=== PATIENT | female | born 1990 | race Caucasian/White ===

== ENCOUNTER 2023-03-15 10:56 | Outpatient (RCR) | payer OTHER, SELFPAY ==
[2023-03-15 11:37] LABS: HCG Quantitative 773 mIU/mL
[2023-03-17 13:32] LABS: HCG Quantitative 878 mIU/mL
== END 2023-03-19 17:34 | disposition home or self-care (01) ==
LOC: LAB 10:56
PROVIDERS: PCP Family Medicine; Visit Provider Obstetrics & Gynecology
DX: N91.2 Amenorrhea, unspecified (principal)
CPT/HCPCS: 36415; 84702

== ENCOUNTER 2023-03-19 13:56 | Day surgery (SDC) | payer OTHER, SELFPAY ==
[2023-03-19] VITALS (14 sets, daily range): BP systolic 114–138; BP diastolic 66–82; PULSE 64–96; RESP 13–26; TEMP 36.3–36.8; O2SAT 93–100; BMI 24.4
[2023-03-19 14:59] LABS: Basophils Percent Auto 0.6 % (0.2-2.0); Eosinophils Absolute Auto 0.1 10^3/uL (0.0-0.7); Eosinophils Percent Auto 1.7 % (0.9-7.0); Hematocrit 43.2 % (36.0-48.0); Immature Granulocytes Abs Auto 0.04 10^3/uL (0.00-0.03); Immature Granulocytes Pct Auto 0.6 % (0.0-0.5); Lymphocytes Absolute Auto 1.7 10^3/uL (1.2-3.8); Lymphocytes Percent Auto 24.6 % (20.5-60.0); Mean Corpuscular HGB Conc 34.7 g/dL (29.9-35.2); Mean Corpuscular Hemoglobin 33.6 pg (26.7-34.0); Mean Corpuscular Volume 96.9 fL (81.0-99.0); Mean Platelet Volume 9.1 fL (9.5-13.5); Monocytes Absolute Auto 0.6 10^3/uL (0.3-0.8); Monocytes Percent Auto 8.3 % (1.7-12.0); Neutrophils Absolute Auto 4.5 10^3/uL (1.4-6.5); Neutrophils Percent Auto 64.2 % (43.0-75.0); Platelet Count 318 10^3/uL (150-450); Red Blood Count 4.46 10^6/uL (4.20-5.40); Red Cell Distribution Width 12.8 % (11.0-15.0)
--- NOTE | 2023-03-19 15:00 | US_ITS ---
The [address] [address] Patient Name: JASMIN LUONG MRN: [id number] date: 1990 Sex: F Assigned Patient Location: ER Current Patient Location: ER Accession/Order Number: [id number] Exam Date: 03/19/2023 15:00 Report Date: 03/19/2023 15:50 At the request of: MATILDE DAVIS Procedure: US OB transvaginal EXAMINATION: US OB transvaginal HISTORY: Pelvic pain, 5 wks preg COMPARISON: No relevant comparison available. FINDINGS: GESTATIONAL SAC: Absent from endometrial cavity. YOLK SAC: Absent from endometrial cavity. POLE: Absent. CARDIAC: Absent. UTERUS: Homogeneous endometrium 7 mm in thickness. OVARIES: Right: Not seen. No suspicious adnexal findings. Left: Heterogeneous left adnexal mass 3.0 x 2.5 x 2.1 cm with questionable gestational sac and yolk sac. CUL-DE-SAC: No free fluid. OTHER: None. AGE BY LMP: 7 weeks 0 days MEGAN BY LMP: 11/05/2023 AGE BY US CRL: Not applicable MEGAN BY US CRL: US/US OB transvaginal IMPRESSION: 1. Heterogeneous left adnexal mass 3.0 cm in diameter which may contain an irregular gestational sac and small yolk sac. 2. Endometrium is not significantly thickened, only 7 mm, which weighs against . Correlate with patient's beta hCG. A left adnexal findings favor ectopic , ruptured hemorrhagic cyst could contribute to this appearance. Findings discussed with emergency department at time of dictation. Electronically authenticated by: CORI MENDIETA Date: 03/19/2023 15:50
[2023-03-19 15:32] LABS: HCG Quantitative 1345 mIU/mL
--- NOTE | 2023-03-19 15:55 | ED_ITS ---
Documented by User: LE Hunter 03/19/23 17:25 HPI - Abdominal Pain General Chief Complaint: Abdominal Pain Stated Complaint: ISSUES 5 TO 6 WKS Time Seen by Provider: 03/19/23 14:27 Source: friend Mode of arrival: walk-in Limitations: no limitations History of Present Illness HPI narrative: patient is a 32-year-old female A2 who presents to the emergency department with left-sided pelvic pain for the last three days. She has a history of right- sided ectopic . She states that it ruptured and she required surgery. She has not had any fevers or vomiting. No medications taken prior to arrival. she has not had any vaginal bleeding. Related Data Previous Rx's Medication Instructions Recorded hydrocodone 5 mg-acetaminophen 325 1 tab PO Q4H PRN pain 4 days #16 03/19/23 mg tablet tabs ibuprofen 800 mg tablet 800 mg PO Q8H PRN pain 14 days #40 03/19/23 tabs Allergies Allergy/AdvReac Type Severity Reaction Status Date / Time Latex, Natural Rubber Allergy Severe Verified 03/19/23 14:16 Review of Systems ROS Constitutional Denies: fever or chills Ears, nose, mouth, and throat Denies: throat pain Cardiovascular Denies: chest pain Respiratory Denies: shortness of breath or cough Gastrointestinal Reports: abdominal pain; Denies: nausea or vomiting Genitourinary Reports: pelvic pain; Denies: painful urination Musculoskeletal Denies: back pain Integumentary/Breast Denies: rash Neurological Denies: headache PFSH PFSH Social History Smoking status: Heavy tobacco smoker Exam Narrative Exam Narrative: Gen.: Awake, alert, in no distress Head: Normocephalic, atraumatic ENT: Moist mucous membranes Respiratory: No respiratory distress, lungs clear bilaterally Cardio: Regular rate and rhythm Gastrointestinal: Abdomen is soft, abdomen is nondistended. Tenderness in the left lower quadrant with no pain out of proportion on exam. No guarding or rebound. No flank tenderness Extremities: Moves extremities equally Psych: Normal mood and affect Neuro: No focal neuro deficit Skin: Warm, dry, intact Constitutional Vital Signs, click to edit/add: Last Vital Signs Temp 98 F 03/19/23 14:11 Pulse 86 03/19/23 14:11 Resp 20 03/19/23 14:11 BP 129/77 03/19/23 14:11 Pulse Ox 97 03/19/23 14:11 O2 Del Method Room Air 03/19/23 14:11 Course Vital Signs Vital signs: Vital Signs Temperature 98 F 03/19/23 14:11 Pulse Rate 86 03/19/23 14:11 Respiratory Rate 20 03/19/23 14:11 Blood Pressure 129/77 03/19/23 14:11 Pulse Oximetry 97 03/19/23 14:11 Oxygen Delivery Method Room Air 03/19/23 14:11 Temperature 98 F 03/19/23 14:11 Pulse Rate 86 03/19/23 14:11 Respiratory Rate 20 03/19/23 14:11 Blood Pressure 129/77 03/19/23 14:11 Pulse Oximetry 97 03/19/23 14:11 Oxygen Delivery Method Room Air 03/19/23 14:11 MDM - Abdominal Pain MDM Narrative Medical decision making narrative: patient's workup was initiated from the lobby. Lab studies show quantitative hCG level 1384 with a stable hemoglobin of 15.0. Patient was given IV fluids, morphine, Zofran for pain control. Her blood pressure is stable, she has no fevers or tachycardia. Abdomen is soft and benign in the Emergency Room, ultrasound was performed which was reviewed by the radiologist. I spoke with Dr. Rodriguez who believes the ultrasound findings are consistent with a left-sided ectopic . Patient sees Dr. García for [employer] care, he was contacted for discussion about the patient's case. He is in agreement that the patient should be admitted and will be taken to surgery. Type and screen, coagulation studies were ordered for the patient. She is stable at time of admission to surgery. Critical care time thirty-five minutes. Patient was evaluated by Dr. santo prior to admission. Medical Records Attestation: I reviewed the patient's medical records. Lab Data Attestation: I reviewed the patient's lab results. Labs: Lab Results 03/19/23 03/19/23 Range/Units 14:45 16:52 WBC 7.0 (4.0-11.0) 10^3/uL RBC 4.46 (4.20-5.40) 10^6/uL Hgb 15.0 (12.0-16.0) g/dL Hct 43.2 (36.0-48.0) % MCV 96.9 (81.0-99.0) fL MCH 33.6 (26.7-34.0) pg MCHC 34.7 (29.9-35.2) g/dL RDW 12.8 (11.0-15.0) % Plt Count 318 (150-450) 10^3/uL MPV 9.1 L (9.5-13.5) fL Neut % (Auto) 64.2 (43.0-75.0) % Lymph % (Auto) 24.6 (20.5-60.0) % Van Zandt % (Auto) 8.3 (1.7-12.0) % Eos % (Auto) 1.7 (0.9-7.0) % Baso % (Auto) 0.6 (0.2-2.0) % Neut # (Auto) 4.5 (1.4-6.5) 10^3/uL Lymph # (Auto) 1.7 (1.2-3.8) 10^3/uL [place] Zandt # (Auto) 0.6 (0.3-0.8) 10^3/uL Eos # (Auto) 0.1 (0.0-0.7) 10^3/uL Baso # (Auto) 0.0 (0.0-0.1) 10^3/uL Abs Immat Gran (auto) 0.04 H (0.00-0.03) 10^3/uL Imm/Tot Granulo (auto) 0.6 H (0.0-0.5) % PT 10.3 (9.0-11.6) sec INR 0.97 APTT 27.6 (22.3-36.2) sec HCG, Quant 1345 mIU/mL Blood Type B Positive Antibody Screen Negative Imaging Data US - abdomen: Attestation: I have reviewed the pertinent imaging results. Radiologist's impression: Procedure: US OB transvaginal EXAMINATION: US OB transvaginal HISTORY: Pelvic pain, 5 wks preg COMPARISON: No relevant comparison available. FINDINGS: GESTATIONAL SAC: Absent from endometrial cavity. YOLK SAC: Absent from endometrial cavity. POLE: Absent. CARDIAC: Absent. UTERUS: Homogeneous endometrium 7 mm in thickness. OVARIES: Right: Not seen. No suspicious adnexal findings. Left: Heterogeneous left adnexal mass 3.0 x 2.5 x 2.1 cm with questionable gestational sac and yolk sac. CUL-DE-SAC: No free fluid. OTHER: None. AGE BY LMP: 7 weeks 0 days MEGAN BY LMP: 11/05/2023 AGE BY US CRL: Not applicable MEGAN BY US CRL: IMPRESSION: 1. Heterogeneous left adnexal mass 3.0 cm in diameter which may contain an irregular gestational sac and small yolk sac. 2. Endometrium is not significantly thickened, only 7 mm, which weighs against . Correlate with patient's beta hCG. A left adnexal findings favor ectopic , ruptured hemorrhagic cyst could contribute to this appearance. Discharge Plan Discharge Chief Complaint: Abdominal Pain Clinical Impression: Ectopic , Pelvic pain Patient Disposition: Admitted As Inpatient Time of Disposition Decision: 17:25 Condition: Good Documented by User: Brock Santo MD 03/19/23 19:32 HPI - Abdominal Pain General Chief Complaint: Abdominal Pain Stated Complaint: ISSUES 5 TO 6 WKS Time Seen by Provider: 03/19/23 14:27 Related Data Previous Rx's Medication Instructions Recorded hydrocodone 5 mg-acetaminophen 325 1 tab PO Q4H PRN pain 4 days #16 03/19/23 mg tablet tabs ibuprofen 800 mg tablet 800 mg PO Q8H PRN pain 14 days #40 03/19/23 tabs Allergies Allergy/AdvReac Type Severity Reaction Status Date / Time Latex, Natural Rubber Allergy Severe Verified 03/19/23 14:16 PFSH PFSH Social History Smoking status: Heavy tobacco smoker Exam Constitutional Vital Signs, click to edit/add: Last Vital Signs Temp 98 F 03/19/23 14:11 Pulse 86 03/19/23 14:11 Resp 20 03/19/23 14:11 BP 129/77 03/19/23 14:11 Pulse Ox 97 03/19/23 14:11 O2 Del Method Room Air 03/19/23 14:11 Course Vital Signs Vital signs: Vital Signs Temperature 98 F 03/19/23 14:11 Pulse Rate 86 03/19/23 14:11 Respiratory Rate 20 03/19/23 14:11 Blood Pressure 129/77 03/19/23 14:11 Pulse Oximetry 97 03/19/23 14:11 Oxygen Delivery Method Room Air 03/19/23 14:11 Temperature 98 F 03/19/23 14:11 Pulse Rate 86 03/19/23 14:11 Respiratory Rate 20 03/19/23 14:11 Blood Pressure 129/77 03/19/23 14:11 Pulse Oximetry 97 03/19/23 14:11 Oxygen Delivery Method Room Air 03/19/23 14:11 MDM - Abdominal Pain MDM Narrative Medical decision making narrative: patient's workup was initiated from the lobby. Lab studies show quantitative hCG level 1384 with a stable hemoglobin of 15.0. Patient was given IV fluids, morphine, Zofran for pain control. Her blood pressure is stable, she has no fevers or tachycardia. Abdomen is soft and benign in the Emergency Room, ultrasound was performed which was reviewed by the radiologist. I spoke with Dr. Rodriguez who believes the ultrasound findings are consistent with a left-sided ectopic . Patient sees Dr. García for [employer] care, he was contacted for discussion about the patient's case. He is in agreement that the patient should be admitted and will be taken to surgery. Type and screen, coagulation studies were ordered for the patient. She is stable at time of admission to surgery. Critical care time thirty-five minutes. Critical care time 35 minutes exclusive from separate billable procedures that were performed. The following was considered in the determination of critical care but not limited to the level of medical decision making, intensive cardiac and/or respiratory monitoring, frequent vital sign monitoring, evaluation of laboratory studies, evaluation of radiographic studies, oxygen monitoring, and constant monitoring and speaking to family at bedside Patient was evaluated by Dr. Santo prior to admission. Multiple bedside visits were made by Dr. Santo and Kim. Lab Data Labs: Lab Results 03/19/23 03/19/23 Range/Units 14:45 16:52 WBC 7.0 (4.0-11.0) 10^3/uL RBC 4.46 (4.20-5.40) 10^6/uL Hgb 15.0 (12.0-16.0) g/dL Hct 43.2 (36.0-48.0) % MCV 96.9 (81.0-99.0) fL MCH 33.6 (26.7-34.0) pg MCHC 34.7 (29.9-35.2) g/dL RDW 12.8 (11.0-15.0) % Plt Count 318 (150-450) 10^3/uL MPV 9.1 L (9.5-13.5) fL Neut % (Auto) 64.2 (43.0-75.0) % Lymph % (Auto) 24.6 (20.5-60.0) % Van Zandt % (Auto) 8.3 (1.7-12.0) % Eos % (Auto) 1.7 (0.9-7.0) % Baso % (Auto) 0.6 (0.2-2.0) % Neut # (Auto) 4.5 (1.4-6.5) 10^3/uL Lymph # (Auto) 1.7 (1.2-3.8) 10^3/uL [place] Zandt # (Auto) 0.6 (0.3-0.8) 10^3/uL Eos # (Auto) 0.1 (0.0-0.7) 10^3/uL Baso # (Auto) 0.0 (0.0-0.1) 10^3/uL Abs Immat Gran (auto) 0.04 H (0.00-0.03) 10^3/uL Imm/Tot Granulo (auto) 0.6 H (0.0-0.5) % PT 10.3 (9.0-11.6) sec INR 0.97 APTT 27.6 (22.3-36.2) sec HCG, Quant 1345 mIU/mL Blood Type B Positive Antibody Screen Negative Discharge Plan Discharge Chief Complaint: Abdominal Pain Clinical Impression: Ectopic , Pelvic pain Patient Disposition: Admitted As Inpatient Time of Disposition Decision: 17:25 Condition: Good
[2023-03-19] MEDS: 0.9 % SODIUM CHLORIDE 1,000 ML 1000 ML IV (16:05)
[2023-03-19] MEDS: MORPHINE SULFATE 4 MG/ML VIAL IV (16:05)
[2023-03-19] MEDS: ONDANSETRON PF 4 MG/2 ML VIAL IV (16:05)
[2023-03-19 17:14] LABS: INR 0.97; Partial Thromboplastin Time 27.6 sec (22.3-36.2); Prothrombin Time 10.3 sec (9.0-11.6)
[2023-03-19] MEDS: LACTATED RINGER'S SOLUTION 1,000 ML 50 ML IV (18:18)
--- NOTE | 2023-03-19 18:55 | P.ON_ITS ---
Brief Operative Note Date of procedure: 03/19/23 Pre-op diagnosis: lt adenxal mass, suspected ectopic Post-op diagnosis: same Procedure: NAME OF PROCEDURE: [diagnostic laparoscopy with removal of ectopic ] PROCEDURE: The patient was taken back to the Operating Room where she was placed in dorsal lithotomy position after given general anesthesia. The patient was prepped and draped in normal sterile fashion. A sponge stick was placed into the patient's vagina. Attention was turned to the patient's abdomen, where a small umbilical incision was made. The fascia was tented using Sony clamps and the fascia was entered sharply. Confirmation of intraabdominal placement of the 10 mm port was confirmed under direct visualization using a laparoscope. The patient's abdomen was then insufflated using CO2 gas with approximately 4 liters. A second and third ports was placed right and left laterally, this was done under direct visualization with a 5 mm port. Survey of the patient's abdomen demonstrated normal liver and gallbladder. Survey of the patient's pelvic anatomy demonstrated normal appearing rt and lt ovary and normal appearing rt tube, lt tube was absent, ectopic seen coming and explused from lt cornu region of uterus, no rememant could be appreciated in that region of uterus. uterus was normal in appearance. No endometrial implants could be noted, no evidence of any pelvic disease was seen, normal appearing pelvic cavity. All instruments were removed from the patient's abdomen. products were removed using forceps and suction. The patient's abdomen was deinsufflated of CO2 gas. The patient tolerated the procedure well. Sponge stick was removed from the patient's vagina. The patient's infraumbilical fascia was closed using #0 Vicryl on a GI needle. The patient's skin was closed laterally and infraumbilically using 4-0 Vicryl. The patient tolerated the procedure well. Sponge, lap and needle counts were correct x 2. The patient was taken to Recovery Room in stable condition.Cli ps from prior surgery noted adhered to bladder, the clips were grasped and gently removed Anesthesia: SARAI Surgeon: Lester García Attraction Attendant: Gisella Serra Estimated blood loss (mL): 30 Pathology: other (poc) Condition: stable Disposition: PACU
[2023-03-19] MEDS: KETOROLAC TROMETHAMINE 30 MG/ML VIAL IVP (19:32)
[2023-03-19] MEDS: HYDROCODONE/ACETAMINOPHEN 5-325 MG TABLET 1 TAB PO (19:35)
== END 2023-03-19 17:19 ==
LOC: ER 17:25 → MS 17:37 → ER 23:03 → SURGOUT 23:06
PROVIDERS: Physician Assistant; Emergency Provider Emergency Medicine; PCP Family Medicine; Visit Provider Obstetrics & Gynecology
PROC: (CPT 59150; principal; 2023-03-19 17:30)
DX: O00.80 Other ectopic pregnancy without intrauterine pregnancy (principal); F17.210 Nicotine dependence, cigarettes, uncomplicated
CPT/HCPCS: 59150; 36415; 76817; 81003; 84702; 85025; 85610; 85730; 86850; 86900; 86901; 88305; 96374; 96375; 99285; J2704

== ENCOUNTER 2023-06-07 13:28 | Outpatient (OUT) | payer OTHER, SELFPAY ==
--- NOTE | 2023-06-07 13:31 | US_ITS ---
[address] [address] Patient Name: JASMIN LUONG MRN: [id number] date: 1990 Sex: F Assigned Patient Location: US Current Patient Location: US Accession/Order Number: [id number] Exam Date: 06/07/2023 13:32 Report Date: 06/07/2023 14:15 At the request of: EULALIA MAXWELL Procedure: US OB transvaginal EXAMINATION: US OB transvaginal HISTORY: MISSED MENSES COMPARISON: 03/19/2023 FINDINGS: Viera intrauterine gestation Gestational sac: 2.82 cm, 7 weeks 4 days CRL: 1.29 cm, 7 weeks 3 days Yolk sac: 4.4 mm Heart rate: 141 bpm Cervix: Closed, 4.5 cm The uterus is anteverted The right ovary is normal. The left ovary is not visualized Clinical age: 8 weeks 2 days Clinical MEGAN: 01/15/2024 Clinical age: 7 weeks 3 days Ultrasound MEGAN: 01/21/2024 US/US OB transvaginal IMPRESSION: Viable viera intrauterine gestation measuring 7 weeks 3 days Electronically authenticated by: CATRACHITA RENE Date: 06/07/2023 14:15
== END 2023-06-07 13:29 | disposition home or self-care (01) ==
LOC: US 13:29
PROVIDERS: PCP Family Medicine; Visit Provider Obstetrics & Gynecology
DX: Z34.91 Encounter for supervision of normal pregnancy, unspecified, first trimester (principal)
CPT/HCPCS: 76817

== ENCOUNTER 2023-06-16 07:35 | Outpatient (OUT) | payer OTHER, SELFPAY ==
[2023-06-16 08:18] LABS: Basophils Percent Auto 0.4 % (0.2-2.0); Eosinophils Absolute Auto 0.1 10^3/uL (0.0-0.7); Eosinophils Percent Auto 1.1 % (0.9-7.0); Hematocrit 39.6 % (36.0-48.0); Hemoglobin 13.8 g/dL (12.0-16.0); Immature Granulocytes Abs Auto 0.04 10^3/uL (0.00-0.03); Immature Granulocytes Pct Auto 0.4 % (0.0-0.5); Lymphocytes Absolute Auto 1.4 10^3/uL (1.2-3.8); Lymphocytes Percent Auto 14.8 % (20.5-60.0); Mean Corpuscular HGB Conc 34.8 g/dL (29.9-35.2); Mean Corpuscular Hemoglobin 34.2 pg (26.7-34.0); Mean Corpuscular Volume 98.3 fL (81.0-99.0); Mean Platelet Volume 10.6 fL (9.5-13.5); Monocytes Absolute Auto 0.5 10^3/uL (0.3-0.8); Monocytes Percent Auto 5.4 % (1.7-12.0); Neutrophils Absolute Auto 7.3 10^3/uL (1.4-6.5); Neutrophils Percent Auto 77.9 % (43.0-75.0); Platelet Count 226 10^3/uL (150-450); Red Blood Count 4.03 10^6/uL (4.20-5.40); Red Cell Distribution Width 11.8 % (11.0-15.0); White Blood Count 9.3 10^3/uL (4.0-11.0)
[2023-06-16 08:54] LABS: Estimated Average Glucose 85 mg/dL; Glycohemoglobin A1C 4.6 % (4.5-6.2)
[2023-06-16 08:56] LABS: Alanine Aminotransferase 20 U/L (14-59); Albumin Globulin Ratio 0.9; Albumin Level 3.5 g/dL (3.4-5.0); Alkaline Phosphatase 56 U/L (46-116); Anion Gap 14.8; Aspartate Amino Transferase 12 U/L (15-37); BUN Creatinine Ratio 15.8; Bilirubin Total 0.4 mg/dL (0.2-1.0); Calcium 8.5 mg/dL (8.5-10.1); Carbon Dioxide 23.9 mmol/L (21.0-32.0); Chloride 102 mmol/L (98-107); Chol HDL Ratio 2.3; Cholesterol 162 mg/dL (<=200); Estimated GFR (African America >60 (>=60); Estimated GFR (Non-African Ame >60 (>=60); Globulin 3.8 g/dL; Glucose 84 mg/dL (74-106); HDL Cholesterol 71 mg/dL (40-60); Potassium 3.7 mmol/L (3.5-5.1); Sodium 137 mmol/L (136-145); Total Protein 7.3 g/dL (6.4-8.2); Triglycerides 93 mg/dL (<=150); VLDL CHOLESTEROL 18.6 mg/dL
[2023-06-16 09:03] LABS: Thyroid Stimulating Hormone 0.632 uIU/mL (0.358-3.740)
[2023-06-17 07:07] LABS: Rubella Antibodies, IgG 1.45 index (Immune >0.99)
[2023-06-17 08:08] LABS: HBsAg Screen Negative (Negative); HCV Ab Non Reactive (Non Reactive); HIV Ab/p24 Ag Screen Non Reactive (Non Reactive)
[2023-06-17 09:07] LABS: Rapid Plasma Reagin, Quant Non Reactive titer (NonRea<1:1)
== END 2023-06-16 07:36 | disposition home or self-care (01) ==
PROVIDERS: PCP Family Medicine; Visit Provider Obstetrics & Gynecology
DX: Z00.00 Encounter for general adult medical examination without abnormal findings (principal); N91.2 Amenorrhea, unspecified
CPT/HCPCS: 36415; 80053; 80061; 83036; 84443; 85025; 86592; 86762; 86803; 86850; 86900; 86901; 87086; 87340; 87389

== ENCOUNTER 2023-08-29 16:48 | Outpatient (OUT) | payer OTHER, SELFPAY ==
--- NOTE | 2023-08-29 | US_ITS ---
[address] [address] Patient Name: JASMIN LUONG MRN: [id number] date: 1990 Sex: F Assigned Patient Location: US Current Patient Location: Accession/Order Number: [id number] Exam Date: 08/29/2023 16:52 Report Date: 08/29/2023 22:13 At the request of: EULALIA MAXWELL Procedure: US OB cervical length EXAMINATION: US OB anatomy, US OB cervical length HISTORY: ANATOMY SURVEY COMPARISON: No relevant comparison available. TECHNIQUE: Transabdominal sonographic examination was performed for obstetrical and evaluation. FINDINGS: Number: 1 Heart Rate: 168.8 bpm H.B. /min Amniotic Fluid Volume: Subjectively normal Placental Location: POSTERIOR with lower margin 0.8 cm from os. Cervix Length: 4.3 cm, closed. ANATOMY: Normal Structures -cerebellum, choroid plexus, cisterna magna, lateral cerebral ventricles, orbits, midline falx, hard palate, four-chamber heart, RVOT, LVOT, stomach, kidneys, bladder, umbilical cord insertion into abdomen, three-vessel cord, right upper extremity, left upper extremity, right lower extremity, left lower extremity. SUBOPTIMALLY SEEN: Spine - due to position ABNORMALITIES: None BIOMETRY: BPD: 4.1 cm 18 weeks 4 days ; 5% HC: 16.7 cm 19 weeks 3 days; 16% AC: 15.2 cm 20 weeks 3 days; 58% FL: 3.0 cm 19 weeks 1 days ; 14% EFW:308.2 grams; 29% FL/AC: 19.4 FL/BPD: 71.1 HC/AC: 1.1 GESTATIONAL AGE: Age by EDC: 20 weeks 0 days MEGAN by EDC: 01/16/2024 Age by current US: 19 weeks 3 days MEGAN by current US: 01/20/2024 US/US OB cervical length IMPRESSION: 1. Single live intrauterine with growth detailed above. 2. Suboptimal visualization of the spine due to position. 3. Low-lying posterior placenta. Electronically authenticated by: CORI MENDIETA Date: 08/29/2023 22:13
--- NOTE | 2023-08-29 | US_ITS ---
[address] [address] Patient Name: JASMIN LUONG MRN: [id number] date: 1990 Sex: F Assigned Patient Location: US Current Patient Location: Accession/Order Number: [id number] Exam Date: 08/29/2023 16:52 Report Date: 08/29/2023 22:13 At the request of: EULALIA MAXWELL Procedure: US OB anatomy EXAMINATION: US OB anatomy, US OB cervical length HISTORY: ANATOMY SURVEY COMPARISON: No relevant comparison available. TECHNIQUE: Transabdominal sonographic examination was performed for obstetrical and evaluation. FINDINGS: Number: 1 Heart Rate: 168.8 bpm H.B. /min Amniotic Fluid Volume: Subjectively normal Placental Location: POSTERIOR with lower margin 0.8 cm from os. Cervix Length: 4.3 cm, closed. ANATOMY: Normal Structures -cerebellum, choroid plexus, cisterna magna, lateral cerebral ventricles, orbits, midline falx, hard palate, four-chamber heart, RVOT, LVOT, stomach, kidneys, bladder, umbilical cord insertion into abdomen, three-vessel cord, right upper extremity, left upper extremity, right lower extremity, left lower extremity. SUBOPTIMALLY SEEN: Spine - due to position ABNORMALITIES: None BIOMETRY: BPD: 4.1 cm 18 weeks 4 days ; 5% HC: 16.7 cm 19 weeks 3 days; 16% AC: 15.2 cm 20 weeks 3 days; 58% FL: 3.0 cm 19 weeks 1 days ; 14% EFW:308.2 grams; 29% FL/AC: 19.4 FL/BPD: 71.1 HC/AC: 1.1 GESTATIONAL AGE: Age by EDC: 20 weeks 0 days MEGAN by EDC: 01/16/2024 Age by current US: 19 weeks 3 days MEGAN by current US: 01/20/2024 US/US OB anatomy IMPRESSION: 1. Single live intrauterine with growth detailed above. 2. Suboptimal visualization of the spine due to position. 3. Low-lying posterior placenta. Electronically authenticated by: CORI MENDIETA Date: 08/29/2023 22:13
--- OUTSIDE RECORDS SUMMARY | 2023-08-29 16:51 | XMS_ITS | CCD ---
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 Name Role Phone PATRICIA ., DR SUMMERS Admitting Unavailable HOY ., DR SUMMERS Attending Unavailable HOY ., DR SUMMERS Primary Care Unavailable HOY ., DR SUMMERS Consulting Unavailable HOY ., DR SUMMERS Admitting Unavailable HOY ., DR SUMMERS Attending Unavailable HOY ., DR SUMMERS Primary Care Unavailable HOY ., DR SUMMERS Consulting Unavailable ADDY ., HALI Admitting Unavailable ADDY ., HALI Attending Unavailable HOY ., DR SUMMERS Primary Care Unavailable ADDY ., HALI Consulting Unavailable ALISSA ., DR ESTEBAN Admitting Unavailable ALISSA ., DR ESTEBAN Attending Unavailable HOY ., DR SUMMERS Primary Care Unavailable REQUEST, DR FERNÁNDEZ LISTED Consulting Unavaila ble ALISSA ., DR ESTEBAN Admitting Unavailable ALISSA ., DR ESTEBAN Attending Unavailable HOY ., DR SUMMERS Primary Care Unavailable ALISSA ., DR ESTEBAN Consulting Unavailable ALISSA ., DR ESTEBAN Admitting Unavailable ALISSA ., DR ESTEBAN Attending Unavailable HOY ., DR SUMMERS Primary Care Unavailable ZIEBER, DR CORI Pearson Consulting Unavailable KEENAN II, BRET Consulting Unavailable ALISSA ., DR ESTEBAN Admitting Unavailable ALISSA ., DR ESTEBAN Attending Unavailable HOY ., DR SUMMERS Primary Care Unavailable ADDY ., HALI Admitting Unavailable ADDY ., HALI Attending Unavailable HOY ., DR SUMMERS Primary Care Unavailable ADDY ., HALI Consulting Unavailable ADDY ., HALI Admitting Unavailable ADDY ., HALI Attending Unavailable HOY ., DR SUMMERS Primary Care Unavailable ZIEBER, DR CORI Pearson Consulting Unavailable ADDY ., HALI Consulting Unavailable ADDY, HALI Attending Unavailable ALISSA, EULALIA Attending Unavailable Allergies Allergy Classification Reported Allergen(s) Allergy Type Date of Onset Reaction(s) Facility (3 sources) Latex Drug allergy (disorder) 01-23-2021 [facility] Repository Problems Active Problems Problem Classification Problem Date Documented Date Episodic/Chronic Asthma (1 source) Unspecified asthma, uncomplicated; Translations: [UNSPECIFIED ASTHMA UNCOMPLICATED] Onset: 10-15-2022 Chronic Immunizations and screening for infectious disease (1 source) Contact with and (suspected) exposure to infections with a predominantly sexual mode of transmission; Translations: [CONTCT W EXPOS INFECT SEXUAL TRNSMS] Onset: 10-18-2022 Episodic Menstrual disorders (4 sources) Excessive and frequent menstruation with regular cycle; Translations: [EXCESS FREQ MENSTRUATION W/REG CYCL] Onset: 11-20-2022 Chronic Other screening for suspected conditions (not mental disorders or infectious disease) (4 sources) Encounter for screening for malignant neoplasm of cervix; Translations: [ENC SCREENING MALIG NEOPLASM CERV] Onset: 10-16-2022 Episodic Unclassified (3 sources) CONTACT W/AND (SUSP) EXPOS COVID-19; Translations: [CONTACT W/AND (SUSP) EXPOS COVID-19] Onset: 10-15-2022 Past or Other Problems Problem Classification Problem Date Documented Da te Episodic/Chronic Unclassified (1 source) CONTACT W/AND (SUSP) EXPOS COVID-19; Translations: [CONTACT W/AND (SUSP) EXPOS COVID-19] Onset: 10-12-2022 Results Test Name Value Interpretation Reference Range Facility PREG QUANT HCGon 12-20-2022 HCG QUANT 21 mIU/mL Normal [facility] Comment on above: Performed By: #### P REGQNT #### [facility] [address] [place] [address] Dr. Meredith Piña HCG RANGE SEE BELOW Normal [facility] Comment on above: Result Comment: 5-50 0.2-1 WEEK 50-500 1-2 WEEKS 100-5,000 2-3 WEEKS 500-10,000 3-4 WEEKS 1,000-50,000 4-5 WEEKS 10,000-100,000 5-6 WEEKS 15,000-200,000 6-8 WEEKS 10,000-100,000 2-3 MONTHS Performed By: #### P REGQNT #### [facility] [address] [address] [address] Meredith Piña PREG QUANT HCGon 12-18-2022 HCG QUANT 35 mIU/mL Normal [facility] Comment on above: Performed By: #### P REGQNT, TSH #### [facility] [address] [address] [address] Meredith Piña HCG RANGE SEE BELOW Normal [facility] Comment on above: Result Comment: 5-50 0.2-1 WEEK 50-500 1-2 WEEKS 100-5,000 2-3 WEEKS 500-10,000 3-4 WEEKS 1,000-50,000 4-5 WEEKS 10,000-100,000 5-6 WEEKS 15,000-200,000 6-8 WEEKS 10,000-100,000 2-3 MONTHS Performed By: #### P REGQNT, TSH #### [facility] [address] [place] [address] Dr. Meredith Piña US PELVIS AND TRANSVAGon US PELVIS AND TRANSVAG EXAMINATION: US PELVIS AND TRANSVAG HISTORY: Excessive and frequent menstruation ; chronic right pelvic pain COMPARISON: No relevant comparison available. TECHNIQUE: Transabdominal and transvaginal sonographic examination. FINDINGS: UTERUS: Normal size and appearance. Uterus size: 7.9 x 3.8 x 4.9 cm ENDOMETRIUM: Trace amount of fluid within endometrial cavity, likely blood products. Normal homogeneous, thin appearance of endometrium. A few small calcifications along margin of endometrium, likely chronic dystrophic calcifications. Endometrial thickness: 5 mm RIGHT OVARY: Contains a 1.0 cm slightly irregular collapsing follicle versus cyst. Duplex Doppler demonstrates normal waveform and flow; resistive index 0.7. Ovary size: 1.3 x 2.4 x 1.5 cm. LEFT OVARY: Normal size and appearance. Duplex Doppler demonstrates normal waveform and flow; resistive index 0.4. Ovary size: 1.3 x 2.5 x 1.4 cm CUL-DE-SAC: Unremarkable. No significant free fluid. BLADDER: Unremarkable. OTHER: Slightly prominent vessels within left adnexa; nonspecific. IMPRESSION: 1. No specific or suspicious findings to account for patient's symptoms. Electronically authenticated by: CORI MENDIETA Date: 2022-11-20 17:13 Normal [facility] CBC AUTO DIFFon 11-14-2022 BASO # 0.0 103/ul Normal 0.0-0.1 [facility] Comment on above: Performed By: #### C BC #### [facility] [address] [place] [address] Dr. Meredith Piña Basophils/100 WBC (Bld) 0.6 % Normal 0.2-2.0 [facility] Comment on above: Performed By: #### C BC #### [facility] [address] [place] [address] Dr. Meredith Piña EO # 0.1 103/ul Normal 0.0-0.7 [facility] Comment on above: Performed By: #### C BC #### [facility] [address] [place] [address] Dr. Meredith Piña Eosinophils/100 WBC (Bld) 2.0 % Normal 0.9-7.0 [facility] Comment on above: Performed By: #### C BC #### [facility] [address] [place] [address] Dr. Meredith Piña Erythrocyte distribution width (RBC) [Ratio] 13.3 % Normal 11.0-15.0 [facility] Comment on above: Performed By: #### C BC #### [facility] [address] [place] [address] Dr. Meredith Piña Hematocrit (Bld) [Volume fraction] 40.3 % Normal 36.0-48.0 [facility] Comment on above: Performed By: #### C BC #### [facility] [address] [place] [address] Dr. Meredith Piña Hemoglobin (Bld) [Mass/Vol] 14.1 g/dL Normal 12.0-16.0 [facility] Comment on above: Performed By: #### C BC #### [facility] [address] [place] [address] Dr. Meredith Piña IG # 0.03 10e3/ul Normal 0.00-0.03 [facility] Comment on above: Performed By: #### C BC #### [facility] [address] [place] [address] Dr. Meredith Piña IG % 0.4 % Normal 0.0-0.5 [facility] Comment on above: Performed By: #### C BC #### [facility] [address] [place] [address] Dr. Meredith Piña LYMPH # 2.1 103/ul Normal 1.2-3.8 [facility] Comment on above: Performed By: #### C BC #### [facility] [address] [place] [address] Dr. Meredith Piña Lymphocytes/100 WBC (Bld) 29.9 % Normal 20.5-60.0 [facility] Comment on above: Performed By: #### C BC #### [facility] [address] [place] [address] Dr. Meredith Piña MANUAL DIFF REQ NO Normal [facility] Comment on above: Performed By: #### C BC #### [facility] [address] [place] [address] Dr. Meredith Piña MCH (RBC) [Entitic mass] 32.7 pg Normal 26.7-34.0 [facility] Comment on above: Performed By: #### C BC #### [facility] [address] [place] [address] Dr. Meredith Piña MCHC (RBC) [Mass/Vol] 35.0 g/dL Normal 29.9-35.2 [facility] Comment on above: Performed By: #### C BC #### [facility] [address] [place] [address] Dr. Meredith Piña MCV (RBC) [Entitic vol] 93.5 fL Normal 81.0-99.0 [facility] Comment on above: Performed By: #### C BC #### [facility] [address] [place] [address] Dr. Meredith Piña MONO # 0.6 103/ul Normal 0.3-0.8 [facility] Comment on above: Performed By: #### C BC #### [facility] [address] [place] [address] Dr. Meredith Piña Monocytes/100 WBC (Bld) 8.2 % Normal 1.7-12.0 [facility] Comment on above: Performed By: #### C BC #### [facility] [address] [place] [address] Dr. Meredith Piña NEUT # 4.2 103/ul Normal 1.4-6.5 [facility] Comment on above: Performed By: #### C BC #### [facility] [address] [place] [address] Dr. Meredith Piña Neutrophils/100 WBC (Bld) 58.9 % Normal 43.0-75.0 [facility] Comment on above: Performed By: #### C BC #### [facility] [address] [place] [address] Dr. Meredith Piña Platelet mean volume (Bld) [Entitic vol] 10.0 fL Normal 9.5-13.5 [facility] Comment on above: Performed By: #### C BC #### [facility] [address] [place] [address] Dr. Meredith Piña PLT 312 103/ul Normal 150-450 [facility] Comment on above: Performed By: #### C BC #### [facility] [address] [place] [address] Dr. Meredith Piña RBC 4.31 106/ul Normal 4.20-5.40 [facility] Comment on above: Performed By: #### C BC #### [facility] [address] [place] [address] Dr. Meredith Piña WBC 7.1 103/ul Normal 4.0-11.0 [facility] Comment on above: Performed By: #### C BC #### [facility] [address] [place] [address] Dr. Meredith Piña FREE T4on 11-14-2022 Free T4 [Mass/Vol] 0.85 ng/dL Normal 0.76-1.46 [facility] Comment on above: Performed By: #### P REGQNT, TSH #### [facility] [address] [place] [address] Dr. Meredith Piña GLYCOHEMOGLOBIN A1Con 03-28- 2023 ADA RECOMMENDATION SEE BELOW Normal [facility] Comment on above: Result Comment: ADA RECOMMENDED LIMIT 4.0 - 6.0 ADA THERAPEUTIC TARGET < 7.0 ACTION SUGGESTED > 7.0 Performed By: #### A 1C #### [facility] [address] [place] [address] Dr. Meredith Piña Glucose [Mass/Vol] 103 mg/dL Normal [facility] Comment on above: Performed By: #### A 1C #### [facility] [address] [place] [address] Dr. Meredith Piña HbA1c (Bld) [Mass fraction] 5.2 % Normal 4.5-6.2 [facility] Comment on above: Performed By: #### A 1C #### [facility] [address] [place] [address] Dr. Meredith Piña PREG QUANT HCGon 11-14-2022 HCG QUANT <1 Normal [facility] Comment on above: Performed By: #### P REGQNT, TSH #### [facility] [address] [place] [address] Dr. Meredith Piña HCG RANGE SEE BELOW Normal [facility] Comment on above: Result Comment: 5-50 0.2-1 WEEK 50-500 1-2 WEEKS 100-5,000 2-3 WEEKS 500-10,000 3-4 WEEKS 1,000-50,000 4-5 WEEKS 10,000-100,000 5-6 WEEKS 15,000-200,000 6-8 WEEKS 10,000-100,000 2-3 MONTHS Performed By: #### P REGQNT, TSH #### [facility] [address] [place] [address] Dr. Meredith Piña PROTIMEon 11-14-2022 INR Coag (PPP) [Relative time] {INR} Normal [facility] Comment on above: Performed By: #### P REGQNT, TSH #### [facility] [address] [place] [address] Dr. Meredith Piña INR GUIDELINES SEE BELOW Normal [facility] Comment on above: Result Comment: ASHU RED INR: 2.0 - 3.0 CONDITIONS NOT LISTED BELOW 2.5 - 3.5 FOR PROSTHETIC HEART VALVE REPLACEMENT 2.5 - 3.5 RECURRENT THROMBOSIS Performed By: #### P REGQNT, TSH #### [facility] [address] [address] [address] Meredith Piña PT Coag (PPP) [Time] 9.8 s Normal 9.0-11.6 [facility] Comment on above: Performed By: #### P REGQNT, TSH #### [facility] [address] [address] [address] Meredith Piña PTTon 11-14-2022 aPTT Coag (Bld) [Time] 25.0 s Normal 22.3-36.2 [facility] Comment on above: Performed By: #### P REGQNT, TSH #### [facility] [address] [place] [address] Dr. Meredith Piña TSHon 11-14-2022 TSH 0.749 uIU/mL Normal 0.358-3.740 [facility] Comment on above: Performed By: #### P REGQNT, TSH #### [facility] [address] [place] [address] Dr. Meredith Piña PAP ACOG PANEL 2: 30 to 65on 10-25-2022 . . Normal [facility] Comment on above: Result Comment: Perf ormed at: WB Performed By: #### P REGQNT, TSH #### [facility] [address] [place] [address] Dr. Meredith Piña Age Gdln ACOG Testing 30-65 Normal [facility] Comment on above: Performed By: #### P REGQNT, TSH #### [facility] [address] [place] [address] Dr. Meredith Piña DIAGNOSIS: Comment Normal [facility] Comment on above: Result Comment: NEGA TIVE FOR INTRAEPITHELIAL LESION OR MALIGNANCY. Performed at: WB Performed By: #### P REGQNT, TSH #### [facility] [address] [place] [address] Dr. Meredith Piña HPV Aptima Positive Abnormal Negative [facility] Comment on above: Result Comment: This nucleic acid amplification test detects fourteen high-risk HPV types (16,18,31,33,35,39,45,51,52,56,58,59,66,68) without differentiation. Performed at: =G Performed By: #### P REGQNT, TSH #### [facility] [address] [address] [address] Meredith Piña HPV Genotype 16 Negative Normal Negative [facility] Comment on above: Performed By: #### P REGQNT, TSH #### [facility] [address] [address] [address] Meredith Piña HPV Genotype 18,45 Negative Normal Negative [facility] Comment on above: Performed By: #### P REGQNT, TSH #### [facility] [address] [address] [address] Meredith Piña HPV Genotype Reflex Comment Normal [facility] Comment on above: Result Comment: Miquel arauz, see HPV Genotype results. Performed at: WB Performed By: #### P REGQNT, TSH #### [facility] [address] [address] [address] Meredith Piña Methodology: Comment Normal [facility] Comment on above: Result Comment: This liquid based ThinPrep(R) pap test was screened with the use of an image guided system. Performed at: WB Performed By: #### P REGQNT, TSH #### [facility] [address] [place] [address] Dr. Meredith Piña Note: Comment Normal [facility] Comment on above: Result Comment: The Pap smear is a screening test designed to aid in the detection of premalignant and malignant conditions of the uterine cervix. It is not a diagnostic procedure and should not be used as the sole means of detecting cervical cancer. Both false-positive and false-negative reports do occur. . Performed at: WB Performed By: #### P REGQNT, TSH #### [facility] [address] [address] [address] Meredith Piña Performed by: Comment Normal [facility] Comment on above: Result Comment: Odilon Villanueva, Drug Safety Associate (ASCP) Performed at: WB Performed By: #### P REGQNT, TSH #### [facility] [address] [place] [address] Dr. Meredith Piña Specimen adequacy: Comment Normal [facility] Comment on above: Result Comment: Sati sfactory for evaluation. Endocervical and/or squamous metaplastic cells (endocervical component) are present. Performed at: WB Performed By: #### P REGQNT, TSH #### [facility] [address] [place] [address] Dr. Meredith Piña CHLAMYDIA/GONOCOCCUS DMITRI (SW AB/URINE/PAPon 10-19-2022 Chlamydia trachomatis, DMITRI Negative Normal Negative [facility] Comment on above: Performed By: #### P REGQNT, TSH #### [facility] [address] [place] [address] Dr. Meredith Piña Neisseria gonorrhoeae, DMITRI Negative Normal Negative [facility] Comment on above: Performed By: #### P REGQNT, TSH #### [facility] [address] [place] [address] Dr. Meredith Piña VAGINITIS/VAGINOSIS DNA PROB Tayo 10-18-2022 Amira species Negative Normal Negative [facility] Comment on above: Performed By: #### V AGINT #### [facility] [address] [place] [address] Dr. Meredith Piña Gardnerella vaginalis Positive Abnormal Negative [facility] Comment on above: Performed By: #### V AGINT #### [facility] [address] [place] [address] Dr. Meredith Piña Trichomonas vaginalis Negative Normal Negative [facility] Comment on above: Performed By: #### V AGINT #### [facility] [address] [place] [address] Dr. Merdeith Piña Covid-19 PCR ([facility])on 09-21 SARS-CoV-2 (COVID-19) RNA DMITRI+probe Ql (Unsp spec) Not detected Normal NOT DETECTED [facility] Comment on above: Result Comment: When diagnostic testing is negative, the possibility of a false negative should be considered in the context of a patient's recent exposures and the presence of clinical signs and symptoms consistent with SARS-CoV-2. This test is not yet approved or cleared by the [place] FDA. When there are no FDA-approved or cleared tests available, and other criteria are met, FDA can make tests available under an emergency access mechanism called an Emergency Use Authorization (EUA). The EUA for this test is supported by the [place] of Health and Human Service's declaration that circumstances exist to justify the emergency use of in vitro diagnostics for the detection and/or diagnosis of the virus that causes COVID-19. This EUA will remain in effect for the duration of the COVID-19 declaration justifying emergency of IVDs, unless it is terminated or revoked by the FDA (after which the test may no longer be used). Performed By: #### P REGQNT, TSH #### [facility] [address] [place] [address] Dr. Meredith Piña INSULINon 06-16-2022 Insulin 15.5 uIU/mL Normal 2.6-24.9 [facility] Comment on above: Performed By: #### P REGQNT, TSH #### [facility] [address] [place] [address] Dr. Meredith Piña CBC AUTO DIFFon 06-15-2022 BASO # 0.0 103/ul Normal 0.0-0.1 [facility] Comment on above: Performed By: #### P REGQNT, TSH #### [facility] [address] [place] [address] Dr. Meredith Piña Basophils/100 WBC (Bld) 0.3 % Normal 0.2-2.0 [facility] Comment on above: Performed By: #### P REGQNT, TSH #### [facility] [address] [place] [address] Dr. Meredith Piña EO # 0.2 103/ul Normal 0.0-0.7 [facility] Comment on above: Performed By: #### P REGQNT, TSH #### [facility] [address] [place] [address] Dr. Meredith Piña Eosinophils/100 WBC (Bld) 2.0 % Normal 0.9-7.0 [facility] Comment on above: Performed By: #### P REGQNT, TSH #### [facility] [address] [place] [address] Dr. Meredith Piña Erythrocyte distribution width (RBC) [Ratio] 12.4 % Normal 11.0-15.0 [facility] Comment on above: Performed By: #### P REGQNT, TSH #### [facility] [address] [place] [address] Dr. Meredith Piña Hematocrit (Bld) [Volume fraction] 41.1 % Normal 36.0-48.0 [facility] Comment on above: Performed By: #### P REGQNT, TSH #### [facility] [address] [place] [address] Dr. Meredith Piña Hemoglobin (Bld) [Mass/Vol] 14.0 g/dL Normal 12.0-16.0 [facility] Comment on above: Performed By: #### P REGQNT, TSH #### [facility] [address] [place] [address] Dr. Meredith Piña IG # 0.04 10e3/ul Critically high 0.00-0.03 [facility] Comment on above: Performed By: #### P REGQNT, TSH #### [facility] [address] [place] [address] Dr. Meredith Piña IG % 0.4 % Normal 0.0-0.5 [facility] Comment on above: Performed By: #### P REGQNT, TSH #### [facility] [address] [place] [address] Dr. Meredith Piña LYMPH # 1.8 103/ul Normal 1.2-3.8 [facility] Comment on above: Performed By: #### P REGQNT, TSH #### [facility] [address] [place] [address] Dr. Meredith Piña Lymphocytes/100 WBC (Bld) 19.3 % Critically low 20.5-60.0 [facility] Comment on above: Performed By: #### P REGQNT, TSH #### [facility] [address] [place] [address] Dr. Meredith Piña MANUAL DIFF REQ NO Normal [facility] Comment on above: Performed By: #### P REGQNT, TSH #### [facility] [address] [place] [address] Dr. Meredith Piña MCH (RBC) [Entitic mass] 30.8 pg Normal 26.7-34.0 [facility] Comment on above: Performed By: #### P REGQNT, TSH #### [facility] [address] [place] [address] Dr. Meredith Piña MCHC (RBC) [Mass/Vol] 34.1 g/dL Normal 29.9-35.2 [facility] Comment on above: Performed By: #### P REGQNT, TSH #### [facility] [address] [place] [address] Dr. Meredith Piña MCV (RBC) [Entitic vol] 90.3 fL Normal 81.0-99.0 [facility] Comment on above: Performed By: #### P REGQNT, TSH #### [facility] [address] [place] [address] Dr. Meredith Piña MONO # 0.5 103/ul Normal 0.3-0.8 [facility] Comment on above: Performed By: #### P REGQNT, TSH #### [facility] [address] [place] [address] Dr. Meredith Piña Monocytes/100 WBC (Bld) 5.2 % Normal 1.7-12.0 [facility] Comment on above: Performed By: #### P REGQNT, TSH #### [facility] Laboratory [address] [place] [address] Dr. Meredith Piña NEUT # 6.8 103/ul Critically high 1.4-6.5 [facility] Comment on above: Performed By: #### P REGQNT, TSH #### [facility] [address] [place] [address] Dr. Meredith Piña Neutrophils/100 WBC (Bld) 72.8 % Normal 43.0-75.0 [facility] Comment on above: Performed By: #### P REGQNT, TSH #### [facility] [address] [address] [address] Meredith Piña Platelet mean volume (Bld) [Entitic vol] 9.3 fL Critically low 9.5-13.5 [facility] Comment on above: Performed By: #### P REGQNT, TSH #### [facility] [address] [address] [address] Meredith Piña PLT 354 103/ul Normal 150-450 [facility] Comment on above: Performed By: #### P REGQNT, TSH #### [facility] [address] [address] [address] Meredith Piña RBC 4.55 106/ul Normal 4.20-5.40 [facility] Comment on above: Performed By: #### P REGQNT, TSH #### [facility] [address] [place] [address] Dr. Meredith Piña WBC 9.4 103/ul Normal 4.0-11.0 [facility] Comment on above: Performed By: #### P REGQNT, TSH #### [facility] [address] [address] [address] Meredith Piña FREE THYROXINE INDEX T7on FTI 2.66 Normal 1.30-4.50 [facility] Comment on above: Performed By: #### L IPID, T7, TSH, CMP #### [facility] [address] [address] [address] Meredith Piña T3U 32.0 % Normal 30.0-39.0 [facility] Comment on above: Performed By: #### L IPID, T7, TSH, CMP #### [facility] [address] [address] [address] Meredith Piña T4 [Mass/Vol] 8.30 ug/dL Normal 4.80-13.90 [facility] Comment on above: Performed By: #### L IPID, T7, TSH, CMP #### [facility] [address] [address] [address] Meredith Piña GLYCOHEMOGLOBIN A1Con 2021 ADA RECOMMENDATION SEE BELOW Normal [facility] Comment on above: Result Comment: ADA RECOMMENDED LIMIT 4.0 - 6.0 ADA THERAPEUTIC TARGET < 7.0 ACTION SUGGESTED > 7.0 Performed By: #### P REGQNT, TSH #### [facility] [address] [address] [address] Meredith Piña Glucose [Mass/Vol] 103 mg/dL Normal [facility] Comment on above: Performed By: #### P REGQNT, TSH #### [facility] [address] [address] [address] Meredith Piña HbA1c (Bld) [Mass fraction] 5.2 % Normal 4.5-6.2 [facility] Comment on above: Performed By: #### P REGQNT, TSH #### [facility] [address] [address] [address] Meredith Piña IRONon 06-15-2022 Iron [Mass/Vol] 55.0 ug/dL Normal 50.0-170.0 [facility] Comment on above: Performed By: #### P REGQNT, TSH #### [facility] [address] [address] [address] Meredith Piña LIPID PROFILEon 06-15-2022 CHOL-HDL RATIO NORM SEE BELOW Normal [facility] Comment on above: Result Comment: 3.3 - 4.4 LOW RISK 4.4 - 7.1 AVERAGE RISK 7.1 - 11.0 MODERATE RISK >11.0 HIGH RISK Performed By: #### L IPID, T7, TSH, CMP #### [facility] [address] [address] [address] Meredith Piña Cholesterol [Mass/Vol] 178 mg/dL Normal <=200 [facility] Comment on above: Performed By: #### L IPID, T7, TSH, CMP #### [facility] [address] [address] [address] Meredith Piña Cholesterol in HDL [Mass/Vol] 50 mg/dL Normal 40-60 [facility] Comment on above: Performed By: #### L IPID, T7, TSH, CMP #### [facility] [address] [address] [address] Meredith Piña Cholesterol in LDL [Mass/Vol] 109.2 mg/dL Normal [facility] Comment on above: Performed By: #### L IPID, T7, TSH, CMP #### [facility] [address] [address] [address] Meredith Piña Cholesterol.total/Cho lesterol in HDL [Mass ratio] 3.6 {ratio} Normal [facility] Comment on above: Performed By: #### L IPID, T7, TSH, CMP #### [facility] [address] [address] [address] Meredith Piña HDL NORMAL > or = 60 mg/dl - LO W CARDIOVASCULAR RISK <40 mg/dl - HIGH CARDIOVASCULAR RISK Normal [facility] Comment on above: Performed By: #### L IPID, T7, TSH, CMP #### [facility] [address] [address] [address] Meredith Piña LDL CALC NORMAL SEE BELOW Normal [facility] Comment on above: Result Comment: <100 mg/dl OPTIMAL 100 - 129 mg/dl NEAR OR ABOVE OPTIMAL 130 - 159 mg/dl BORDERLINE HIGH 160 - 189 mg/dl HIGH >190 mg/dl VERY HIGH Performed By: #### L IPID, T7, TSH, CMP #### [facility] [address] [address] [address] Meredith Piña Triglyceride [Mass/Vol] 94 mg/dL Normal <=150 [facility] Comment on above: Performed By: #### L IPID, T7, TSH, CMP #### [facility] [address] [address] [address] Meredith Piña VLDL CALC 18.8 mg/dL Normal [facility] Comment on above: Performed By: #### L IPID, T7, TSH, CMP #### [facility] [address] [address] [address] Meredith Piña PROF 14(COMP METB)on 022 Albumin [Mass/Vol] 3.8 g/dL Normal 3.4-5.0 [facility] Comment on above: Performed By: #### L IPID, T7, TSH, CMP #### [facility] [address] [place] [address] Dr. Meredith Piña Albumin/Globulin [Mass ratio] 0.9 {ratio} Normal [facility] Comment on above: Performed By: #### L IPID, T7, TSH, CMP #### [facility] [address] [place] [address] Dr. Meredith Piña ALP [Catalytic activity/Vol] 79 U/L Normal 46-116 [facility] Comment on above: Performed By: #### L IPID, T7, TSH, CMP #### [facility] [address] [place] [address] Dr. Meredith Piña ALT [Catalytic activity/Vol] 34 U/L Normal 14-59 [facility] Comment on above: Performed By: #### L IPID, T7, TSH, CMP #### [facility] [address] [place] [address] Dr. Meredith Piña Anion gap [Moles/Vol] 11.5 mmol/L Normal [facility] Comment on above: Performed By: #### L IPID, T7, TSH, CMP #### [facility] [address] [place] [address] Dr. Meredith Piña AST [Catalytic activity/Vol] 18 U/L Normal 15-37 [facility] Comment on above: Performed By: #### L IPID, T7, TSH, CMP #### [facility] [address] [place] [address] Dr. Meredith Piña Bilirubin [Mass/Vol] 0.2 mg/dL Normal 0.2-1.0 [facility] Comment on above: Performed By: #### L IPID, T7, TSH, CMP #### [facility] [address] [place] [address] Dr. Meredith Piña Calcium [Mass/Vol] 9.1 mg/dL Normal 8.5-10.1 [facility] Comment on above: Performed By: #### L IPID, T7, TSH, CMP #### [facility] [address] [place] [address] Dr. Meredith Piña Chloride [Moles/Vol] 105 mmol/L Normal 98-107 [facility] Comment on above: Performed By: #### L IPID, T7, TSH, CMP #### [facility] [address] [address] [address] Meredith Piña CO2 [Moles/Vol] 29.3 mmol/L Normal 21.0-32.0 [facility] Comment on above: Performed By: #### L IPID, T7, TSH, CMP #### [facility] [address] [address] [address] Meredith Piña Creatinine [Mass/Vol] 0.72 mg/dL Normal 0.55-1.02 [facility] Comment on above: Performed By: #### L IPID, T7, TSH, CMP #### [facility] [address] [place] [address] Dr. Meredith Piña EGFR-AF GUAMANIAN >60 Normal >=60 [facility] Comment on above: Performed By: #### L IPID, T7, TSH, CMP #### [facility] [address] [place] [address] Dr. Meredith Piña EGFR-NON AF GUAMANIAN >60 Normal >=60 [facility] Comment on above: Performed By: #### L IPID, T7, TSH, CMP #### [facility] [address] [place] [address] Dr. Meredith Piña Globulin (S) [Mass/Vol] 4.2 g/dL Normal [facility] Comment on above: Performed By: #### L IPID, T7, TSH, CMP #### [facility] [address] [place] [address] Dr. Meredith Piña Glucose [Mass/Vol] 89 mg/dL Normal 74-106 [facility] Comment on above: Performed By: #### L IPID, T7, TSH, CMP #### [facility] [address] [place] [address] Dr. Meredith Piña Potassium [Moles/Vol] 3.8 mmol/L Normal 3.5-5.1 [facility] Comment on above: Performed By: #### L IPID, T7, TSH, CMP #### [facility] [address] [address] [address] Meredith Piña Protein [Mass/Vol] 8.0 g/dL Normal 6.4-8.2 [facility] Comment on above: Performed By: #### L IPID, T7, TSH, CMP #### [facility] [address] [address] [address] Meredith Piña Sodium [Moles/Vol] 142 mmol/L Normal 136-145 [facility] Comment on above: Performed By: #### L IPID, T7, TSH, CMP #### [facility] [address] [address] [address] Meredith Piña Urea nitrogen [Mass/Vol] 9.0 mg/dL Normal 7.0-18.0 [facility] Comment on above: Performed By: #### L IPID, T7, TSH, CMP #### [facility] [address] [place] [address] Dr. Meredith Piña Urea nitrogen/Creatinine [Mass ratio] 12.5 mg/mg Normal [facility] Comment on above: Performed By: #### L IPID, T7, TSH, CMP #### [facility] [address] [address] [address] Meredith Piña TSHon 06-15-2022 TSH 1.075 uIU/mL Normal 0.358-3.740 [facility] Comment on above: Performed By: #### L IPID, T7, TSH, CMP #### [facility] [address] [place] [address] Dr. Meredith Piña Encounters Encounter Date Encounter Type Care Provider Facility Start: 08-15-2023 End: 08-15-2023 ambulatory HALI DALY Not Available Start: 07-18-2023 End: 07-18-2023 ambulatory EULALIA MAXWELL Not Available Start: 01-12-[address] EULALIA MAXWELL . Facili ty:[facility] Start: 12-29-2022 End: 12-30-[address] EULALIA MAXWELL . Facility:[facility] Start: 12-19-[address] EULALIA MAXWELL . Facili ty:[facility] Start: 12-18-2022 End: 12-19-[address] EULALIA MAXWELL . Facility:[facility] Start: 11-20-2022 End: 11-21-2022 ambulatory HALI ADDY . Facility:[facility] Start: 11-14-2022 End: 11-15-2022 ambulatory HALI DALY . Facility:[facility] Start: 10-16-2022 End: 10-16-2022 ambulatory HALI DALY . Facility:[facility] Start: 10-12-2022 End: 10-12-[address] KRISTOPHER GOMEZ . Facility:[facility] Start: 06-18-2022 Encounter for genera l adult medical examination without abnormal findings DR KRISTOPHER GOMEZ . [facility] Start: 06-15-2022 End: 06-16-[address] KRISTOPHER GOMEZ . Facility:[facility] Start: 06-15-2022 End: 06-16-2022 Encounter for general adult medical examination without abnormal findings DR KRISTOPHER GOMEZ . Facility:[facility] Payers Date Payer Category Payer Unknown [id number] 2.16.84 [id number] 1989 Unknown [id number] 2.16.84 [id number] 1989 Unknown [id number] 2.16.84 [id number] 1989 Unknown [id number] 2.16.84 [id number] 1989 Unknown [id number] 2.16.84 [id number] 1989 Unknown [id number] 2.16.84 [id number] 1989 Unknown [id number] 2.16.84 [id number] 1989 Unknown [id number] 2.16.84 [id number] 1989 Unknown [id number] 2.16.84 [id number] 1989 Unknown [id number] 2.16.840 .[id number] 1989 Unknown [id number] 2.16.840 .[id number] 1959 Unknown [id number] 1959 Unknown [id number] Clinical Note 12-29-2022 Note Date & Type Note Facility 12-29-2022 Note EXAMINATION: XR CHES T 2 V HISTORY: Pre-surgery evaluation COMPARISON: No relevant comparison available. FINDINGS: LUNGS: No significant pulmonary parenchymal abnormalities. VASCULATURE: No increased pulmonary vasculature. PLEURA: No pneumothorax, effusion, or pleural thickening. CARDIAC: No cardiomegaly or cardiac silhouette abnormality. MEDIASTINUM: No visible mass or adenopathy. BONES: No fracture or visible bone lesion. OTHER: Negative. IMPRESSION: 1. Normal chest. Electronically authenticated by: CORI MENDIETA Date: 2022-12-29 15:15 [facility] Summary Purpose Family History No Family History Records FoundNo Family History Records Found Advance Directives No Advanced Directives Records FoundNo Advanced Directives Records Found Additional Source Comments INFORMATION SOURCE (unrecogn ized section and content) DATE CREATED AUTHOR 12/30/2022 The [facility] DATE CREATED AUTHOR AUTHOR'S ORGANIZ ATION 08/17/2023 [facility] FOR RECORDS PERTAINING TO PATIENTS WHO ARE OR HAVE BEEN ENROLLED IN A CHEMICAL DEPENDENCY/SUBSTANCEABUSE PROGRAM, SOME INFORMATION MAY BE OMITTED. This clinical summary was aggregated from multiple sources. Caution should be exercised in using it in the provision of clinical care. This summary normalizes information from multiple sources, and as a consequence, information in this document may materially change the coding, format and clinical context of patient data. In addition, data may be omitted in some cases. CLINICAL DECISIONS SHOULD BE BASED ON THE PRIMARY CLINICAL RECORDS. [employer] provides no warranty or guarantee of the accuracy or completeness of information in this document.
== END 2023-08-29 16:49 | disposition home or self-care (01) ==
PROVIDERS: PCP Family Medicine; Visit Provider Obstetrics & Gynecology
DX: Z36.89 Encounter for other specified antenatal screening (principal); Z3A.20 20 weeks gestation of pregnancy; O44.42 Low lying placenta NOS or without hemorrhage, second trimester
CPT/HCPCS: 76805; 76817

== ENCOUNTER 2023-10-13 14:25 | Outpatient (OUT) | payer OTHER, SELFPAY ==
--- NOTE | 2023-10-13 14:25 | US_ITS ---
[address] [address] Patient Name: JASMIN LUONG MRN: [id number] date: 1990 Sex: F Assigned Patient Location: US Current Patient Location: Accession/Order Number: [id number] Exam Date: 10/13/2023 14:35 Report Date: 10/15/2023 07:06 At the request of: EULALIA MAXWELL Procedure: US OB incomplete anatomy EXAM: US OB incomplete anatomy HISTORY: SCREENING, , FOR ANATOMIC SURVEY Z36.89 COMPARISON: None. TECHNIQUE: Transabdominal FINDINGS: position: Breech presentation, longitudinal lie Heart rate: 150 bpm Spine: Normal Gestational age: 26 6 weeks 4 days MEGAN: 01/15/2024 US/US OB incomplete anatomy IMPRESSION: Normal appearance of the spine Electronically authenticated by: CATRACHITA RENE Date: 10/15/2023 07:06
--- OUTSIDE RECORDS SUMMARY | 2023-10-13 14:27 | XMS_ITS | CCD ---
Author Name Unknown Address [address] [place] [address] Organization [facility] Team Providers Care Litigation Paralegal Name Role Phone PATRICIA ., DR SUMMERS [...] HALI Attending Unavailable ALISSA, EULALIA Attending Unavailable ALISSA, EULALIA Attending Unavailable Allergies Allergy Classification Reported Allergen(s) Allergy Type Date of Onset Reaction(s) Facility (3 sources) Latex Drug allergy (disorder) 01-23-2021 [facility] Repository Problems Active Problems Problem Classification Problem [...] 12-20-2022 HCG QUANT 21 mIU/mL Normal [facility] Comment on above: Performed By: #### P REGQNT #### [facility] [address] [place] [address] Dr. Meredith Piña HCG RANGE SEE BELOW Normal [facility] Comment on above: Result Comment: 5-50 0.2-1 WEEK 50-500 1-2 WEEKS 100-5,000 2-3 WEEKS 500-10,000 3-4 WEEKS 1,000-50,000 4-5 WEEKS 10,000-100,000 5-6 WEEKS 15,000-200,000 6-8 WEEKS 10,000-100,000 2-3 MONTHS Performed By: #### P REGQNT #### [facility] [address] [address] [address] Meredith Piña PREG QUANT HCGon 12-18-2022 HCG QUANT 35 mIU/mL Normal [facility] Comment on above: Performed By: #### P REGQNT, TSH #### [facility] [address] [address] [address] Meredith Piña HCG RANGE SEE BELOW Normal [facility] Comment on above: Result Comment: 5-50 0.2-1 WEEK 50-500 1-2 WEEKS 100-5,000 2-3 WEEKS 500-10,000 3-4 WEEKS 1,000-50,000 4-5 WEEKS 10,000-100,000 5-6 WEEKS 15,000-200,000 6-8 WEEKS 10,000-100,000 2-3 MONTHS Performed By: #### P REGQNT, TSH #### [facility] [address] [address] [address] Meredith Piña US PELVIS AND TRANSVAGon [...] CORI MENDIETA Date: 2022-11-20 17:13 Normal [facility] CBC AUTO DIFFon 11-14-2022 BASO # 0.0 103/ul Normal 0.0-0.1 [facility] Comment on above: Performed By: #### C BC #### [facility] [address] [place] [address] Dr. Meredith Piña Basophils/100 WBC (Bld) 0.6 % Normal 0.2-2.0 [facility] Comment on above: Performed By: #### C BC #### [facility] [address] [place] [address] Dr. Meredith Piña EO # 0.1 103/ul Normal 0.0-0.7 [facility] Comment on above: Performed By: #### C BC #### [facility] [address] [place] [address] Dr. Meredith Piña Eosinophils/100 WBC (Bld) 2.0 % Normal 0.9-7.0 [facility] Comment on above: Performed By: #### C BC #### [facility] [address] [place] [address] Dr. Meredith Piña Erythrocyte distribution width (RBC) [Ratio] 13.3 % Normal 11.0-15.0 [facility] Comment on above: Performed By: #### C BC #### [facility] [address] [place] [address] Dr. Meredith Piña Hematocrit (Bld) [Volume fraction] 40.3 % Normal 36.0-48.0 [facility] Comment on above: Performed By: #### C BC #### [facility] [address] [place] [address] Dr. Meredith Pñia Hemoglobin (Bld) [Mass/Vol] 14.1 g/dL Normal 12.0-16.0 [facility] Comment on above: Performed By: #### C BC #### [facility] [address] [place] [address] Dr. Meredith Piña IG # 0.03 10e3/ul Normal 0.00-0.03 [facility] Comment on above: Performed By: #### C BC #### [facility] [address] [place] [address] Dr. Meredith Piña IG % 0.4 % Normal 0.0-0.5 [facility] Comment on above: Performed By: #### C BC #### [facility] [address] [place] [address] Dr. Meredith Piña LYMPH # 2.1 103/ul Normal 1.2-3.8 [facility] Comment on above: Performed By: #### C BC #### [facility] [address] [place] [address] Dr. Meredith Piña Lymphocytes/100 WBC (Bld) 29.9 % Normal 20.5-60.0 [facility] Comment on above: Performed By: #### C BC #### [facility] [address] [place] [address] Dr. Meredith Piña MANUAL DIFF REQ NO Normal [facility] Comment on above: Performed By: #### C BC #### [facility] [address] [place] [address] Dr. Meredith Piña MCH (RBC) [Entitic mass] 32.7 pg Normal 26.7-34.0 [facility] Comment on above: Performed By: #### C BC #### [facility] [address] [place] [address] Dr. Meredith Piña MCHC (RBC) [Mass/Vol] 35.0 g/dL Normal 29.9-35.2 [facility] Comment on above: Performed By: #### C BC #### [facility] [address] [place] [address] Dr. Meredith Piña MCV (RBC) [Entitic vol] 93.5 fL Normal 81.0-99.0 [facility] Comment on above: Performed By: #### C BC #### [facility] [address] [place] [address] Dr. Meredith Piña MONO # 0.6 103/ul Normal 0.3-0.8 [facility] Comment on above: Performed By: #### C BC #### [facility] [address] [place] [address] Dr. Meredith Piña Monocytes/100 WBC (Bld) 8.2 % Normal 1.7-12.0 [facility] Comment on above: Performed By: #### C BC #### [facility] [address] [place] [address] Dr. Meredith Piña NEUT # 4.2 103/ul Normal 1.4-6.5 [facility] Comment on above: Performed By: #### C BC #### [facility] [address] [place] [address] Dr. Meredith Piña Neutrophils/100 WBC (Bld) 58.9 % Normal 43.0-75.0 [facility] Comment on above: Performed By: #### C BC #### [facility] [address] [place] [address] Dr. Meredith Piña Platelet mean volume (Bld) [Entitic vol] 10.0 fL Normal 9.5-13.5 [facility] Comment on above: Performed By: #### C BC #### [facility] [address] [place] [address] Dr. Meredith Piña PLT 312 103/ul Normal 150-450 [facility] Comment on above: Performed By: #### C BC #### [facility] [address] [place] [address] Dr. Meredith Piña RBC 4.31 106/ul Normal 4.20-5.40 [facility] Comment on above: Performed By: #### C BC #### [facility] [address] [place] [address] Dr. Meredith Piña WBC 7.1 103/ul Normal 4.0-11.0 [facility] Comment on above: Performed By: #### C BC #### [facility] [address] [place] [address] Dr. Meredith Piña FREE T4on 11-14-2022 Free T4 [Mass/Vol] 0.85 ng/dL Normal 0.76-1.46 [facility] Comment on above: Performed By: #### P REGQNT, TSH #### [facility] [address] [place] [address] Dr. Meredith Piña GLYCOHEMOGLOBIN A1Con 2022 ADA RECOMMENDATION SEE BELOW Normal [facility] Comment on above: Result Comment: ADA RECOMMENDED LIMIT 4.0 - 6.0 ADA THERAPEUTIC TARGET < 7.0 ACTION SUGGESTED > 7.0 Performed By: #### A 1C #### [facility] [address] [place] [address] Dr. Meredith Piña Glucose [Mass/Vol] 103 mg/dL Normal [facility] Comment on above: Performed By: #### A 1C #### [facility] [address] [address] [address] Meredith Piña HbA1c (Bld) [Mass fraction] 5.2 % Normal 4.5-6.2 [facility] Comment on above: Performed By: #### A 1C #### [facility] [address] [place] [address] Dr. Meredith Piña PREG QUANT HCGon 11-14-2022 HCG QUANT <1 Normal [facility] Comment on above: Performed By: #### P REGQNT, TSH #### [facility] [address] [address] [address] Meredith Piña HCG RANGE SEE BELOW Normal [facility] Comment on above: Result Comment: 5-50 0.2-1 WEEK 50-500 1-2 WEEKS 100-5,000 2-3 WEEKS 500-10,000 3-4 WEEKS 1,000-50,000 4-5 WEEKS 10,000-100,000 5-6 WEEKS 15,000-200,000 6-8 WEEKS 10,000-100,000 2-3 MONTHS Performed By: #### P REGQNT, TSH #### [facility] [address] [place] [address] Dr. Meredith Piña PROTIMEon 11-14-2022 INR Coag (PPP) [Relative time] {INR} Normal [facility] Comment on above: Performed By: #### P REGQNT, TSH #### [facility] [address] [place] [address] Dr. Meredith Piña INR GUIDELINES SEE BELOW Normal [facility] Comment on above: Result Comment: ASHU RED INR: 2.0 - 3.0 CONDITIONS NOT LISTED BELOW 2.5 - 3.5 FOR PROSTHETIC HEART VALVE REPLACEMENT 2.5 - 3.5 RECURRENT THROMBOSIS Performed By: #### P REGQNT, TSH #### [facility] [address] [place] [address] Dr. Meredith Piña PT Coag (PPP) [Time] 9.8 s Normal 9.0-11.6 [facility] Comment on above: Performed By: #### P REGQNT, TSH #### [facility] [address] [place] [address] Dr. Meredith Piña PTTon 11-14-2022 aPTT Coag (Bld) [Time] 25.0 s Normal 22.3-36.2 [facility] Comment on above: Performed By: #### P REGQNT, TSH #### [facility] [address] [place] [address] Dr. Meredith Piña TSHon 11-14-2022 TSH 0.749 uIU/mL Normal 0.358-3.740 [facility] Comment on above: Performed By: #### P REGQNT, TSH #### [facility] [address] [place] [address] Dr. Meredith Piña PAP ACOG PANEL 2: 30 to 65on 10-25-2022 . . Normal [facility] Comment on above: Result Comment: Perf ormed at: WB Performed By: #### P REGQNT, TSH #### [facility] [address] [place] [address] Dr. Meredith Piña Age Gdln ACOG Testing 30-65 Normal [facility] Comment on above: Performed By: #### P REGQNT, TSH #### [facility] [address] [place] [address] Dr. Meredith Piña DIAGNOSIS: Comment Normal [facility] Comment on above: Result Comment: NEGA TIVE FOR INTRAEPITHELIAL LESION OR MALIGNANCY. Performed at: WB Performed By: #### P REGQNT, TSH #### [facility] [address] [place] [address] Dr. Meredith Piña HPV Aptima Positive Abnormal Negative [facility] Comment on above: Result Comment: This nucleic acid amplification test detects fourteen high-risk HPV types (16,18,31,33,35,39,45,51,52,56,58,59,66,68) without differentiation. Performed at: =G Performed By: #### P REGQNT, TSH #### [facility] [address] [address] [address] Meredith Piña HPV Genotype 16 Negative Normal Negative [facility] Comment on above: Performed By: #### P REGQNT, TSH #### [facility] [address] [address] [address] Meredith Piña HPV Genotype 18,45 Negative Normal Negative [facility] Comment on above: Performed By: #### P REGQNT, TSH #### [facility] [address] [address] [address] Meredith Piña HPV Genotype Reflex Comment Normal [facility] Comment on above: Result Comment: Miquel arauz, see HPV Genotype results. Performed at: WB Performed By: #### P REGQNT, TSH #### [facility] [address] [address] [address] Meredith Piña Methodology: Comment Normal [facility] Comment on above: Result Comment: This liquid based ThinPrep(R) pap test was screened with the use of an image guided system. Performed at: WB Performed By: #### P REGQNT, TSH #### [facility] [address] [address] [address] Meredith Piña Note: Comment Normal [facility] Comment on above: Result Comment: The [...] Performed By: #### P REGQNT, TSH #### [facility] [address] [address] [address] Meredith Piña Performed by: Comment Normal [facility] Comment on above: Result Comment: Odilon Villanueva, Geography Teacher (ASCP) Performed at: WB Performed By: #### P REGQNT, TSH #### [facility] [address] [place] [address] Dr. Meredith Piña Specimen adequacy: Comment Normal [facility] Comment on above: Result Comment: Sati sfactory for evaluation. Endocervical and/or squamous metaplastic cells (endocervical component) are present. Performed at: WB Performed By: #### P REGQNT, TSH #### [facility] [address] [place] [address] Dr. Meredith Piña CHLAMYDIA/GONOCOCCUS DMITRI ( AB/URINE/PAPon 10-19-2022 Chlamydia trachomatis, DMITRI Negative Normal Negative [facility] Comment on above: Performed By: #### P REGQNT, TSH #### [facility] [address] [place] [address] Dr. Meredith Piña Neisseria gonorrhoeae, DMITRI Negative Normal Negative [facility] Comment on above: Performed By: #### P REGQNT, TSH #### [facility] [address] [place] [address] Dr. Meredith Piña VAGINITIS/VAGINOSIS DNA PROB Tayo 10-18-2022 Amira species Negative Normal Negative [facility] Comment on above: Performed By: #### V AGINT #### [facility] [address] [place] [address] Dr. Meredith Piña Gardnerella vaginalis Positive Abnormal Negative [facility] Comment on above: Performed By: #### V AGINT #### [facility] [address] [place] [address] Dr. Meredith Piña Trichomonas vaginalis Negative Normal Negative [facility] Comment on above: Performed By: #### V AGINT #### [facility] [address] [place] [address] Dr. Meredith Piña Covid-19 PCR ([facility])on 09-21 SARS-CoV-2 (COVID-19) RNA DMITRI+probe Ql (Unsp spec) Not detected Normal NOT DETECTED [facility] Comment on above: Result Comment: When diagnostic [...] for this test is supported by the Health Advocate of Health and Human Service's declaration that [...] Performed By: #### P REGQNT, TSH #### [facility] [address] [place] [address] Dr. Meredith Piña INSULINon 06-16-2022 Insulin 15.5 uIU/mL Normal 2.6-24.9 [facility] Comment on above: Performed By: #### P REGQNT, TSH #### [facility] [address] [place] [address] Dr. Meredith Piña CBC AUTO DIFFon 06-15-2022 BASO # 0.0 103/ul Normal 0.0-0.1 [facility] Comment on above: Performed By: #### P REGQNT, TSH #### [facility] [address] [place] [address] Dr. Meredith Piña Basophils/100 WBC (Bld) 0.3 % Normal 0.2-2.0 [facility] Comment on above: Performed By: #### P REGQNT, TSH #### [facility] [address] [place] [address] Dr. Meredith Piña EO # 0.2 103/ul Normal 0.0-0.7 [facility] Comment on above: Performed By: #### P REGQNT, TSH #### [facility] [address] [place] [address] Dr. Meredith Piña Eosinophils/100 WBC (Bld) 2.0 % Normal 0.9-7.0 [facility] Comment on above: Performed By: #### P REGQNT, TSH #### [facility] [address] [place] [address] Dr. Meredith Piña Erythrocyte distribution width (RBC) [Ratio] 12.4 % Normal 11.0-15.0 [facility] Comment on above: Performed By: #### P REGQNT, TSH #### [facility] [address] [place] [address] Dr. Meredith Piña Hematocrit (Bld) [Volume fraction] 41.1 % Normal 36.0-48.0 [facility] Comment on above: Performed By: #### P REGQNT, TSH #### [facility] [address] [place] [address] Dr. Meredith Piña Hemoglobin (Bld) [Mass/Vol] 14.0 g/dL Normal 12.0-16.0 [facility] Comment on above: Performed By: #### P REGQNT, TSH #### [facility] [address] [place] [address] Dr. Meredith Piña IG # 0.04 10e3/ul Critically high 0.00-0.03 [facility] Comment on above: Performed By: #### P REGQNT, TSH #### [facility] [address] [place] [address] Dr. Meredith Piña IG % 0.4 % Normal 0.0-0.5 [facility] Comment on above: Performed By: #### P REGQNT, TSH #### [facility] [address] [place] [address] Dr. Meredith Piña LYMPH # 1.8 103/ul Normal 1.2-3.8 [facility] Comment on above: Performed By: #### P REGQNT, TSH #### [facility] [address] [place] [address] Dr. Meredith Piña Lymphocytes/100 WBC (Bld) 19.3 % Critically low 20.5-60.0 [facility] Comment on above: Performed By: #### P REGQNT, TSH #### [facility] [address] [place] [address] Dr. Meredith Piña MANUAL DIFF REQ NO Normal [facility] Comment on above: Performed By: #### P REGQNT, TSH #### [facility] [address] [place] [address] Dr. Meredith Piña MCH (RBC) [Entitic mass] 30.8 pg Normal 26.7-34.0 [facility] Comment on above: Performed By: #### P REGQNT, TSH #### [facility] [address] [place] [address] Dr. Meredith Piña MCHC (RBC) [Mass/Vol] 34.1 g/dL Normal 29.9-35.2 [facility] Comment on above: Performed By: #### P REGQNT, TSH #### [facility] [address] [place] [address] Dr. Meredith Piña MCV (RBC) [Entitic vol] 90.3 fL Normal 81.0-99.0 [facility] Comment on above: Performed By: #### P REGQNT, TSH #### [facility] [address] [place] [address] Dr. Meredith Piña MONO # 0.5 103/ul Normal 0.3-0.8 [facility] Comment on above: Performed By: #### P REGQNT, TSH #### [facility] [address] [place] [address] Dr. Meredith Piña Monocytes/100 WBC (Bld) 5.2 % Normal 1.7-12.0 [facility] Comment on above: Performed By: #### P REGQNT, TSH #### [facility] [address] [place] [address] Dr. Meredith Piña NEUT # 6.8 103/ul Critically high 1.4-6.[address] [facility] Comment on above: Performed By: #### P REGQNT, TSH #### [facility] [address] [place] [address] Dr. Meredith Piña Neutrophils/100 WBC (Bld) 72.8 % Normal 43.0-75.0 [facility] Comment on above: Performed By: #### P REGQNT, TSH #### [facility] [address] [address] [address] Meredith Piña Platelet mean volume (Bld) [Entitic vol] 9.3 fL Critically low 9.5-13.5 [facility] Comment on above: Performed By: #### P REGQNT, TSH #### [facility] [address] [address] [address] Meredith Piña PLT 354 103/ul Normal 150-450 [facility] Comment on above: Performed By: #### P REGQNT, TSH #### [facility] [address] [address] [address] Meredith Piña RBC 4.55 106/ul Normal 4.20-5.40 [facility] Comment on above: Performed By: #### P REGQNT, TSH #### [facility] [address] [place] [address] Dr. Meredith Piña WBC 9.4 103/ul Normal 4.0-11.0 [facility] Comment on above: Performed By: #### P REGQNT, TSH #### [facility] [address] [address] [address] Meredith Piña FREE THYROXINE INDEX T7on FTI 2.66 Normal 1.30-4.50 [facility] Comment on above: Performed By: #### L IPID, T7, TSH, CMP #### [facility] [address] [address] [address] Meredith Piña T3U 32.0 % Normal 30.0-39.0 [facility] Comment on above: Performed By: #### L IPID, T7, TSH, CMP #### [facility] [address] [address] [address] Meredith Piña T4 [Mass/Vol] 8.30 ug/dL Normal 4.80-13.90 [facility] Comment on above: Performed By: #### L IPID, T7, TSH, CMP #### [facility] [address] [address] [address] Meredith Piña GLYCOHEMOGLOBIN A1Con 2021 ADA RECOMMENDATION SEE BELOW Normal [facility] Comment on above: Result Comment: ADA RECOMMENDED LIMIT 4.0 - 6.0 ADA THERAPEUTIC TARGET < 7.0 ACTION SUGGESTED > 7.0 Performed By: #### P REGQNT, TSH #### [facility] [address] [address] [address] Meredith Piña Glucose [Mass/Vol] 103 mg/dL Normal [facility] Comment on above: Performed By: #### P REGQNT, TSH #### [facility] [address] [address] [address] Meredith Piña HbA1c (Bld) [Mass fraction] 5.2 % Normal 4.5-6.2 [facility] Comment on above: Performed By: #### P REGQNT, TSH #### [facility] [address] [address] [address] Meredith Piña IRONon 06-15-2022 Iron [Mass/Vol] 55.0 ug/dL Normal 50.0-170.0 [facility] Comment on above: Performed By: #### P REGQNT, TSH #### [facility] [address] [address] [address] Meredith Piña LIPID PROFILEon 06-15-2022 CHOL-HDL RATIO NORM SEE BELOW Normal [facility] Comment on above: Result Comment: 3.3 - 4.4 LOW RISK 4.4 - 7.1 AVERAGE RISK 7.1 - 11.0 MODERATE RISK >11.0 HIGH RISK Performed By: #### L IPID, T7, TSH, CMP #### [facility] [address] [address] [address] Meredith Piña Cholesterol [Mass/Vol] 178 mg/dL Normal <=200 [facility] Comment on above: Performed By: #### L IPID, T7, TSH, CMP #### [facility] [address] [address] [address] Meredith Piña Cholesterol in HDL [Mass/Vol] 50 mg/dL Normal 40-60 [facility] Comment on above: Performed By: #### L IPID, T7, TSH, CMP #### [facility] [address] [address] [address] Meredith Piña Cholesterol in LDL [Mass/Vol] 109.2 mg/dL Normal [facility] Comment on above: Performed By: #### L IPID, T7, TSH, CMP #### [facility] [address] [address] [address] Meredith Piña Cholesterol.total/Cho lesterol in HDL [Mass ratio] 3.6 {ratio} Normal [facility] Comment on above: Performed By: #### L IPID, T7, TSH, CMP #### [facility] [address] [address] [address] Meredith Piña HDL NORMAL > or = 60 mg/dl - LO W CARDIOVASCULAR RISK <40 mg/dl - HIGH CARDIOVASCULAR RISK Normal [facility] Comment on above: Performed By: #### L IPID, T7, TSH, CMP #### [facility] [address] [address] [address] Meredith Piña LDL CALC NORMAL SEE BELOW Normal [facility] Comment on above: Result Comment: <100 mg/dl OPTIMAL 100 - 129 mg/dl NEAR OR ABOVE OPTIMAL 130 - 159 mg/dl BORDERLINE HIGH 160 - 189 mg/dl HIGH >190 mg/dl VERY HIGH Performed By: #### L IPID, T7, TSH, CMP #### [facility] [address] [address] [address] Meredith Piña Triglyceride [Mass/Vol] 94 mg/dL Normal <=150 [facility] Comment on above: Performed By: #### L IPID, T7, TSH, CMP #### [facility] [address] [address] [address] Meredith Piña VLDL CALC 18.8 mg/dL Normal [facility] Comment on above: Performed By: #### L IPID, T7, TSH, CMP #### [facility] [address] [address] [address] Meredith Piña PROF 14(COMP METB)on 022 Albumin [Mass/Vol] 3.8 g/dL Normal 3.4-5.0 [facility] Comment on above: Performed By: #### L IPID, T7, TSH, CMP #### [facility] [facility] [address] [place] [address] Dr. Meredith Piña Albumin/Globulin [Mass ratio] 0.9 {ratio} Normal [facility] Comment on above: Performed By: #### L IPID, T7, TSH, CMP #### [facility] [address] [place] [address] Dr. Meredith Piña ALP [Catalytic activity/Vol] 79 U/L Normal 46-116 [facility] Comment on above: Performed By: #### L IPID, T7, TSH, CMP #### [facility] [address] [place] [address] Dr. Meredith Piña ALT [Catalytic activity/Vol] 34 U/L Normal 14-59 [facility] Comment on above: Performed By: #### L IPID, T7, TSH, CMP #### [facility] [address] [place] [address] Dr. Meredith Piña Anion gap [Moles/Vol] 11.5 mmol/L Normal [facility] Comment on above: Performed By: #### L IPID, T7, TSH, CMP #### [facility] [address] [place] [address] Dr. Meredith Piña AST [Catalytic activity/Vol] 18 U/L Normal 15-37 [facility] Comment on above: Performed By: #### L IPID, T7, TSH, CMP #### [facility] [address] [place] [address] Dr. Meredith Piña Bilirubin [Mass/Vol] 0.2 mg/dL Normal 0.2-1.0 [facility] Comment on above: Performed By: #### L IPID, T7, TSH, CMP #### [facility] [address] [place] [address] Dr. Meredith Piña Calcium [Mass/Vol] 9.1 mg/dL Normal 8.5-10.1 [facility] Comment on above: Performed By: #### L IPID, T7, TSH, CMP #### [facility] [address] [place] [address] Dr. Meredith Piña Chloride [Moles/Vol] 105 mmol/L Normal 98-107 [facility] Comment on above: Performed By: #### L IPID, T7, TSH, CMP #### [facility] [address] [address] [address] Meredith Piña CO2 [Moles/Vol] 29.3 mmol/L Normal 21.0-32.0 [facility] Comment on above: Performed By: #### L IPID, T7, TSH, CMP #### [facility] [address] [address] [address] Meredith Piña Creatinine [Mass/Vol] 0.72 mg/dL Normal 0.55-1.02 [facility] Comment on above: Performed By: #### L IPID, T7, TSH, CMP #### [facility] [address] [address] [address] Meredith Piña EGFR-AF BAHRAINI >60 Normal >=[address] [facility] Comment on above: Performed By: #### L IPID, T7, TSH, CMP #### [facility] [address] [address] [address] Meredith Piña EGFR-NON AF BAHRAINI >60 Normal >=60 [facility] Comment on above: Performed By: #### L IPID, T7, TSH, CMP #### [facility] [address] [address] [address] Meredith Piña Globulin (S) [Mass/Vol] 4.2 g/dL Normal [facility] Comment on above: Performed By: #### L IPID, T7, TSH, CMP #### [facility] [address] [address] [address] Meredith Piña Glucose [Mass/Vol] 89 mg/dL Normal 74-106 [facility] Comment on above: Performed By: #### L IPID, T7, TSH, CMP #### [facility] [address] [address] [address] Meredith Piña Potassium [Moles/Vol] 3.8 mmol/L Normal 3.5-5.1 [facility] Comment on above: Performed By: #### L IPID, T7, TSH, CMP #### [facility] [address] [address] [address] Meredith Piña Protein [Mass/Vol] 8.0 g/dL Normal 6.4-8.2 [facility] Comment on above: Performed By: #### L IPID, T7, TSH, CMP #### [facility] [address] [place] [address] Dr. Meredith Piña Sodium [Moles/Vol] 142 mmol/L Normal 136-145 [facility] Comment on above: Performed By: #### L IPID, T7, TSH, CMP #### [facility] [address] [address] [address] Meredith Piña Urea nitrogen [Mass/Vol] 9.0 mg/dL Normal 7.0-18.0 [facility] Comment on above: Performed By: #### L IPID, T7, TSH, CMP #### [facility] [address] [place] [address] Dr. Meredith Piña Urea nitrogen/Creatinine [Mass ratio] 12.5 mg/mg Normal [facility] Comment on above: Performed By: #### L IPID, T7, TSH, CMP #### [facility] [address] [place] [address] Dr. Meredith Piña TSHon 06-15-2022 TSH 1.075 uIU/mL Normal 0.358-3.740 [facility] Comment on above: Performed By: #### L IPID, T7, TSH, CMP #### [facility] [address] [place] [address] Dr. Meredith Piña Encounters Encounter Date Encounter Type Care Provider Facility Start: 10-01-2023 End: 10-01-2023 ambulatory EULALIA MAXWELL Not Available Start: 08-15-2023 End: 08-15-2023 ambulatory HALI DALY Not Available Start: 07-18-2023 End: 07-18-2023 ambulatory EULALIA MAXWELL Not Available Start: 01-12-[address] EULALIA MAXWELL . Facili ty:[facility] Start: 12-29-2022 End: 12-30-[address] EULALIA MAXWELL . Facility:[facility] Start: 12-19-[address] EULALIA MAXWELL . Facili ty:[facility] Start: 12-18-2022 End: 12-19-[address] EULALIA MAXWELL . Facility:[facility] Start: 11-20-2022 End: 11-21-2022 ambulatory HALI DALY . Facility:[facility] Start: 11-14-2022 End: 11-15-2022 ambulatory HALI PIMENTELEY . Facility:[facility] Start: 10-16-2022 End: 10-16-2022 ambulatory HALI DALY . Facility:[facility] Start: 10-12-2022 End: 10-12-[address] KRISTOPHER GOMEZ . Facility:[facility] Start: 06-18-2022 Encounter for genera l adult medical examination without abnormal findings DR KRISTOPHER GOMEZ . [facility] Start: 06-15-2022 End: 06-16-[address] KRISTOPHER GOMEZ . Facility:[facility] Start: 06-15-2022 End: 06-16-2022 Encounter for general adult medical examination without abnormal findings DR KRISTOPHER GOMEZ . Facility:[facility] Payers Date Payer Category Payer Unknown [id number] 2.16.84 [id number] 1989 Unknown [id number] 2.16.84 [id number] 1989 Unknown [id number] 2.16.84 [id number] 1989 Unknown [id number] 2.16.84 [id number] 1989 Unknown [id number] 2.16.84 [id number] 1989 Unknown [id number] 2.16.84 0.1.932732.3.579.2.593 1989 Unknown [id number] 2.16.84 [id number] 1989 Unknown [id number] 2.16.84 0.1.157693.3.579.2.593 1989 Unknown [id number] 2.16.84 [id number] 1989 Unknown [id number] 2.16.84 0.1.883238.3.579.2.1259 1989 Unknown [id number] 2.16.840 .1.381647.3.579.2.1259 1989 Unknown [id number] 2.16.840 .[id number] 1959 Unknown [id number] 1959 Unknown [id number] Clinical Note 12-29-2022 Note Date & Type [...] by: CORI MENDIETA Date: 2022-12-29 15:15 [facility] Summary Purpose Family History No Family History Records FoundNo Family History Records Found Advance Directives No Advanced Directives Records FoundNo Advanced Directives Records Found Additional Source Comments INFORMATION SOURCE (unrecogn ized section and content) DATE CREATED AUTHOR 12/30/2022 [facility] DATE CREATED AUTHOR AUTHOR'S ORGANIZ ATION 10/02/[address] [facility] FOR RECORDS PERTAINING TO PATIENTS WHO ARE [...] BE BASED ON THE PRIMARY CLINICAL RECORDS. [facility] provides no warranty or guarantee of the accuracy or completeness of information in this document.
== END 2023-10-13 14:26 | disposition home or self-care (01) ==
LOC: US 14:25
PROVIDERS: PCP Family Medicine; Visit Provider Obstetrics & Gynecology
DX: Z36.89 Encounter for other specified antenatal screening (principal); Z3A.26 26 weeks gestation of pregnancy
CPT/HCPCS: 76815

== ENCOUNTER 2023-10-17 10:42 | Outpatient (REF) | payer OTHER, MEDICAID, SELFPAY ==
[2023-10-17 13:42] LABS: Influenza Virus A Antigen Negative; Influenza Virus B Antigen Negative; Internal Control Within Normal Limits; Respiratory Syncytial Virus Not Detected (NOT DETECTE)
== END 2023-10-17 10:43 | disposition home or self-care (01) ==
LOC: LAB 10:42
PROVIDERS: PCP Family Medicine; Visit Provider Family Medicine
DX: J21.9 Acute bronchiolitis, unspecified (principal)
CPT/HCPCS: 87420; 87804

== ENCOUNTER 2023-11-26 09:48 | Outpatient (OUT) | payer OTHER, MEDICAID, SELFPAY ==
--- OUTSIDE RECORDS SUMMARY | 2023-11-26 10:02 | XMS_ITS | CCD ---
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 Repository Problems Active Problems Problem Classification [...] 12-20-2022 HCG QUANT 21 mIU/mL Normal [facility] Comment on above: Performed By: #### P REGQNT #### [facility] [address] [place] [address] Dr. Meredith Piña HCG RANGE SEE BELOW Normal [facility] Comment on above: Result Comment: 5-50 0.2-1 WEEK 50-500 1-2 WEEKS 100-5,000 2-3 WEEKS 500-10,000 3-4 WEEKS 1,000-50,000 4-5 WEEKS 10,000-100,000 5-6 WEEKS 15,000-200,000 6-8 WEEKS 10,000-100,000 2-3 MONTHS Performed By: #### P REGQNT #### [facility] [address] [place] [address] Dr. Meredith iPña PREG QUANT HCGon 12-18-2022 HCG QUANT 35 mIU/mL Normal [facility] Comment on above: Performed By: #### P REGQNT, TSH #### [facility] [address] [place], [place] [address] Dr. Meredith Piña HCG RANGE SEE BELOW Normal [facility] Comment on above: Result Comment: 5-50 0.2-1 WEEK 50-500 1-2 WEEKS 100-5,000 2-3 WEEKS 500-10,000 3-4 WEEKS 1,000-50,000 4-5 WEEKS 10,000-100,000 5-6 WEEKS 15,000-200,000 6-8 WEEKS 10,000-100,000 2-3 MONTHS Performed By: #### P REGQNT, TSH #### [facility] [id number] Meredith Piña US PELVIS AND TRANSVAGon [...] by: CORI MENDIETA Date: 2022-11-20 17:13 Normal [facility] CBC AUTO DIFFon 11-14-2022 BASO # 0.0 103/ul Normal 0.0-0.1 [facility] Comment on above: Performed By: #### C BC #### [facility] [address] [place] [address] Dr. Meredith Piña Basophils/100 WBC (Bld) 0.6 % Normal 0.2-2.0 [facility] Comment on above: Performed By: #### C BC #### [facility] [address] [place] [address] Dr. Meredith Piña EO # 0.1 103/ul Normal 0.0-0.7 [facility] Comment on above: Performed By: #### C BC #### [facility] [address] [place] [address] Dr. Meredith Piña Eosinophils/100 WBC (Bld) 2.0 % Normal 0.9-7.0 [facility] Comment on above: Performed By: #### C BC #### [facility] [address] [place] [address] Dr. Meredith Piña Erythrocyte distribution width (RBC) [Ratio] 13.3 % Normal 11.0-15.0 [facility] Comment on above: Performed By: #### C BC #### [facility] [address] [place] [address] Dr. Meredith Piña Hematocrit (Bld) [Volume fraction] 40.3 % Normal 36.0-48.0 [facility] Comment on above: Performed By: #### C BC #### [facility] [address] [place] [address] Dr. Meredith Piña Hemoglobin (Bld) [Mass/Vol] 14.1 g/dL Normal 12.0-16.0 [facility] Comment on above: Performed By: #### C BC #### [facility] [address] [place] [address] Dr. Meredith Piña IG # 0.03 10e3/ul Normal 0.00-0.03 [facility] Comment on above: Performed By: #### C BC #### [facility] [address] [place] [address] Dr. Meredith Piña IG % 0.4 % Normal 0.0-0.5 [facility] Comment on above: Performed By: #### C BC #### [facility] [address] [place] [address] Dr. Meredith Piña LYMPH # 2.1 103/ul Normal 1.2-3.8 [facility] Comment on above: Performed By: #### C BC #### [facility] [address] [place] [address] Dr. Meredith Piña Lymphocytes/100 WBC (Bld) 29.9 % Normal 20.5-60.0 [facility] Comment on above: Performed By: #### C BC #### [facility] [address] [place] [address] Dr. Meredith Piña MANUAL DIFF REQ NO Normal [facility] Comment on above: Performed By: #### C BC #### [facility] [address] [place] [address] Dr. Meredith Piña MCH (RBC) [Entitic mass] 32.7 pg Normal 26.7-34.0 [facility] Comment on above: Performed By: #### C BC #### [facility] [address] [place] [address] Dr. Meredith Piña MCHC (RBC) [Mass/Vol] 35.0 g/dL Normal 29.9-35.2 [facility] Comment on above: Performed By: #### C BC #### [facility] [address] [place] [address] Dr. Meredith Piña MCV (RBC) [Entitic vol] 93.5 fL Normal 81.0-99.0 [facility] Comment on above: Performed By: #### C BC #### [facility] [address] [place] [address] Dr. Meredith Piña MONO # 0.6 103/ul Normal 0.3-0.8 [facility] Comment on above: Performed By: #### C BC #### [facility] [address] [place] [address] Dr. Meredith Piña Monocytes/100 WBC (Bld) 8.2 % Normal 1.7-12.0 [facility] Comment on above: Performed By: #### C BC #### [facility] [address] [place] [address] Dr. Meredith Piña NEUT # 4.2 103/ul Normal 1.4-6.5 [facility] Comment on above: Performed By: #### C BC #### [facility] [address] [place] [address] Dr. Meredith Piña Neutrophils/100 WBC (Bld) 58.9 % Normal 43.0-75.0 [facility] Comment on above: Performed By: #### C BC #### [facility] [address] [place] [address] Dr. Meredith Piña Platelet mean volume (Bld) [Entitic vol] 10.0 fL Normal 9.5-13.5 [facility] Comment on above: Performed By: #### C BC #### [facility] [address] [place] [address] Dr. Meredith Piña PLT 312 103/ul Normal 150-450 [facility] Comment on above: Performed By: #### C BC #### [facility] [address] [place] [address] Dr. Meredith Piña RBC 4.31 106/ul Normal 4.20-5.40 [facility] Comment on above: Performed By: #### C BC #### [facility] [address] [place] [address] Dr. Meredith Piña WBC 7.1 103/ul Normal 4.0-11.0 [facility] Comment on above: Performed By: #### C BC #### [facility] [address] [place] [address] Dr. Meredith Piña FREE T4on 11-14-2022 Free T4 [Mass/Vol] 0.85 ng/dL Normal 0.76-1.46 [facility] Comment on above: Performed By: #### P REGQNT, TSH #### [facility] [address] [place] [address] Dr. Meredith Piña GLYCOHEMOGLOBIN A1Con 2022 ADA RECOMMENDATION SEE BELOW Normal [facility] Comment on above: Result Comment: ADA RECOMMENDED LIMIT 4.0 - 6.0 ADA THERAPEUTIC TARGET < 7.0 ACTION SUGGESTED > 7.0 Performed By: #### A 1C #### [facility] [address] [place] [address] Dr. Meredith Piña Glucose [Mass/Vol] 103 mg/dL Normal [facility] Comment on above: Performed By: #### A 1C #### [facility] [address] [place] [address] Dr. Meredith Piña HbA1c (Bld) [Mass fraction] 5.2 % Normal 4.5-6.2 [facility] Comment on above: Performed By: #### A 1C #### [facility] [address] [place] [address] Dr. Meredith Piña PREG QUANT HCGon 11-14-2022 HCG QUANT <1 Normal [facility] Comment on above: Performed By: #### P REGQNT, TSH #### [facility] [address] [place] [address] Dr. Meredith Piña HCG RANGE SEE BELOW Normal [facility] Comment on above: Result Comment: 5-50 0.2-1 WEEK 50-500 1-2 WEEKS 100-5,000 2-3 WEEKS 500-10,000 3-4 WEEKS 1,000-50,000 4-5 WEEKS 10,000-100,000 5-6 WEEKS 15,000-200,000 6-8 WEEKS 10,000-100,000 2-3 MONTHS Performed By: #### P REGQNT, TSH #### [facility] [address] [place] [address] Dr. Meredith Piña PROTIMEon 11-14-2022 INR Coag (PPP) [Relative time] {INR} Normal [facility] Comment on above: Performed By: #### P REGQNT, TSH #### [facility] [address] [place] [address] Dr. Meredith Piña INR GUIDELINES SEE BELOW Normal [facility] Comment on above: Result Comment: ASHU RED INR: 2.0 - 3.0 CONDITIONS NOT LISTED BELOW 2.5 - 3.5 FOR PROSTHETIC HEART VALVE REPLACEMENT 2.5 - 3.5 RECURRENT THROMBOSIS Performed By: #### P REGQNT, TSH #### [facility] [address] [place] [address] [address] Meredith Piña PT Coag (PPP) [Time] 9.8 s Normal 9.0-11.6 [facility] Comment on above: Performed By: #### P REGQNT, TSH #### [facility] [address] [place] [address] [address] Meredith Piña PTTon 11-14-2022 aPTT Coag (Bld) [Time] 25.0 s Normal 22.3-36.2 [facility] Comment on above: Performed By: #### P REGQNT, TSH #### [facility] [address] [place] [address] Dr. Meredith Piña TSHon 11-14-2022 TSH 0.749 uIU/mL Normal 0.358-3.740 [facility] Comment on above: Performed By: #### P REGQNT, TSH #### [facility] [address] [place] [address] Dr. Meredith Piña PAP ACOG PANEL 2: 30 to 65on 10-25-2022 . . Normal [facility] Comment on above: Result Comment: Perf ormed at: WB Performed By: #### P REGQNT, TSH #### [facility] [address] [place] [address] Dr. Meredith Piña Age Gdln ACOG Testing 30-65 Normal [facility] Comment on above: Performed By: #### P REGQNT, TSH #### [facility] [address] [place] [address] Dr. Meredith Piña DIAGNOSIS: Comment Normal [facility] Comment on above: Result Comment: NEGA TIVE FOR INTRAEPITHELIAL LESION OR MALIGNANCY. Performed at: WB Performed By: #### P REGQNT, TSH #### [facility] [address] [place] [address] Dr. Meredith Piña HPV Aptima Positive Abnormal Negative [facility] Comment on above: Result Comment: This nucleic acid amplification test detects fourteen high-risk HPV types (16,18,31,33,35,39,45,51,52,56,58,59,66,68) without differentiation. Performed at: =G Performed By: #### P REGQNT, TSH #### [facility] [address] [place] [address] [address] Meredith Piña HPV Genotype 16 Negative Normal Negative [facility] Comment on above: Performed By: #### P REGQNT, TSH #### [facility] [address] [place] [address] [address] Meredith Piña HPV Genotype 18,45 Negative Normal Negative [facility] Comment on above: Performed By: #### P REGQNT, TSH #### [facility] [address] [place] [address] [address] Meredith Piña HPV Genotype Reflex Comment Normal [facility] Comment on above: Result Comment: Miquel arauz, see HPV Genotype results. Performed at: WB Performed By: #### P REGQNT, TSH #### [facility] [address] [address] [address] Meredith Piña Methodology: Comment Normal [facility] Comment on above: Result Comment: This liquid based ThinPrep(R) pap test was screened with the use of an image guided system. Performed at: WB Performed By: #### P REGQNT, TSH #### [facility] [address] [place] [address] [address] Meredith Piña Note: Comment Normal [facility] Comment on above: Result Comment: The [...] Performed By: #### P REGQNT, TSH #### [facility] [address] [place] [address] [address] Meredith Piña Performed by: Comment Normal [facility] Comment on above: Result Comment: Odilon Villanueva, Supervisor Assembling (ASCP) Performed at: WB Performed By: #### P REGQNT, TSH #### [facility] [address] [place] [address] Dr. Meredith Piña Specimen adequacy: Comment Normal [facility] Comment on above: Result Comment: Sati sfactory for evaluation. Endocervical and/or squamous metaplastic cells (endocervical component) are present. Performed at: WB Performed By: #### P REGQNT, TSH #### [facility] [address] [place] [address] Dr. Meredith Piña CHLAMYDIA/GONOCOCCUS DMITRI (SW AB/URINE/PAPon 10-19-2022 Chlamydia trachomatis, DMITRI Negative Normal Negative [facility] Comment on above: Performed By: #### P REGQNT, TSH #### [facility] [address] [place] [address] Dr. Meredith Piña Neisseria gonorrhoeae, DMITRI Negative Normal Negative [facility] Comment on above: Performed By: #### P REGQNT, TSH #### [facility] [address] [place] [address] Dr. Meredith Piña VAGINITIS/VAGINOSIS DNA PROB Tayo 10-18-2022 Amira species Negative Normal Negative [facility] Comment on above: Performed By: #### V AGINT #### [facility] [address] [place] [address] Dr. Meredith Piña Gardnerella vaginalis Positive Abnormal Negative [facility] Comment on above: Performed By: #### V AGINT #### [facility] [address] [place] [address] Dr. Meredith Piña Trichomonas vaginalis Negative Normal Negative [facility] Comment on above: Performed By: #### V AGINT #### [facility] [address] [place] [address] Dr. Meredith Piña [facility] SARS-CoV-2 (COVID-19) RNA DMITRI+probe Ql (Unsp spec) Not detected Normal NOT DETECTED [facility] Comment on above: Result Comment: When [...] for this test is supported by the Hand Packager of Health and Human Service's declaration that [...] Performed By: #### P REGQNT, TSH #### [facility] [address] [place] [address] Dr. Meredith Piña INSULINon 06-16-2022 Insulin 15.5 uIU/mL Normal 2.6-24.[address] [facility] Comment on above: Performed By: #### P REGQNT, TSH #### [facility] [address] [place] [address] Dr. Meredith Piña CBC AUTO DIFFon 06-15-2022 BASO # 0.0 103/ul Normal 0.0-0.[address] [facility] Comment on above: Performed By: #### P REGQNT, TSH #### [facility] [address] [place] [address] Dr. Meredith Piña Basophils/100 WBC (Bld) 0.3 % Normal 0.2-2.[address] [facility] Comment on above: Performed By: #### P REGQNT, TSH #### [facility] [address] [place] [address] Dr. Meredith Piña EO # 0.2 103/ul Normal 0.0-0.[address] [facility] Comment on above: Performed By: #### P REGQNT, TSH #### [facility] [address] [place] [address] Dr. Meredith Piña Eosinophils/100 WBC (Bld) 2.0 % Normal 0.9-7.[address] [facility] Comment on above: Performed By: #### P REGQNT, TSH #### [facility] [address] [place] [address] Dr. Meredith Piña Erythrocyte distribution width (RBC) [Ratio] 12.4 % Normal 11.0-15.0 [facility] Comment on above: Performed By: #### P REGQNT, TSH #### [facility] [address] [place] [address] Dr. Meredith Piña Hematocrit (Bld) [Volume fraction] 41.1 % Normal 36.0-48.0 [facility] Comment on above: Performed By: #### P REGQNT, TSH #### [facility] [address] [place] [address] Dr. Meredith Piña Hemoglobin (Bld) [Mass/Vol] 14.0 g/dL Normal 12.0-16.0 [facility] Comment on above: Performed By: #### P REGQNT, TSH #### [facility] [address] [place] [address] Dr. Meredith Piña IG # 0.04 10e3/ul Critically high 0.00-0.03 [facility] Comment on above: Performed By: #### P REGQNT, TSH #### [facility] [address] [place] [address] Dr. Meredith Piña IG % 0.4 % Normal 0.0-0.5 [facility] Comment on above: Performed By: #### P REGQNT, TSH #### [facility] [address] [place] [address] Dr. Meredith Piña LYMPH # 1.8 103/ul Normal 1.2-3.8 [facility] Comment on above: Performed By: #### P REGQNT, TSH #### [facility] [address] [place] [address] Dr. Meredith Piña Lymphocytes/100 WBC (Bld) 19.3 % Critically low 20.5-60.0 [facility] Comment on above: Performed By: #### P REGQNT, TSH #### [facility] [address] [place] [address] Dr. Meredith Piña MANUAL DIFF REQ NO Normal [facility] Comment on above: Performed By: #### P REGQNT, TSH #### [facility] [address] [place] [address] Dr. Meredith Piña MCH (RBC) [Entitic mass] 30.8 pg Normal 26.7-34.0 [facility] Comment on above: Performed By: #### P REGQNT, TSH #### [facility] [address] [place] [address] Dr. Meredith Piña MCHC (RBC) [Mass/Vol] 34.1 g/dL Normal 29.9-35.[address] [facility] Comment on above: Performed By: #### P REGQNT, TSH #### [facility] [address] [place] [address] Dr. Meredith Piña MCV (RBC) [Entitic vol] 90.3 fL Normal 81.0-99.0 [facility] Comment on above: Performed By: #### P REGQNT, TSH #### [facility] [address] [place] [address] Dr. Meredith Piña MONO # 0.5 103/ul Normal 0.3-0.[address] [facility] Comment on above: Performed By: #### P REGQNT, TSH #### [facility] [address] [place] [address] Dr. Meredith Piña Monocytes/100 WBC (Bld) 5.2 % Normal 1.7-12.[address] [facility] Comment on above: Performed By: #### P REGQNT, TSH #### [facility] [address] [place] [address] Dr. Meredith Piña NEUT # 6.8 103/ul Critically high 1.4-6.5 [facility] Comment on above: Performed By: #### P REGQNT, TSH #### [facility] [address] [place] [address] Dr. Meredith Piña Neutrophils/100 WBC (Bld) 72.8 % Normal 43.0-75.[address] [facility] Comment on above: Performed By: #### P REGQNT, TSH #### [facility] [address] [place] [address] [address] Meredith Piña Platelet mean volume (Bld) [Entitic vol] 9.3 fL Critically low 9.5-13.5 [facility] Comment on above: Performed By: #### P REGQNT, TSH #### [facility] [address] [place] [address] [address] Meredith Piña PLT 354 103/ul Normal 150-[address] [facility] Comment on above: Performed By: #### P REGQNT, TSH #### [facility] [address] [place] [address] [address] Meredith Piña RBC 4.55 106/ul Normal 4.20-5.40 [facility] Comment on above: Performed By: #### P REGQNT, TSH #### [facility] [address] [place] [address] Dr. Meredith Piña WBC 9.4 103/ul Normal 4.0-11.0 [facility] Comment on above: Performed By: #### P REGQNT, TSH #### [facility] [address] [place] [address] Dr. Meredith Piña FREE THYROXINE INDEX T7on FTI 2.66 Normal 1.30-4.50 [facility] Comment on above: Performed By: #### L IPID, T7, TSH, CMP #### [facility] [address] [place] [address] Dr. Meredith Piña T3U 32.0 % Normal 30.0-39.0 [facility] Comment on above: Performed By: #### L IPID, T7, TSH, CMP #### [facility] [address] [place] [address] Dr. Meredith Piña T4 [Mass/Vol] 8.30 ug/dL Normal 4.80-13.90 [facility] Comment on above: Performed By: #### L IPID, T7, TSH, CMP #### [facility] [address] [place] [address] Dr. Meredith Piña GLYCOHEMOGLOBIN A1Con 2021 ADA RECOMMENDATION SEE BELOW Normal [facility] Comment on above: Result Comment: ADA RECOMMENDED LIMIT 4.0 - 6.0 ADA THERAPEUTIC TARGET < 7.0 ACTION SUGGESTED > 7.0 Performed By: #### P REGQNT, TSH #### [facility] [address] [place] [address] [address] Meredith Piña Glucose [Mass/Vol] 103 mg/dL Normal [facility] Comment on above: Performed By: #### P REGQNT, TSH #### [facility] [address] [address] [address] Meredith Piña HbA1c (Bld) [Mass fraction] 5.2 % Normal 4.5-6.2 [facility] Comment on above: Performed By: #### P REGQNT, TSH #### [facility] [address] [place] [address] Dr. Meredith Piña IRONon 06-15-2022 Iron [Mass/Vol] 55.0 ug/dL Normal 50.0-170.[address] [facility] Comment on above: Performed By: #### P REGQNT, TSH #### [facility] [address] [place] [address] Dr. Meredith Piña LIPID PROFILEon 06-15-2022 CHOL-HDL RATIO NORM SEE BELOW Normal [facility] Comment on above: Result Comment: 3.3 - 4.4 LOW RISK 4.4 - 7.1 AVERAGE RISK 7.1 - 11.0 MODERATE RISK >11.0 HIGH RISK Performed By: #### L IPID, T7, TSH, CMP #### [facility] [address] [place] [address] [address] Meredith Piña Cholesterol [Mass/Vol] 178 mg/dL Normal <=200 [facility] Comment on above: Performed By: #### L IPID, T7, TSH, CMP #### [facility] [address] [address] [address] Meredith Piña Cholesterol in HDL [Mass/Vol] 50 mg/dL Normal 40-60 [facility] Comment on above: Performed By: #### L IPID, T7, TSH, CMP #### [facility] [address] [address] [address] Meredith Piña Cholesterol in LDL [Mass/Vol] 109.2 mg/dL Normal [facility] Comment on above: Performed By: #### L IPID, T7, TSH, CMP #### [facility] [address] [address] [address] Meredith Piña Cholesterol.total/Cho lesterol in HDL [Mass ratio] 3.6 {ratio} Normal [facility] Comment on above: Performed By: #### L IPID, T7, TSH, CMP #### [facility] [address] [address] [address] Meredith Piña HDL NORMAL > or = 60 mg/dl - LO W CARDIOVASCULAR RISK <40 mg/dl - HIGH CARDIOVASCULAR RISK Normal [facility] Comment on above: Performed By: #### L IPID, T7, TSH, CMP #### [facility] [address] [place] [address] Dr. Meredith Piña LDL CALC NORMAL SEE BELOW Normal [facility] Comment on above: Result Comment: <100 mg/dl OPTIMAL 100 - 129 mg/dl NEAR OR ABOVE OPTIMAL 130 - 159 mg/dl BORDERLINE HIGH 160 - 189 mg/dl HIGH >190 mg/dl VERY HIGH Performed By: #### L IPID, T7, TSH, CMP #### [facility] [address] [address] [address] Meredith Piña Triglyceride [Mass/Vol] 94 mg/dL Normal <=150 [facility] Comment on above: Performed By: #### L IPID, T7, TSH, CMP #### [facility] [address] [address] [address] Meredith Piña VLDL CALC 18.8 mg/dL Normal [facility] Comment on above: Performed By: #### L IPID, T7, TSH, CMP #### [facility] [address] [place] [address] Dr. Meredith Piña PROF 14(COMP METB)on 022 Albumin [Mass/Vol] 3.8 g/dL Normal 3.4-5.0 [facility] Comment on above: Performed By: #### L IPID, T7, TSH, CMP #### [facility] [address] [address] [address] Meredith Piña Albumin/Globulin [Mass ratio] 0.9 {ratio} Normal [facility] Comment on above: Performed By: #### L IPID, T7, TSH, CMP #### [facility] [address] [address] [address] Meredith Piña ALP [Catalytic activity/Vol] 79 U/L Normal 46-116 [facility] [facility] Comment on above: Performed By: #### L IPID, T7, TSH, CMP #### [facility] [address] [address] [address] Meredith Piña ALT [Catalytic activity/Vol] 34 U/L Normal 14-59 [facility] Comment on above: Performed By: #### L IPID, T7, TSH, CMP #### [facility] [address] [place] [address] Dr. Meredith Piña Anion gap [Moles/Vol] 11.5 mmol/L Normal [facility] Comment on above: Performed By: #### L IPID, T7, TSH, CMP #### [facility] [address] [address] [address] Meredith Piña AST [Catalytic activity/Vol] 18 U/L Normal 15-37 [facility] Comment on above: Performed By: #### L IPID, T7, TSH, CMP #### [facility] [address] [address] [address] Meredith Piña Bilirubin [Mass/Vol] 0.2 mg/dL Normal 0.2-1.0 [facility] Comment on above: Performed By: #### L IPID, T7, TSH, CMP #### [facility] [address] [address] [address] Meredith Piña Calcium [Mass/Vol] 9.1 mg/dL Normal 8.5-10.1 [facility] Comment on above: Performed By: #### L IPID, T7, TSH, CMP #### [facility] [address] [address] [address] Meredith Piña Chloride [Moles/Vol] 105 mmol/L Normal 98-107 [facility] Comment on above: Performed By: #### L IPID, T7, TSH, CMP #### [facility] [address] [place] [address] Dr. Meredith Piña CO2 [Moles/Vol] 29.3 mmol/L Normal 21.0-32.0 [facility] Comment on above: Performed By: #### L IPID, T7, TSH, CMP #### [facility] [address] [place] [address] Dr. Meredith Piña Creatinine [Mass/Vol] 0.72 mg/dL Normal 0.55-1.02 [facility] Comment on above: Performed By: #### L IPID, T7, TSH, CMP #### [facility] [address] [place] [address] Dr. Meredith Piña EGFR-AF GERMAN >60 Normal >=60 [facility] Comment on above: Performed By: #### L IPID, T7, TSH, CMP #### [facility] [address] [place] [address] Dr. Meredith Piña EGFR-NON AF GERMAN >60 Normal >=60 [facility] Comment on above: Performed By: #### L IPID, T7, TSH, CMP #### [facility] [address] [place] [address] Dr. Meredith Piña Globulin (S) [Mass/Vol] 4.2 g/dL Normal [facility] Comment on above: Performed By: #### L IPID, T7, TSH, CMP #### [facility] [address] [place] [address] Dr. Meredith Piña Glucose [Mass/Vol] 89 mg/dL Normal 74-106 [facility] Comment on above: Performed By: #### L IPID, T7, TSH, CMP #### [facility] [address] [place] [address] Dr. Meredith Piña Potassium [Moles/Vol] 3.8 mmol/L Normal 3.5-5.1 [facility] Comment on above: Performed By: #### L IPID, T7, TSH, CMP #### [facility] [address] [address] [address] Meredith Piña Protein [Mass/Vol] 8.0 g/dL Normal 6.4-8.2 [facility] Comment on above: Performed By: #### L IPID, T7, TSH, CMP #### [facility] [address] [address] [address] Meredith Piña Sodium [Moles/Vol] 142 mmol/L Normal 136-145 [facility] Comment on above: Performed By: #### L IPID, T7, TSH, CMP #### [facility] [address] [address] [address] Meredith Piña Urea nitrogen [Mass/Vol] 9.0 mg/dL Normal 7.0-18.0 [facility] Comment on above: Performed By: #### L IPID, T7, TSH, CMP #### [facility] [address] [place] [address] Dr. Meredith Piña Urea nitrogen/Creatinine [Mass ratio] 12.5 mg/mg Normal [facility] Comment on above: Performed By: #### L IPID, T7, TSH, CMP #### [facility] [address] [address] [address] Meredith Piña TSHon 06-15-2022 TSH 1.075 uIU/mL Normal 0.358-3.740 [facility] Comment on above: Performed By: #### L IPID, T7, TSH, CMP #### [facility] [address] [place] [address] Dr. Meredith Piña Encounters Encounter Date Encounter Type Care Provider Facility Start: 11-01-2023 End: 11-01-2023 ambulatory EULALIA MAXWELL Not Available Start: 10-01-2023 End: 10-01-2023 ambulatory EULALIA MAXWELL [...] Facility:[facility] Start: 11-20-2022 End: 11-21-2022 ambulatory HALI PIMENTELEY . Facility:[facility] Start: 11-14-2022 End: 11-15-2022 ambulatory HALI ADDY . Facility:[facility] Start: 10-16-2022 End: 10-16-2022 ambulatory HALI DALY . Facility:[facility] Start: 10-12-2022 End: 10-12-[address] KRISTOPHER GOMEZ . Facility:[facility] Start: 06-18-2022 Encounter for genera l adult medical examination without abnormal findings DR KRISTOPHER GOMEZ . [facility] Start: 06-15-2022 End: 06-16-[address] KRISTOPHER GOMEZ . Facility:[facility] Start: 06-15-2022 End: 06-16-2022 Encounter for general adult medical examination without abnormal findings DR KRISTOPHER GOMEZ . Facility:[facility] Payers Date Payer Category Payer Unknown [id number] 2.16.84 [id number] 1989 Unknown [id number] 2.16.84 [id number] 1989 Unknown [id number] 2.16.84 [id number] 1989 Unknown [id number] 2.16.84 [id number] 1989 Unknown [id number] 2.16.84 0.1.301069.3.579.2.593 1989 Unknown [id number] 2.16.84 0.1.379439.3.579.2.593 1989 Unknown [id number] 2.16.84 0.1.577104.3.579.2.593 1989 Unknown [id number] 2.16.84 0.1.960219.3.579.2.593 1989 Unknown [id number] 2.16.84 0.1.621917.3.579.2.593 1989 Unknown [id number] 2.16.84 0.1.711825.3.579.2.1259 1989 Unknown [id number] 2.16.84 0.1.588147.3.579.2.1259 1989 Unknown [id number] 2.16.840 .1.854806.3.579.2.1259 1989 Unknown [id number] 2.16.840 .[id number] 1959 Unknown [id number] 1959 Unknown [id number] Clinical Note 12-29-2022 Note Date & Type [...] by: CORI MENDIETA Date: 2022-12-29 15:[address] [facility] Summary Purpose Family History No Family History Records FoundNo Family History Records Found Advance Directives No Advanced Directives Records FoundNo Advanced Directives Records Found Additional Source Comments INFORMATION SOURCE (unrecogn ized section and content) DATE CREATED AUTHOR 12/30/2022 [facility] DATE CREATED AUTHOR AUTHOR'S ORGANIZ ATION 11/02/2023 [facility] EPIC FOR RECORDS PERTAINING TO PATIENTS WHO ARE [...] BE BASED ON THE PRIMARY CLINICAL RECORDS. [facility] [employer] [facility] provides no warranty or guarantee of the accuracy or completeness of information in this document.
[2023-11-26 11:42] LABS: Basophils Percent Auto 0.4 % (0.2-2.0); Eosinophils Absolute Auto 0.1 10^3/uL (0.0-0.7); Eosinophils Percent Auto 0.7 % (0.9-7.0); Hematocrit 34.4 % (36.0-48.0); Hemoglobin 11.6 g/dL (12.0-16.0); Immature Granulocytes Abs Auto 0.21 10^3/uL (0.00-0.03); Lymphocytes Absolute Auto 1.5 10^3/uL (1.2-3.8); Lymphocytes Percent Auto 14.4 % (20.5-60.0); Mean Corpuscular HGB Conc 33.7 g/dL (29.9-35.2); Mean Corpuscular Hemoglobin 32.4 pg (26.7-34.0); Mean Corpuscular Volume 96.1 fL (81.0-99.0); Mean Platelet Volume 9.8 fL (9.5-13.5); Monocytes Absolute Auto 0.6 10^3/uL (0.3-0.8); Neutrophils Absolute Auto 8.1 10^3/uL (1.4-6.5); Neutrophils Percent Auto 76.5 % (43.0-75.0); Platelet Count 270 10^3/uL (150-450); Red Blood Count 3.58 10^6/uL (4.20-5.40); Red Cell Distribution Width 13.1 % (11.0-15.0); White Blood Count 10.6 10^3/uL (4.0-11.0)
[2023-11-26 11:43] LABS: Glucose 1 Hour 143 mg/dL (<130)
== END 2023-11-26 09:49 | disposition home or self-care (01) ==
LOC: LAB 09:49
PROVIDERS: PCP Family Medicine; Visit Provider Obstetrics & Gynecology
DX: Z13.1 Encounter for screening for diabetes mellitus (principal)
CPT/HCPCS: 36415; 82950; 85025

== ENCOUNTER 2023-12-11 15:07 | Outpatient (OUT) | payer OTHER, MEDICAID, SELFPAY ==
--- NOTE | 2023-12-11 15:11 | US_ITS ---
[address] [address] Patient Name: JASMIN LUONG MRN: [id number] date: 1990 Sex: F Assigned Patient Location: [facility] Current Patient Location: [facility] Accession/Order Number: [id number] Exam Date: 12/11/2023 15:11 Report Date: 12/11/2023 16:00 At the request of: EULALIA MAXWELL Procedure: US OB growth EXAMINATION: US OB growth HISTORY: LGA COMPARISON: 08/29/2023 FINDINGS: Heart Rate: 160 Amniotic Fluid Volume: 12.5 cm Number: Single Position: Cephalic presentation, longitudinal lie Maximum Vertical Pocket: 3.6 cm BIOMETRY: BPD: 8.5 cm ; 34 weeks 3 days, 34%; HC: 32.1 cm; 36 weeks 1 day, 44% AC: 31.5 cm; 35 weeks 3 days, 70% FL: 6.1 cm; 31 weeks 6 days; less than 3 % EFW: 2438 g, 5 lbs. 6 oz., 32% FL/AC: Low at 19.47 FL/BPD: 71.98 HC/AC: 1.02 GESTATIONAL AGE: Age by EDC: 35 weeks 0 days MEGAN by EDC: 01/15/2024 Age by US: 33 weeks 5 days MEGAN by US: 01/24/2024 US/US OB growth IMPRESSION: Femur length less than the 3rd percentile Otherwise normal interval growth Electronically authenticated by: CATRACHITA RNEE Date: 12/11/2023 16:00
--- OUTSIDE RECORDS SUMMARY | 2023-12-11 15:31 | XMS_ITS | CCD ---
[facility] Team Providers Care Quality Control Coordinator Name Role Phone PATRICIA ., DR SUMMERS [...] EULALIA Attending Unavailable ALISSA, EULALIA Attending Unavailable ALISSA, EULALIA Attending Unavailable ADDY, HALI Attending Unavailable ALISSA, EULALIA Attending Unavailable Allergies Allergy Classification Reported Allergen(s) Allergy Type Date of Onset Reaction(s) Facility (3 sources) Latex Drug allergy (disorder) 01-23-2021 [facility] Repository Problems Active Problems Problem Classification [...] 12-20-2022 HCG QUANT 21 mIU/mL Normal [facility] Comment on above: Performed By: #### P REGQNT #### [facility] [address] [place] [address] Dr. Meredith Piña HCG RANGE SEE BELOW Normal [facility] Comment on above: Result Comment: 5-50 0.2-1 WEEK 50-500 1-2 WEEKS 100-5,000 2-3 WEEKS 500-10,000 3-4 WEEKS 1,000-50,000 4-5 WEEKS 10,000-100,000 5-6 WEEKS 15,000-200,000 6-8 WEEKS 10,000-100,000 2-3 MONTHS Performed By: #### P REGQNT #### [facility] [address] [address] [address] Meredith Piña PREG QUANT HCGon 12-18-2022 HCG QUANT 35 mIU/mL Normal [facility] Comment on above: Performed By: #### P REGQNT, TSH #### [facility] [address] [address] [address] Meredith Piña HCG RANGE SEE BELOW Normal [facility] Comment on above: Result Comment: 5-50 0.2-1 WEEK 50-500 1-2 WEEKS 100-5,000 2-3 WEEKS 500-10,000 3-4 WEEKS 1,000-50,000 4-5 WEEKS 10,000-100,000 5-6 WEEKS 15,000-200,000 6-8 WEEKS 10,000-100,000 2-3 MONTHS Performed By: #### P REGQNT, TSH #### [facility] [address] [address] [address] Meredith Piña US PELVIS AND TRANSVAGon [...] CORI MENDIETA Date: 2022-11-20 17:13 Normal [facility] CBC AUTO DIFFon 11-14-2022 BASO # 0.0 103/ul Normal 0.0-0.1 [facility] Comment on above: Performed By: #### C BC #### [facility] [address] [place] [address] Dr. Meredith Piña Basophils/100 WBC (Bld) 0.6 % Normal 0.2-2.0 [facility] Comment on above: Performed By: #### C BC #### [facility] [address] [place] [address] Dr. Meredith Piña EO # 0.1 103/ul Normal 0.0-0.7 [facility] Comment on above: Performed By: #### C BC #### [facility] [address] [place] [address] Dr. Meredith Pñia Eosinophils/100 WBC (Bld) 2.0 % Normal 0.9-7.0 [facility] Comment on above: Performed By: #### C BC #### [facility] [address] [place] [address] Dr. Meredith Piña Erythrocyte distribution width (RBC) [Ratio] 13.3 % Normal 11.0-15.0 [facility] Comment on above: Performed By: #### C BC #### [facility] [address] [place] [address] Dr. Meredith Piña Hematocrit (Bld) [Volume fraction] 40.3 % Normal 36.0-48.0 [facility] Comment on above: Performed By: #### C BC #### [facility] [address] [place] [address] Dr. Meredith Piña Hemoglobin (Bld) [Mass/Vol] 14.1 g/dL Normal 12.0-16.0 [facility] Comment on above: Performed By: #### C BC #### [facility] [address] [place] [address] Dr. Meredith Piña IG # 0.03 10e3/ul Normal 0.00-0.03 [facility] Comment on above: Performed By: #### C BC #### [facility] [address] [place] [address] Dr. Meredith Piña IG % 0.4 % Normal 0.0-0.5 [facility] Comment on above: Performed By: #### C BC #### [facility] [address] [place] [address] Dr. Meredith Piña LYMPH # 2.1 103/ul Normal 1.2-3.8 [facility] Comment on above: Performed By: #### C BC #### [facility] [address] [place] [address] Dr. Meredith Piña Lymphocytes/100 WBC (Bld) 29.9 % Normal 20.5-60.0 [facility] Comment on above: Performed By: #### C BC #### [facility] [address] [place] [address] Dr. Meredith Piña MANUAL DIFF REQ NO Normal [facility] Comment on above: Performed By: #### C BC #### [facility] [address] [place] [address] Dr. Meredith Piña MCH (RBC) [Entitic mass] 32.7 pg Normal 26.7-34.0 [facility] Comment on above: Performed By: #### C BC #### [facility] [address] [place] [address] Dr. Meredith Piña MCHC (RBC) [Mass/Vol] 35.0 g/dL Normal 29.9-35.2 [facility] Comment on above: Performed By: #### C BC #### [facility] [address] [place] [address] Dr. Meredith Piña MCV (RBC) [Entitic vol] 93.5 fL Normal 81.0-99.0 [facility] Comment on above: Performed By: #### C BC #### [facility] [address] [place] [address] Dr. Meredith Piña MONO # 0.6 103/ul Normal 0.3-0.8 [facility] Comment on above: Performed By: #### C BC #### [facility] [address] [place] [address] Dr. Meredith Piña Monocytes/100 WBC (Bld) 8.2 % Normal 1.7-12.0 [facility] Comment on above: Performed By: #### C BC #### [facility] [address] [place] [address] Dr. Meredith Piña NEUT # 4.2 103/ul Normal 1.4-6.5 [facility] Comment on above: Performed By: #### C BC #### [facility] [address] [place] [address] Dr. Meredith Piña Neutrophils/100 WBC (Bld) 58.9 % Normal 43.0-75.0 [facility] Comment on above: Performed By: #### C BC #### [facility] [address] [place] [address] Dr. Meredith Piña Platelet mean volume (Bld) [Entitic vol] 10.0 fL Normal 9.5-13.5 [facility] Comment on above: Performed By: #### C BC #### [facility] [address] [place] [address] Dr. Meredith Piña PLT 312 103/ul Normal 150-450 [facility] Comment on above: Performed By: #### C BC #### [facility] [address] [place] [address] Dr. Meredith Piña RBC 4.31 106/ul Normal 4.20-5.40 [facility] Comment on above: Performed By: #### C BC #### [facility] [address] [place] [address] Dr. Meredith Piña WBC 7.1 103/ul Normal 4.0-11.0 [facility] Comment on above: Performed By: #### C BC #### [facility] [address] [place] [address] Dr. Meredith Piña FREE T4on 11-14-2022 Free T4 [Mass/Vol] 0.85 ng/dL Normal 0.76-1.46 [facility] Comment on above: Performed By: #### P REGQNT, TSH #### [facility] [address] [place] [address] Dr. Meredith Piña GLYCOHEMOGLOBIN A1Con 2022 ADA RECOMMENDATION SEE BELOW Normal [facility] Comment on above: Result Comment: ADA RECOMMENDED LIMIT 4.0 - 6.0 ADA THERAPEUTIC TARGET < 7.0 ACTION SUGGESTED > 7.0 Performed By: #### A 1C #### [facility] [address] [place] [address] Dr. Meredith Piña Glucose [Mass/Vol] 103 mg/dL Normal [facility] Comment on above: Performed By: #### A 1C #### [facility] [address] [address] [address] Meredith Piña HbA1c (Bld) [Mass fraction] 5.2 % Normal 4.5-6.2 [facility] Comment on above: Performed By: #### A 1C #### [facility] [address] [place] [address] Dr. Meredith Piña PREG QUANT HCGon 11-14-2022 HCG QUANT <1 Normal [facility] Comment on above: Performed By: #### P REGQNT, TSH #### [facility] [address] [place] [address] Dr. Meredith Piña HCG RANGE SEE BELOW Normal [facility] Comment on above: Result Comment: 5-50 0.2-1 WEEK 50-500 1-2 WEEKS 100-5,000 2-3 WEEKS 500-10,000 3-4 WEEKS 1,000-50,000 4-5 WEEKS 10,000-100,000 5-6 WEEKS 15,000-200,000 6-8 WEEKS 10,000-100,000 2-3 MONTHS Performed By: #### P REGQNT, TSH #### [facility] [address] [place] [address] Dr. Meredith Piña PROTIMEon 11-14-2022 INR Coag (PPP) [Relative time] {INR} Normal [facility] Comment on above: Performed By: #### P REGQNT, TSH #### [facility] [address] [place] [address] Dr. Meredith Piña INR GUIDELINES SEE BELOW Normal [facility] Comment on above: Result Comment: ASHU RED INR: 2.0 - 3.0 CONDITIONS NOT LISTED BELOW 2.5 - 3.5 FOR PROSTHETIC HEART VALVE REPLACEMENT 2.5 - 3.5 RECURRENT THROMBOSIS Performed By: #### P REGQNT, TSH #### [facility] [address] [place] [address] Dr. Meredith Piña PT Coag (PPP) [Time] 9.8 s Normal 9.0-11.6 [facility] Comment on above: Performed By: #### P REGQNT, TSH #### [facility] [address] [place] [address] Dr. Meredith Piña PTTon 11-14-2022 aPTT Coag (Bld) [Time] 25.0 s Normal 22.3-36.2 [facility] Comment on above: Performed By: #### P REGQNT, TSH #### [facility] [address] [place] [address] Dr. Meredith Piña TSHon 11-14-2022 TSH 0.749 uIU/mL Normal 0.358-3.740 [facility] Comment on above: Performed By: #### P REGQNT, TSH #### [facility] [address] [place] [address] Dr. Meredith Piña PAP ACOG PANEL 2: 30 to 65on 10-25-2022 . . Normal [facility] Comment on above: Result Comment: Perf ormed at: WB Performed By: #### P REGQNT, TSH #### [facility] [address] [place] [address] Dr. Meredith Piña Age Gdln ACOG Testing 30-65 Normal [facility] Comment on above: Performed By: #### P REGQNT, TSH #### [facility] [address] [place] [address] Dr. Meredith Piña DIAGNOSIS: Comment Normal [facility] Comment on above: Result Comment: NEGA TIVE FOR INTRAEPITHELIAL LESION OR MALIGNANCY. Performed at: WB Performed By: #### P REGQNT, TSH #### [facility] [address] [place] [address] Dr. Meredith Piña HPV Aptima Positive Abnormal Negative [facility] Comment on above: Result Comment: This nucleic acid amplification test detects fourteen high-risk HPV types (16,18,31,33,35,39,45,51,52,56,58,59,66,68) without differentiation. Performed at: =G Performed By: #### P REGQNT, TSH #### [facility] [address] [address] [address] Meredith Piña HPV Genotype 16 Negative Normal Negative [facility] Comment on above: Performed By: #### P REGQNT, TSH #### [facility] [address] [address] [address] Meredith Piña HPV Genotype 18,45 Negative Normal Negative [facility] Comment on above: Performed By: #### P REGQNT, TSH #### [facility] [address] [address] [address] Meredith Piña HPV Genotype Reflex Comment Normal [facility] Comment on above: Result Comment: Miquel arauz, see HPV Genotype results. Performed at: WB Performed By: #### P REGQNT, TSH #### [facility] [address] [address] [address] Meredith Piña Methodology: Comment Normal [facility] Comment on above: Result Comment: This liquid based ThinPrep(R) pap test was screened with the use of an image guided system. Performed at: WB Performed By: #### P REGQNT, TSH #### [facility] [address] [address] [address] Meredith Piña Note: Comment Normal [facility] Comment on above: Result Comment: The Pap [...] Performed By: #### P REGQNT, TSH #### [facility] [address] [address] [address] Meredith Piña Performed by: Comment Normal [facility] Comment on above: Result Comment: Odilon Villanueva Military Administrative Technician (ASCP) Performed at: WB Performed By: #### P REGQNT, TSH #### [facility] [address] [place] [address] Dr. Meredith Piña Specimen adequacy: Comment Normal [facility] Comment on above: Result Comment: Sati sfactory for evaluation. Endocervical and/or squamous metaplastic cells (endocervical component) are present. Performed at: WB Performed By: #### P REGQNT, TSH #### [facility] [address] [place] [address] Dr. Meredith Piña CHLAMYDIA/GONOCOCCUS DMITRI ( AB/URINE/PAPon 10-19-2022 Chlamydia trachomatis, DMITRI Negative Normal Negative [facility] Comment on above: Performed By: #### P REGQNT, TSH #### [facility] [address] [place] [address] Dr. Meredith Piña Neisseria gonorrhoeae, DMITRI Negative Normal Negative [facility] Comment on above: Performed By: #### P REGQNT, TSH #### [facility] [address] [place] [address] Dr. Meredith Piña VAGINITIS/VAGINOSIS DNA PROB Tayo 10-18-2022 Amira species Negative Normal Negative [facility] Comment on above: Performed By: #### V AGINT #### [facility] [address] [place] [address] Dr. Meredith Piña Gardnerella vaginalis Positive Abnormal Negative [facility] Comment on above: Performed By: #### V AGINT #### [facility] [address] [place] [address] Dr. Meredith Piña Trichomonas vaginalis Negative Normal Negative [facility] Comment on above: Performed By: #### V AGINT #### [facility] [address] [place] [address] Dr. Meredith Piña Covid-19 PCR ([facility])on 09-21 SARS-CoV-2 (COVID-19) RNA DMITRI+probe Ql (Unsp spec) Not detected Normal NOT DETECTED [facility] Comment on above: Result Comment: When [...] for this test is supported by the [place] of Health and Human Service's declaration that [...] Performed By: #### P REGQNT, TSH #### [facility] [address] [place] [address] Dr. Meredith Piña INSULINon 06-16-2022 Insulin 15.5 uIU/mL Normal 2.6-24.9 [facility] Comment on above: Performed By: #### P REGQNT, TSH #### [facility] [address] [place] [address] Dr. Meredith Piña CBC AUTO DIFFon 06-15-2022 BASO # 0.0 103/ul Normal 0.0-0.1 [facility] Comment on above: Performed By: #### P REGQNT, TSH #### [facility] [address] [place] [address] Dr. Meredith Piña Basophils/100 WBC (Bld) 0.3 % Normal 0.2-2.0 [facility] Comment on above: Performed By: #### P REGQNT, TSH #### [facility] [address] [place] [address] Dr. Meredith Piña EO # 0.2 103/ul Normal 0.0-0.7 [facility] Comment on above: Performed By: #### P REGQNT, TSH #### [facility] [address] [place] [address] Dr. Meredith Piña Eosinophils/100 WBC (Bld) 2.0 % Normal 0.9-7.0 [facility] Comment on above: Performed By: #### P REGQNT, TSH #### [facility] [address] [place] [address] Dr. Meredith Piña Erythrocyte distribution width (RBC) [Ratio] 12.4 % Normal 11.0-15.0 [facility] Comment on above: Performed By: #### P REGQNT, TSH #### [facility] [address] [place] [address] Dr. Meredith Piña Hematocrit (Bld) [Volume fraction] 41.1 % Normal 36.0-48.0 [facility] Comment on above: Performed By: #### P REGQNT, TSH #### [facility] [address] [place] [address] Dr. Meredith Piña Hemoglobin (Bld) [Mass/Vol] 14.0 g/dL Normal 12.0-16.0 [facility] Comment on above: Performed By: #### P REGQNT, TSH #### [facility] [address] [place] [address] Dr. Meredith Piña IG # 0.04 10e3/ul Critically high 0.00-0.03 [facility] Comment on above: Performed By: #### P REGQNT, TSH #### [facility] [address] [place] [address] Dr. Meredith Piña IG % 0.4 % Normal 0.0-0.5 [facility] Comment on above: Performed By: #### P REGQNT, TSH #### [facility] [address] [place] [address] Dr. Meredith Piña LYMPH # 1.8 103/ul Normal 1.2-3.8 [facility] Comment on above: Performed By: #### P REGQNT, TSH #### [facility] [address] [place] [address] Dr. Meredith Piña Lymphocytes/100 WBC (Bld) 19.3 % Critically low 20.5-60.0 [facility] Comment on above: Performed By: #### P REGQNT, TSH #### [facility] [address] [place], [place] [address] Dr. Meredith Piña MANUAL DIFF REQ NO Normal [facility] Comment on above: Performed By: #### P REGQNT, TSH #### [facility] [address] [place] [address] Dr. Meredith Piña MCH (RBC) [Entitic mass] 30.8 pg Normal 26.7-34.0 [facility] Comment on above: Performed By: #### P REGQNT, TSH #### [facility] [address] [place] [address] Dr. Meredith Piña MCHC (RBC) [Mass/Vol] 34.1 g/dL Normal 29.9-35.2 [facility] Comment on above: Performed By: #### P REGQNT, TSH #### [facility] [address] [place] [address] Dr. Meredith Piña MCV (RBC) [Entitic vol] 90.3 fL Normal 81.0-99.0 [facility] Comment on above: Performed By: #### P REGQNT, TSH #### [facility] [address] [place] [address] Dr. Meredith Piña MONO # 0.5 103/ul Normal 0.3-0.8 [facility] Comment on above: Performed By: #### P REGQNT, TSH #### [facility] [address] [place] [address] Dr. Meredith Piña Monocytes/100 WBC (Bld) 5.2 % Normal 1.7-12.0 [facility] Comment on above: Performed By: #### P REGQNT, TSH #### [facility] [address] [place] [address] Dr. Meredith Piña NEUT # 6.8 103/ul Critically high 1.4-6.5 [facility] Comment on above: Performed By: #### P REGQNT, TSH #### [facility] [address] [place] [address] Dr. Meredith Piña Neutrophils/100 WBC (Bld) 72.8 % Normal 43.0-75.0 [facility] Comment on above: Performed By: #### P REGQNT, TSH #### [facility] [address] [address] [address] Meredith Piña Platelet mean volume (Bld) [Entitic vol] 9.3 fL Critically low 9.5-13.5 [facility] Comment on above: Performed By: #### P REGQNT, TSH #### [facility] [address] [address] [address] Meredith Piña PLT 354 103/ul Normal 150-450 [facility] Comment on above: Performed By: #### P REGQNT, TSH #### [facility] [address] [address] [address] Meredith Piña RBC 4.55 106/ul Normal 4.20-5.40 [facility] Comment on above: Performed By: #### P REGQNT, TSH #### [facility] [address] [place] [address] Dr. Meredith Piña WBC 9.4 103/ul Normal 4.0-11.0 [facility] Comment on above: Performed By: #### P REGQNT, TSH #### [facility] [address] [address] [address] Meredith Piña FREE THYROXINE INDEX T7on FTI 2.66 Normal 1.30-4.50 [facility] Comment on above: Performed By: #### L IPID, T7, TSH, CMP #### [facility] [address] [address] [address] Meredith Piña T3U 32.0 % Normal 30.0-39.0 [facility] Comment on above: Performed By: #### L IPID, T7, TSH, CMP #### [facility] [address] [address] [address] Meredith Piña T4 [Mass/Vol] 8.30 ug/dL Normal 4.80-13.90 [facility] Comment on above: Performed By: #### L IPID, T7, TSH, CMP #### [facility] [address] [address] [address] Meredith Piña GLYCOHEMOGLOBIN A1Con 2021 ADA RECOMMENDATION SEE BELOW Normal [facility] Comment on above: Result Comment: ADA RECOMMENDED LIMIT 4.0 - 6.0 ADA THERAPEUTIC TARGET < 7.0 ACTION SUGGESTED > 7.0 Performed By: #### P REGQNT, TSH #### [facility] [address] [address] [address] Meredith Piña Glucose [Mass/Vol] 103 mg/dL Normal [facility] Comment on above: Performed By: #### P REGQNT, TSH #### [facility] [address] [address] [address] Meredith Piña HbA1c (Bld) [Mass fraction] 5.2 % Normal 4.5-6.2 [facility] Comment on above: Performed By: #### P REGQNT, TSH #### [facility] [address] [address] [address] Meredith Piña IRONon 06-15-2022 Iron [Mass/Vol] 55.0 ug/dL Normal 50.0-170.0 [facility] Comment on above: Performed By: #### P REGQNT, TSH #### [facility] [address] [address] [address] Meredith Piña LIPID PROFILEon 06-15-2022 CHOL-HDL RATIO NORM SEE BELOW Normal [facility] Comment on above: Result Comment: 3.3 - 4.4 LOW RISK 4.4 - 7.1 AVERAGE RISK 7.1 - 11.0 MODERATE RISK >11.0 HIGH RISK Performed By: #### L IPID, T7, TSH, CMP #### [facility] [address] [address] [address] Meredith Piña Cholesterol [Mass/Vol] 178 mg/dL Normal <=200 [facility] Comment on above: Performed By: #### L IPID, T7, TSH, CMP #### [facility] [address] [address] [address] Meredith Piña Cholesterol in HDL [Mass/Vol] 50 mg/dL Normal 40-60 [facility] Comment on above: Performed By: #### L IPID, T7, TSH, CMP #### [facility] [address] [address] [address] Meredith Piña Cholesterol in LDL [Mass/Vol] 109.2 mg/dL Normal [facility] Comment on above: Performed By: #### L IPID, T7, TSH, CMP #### [facility] [address] [address] [address] Meredith Piña Cholesterol.total/Cho lesterol in HDL [Mass ratio] 3.6 {ratio} Normal [facility] Comment on above: Performed By: #### L IPID, T7, TSH, CMP #### [facility] [address] [address] [address] Meredith Piña HDL NORMAL > or = 60 mg/dl - LO W CARDIOVASCULAR RISK <40 mg/dl - HIGH CARDIOVASCULAR RISK Normal [facility] Comment on above: Performed By: #### L IPID, T7, TSH, CMP #### [facility] [address] [address] [address] Meredith Piña LDL CALC NORMAL SEE BELOW Normal [facility] Comment on above: Result Comment: <100 mg/dl OPTIMAL 100 - 129 mg/dl NEAR OR ABOVE OPTIMAL 130 - 159 mg/dl BORDERLINE HIGH 160 - 189 mg/dl HIGH >190 mg/dl VERY HIGH Performed By: #### L IPID, T7, TSH, CMP #### [facility] [address] [address] [address] Meredith Piña Triglyceride [Mass/Vol] 94 mg/dL Normal <=150 [facility] Comment on above: Performed By: #### L IPID, T7, TSH, CMP #### [facility] [address] [address] [address] Meredith Piña VLDL CALC 18.8 mg/dL Normal [facility] Comment on above: Performed By: #### L IPID, T7, TSH, CMP #### [facility] [address] [address] [address] Meredith Piña PROF 14(COMP METB)on 022 Albumin [Mass/Vol] 3.8 g/dL Normal 3.4-5.0 [facility] Comment on above: Performed By: #### L IPID, T7, TSH, CMP #### [facility] [address] [place] [address] Dr. Meredith Piña Albumin/Globulin [Mass ratio] 0.9 {ratio} Normal [facility] Comment on above: Performed By: #### L IPID, T7, TSH, CMP #### [facility] [address] [place] [address] Dr. Meredith Piña ALP [Catalytic activity/Vol] 79 U/L Normal 46-116 [facility] Comment on above: Performed By: #### L IPID, T7, TSH, CMP #### [facility] [address] [place] [address] Dr. Meredith Piña ALT [Catalytic activity/Vol] 34 U/L Normal 14-59 [facility] Comment on above: Performed By: #### L IPID, T7, TSH, CMP #### [facility] [address] [place] [address] Dr. Meredith Piña Anion gap [Moles/Vol] 11.5 mmol/L Normal [facility] Comment on above: Performed By: #### L IPID, T7, TSH, CMP #### [facility] [address] [place] [address] Dr. Meredith Piña AST [Catalytic activity/Vol] 18 U/L Normal 15-37 [facility] Comment on above: Performed By: #### L IPID, T7, TSH, CMP #### [facility] [address] [place] [address] Dr. Meredith Piña Bilirubin [Mass/Vol] 0.2 mg/dL Normal 0.2-1.0 [facility] Comment on above: Performed By: #### L IPID, T7, TSH, CMP #### [facility] [address] [place] [address] Dr. Meredith Piña Calcium [Mass/Vol] 9.1 mg/dL Normal 8.5-10.1 [facility] Comment on above: Performed By: #### L IPID, T7, TSH, CMP #### [facility] [address] [place] [address] Dr. Meredith Piña Chloride [Moles/Vol] 105 mmol/L Normal 98-107 [facility] Comment on above: Performed By: #### L IPID, T7, TSH, CMP #### [facility] [address] [address] [address] Meredith Piña CO2 [Moles/Vol] 29.3 mmol/L Normal 21.0-32.0 [facility] Comment on above: Performed By: #### L IPID, T7, TSH, CMP #### [facility] [address] [place] [address] Dr. Meredith Piña Creatinine [Mass/Vol] 0.72 mg/dL Normal 0.55-1.02 [facility] Comment on above: Performed By: #### L IPID, T7, TSH, CMP #### [facility] [address] [place] [address] Dr. Meredith Piña EGFR-AF ARMENIAN >60 Normal >=60 [facility] Comment on above: Performed By: #### L IPID, T7, TSH, CMP #### [facility] [address] [address] [address] Meredith Piañ EGFR-NON AF ARMENIAN >60 Normal >=60 [facility] Comment on above: Performed By: #### L IPID, T7, TSH, CMP #### [facility] [address] [place] [address] Dr. Meredith Piña Globulin (S) [Mass/Vol] 4.2 g/dL Normal [facility] Comment on above: Performed By: #### L IPID, T7, TSH, CMP #### [facility] [address] [address] [address] Meredith Piña Glucose [Mass/Vol] 89 mg/dL Normal 74-106 [facility] Comment on above: Performed By: #### L IPID, T7, TSH, CMP #### [facility] [address] [place] [address] Dr. Meredith Piña Potassium [Moles/Vol] 3.8 mmol/L Normal 3.5-5.1 [facility] Comment on above: Performed By: #### L IPID, T7, TSH, CMP #### [facility] [address] [place] [address] Dr. Meredith Piña Protein [Mass/Vol] 8.0 g/dL Normal 6.4-8.2 [facility] Comment on above: Performed By: #### L IPID, T7, TSH, CMP #### [facility] [address] [place] [address] Dr. Meredith Piña Sodium [Moles/Vol] 142 mmol/L Normal 136-145 [facility] Comment on above: Performed By: #### L IPID, T7, TSH, CMP #### [facility] [address] [place] [address] Dr. Meredith Piña Urea nitrogen [Mass/Vol] 9.0 mg/dL Normal 7.0-18.0 [facility] Comment on above: Performed By: #### L IPID, T7, TSH, CMP #### [facility] [address] [place] [address] Dr. Meredith Piña Urea nitrogen/Creatinine [Mass ratio] 12.5 mg/mg Normal [facility] Comment on above: Performed By: #### L IPID, T7, TSH, CMP #### [facility] [address] [place] [address] Dr. Meredith Piña TSHon 06-15-2022 TSH 1.075 uIU/mL Normal 0.358-3.740 [facility] Comment on above: Performed By: #### L IPID, T7, TSH, CMP #### [facility] [address] [place] [address] Dr. Meredith Piña Encounters Encounter Date Encounter Type Care Provider Facility Start: 12-06-2023 End: 12-06-2023 ambulatory HALI DALY Not Available Start: 11-22-2023 End: 11-22-2023 ambulatory EULALIA ALISSA Not Available Start: 11-01-2023 End: 11-01-2023 ambulatory EULALIA ALISSA Not Available Start: 10-01-2023 End: 10-01-2023 ambulatory EULALIA ALISSA Not Available Start: 08-15-2023 End: 08-15-2023 ambulatory [...] Facility:[facility] Start: 10-16-2022 End: 10-16-2022 ambulatory HALI ADDY . Facility:[facility] Start: 10-12-2022 End: 10-12-[address] KRISTOPHER GOMEZ . Facility:[facility] Start: 06-18-2022 Encounter for genera l adult medical examination without abnormal findings DR KRISTOPHER GOMEZ . [facility] Start: 06-15-2022 End: 06-16-[address] KRISTOPHER GOMEZ . Facility:[facility] Start: 06-15-2022 End: 06-16-2022 Encounter for general adult medical examination without abnormal findings DR KRISTOPHER GOMEZ . Facility:[facility] Payers Date Payer Category Payer Unknown [id number] 2.16.84 [id number] 1989 Unknown [id number] 2.16.84 [id number] 1989 Unknown [id number] 2.16.84 0.1.308178.3.579.2.593 1989 Unknown [id number] 2.16.84 0.1.645412.3.579.2.593 1989 Unknown [id number] 2.16.84 0.1.993359.3.579.2.593 1989 Unknown [id number] 2.16.84 0.1.119057.3.579.2.593 1989 Unknown [id number] 2.16.84 0.1.750855.3.579.2.593 1989 Unknown [id number] 2.16.84 0.1.361121.3.579.2.593 1989 Unknown [id number] 2.16.84 0.1.403599.3.579.2.593 1989 Unknown [id number] 2.16.84 0.1.575158.3.579.2.1259 1989 Unknown [id number] 2.16.84 0.1.953916.3.579.2.1259 1989 Unknown [id number] 2.16.84 0.1.326362.3.579.2.1259 1989 Unknown [id number] 2.16.84 0.1.333481.3.579.2.1259 1989 Unknown [id number] 2.16.840 .1.475733.3.579.2.1259 1989 Unknown [id number] 2.16.840 .1.307108.3.579.2.1259 1959 Unknown [id number] 1959 Unknown [id number] Clinical Note 12-29-2022 Note Date & Type [...] by: CORI MENDIETA Date: 2022-12-29 15:15 [facility] Summary Purpose Family History No Family History Records FoundNo Family History Records Found Advance Directives No Advanced Directives Records FoundNo Advanced Directives Records Found Additional Source Comments INFORMATION SOURCE (unrecogn ized section and content) DATE CREATED AUTHOR 12/30/2022 [facility] DATE CREATED AUTHOR AUTHOR'S JESSICA ESCUDEROGAURAV 12/08/2023 [facility] FOR RECORDS PERTAINING TO PATIENTS WHO [...] BE BASED ON THE PRIMARY CLINICAL RECORDS. [facility]. provides no warranty or guarantee of the accuracy or completeness of information in this document.
== END 2023-12-11 15:08 | disposition home or self-care (01) ==
LOC: NOMS 15:08
PROVIDERS: PCP Family Medicine; Visit Provider Obstetrics & Gynecology
DX: O26.843 Uterine size-date discrepancy, third trimester (principal); Z3A.33 33 weeks gestation of pregnancy
CPT/HCPCS: 76816

== ENCOUNTER 2023-12-19 21:44 | Outpatient (REF) | payer OTHER, MEDICAID, SELFPAY ==
--- OUTSIDE RECORDS SUMMARY | 2023-12-19 21:50 | XMS_ITS | CCD ---
Author Organization [facility] Care Team Providers Care Md Physician Dermatologist Name Role Phone PATRICIA ., DR SUMMERS [...] sources) Latex Drug allergy (disorder) 01-23-[address] [facility] Repository Problems Active Problems Problem Classification [...] 12-20-2022 HCG QUANT 21 mIU/mL Normal [facility] Comment on above: Performed By: #### P REGQNT #### [facility] [address] [place] [address] Dr. Meredith Piña HCG RANGE SEE BELOW Normal [facility] Comment on above: Result Comment: 5-50 0.2-1 WEEK 50-500 1-2 WEEKS 100-5,000 2-3 WEEKS 500-10,000 3-4 WEEKS 1,000-50,000 4-5 WEEKS 10,000-100,000 5-6 WEEKS 15,000-200,000 6-8 WEEKS 10,000-100,000 2-3 MONTHS Performed By: #### P REGQNT #### [facility] [address] [address] [address] Meredith Piña PREG QUANT HCGon 12-18-2022 HCG QUANT 35 mIU/mL Normal [facility] Comment on above: Performed By: #### P REGQNT, TSH #### [facility] [address] [address] [address] Meredith Piña HCG RANGE SEE BELOW Normal [facility] Comment on above: Result Comment: 5-50 0.2-1 WEEK 50-500 1-2 WEEKS 100-5,000 2-3 WEEKS 500-10,000 3-4 WEEKS 1,000-50,000 4-5 WEEKS 10,000-100,000 5-6 WEEKS 15,000-200,000 6-8 WEEKS 10,000-100,000 2-3 MONTHS Performed By: #### P REGQNT, TSH #### [facility] [address] [address] [address] Meredith Piña US PELVIS AND TRANSVAGon [...] CORI MENDIETA Date: 2022-11-20 17:13 Normal [facility] CBC AUTO DIFFon 11-14-2022 BASO # 0.0 103/ul Normal 0.0-0.1 [facility] Comment on above: Performed By: #### C BC #### [facility] [address] [place] [address] Dr. Meredith Piña Basophils/100 WBC (Bld) 0.6 % Normal 0.2-2.0 [facility] Comment on above: Performed By: #### C BC #### [facility] [address] [place] [address] Dr. Meredith Piña EO # 0.1 103/ul Normal 0.0-0.7 [facility] Comment on above: Performed By: #### C BC #### [facility] [address] [place] [address] Dr. Meredith Piña Eosinophils/100 WBC (Bld) 2.0 % Normal 0.9-7.0 [facility] Comment on above: Performed By: #### C BC #### [facility] [address] [place] [address] Dr. Meredith Piña Erythrocyte distribution width (RBC) [Ratio] 13.3 % Normal 11.0-15.0 [facility] Comment on above: Performed By: #### C BC #### [facility] [address] [place] [address] Dr. Meredith Piña Hematocrit (Bld) [Volume fraction] 40.3 % Normal 36.0-48.0 [facility] Comment on above: Performed By: #### C BC #### [facility] [address] [place] [address] Dr. Meredith Piña Hemoglobin (Bld) [Mass/Vol] 14.1 g/dL Normal 12.0-16.[address] [facility] Comment on above: Performed By: #### C BC #### [facility] [address] [place] [address] Dr. Meredith Piña IG # 0.03 10e3/ul Normal 0.00-0.03 [facility] Comment on above: Performed By: #### C BC #### [facility] [address] [place] [address] Dr. Meredith Piña IG % 0.4 % Normal 0.0-0.5 [facility] Comment on above: Performed By: #### C BC #### [facility] [address] [place] [address] Dr. Meredith Piña LYMPH # 2.1 103/ul Normal 1.2-3.8 [facility] Comment on above: Performed By: #### C BC #### [facility] [address] [place] [address] Dr. Meredith Piña Lymphocytes/100 WBC (Bld) 29.9 % Normal 20.5-60.0 [facility] Comment on above: Performed By: #### C BC #### [facility] [address] [place] [address] Dr. Meredith Piña MANUAL DIFF REQ NO Normal [facility] Comment on above: Performed By: #### C BC #### [facility] [address] [place] [address] Dr. Meredith Piña MCH (RBC) [Entitic mass] 32.7 pg Normal 26.7-34.0 [facility] Comment on above: Performed By: #### C BC #### [facility] [address] [place] [address] Dr. Meredith Piña MCHC (RBC) [Mass/Vol] 35.0 g/dL Normal 29.9-35.2 [facility] Comment on above: Performed By: #### C BC #### [facility] [address] [place] [address] Dr. Meredith Piña MCV (RBC) [Entitic vol] 93.5 fL Normal 81.0-99.0 [facility] Comment on above: Performed By: #### C BC #### [facility] [address] [place] [address] Dr. Meredith Piña MONO # 0.6 103/ul Normal 0.3-0.8 [facility] Comment on above: Performed By: #### C BC #### [facility] [address] [place] [address] Dr. Meredith Piña Monocytes/100 WBC (Bld) 8.2 % Normal 1.7-12.0 [facility] Comment on above: Performed By: #### C BC #### [facility] [address] [place] [address] Dr. Meredith Piña NEUT # 4.2 103/ul Normal 1.4-6.5 [facility] Comment on above: Performed By: #### C BC #### [facility] [address] [place] [address] Dr. Meredith Piña Neutrophils/100 WBC (Bld) 58.9 % Normal 43.0-75.0 [facility] Comment on above: Performed By: #### C BC #### [facility] [address] [place] [address] Dr. Meredith Piña Platelet mean volume (Bld) [Entitic vol] 10.0 fL Normal 9.5-13.5 [facility] Comment on above: Performed By: #### C BC #### [facility] [address] [place] [address] Dr. Meredith Piña PLT 312 103/ul Normal 150-450 [facility] Comment on above: Performed By: #### C BC #### [facility] [address] [place] [address] Dr. Meredith Piña RBC 4.31 106/ul Normal 4.20-5.40 [facility] Comment on above: Performed By: #### C BC #### [facility] [address] [place] [address] Dr. Meredith Piña WBC 7.1 103/ul Normal 4.0-11.0 [facility] Comment on above: Performed By: #### C BC #### [facility] [address] [place] [address] Dr. Meredith Piña FREE T4on 11-14-2022 Free T4 [Mass/Vol] 0.85 ng/dL Normal 0.76-1.46 [facility] Comment on above: Performed By: #### P REGQNT, TSH #### [facility] [address] [place] [address] Dr. Meredith Piña GLYCOHEMOGLOBIN A1Con 2022 ADA RECOMMENDATION SEE BELOW Normal [facility] Comment on above: Result Comment: ADA RECOMMENDED LIMIT 4.0 - 6.0 ADA THERAPEUTIC TARGET < 7.0 ACTION SUGGESTED > 7.0 Performed By: #### A 1C #### [facility] [address] [place] [address] Dr. Meredith Piña Glucose [Mass/Vol] 103 mg/dL Normal [facility] Comment on above: Performed By: #### A 1C #### [facility] [address] [address] [address] Meredith Piña HbA1c (Bld) [Mass fraction] 5.2 % Normal 4.5-6.2 [facility] Comment on above: Performed By: #### A 1C #### [facility] [address] [place] [address] Dr. Meredith Piña PREG QUANT HCGon 11-14-2022 HCG QUANT <1 Normal [facility] Comment on above: Performed By: #### P REGQNT, TSH #### [facility] [address] [place] [address] Dr. Meredith Piña HCG RANGE SEE BELOW Normal [facility] Comment on above: Result Comment: 5-50 0.2-1 WEEK 50-500 1-2 WEEKS 100-5,000 2-3 WEEKS 500-10,000 3-4 WEEKS 1,000-50,000 4-5 WEEKS 10,000-100,000 5-6 WEEKS 15,000-200,000 6-8 WEEKS 10,000-100,000 2-3 MONTHS Performed By: #### P REGQNT, TSH #### [facility] [address] [place] [address] Dr. Meredith Piña PROTIMEon 11-14-2022 INR Coag (PPP) [Relative time] {INR} Normal [facility] Comment on above: Performed By: #### P REGQNT, TSH #### [facility] [address] [place] [address] Dr. Meredith Piña INR GUIDELINES SEE BELOW Normal [facility] Comment on above: Result Comment: ASHU RED INR: 2.0 - 3.0 CONDITIONS NOT LISTED BELOW 2.5 - 3.5 FOR PROSTHETIC HEART VALVE REPLACEMENT 2.5 - 3.5 RECURRENT THROMBOSIS Performed By: #### P REGQNT, TSH #### [facility] [address] [place] [address] Dr. Meredith Piña PT Coag (PPP) [Time] 9.8 s Normal 9.0-11.6 [facility] Comment on above: Performed By: #### P REGQNT, TSH #### [facility] [address] [place] [address] Dr. Meredith Piña PTTon 11-14-2022 aPTT Coag (Bld) [Time] 25.0 s Normal 22.3-36.2 [facility] Comment on above: Performed By: #### P REGQNT, TSH #### [facility] [address] [place] [address] Dr. Meredith Piña TSHon 11-14-2022 TSH 0.749 uIU/mL Normal 0.358-3.740 [facility] Comment on above: Performed By: #### P REGQNT, TSH #### [facility] [address] [place] [address] Dr. Meredith Piña PAP ACOG PANEL 2: 30 to 65on 10-25-2022 . . Normal [facility] Comment on above: Result Comment: Perf ormed at: WB Performed By: #### P REGQNT, TSH #### [facility] [address] [place] [address] Dr. Meredith Piña Age Gdln ACOG Testing 30-65 Normal [facility] Comment on above: Performed By: #### P REGQNT, TSH #### [facility] [address] [place] [address] Dr. Meredith Piña DIAGNOSIS: Comment Normal [facility] Comment on above: Result Comment: NEGA TIVE FOR INTRAEPITHELIAL LESION OR MALIGNANCY. Performed at: WB Performed By: #### P REGQNT, TSH #### [facility] [address] [place] [address] Dr. Meredith Piña HPV Aptima Positive Abnormal Negative [facility] Comment on above: Result Comment: This nucleic acid amplification test detects fourteen high-risk HPV types (16,18,31,33,35,39,45,51,52,56,58,59,66,68) without differentiation. Performed at: =G Performed By: #### P REGQNT, TSH #### [facility] [address] [address] [address] Meredith Piña HPV Genotype 16 Negative Normal Negative [facility] Comment on above: Performed By: #### P REGQNT, TSH #### [facility] [address] [address] [address] Meredith Piña HPV Genotype 18,45 Negative Normal Negative [facility] Comment on above: Performed By: #### P REGQNT, TSH #### [facility] [address] [address] [address] Meredith Piña HPV Genotype Reflex Comment Normal [facility] Comment on above: Result Comment: Miquel arauz, see HPV Genotype results. Performed at: WB Performed By: #### P REGQNT, TSH #### [facility] [address] [address] [address] Meredith Piña Methodology: Comment Normal [facility] Comment on above: Result Comment: This liquid based ThinPrep(R) pap test was screened with the use of an image guided system. Performed at: WB Performed By: #### P REGQNT, TSH #### [facility] [address] [address] [address] Meredith Piña Note: Comment Normal [facility] Comment on above: Result Comment: The Pap [...] Performed By: #### P REGQNT, TSH #### [facility] [address] [address] [address] Meredith Piña Performed by: Comment Normal [facility] Comment on above: Result Comment: Odilon Villanueva [employer] [place] (ASCP) Performed at: WB Performed By: #### P REGQNT, TSH #### [facility] [address] [place] [address] Dr. Meredith Piña Specimen adequacy: Comment Normal [facility] Comment on above: Result Comment: Sati sfactory for evaluation. Endocervical and/or squamous metaplastic cells (endocervical component) are present. Performed at: WB Performed By: #### P REGQNT, TSH #### [facility] [address] [place] [address] Dr. Meredith Piña CHLAMYDIA/GONOCOCCUS DMITRI ( AB/URINE/PAPon 10-19-2022 Chlamydia trachomatis, DMITRI Negative Normal Negative [facility] Comment on above: Performed By: #### P REGQNT, TSH #### [facility] [address] [place] [address] Dr. Meredith Piña Neisseria gonorrhoeae, DMITRI Negative Normal Negative [facility] Comment on above: Performed By: #### P REGQNT, TSH #### [facility] [address] [place] [address] Dr. Meredith Piña VAGINITIS/VAGINOSIS DNA PROB Tayo 10-18-2022 Amira species Negative Normal Negative [facility] Comment on above: Performed By: #### V AGINT #### [facility] [address] [place] [address] Dr. Meredith Piña Gardnerella vaginalis Positive Abnormal Negative [facility] Comment on above: Performed By: #### V AGINT #### [facility] [address] [place] [address] Dr. Meredith Piña Trichomonas vaginalis Negative Normal Negative [facility] Comment on above: Performed By: #### V AGINT #### [facility] [address] [place] [address] Dr. Meredith Piña Covid-19 PCR ([facility])on 09-21 SARS-CoV-2 (COVID-19) RNA DMITRI+probe Ql (Unsp spec) Not detected Normal NOT DETECTED [facility] Comment on above: Result Comment: When [...] for this test is supported by the [place] of Health and Human Service's declaration that [...] Performed By: #### P REGQNT, TSH #### [facility] [address] [place] [address] Dr. Meredith Piña INSULINon 06-16-2022 Insulin 15.5 uIU/mL Normal 2.6-24.[address] [facility] Comment on above: Performed By: #### P REGQNT, TSH #### [facility] [address] [place] [address] Dr. Meredith Piña CBC AUTO DIFFon 06-15-2022 BASO # 0.0 103/ul Normal 0.0-0.1 [facility] Comment on above: Performed By: #### P REGQNT, TSH #### [facility] [address] [place] [address] Dr. Meredith Piña Basophils/100 WBC (Bld) 0.3 % Normal 0.2-2.[address] [facility] Comment on above: Performed By: #### P REGQNT, TSH #### [facility] [address] [place] [address] Dr. Meredith Piña EO # 0.2 103/ul Normal 0.0-0.[address] [facility] Comment on above: Performed By: #### P REGQNT, TSH #### [facility] [address] [place] [address] Dr. Meredith Piña Eosinophils/100 WBC (Bld) 2.0 % Normal 0.9-7.[address] [facility] Comment on above: Performed By: #### P REGQNT, TSH #### [facility] [address] [place] [address] Dr. Meredith Piña Erythrocyte distribution width (RBC) [Ratio] 12.4 % Normal 11.0-15.0 [facility] Comment on above: Performed By: #### P REGQNT, TSH #### [facility] [address] [place] [address] Dr. Meredith Piña Hematocrit (Bld) [Volume fraction] 41.1 % Normal 36.0-48.0 [facility] Comment on above: Performed By: #### P REGQNT, TSH #### [facility] [address] [place] [address] Dr. Meredith Piña Hemoglobin (Bld) [Mass/Vol] 14.0 g/dL Normal 12.0-16.0 [facility] Comment on above: Performed By: #### P REGQNT, TSH #### [facility] [address] [place] [address] Dr. Meredith Piña IG # 0.04 10e3/ul Critically high 0.00-0.03 [facility] Comment on above: Performed By: #### P REGQNT, TSH #### [facility] [address] [place] [address] Dr. Meredith Piña IG % 0.4 % Normal 0.0-0.5 [facility] Comment on above: Performed By: #### P REGQNT, TSH #### [facility] [address] [place] [address] Dr. Meredith Piña LYMPH # 1.8 103/ul Normal 1.2-3.[address] [facility] Comment on above: Performed By: #### P REGQNT, TSH #### [facility] [address] [place] [address] Dr. Meredith Piña Lymphocytes/100 WBC (Bld) 19.3 % Critically low 20.5-60.0 [facility] Comment on above: Performed By: #### P REGQNT, TSH #### [facility] [address] [place], [place] [id number] Dr. Meredith Piña MANUAL DIFF REQ NO Normal [facility] Comment on above: Performed By: #### P REGQNT, TSH #### [facility] [address] [place] [address] Dr. Meredith Piña MCH (RBC) [Entitic mass] 30.8 pg Normal 26.7-34.0 [facility] Comment on above: Performed By: #### P REGQNT, TSH #### [facility] [address] [place] [address] Dr. Meredith Piña MCHC (RBC) [Mass/Vol] 34.1 g/dL Normal 29.9-35.[address] [facility] Comment on above: Performed By: #### P REGQNT, TSH #### [facility] [address] [place] [address] Dr. Meredith Piña MCV (RBC) [Entitic vol] 90.3 fL Normal 81.0-99.[address] [facility] Comment on above: Performed By: #### P REGQNT, TSH #### [facility] [address] [place] [address] Dr. Meredith Piña MONO # 0.5 103/ul Normal 0.3-0.[address] [facility] Comment on above: Performed By: #### P REGQNT, TSH #### [facility] [address] [place] [address] Dr. Meredith Piña Monocytes/100 WBC (Bld) 5.2 % Normal 1.7-12.[address] [facility] Comment on above: Performed By: #### P REGQNT, TSH #### [facility] [address] [place] [address] Dr. Meredith Piña NEUT # 6.8 103/ul Critically high 1.4-6.5 [facility] Comment on above: Performed By: #### P REGQNT, TSH #### [facility] [address] [place] [address] Dr. Meredith Piña Neutrophils/100 WBC (Bld) 72.8 % Normal 43.0-75.[address] [facility] Comment on above: Performed By: #### P REGQNT, TSH #### [facility] [address] [address] [address] Meredith Piña Platelet mean volume (Bld) [Entitic vol] 9.3 fL Critically low 9.5-13.5 [facility] Comment on above: Performed By: #### P REGQNT, TSH #### [facility] [address] [address] [address] Meredith Piña PLT 354 103/ul Normal 150-450 [facility] Comment on above: Performed By: #### P REGQNT, TSH #### [facility] [address] [address] [address] Meredith Piña RBC 4.55 106/ul Normal 4.20-5.40 [facility] Comment on above: Performed By: #### P REGQNT, TSH #### [facility] [address] [place] [address] Dr. Meredith Piña WBC 9.4 103/ul Normal 4.0-11.0 [facility] Comment on above: Performed By: #### P REGQNT, TSH #### [facility] [address] [address] [address] Meredith Piña FREE THYROXINE INDEX T7on FTI 2.66 Normal 1.30-4.50 [facility] Comment on above: Performed By: #### L IPID, T7, TSH, CMP #### [facility] [address] [address] [address] Meredith Piña T3U 32.0 % Normal 30.0-39.0 [facility] Comment on above: Performed By: #### L IPID, T7, TSH, CMP #### [facility] [address] [address] [address] Meredith Piña T4 [Mass/Vol] 8.30 ug/dL Normal 4.80-13.90 [facility] Comment on above: Performed By: #### L IPID, T7, TSH, CMP #### [facility] [address] [address] [address] Meredith Piña GLYCOHEMOGLOBIN A1Con 2021 ADA RECOMMENDATION SEE BELOW Normal [facility] Comment on above: Result Comment: ADA RECOMMENDED LIMIT 4.0 - 6.0 ADA THERAPEUTIC TARGET < 7.0 ACTION SUGGESTED > 7.0 Performed By: #### P REGQNT, TSH #### [facility] [address] [address] [address] Meredith Piña Glucose [Mass/Vol] 103 mg/dL Normal [facility] Comment on above: Performed By: #### P REGQNT, TSH #### [facility] [address] [address] [address] Meredith Piña HbA1c (Bld) [Mass fraction] 5.2 % Normal 4.5-6.2 [facility] Comment on above: Performed By: #### P REGQNT, TSH #### [facility] [address] [address] [address] Meredith Piña IRONon 06-15-2022 Iron [Mass/Vol] 55.0 ug/dL Normal 50.0-170.0 [facility] Comment on above: Performed By: #### P REGQNT, TSH #### [facility] [address] [address] [address] Meredith Piña LIPID PROFILEon 06-15-2022 CHOL-HDL RATIO NORM SEE BELOW Normal [facility] Comment on above: Result Comment: 3.3 - 4.4 LOW RISK 4.4 - 7.1 AVERAGE RISK 7.1 - 11.0 MODERATE RISK >11.0 HIGH RISK Performed By: #### L IPID, T7, TSH, CMP #### [facility] [address] [address] [address] Meredith Piña Cholesterol [Mass/Vol] 178 mg/dL Normal <=200 [facility] Comment on above: Performed By: #### L IPID, T7, TSH, CMP #### [facility] [address] [address] [address] Meredith Piña Cholesterol in HDL [Mass/Vol] 50 mg/dL Normal 40-60 [facility] Comment on above: Performed By: #### L IPID, T7, TSH, CMP #### [facility] [address] [address] [address] Meredith Piña Cholesterol in LDL [Mass/Vol] 109.2 mg/dL Normal [facility] Comment on above: Performed By: #### L IPID, T7, TSH, CMP #### [facility] [address] [address] [address] Meredith Piña Cholesterol.total/Cho lesterol in HDL [Mass ratio] 3.6 {ratio} Normal [facility] Comment on above: Performed By: #### L IPID, T7, TSH, CMP #### [facility] [address] [address] [address] Meredith Piña HDL NORMAL > or = 60 mg/dl - LO W CARDIOVASCULAR RISK <40 mg/dl - HIGH CARDIOVASCULAR RISK Normal [facility] Comment on above: Performed By: #### L IPID, T7, TSH, CMP #### [facility] [address] [address] [address] Meredith Piña LDL CALC NORMAL SEE BELOW Normal [facility] Comment on above: Result Comment: <100 mg/dl OPTIMAL 100 - 129 mg/dl NEAR OR ABOVE OPTIMAL 130 - 159 mg/dl BORDERLINE HIGH 160 - 189 mg/dl HIGH >190 mg/dl VERY HIGH Performed By: #### L IPID, T7, TSH, CMP #### [facility] [address] [address] [address] Meredith Piña Triglyceride [Mass/Vol] 94 mg/dL Normal <=150 [facility] Comment on above: Performed By: #### L IPID, T7, TSH, CMP #### [facility] [address] [address] [address] Meredith Piña VLDL CALC 18.8 mg/dL Normal [facility] Comment on above: Performed By: #### L IPID, T7, TSH, CMP #### [facility] [address] [address] [address] Meredith Piña PROF 14(COMP METB)on 022 Albumin [Mass/Vol] 3.8 g/dL Normal 3.4-5.0 [facility] Comment on above: Performed By: #### L IPID, T7, TSH, CMP #### [facility] [address] [place] [address] Dr. Meredith Piña Albumin/Globulin [Mass ratio] 0.9 {ratio} Normal [facility] Comment on above: Performed By: #### L IPID, T7, TSH, CMP #### [facility] [address] [place] [address] Dr. Meredith Piña ALP [Catalytic activity/Vol] 79 U/L Normal 46-116 [facility] Comment on above: Performed By: #### L IPID, T7, TSH, CMP #### [facility] [address] [place] [address] Dr. Meredith Piña ALT [Catalytic activity/Vol] 34 U/L Normal 14-59 [facility] Comment on above: Performed By: #### L IPID, T7, TSH, CMP #### [facility] [address] [place] [address] Dr. Meredith Piña Anion gap [Moles/Vol] 11.5 mmol/L Normal [facility] Comment on above: Performed By: #### L IPID, T7, TSH, CMP #### [facility] [address] [place] [address] Dr. Meredith Piña AST [Catalytic activity/Vol] 18 U/L Normal 15-37 [facility] Comment on above: Performed By: #### L IPID, T7, TSH, CMP #### [facility] [address] [place] [address] Dr. Meredith Piña Bilirubin [Mass/Vol] 0.2 mg/dL Normal 0.2-1.0 [facility] Comment on above: Performed By: #### L IPID, T7, TSH, CMP #### [facility] [address] [place] [address] Dr. Meredith Piña Calcium [Mass/Vol] 9.1 mg/dL Normal 8.5-10.1 [facility] Comment on above: Performed By: #### L IPID, T7, TSH, CMP #### [facility] [address] [place] [address] Dr. Meredith Piña Chloride [Moles/Vol] 105 mmol/L Normal 98-[address] [facility] Comment on above: Performed By: #### L IPID, T7, TSH, CMP #### [facility] [address] [address] [address] Meredith Piña CO2 [Moles/Vol] 29.3 mmol/L Normal 21.0-32.0 [facility] Comment on above: Performed By: #### L IPID, T7, TSH, CMP #### [facility] [address] [place] [address] Dr. Meredith Piña Creatinine [Mass/Vol] 0.72 mg/dL Normal 0.55-1.02 [facility] Comment on above: Performed By: #### L IPID, T7, TSH, CMP #### [facility] [address] [place] [address] Dr. Meredith Piña EGFR-AF SERBIAN >60 Normal >=60 [facility] Comment on above: Performed By: #### L IPID, T7, TSH, CMP #### [facility] [address] [address] [address] Meredith Piña EGFR-NON AF SERBIAN >60 Normal >=60 [facility] Comment on above: Performed By: #### L IPID, T7, TSH, CMP #### [facility] [address] [place] [address] Dr. Meredith Piña Globulin (S) [Mass/Vol] 4.2 g/dL Normal [facility] Comment on above: Performed By: #### L IPID, T7, TSH, CMP #### [facility] [address] [address] [address] Meredith Piña Glucose [Mass/Vol] 89 mg/dL Normal 74-106 [facility] Comment on above: Performed By: #### L IPID, T7, TSH, CMP #### [facility] [address] [place] [address] Dr. Meredith Piña Potassium [Moles/Vol] 3.8 mmol/L Normal 3.5-5.1 [facility] Comment on above: Performed By: #### L IPID, T7, TSH, CMP #### [facility] [address] [place] [address] Dr. Meredith Piña Protein [Mass/Vol] 8.0 g/dL Normal 6.4-8.2 [facility] Comment on above: Performed By: #### L IPID, T7, TSH, CMP #### [facility] [address] [place] [address] Dr. Meredith iPña Sodium [Moles/Vol] 142 mmol/L Normal 136-145 [facility] Comment on above: Performed By: #### L IPID, T7, TSH, CMP #### [facility] [address] [place] [address] Dr. Meredith Piña Urea nitrogen [Mass/Vol] 9.0 mg/dL Normal 7.0-18.0 [facility] Comment on above: Performed By: #### L IPID, T7, TSH, CMP #### [facility] [address] [place] [address] Dr. Meredith Piña Urea nitrogen/Creatinine [Mass ratio] 12.5 mg/mg Normal [facility] Comment on above: Performed By: #### L IPID, T7, TSH, CMP #### [facility] [address] [place] [address] Dr. Meredith Piña TSHon 06-15-2022 TSH 1.075 uIU/mL Normal 0.358-3.740 [facility] Comment on above: Performed By: #### L IPID, T7, TSH, CMP #### [facility] [address] [place] [address] Dr. Meredith Piña Encounters Encounter Date Encounter [...] abnormal findings DR KRISTOPHER GOMEZ . [facility] Start: 06-15-2022 End: 06-16-[address] KRISTOPHER GOMEZ . Facility:[facility] Start: 06-15-2022 End: 06-16-2022 Encounter for general adult medical examination without abnormal findings DR KRISTOPHER GOMEZ . Facility:[facility] Payers Date Payer Category Payer Unknown [id number] 2.16.84 [id number] 1989 Unknown [id number] 2.16.84 [id number] 1989 Unknown [id number] 2.16.84 0.1.950631.3.579.2.593 1989 Unknown [id number] 2.16.84 0.1.735248.3.579.2.593 1989 Unknown [id number] 2.16.84 0.1.566497.3.579.2.593 1989 Unknown [id number] 2.16.84 0.1.087007.3.579.2.593 1989 Unknown [id number] 2.16.84 0.1.570168.3.579.2.593 1989 Unknown [id number] 2.16.84 0.1.816876.3.579.2.593 1989 Unknown [id number] 2.16.84 0.1.407338.3.579.2.593 1989 Unknown [id number] 2.16.84 0.1.741210.3.579.2.1259 1989 Unknown [id number] 2.16.84 0.1.335510.3.579.2.1259 1989 Unknown [id number] 2.16.84 0.1.889690.3.579.2.1259 1989 Unknown [id number] 2.16.84 0.1.002036.3.579.2.1259 1989 Unknown [id number] 2.16.840 .1.328984.3.579.2.1259 1989 Unknown [id number] 2.16.840 .1.061463.3.579.2.1259 1959 Unknown [id number] 1959 Unknown [id number] Clinical Note 12-29-2022 Note Date & Type [...] by: CORI MENDIETA Date: 2022-12-29 15:[address] [facility] Summary Purpose Family History No Family History Records FoundNo Family History Records Found Advance Directives No Advanced Directives Records FoundNo Advanced Directives Records Found Additional Source Comments INFORMATION SOURCE (unrecogn ized section and content) DATE CREATED AUTHOR 12/30/2022 [facility] DATE CREATED AUTHOR AUTHOR'S JESSICA ESCUDEROGAURAV 12/08/2023 [facility] FOR RECORDS PERTAINING TO PATIENTS WHO [...] BE BASED ON THE PRIMARY CLINICAL RECORDS. [employer] [facility]. provides no warranty or guarantee of the accuracy or completeness of information in this document.
== END 2023-12-19 21:45 | disposition home or self-care (01) ==
LOC: LAB 21:44
PROVIDERS: PCP Family Medicine; Visit Provider Obstetrics & Gynecology
DX: Z34.93 Encounter for supervision of normal pregnancy, unspecified, third trimester (principal)
CPT/HCPCS: 87081

== ENCOUNTER 2024-01-17 04:59 | Inpatient (IN) | payer OTHER, MEDICAID, SELFPAY ==
[2024-01-17] VITALS (25 sets, daily range): BP systolic 101–155; BP diastolic 60–92; PULSE 65–166; TEMP 35.4–36.9
--- OUTSIDE RECORDS SUMMARY | 2024-01-17 05:04 | XMS_ITS | CCD ---
Author Organization [facility] Care Team Providers Care Electronic Repair Troubleshooter Name Role Phone PATRICIA ., DR SUMMERS [...] EULALIA Attending Unavailable ALISSA, EULALIA Attending Unavailable EULALIA MAXWELL Attending Unavailable EULALIA MAXWELL Attending Unavailable HALI DALY Attending Unavailable EULALIA MAXWELL Attending Unavailable Allergies Allergy Classification Reported Allergen(s) Allergy Type Date of Onset Reaction(s) Facility (3 sources) Latex Drug allergy (disorder) 01-23-[address] [facility] Repository Problems Active Problems Problem Classification [...] 21 mIU/mL Normal [facility] Comment on above: Performed By: #### P REGQNT #### [facility] [address] [place] [address] Dr. Meredith Piña HCG RANGE SEE BELOW Normal [facility] Comment on above: Result Comment: 5-50 0.2-1 WEEK 50-500 1-2 WEEKS 100-5,000 2-3 WEEKS 500-10,000 3-4 WEEKS 1,000-50,000 4-5 WEEKS 10,000-100,000 5-6 WEEKS 15,000-200,000 6-8 WEEKS 10,000-100,000 2-3 MONTHS Performed By: #### P REGQNT #### [facility] [address] [place] [address] Dr. Meredith Piña PREG QUANT HCGon 12-18-2022 HCG QUANT 35 mIU/mL Normal [facility] Comment on above: Performed By: #### P REGQNT, TSH #### [facility] [address] [place] [address] Dr. Meredith Piña HCG RANGE SEE BELOW Normal [facility] Comment on above: Result Comment: 5-50 0.2-1 WEEK 50-500 1-2 WEEKS 100-5,000 2-3 WEEKS 500-10,000 3-4 WEEKS 1,000-50,000 4-5 WEEKS 10,000-100,000 5-6 WEEKS 15,000-200,000 6-8 WEEKS 10,000-100,000 2-3 MONTHS Performed By: #### P REGQNT, TSH #### [facility] [address] [place] [address] Dr. Meredith Piña US PELVIS AND TRANSVAGon [...] 2022-11-20 17:13 Normal [facility] CBC AUTO DIFFon 11-14-2022 BASO # 0.0 103/ul Normal 0.0-0.1 [facility] Comment on above: Performed By: #### C BC #### [facility] [address] [place] [address] Dr. Meredith Piña Basophils/100 WBC (Bld) 0.6 % Normal 0.2-2.0 [facility] Comment on above: Performed By: #### C BC #### [facility] [address] [place] [address] Dr. Meredith Piña EO # 0.1 103/ul Normal 0.0-0.7 [facility] Comment on above: Performed By: #### C BC #### [facility] [address] [place] [address] Dr. Meredith Piña Eosinophils/100 WBC (Bld) 2.0 % Normal 0.9-7.0 [facility] Comment on above: Performed By: #### C BC #### [facility] [address] [place] [address] Dr. Meredith Piña Erythrocyte distribution width (RBC) [Ratio] 13.3 % Normal 11.0-15.0 [facility] Comment on above: Performed By: #### C BC #### [facility] [address] [place] [address] Dr. Meredith Piña Hematocrit (Bld) [Volume fraction] 40.3 % Normal 36.0-48.0 [facility] Comment on above: Performed By: #### C BC #### [facility] [address] [place] [address] Dr. Meredith Piña Hemoglobin (Bld) [Mass/Vol] 14.1 g/dL Normal 12.0-16.0 [facility] Comment on above: Performed By: #### C BC #### [facility] [address] [place] [address] Dr. Meredith Piña IG # 0.03 10e3/ul Normal 0.00-0.03 [facility] Comment on above: Performed By: #### C BC #### [facility] [address] [place] [address] Dr. Meredith Piña IG % 0.4 % Normal 0.0-0.5 [facility] Comment on above: Performed By: #### C BC #### [facility] [address] [place] [address] Dr. Meredith Piña LYMPH # 2.1 103/ul Normal 1.2-3.8 [facility] Comment on above: Performed By: #### C BC #### [facility] [address] [place] [address] Dr. Meredith Piña Lymphocytes/100 WBC (Bld) 29.9 % Normal 20.5-60.0 [facility] Comment on above: Performed By: #### C BC #### [facility] [address] [place] [address] Dr. Meredith Piña MANUAL DIFF REQ NO Normal [facility] Comment on above: Performed By: #### C BC #### [facility] [address] [place] [address] Dr. Meredith Piña MCH (RBC) [Entitic mass] 32.7 pg Normal 26.7-34.0 [facility] Comment on above: Performed By: #### C BC #### [facility] [address] [place] [address] Dr. Meredith Piña MCHC (RBC) [Mass/Vol] 35.0 g/dL Normal 29.9-35.2 [facility] Comment on above: Performed By: #### C BC #### [facility] [address] [place] [address] Dr. Meredith Piña MCV (RBC) [Entitic vol] 93.5 fL Normal 81.0-99.0 [facility] Comment on above: Performed By: #### C BC #### [facility] [address] [place] [address] Dr. Meredith Piña MONO # 0.6 103/ul Normal 0.3-0.8 [facility] Comment on above: Performed By: #### C BC #### [facility] [address] [place] [address] Dr. Meredith Piña Monocytes/100 WBC (Bld) 8.2 % Normal 1.7-12.0 [facility] Comment on above: Performed By: #### C BC #### [facility] [address] [place] [address] Dr. Meredith Piña NEUT # 4.2 103/ul Normal 1.4-6.5 [facility] Comment on above: Performed By: #### C BC #### [facility] [address] [place] [address] Dr. Meredith Piña Neutrophils/100 WBC (Bld) 58.9 % Normal 43.0-75.0 [facility] Comment on above: Performed By: #### C BC #### [facility] [address] [place] [address] Dr. Meredith Piña Platelet mean volume (Bld) [Entitic vol] 10.0 fL Normal 9.5-13.5 [facility] Comment on above: Performed By: #### C BC #### [facility] [address] [place] [address] Dr. Meredith Piña PLT 312 103/ul Normal 150-450 [facility] Comment on above: Performed By: #### C BC #### [facility] [address] [place] [address] Dr. Meredith Piña RBC 4.31 106/ul Normal 4.20-5.40 [facility] Comment on above: Performed By: #### C BC #### [facility] [address] [place] [address] Dr. Meredith Piña WBC 7.1 103/ul Normal 4.0-11.0 [facility] Comment on above: Performed By: #### C BC #### [facility] [address] [place] [address] Dr. Meredith Piña FREE T4on 11-14-2022 Free T4 [Mass/Vol] 0.85 ng/dL Normal 0.76-1.46 [facility] Comment on above: Performed By: #### P REGQNT, TSH #### [facility] [address] [place] [address] Dr. Meredith Piña GLYCOHEMOGLOBIN A1Con 2022 ADA RECOMMENDATION SEE BELOW Normal [facility] Comment on above: Result Comment: ADA RECOMMENDED LIMIT 4.0 - 6.0 ADA THERAPEUTIC TARGET < 7.0 ACTION SUGGESTED > 7.0 Performed By: #### A 1C #### [facility] [address] [place] [address] Dr. Meredith Piña Glucose [Mass/Vol] 103 mg/dL Normal [facility] Comment on above: Performed By: #### A 1C #### [facility] [address] [place] [address] Dr. Meredith Piña HbA1c (Bld) [Mass fraction] 5.2 % Normal 4.5-6.2 [facility] Comment on above: Performed By: #### A 1C #### [facility] [address] [place] [address] Dr. Meredith Piña PREG QUANT HCGon 11-14-2022 HCG QUANT <1 Normal [facility] Comment on above: Performed By: #### P REGQNT, TSH #### [facility] [address] [place] [address] Dr. Meredith Piña HCG RANGE SEE BELOW Normal [facility] Comment on above: Result Comment: 5-50 0.2-1 WEEK 50-500 1-2 WEEKS 100-5,000 2-3 WEEKS 500-10,000 3-4 WEEKS 1,000-50,000 4-5 WEEKS 10,000-100,000 5-6 WEEKS 15,000-200,000 6-8 WEEKS 10,000-100,000 2-3 MONTHS Performed By: #### P REGQNT, TSH #### [facility] [address] [place] [address] Dr. Meredith Piña PROTIMEon 11-14-2022 INR Coag (PPP) [Relative time] {INR} Normal [facility] Comment on above: Performed By: #### P REGQNT, TSH #### [facility] [address] [place] [address] Dr. Meredith Piña INR GUIDELINES SEE BELOW Normal [facility] Comment on above: Result Comment: ASHU RED INR: 2.0 - 3.0 CONDITIONS NOT LISTED BELOW 2.5 - 3.5 FOR PROSTHETIC HEART VALVE REPLACEMENT 2.5 - 3.5 RECURRENT THROMBOSIS Performed By: #### P REGQNT, TSH #### [facility] [address] [place] [address] Dr. Meredith Piña PT Coag (PPP) [Time] 9.8 s Normal 9.0-11.[address] [facility] Comment on above: Performed By: #### P REGQNT, TSH #### [facility] [address] [place] [address] Dr. Meredith Piña PTTon 11-14-2022 aPTT Coag (Bld) [Time] 25.0 s Normal 22.3-36.2 [facility] Comment on above: Performed By: #### P REGQNT, TSH #### [facility] [address] [place] [address] Dr. Meredith Piña TSHon 11-14-2022 TSH 0.749 uIU/mL Normal 0.358-3.740 [facility] Comment on above: Performed By: #### P REGQNT, TSH #### [facility] [address] [place] [address] Dr. Meredith Piña PAP ACOG PANEL 2: 30 to 65on 10-25-2022 . . Normal [facility] Comment on above: Result Comment: Perf ormed at: WB Performed By: #### P REGQNT, TSH #### [facility] [address] [place] [address] Dr. Meredith Piña Age Gdln ACOG Testing 30-64 [facility] Comment on above: Performed By: #### P REGQNT, TSH #### [facility] [address] [place] [address] Dr. Meredith Piña DIAGNOSIS: Comment Normal [facility] Comment on above: Result Comment: NEGA TIVE FOR INTRAEPITHELIAL LESION OR MALIGNANCY. Performed at: WB Performed By: #### P REGQNT, TSH #### [facility] [address] [address] [address] Meredith Piña HPV Aptima Positive Abnormal Negative [facility] Comment on above: Result Comment: This nucleic acid amplification test detects fourteen high-risk HPV types (16,18,31,33,35,39,45,51,52,56,58,59,66,68) without differentiation. Performed at: =G Performed By: #### P REGQNT, TSH #### [facility] [address] [address] [address] Meredith Piña HPV Genotype 16 Negative Normal Negative [facility] Comment on above: Performed By: #### P REGQNT, TSH #### [facility] [address] [address] [address] Meredtih Piña HPV Genotype 18,45 Negative Normal Negative [facility] Comment on above: Performed By: #### P REGQNT, TSH #### [facility] [address] [address] [address] Meredith Piña HPV Genotype Reflex Comment Normal [facility] Comment on above: Result Comment: Miquel arauz, see HPV Genotype results. Performed at: WB Performed By: #### P REGQNT, TSH #### [facility] [address] [place] [address] Dr. Meredith Piña Methodology: Comment Normal [facility] Comment on above: Result Comment: This liquid based ThinPrep(R) pap test was screened with the use of an image guided system. Performed at: WB Performed By: #### P REGQNT, TSH #### [facility] [address] [place] [address] Dr. Meredith Piña Note: Comment Normal [facility] Comment on above: Result Comment: The [...] P REGQNT, TSH #### [facility] [address] [address] [address] Meredith Piña Performed by: Comment Normal [facility] Comment on above: Result Comment: Odilon Villanueva, Account Underwriter (ASCP) Performed at: WB Performed By: #### P REGQNT, TSH #### [facility] [address] [place] [address] Dr. Meredith Piña Specimen adequacy: Comment Normal [facility] Comment on above: Result Comment: Sati sfactory for evaluation. Endocervical and/or squamous metaplastic cells (endocervical component) are present. Performed at: WB Performed By: #### P REGQNT, TSH #### [facility] [address] [address] [address] Meredith Piña CHLAMYDIA/GONOCOCCUS DMITRI ( AB/URINE/PAPon 10-19-2022 Chlamydia trachomatis, DMITRI Negative Normal Negative [facility] Comment on above: Performed By: #### P REGQNT, TSH #### [facility] [address] [place] [address] Dr. Meredith Piña Neisseria gonorrhoeae, DMITRI Negative Normal Negative [facility] Comment on above: Performed By: #### P REGQNT, TSH #### [facility] [address] [place] [address] Dr. Meredith Pñia VAGINITIS/VAGINOSIS DNA PROB Tayo 10-18-2022 Amira species Negative Normal Negative [facility] Comment on above: Performed By: #### V AGINT #### [facility] [address] [place] [address] Dr. Meredith Piña Gardnerella vaginalis Positive Abnormal Negative [facility] Comment on above: Performed By: #### V AGINT #### [facility] [address] [place] [address] Dr. Meredith Piña Trichomonas vaginalis Negative Normal Negative [facility] Comment on above: Performed By: #### V AGINT #### [facility] [address] [place] [address] Dr. Meredith Piña [facility] SARS-CoV-2 (COVID-19) RNA DMITRI+probe Ql (Unsp spec) Not detected Normal NOT DETECTED [facility] Comment on above: Result Comment: When [...] for this test is supported by the [place] of Health and Human Service's declaration that [...] P REGQNT, TSH #### [facility] [address] [place] [address] Dr. Meredith Piña INSULINon 06-16-2022 Insulin 15.5 uIU/mL Normal 2.6-24.[address] [facility] Comment on above: Performed By: #### P REGQNT, TSH #### [facility] [address] [place] [address] Dr. Meredith Piña CBC AUTO DIFFon 06-15-2022 BASO # 0.0 103/ul Normal 0.0-0.[address] [facility] Comment on above: Performed By: #### P REGQNT, TSH #### [facility] [address] [place] [address] Dr. Meredith Piña Basophils/100 WBC (Bld) 0.3 % Normal 0.2-2.[address] [facility] Comment on above: Performed By: #### P REGQNT, TSH #### [facility] [address] [place] [address] Dr. Meredith Piña EO # 0.2 103/ul Normal 0.0-0.[address] [facility] Comment on above: Performed By: #### P REGQNT, TSH #### [facility] [address] [place] [address] Dr. Meredith Piña Eosinophils/100 WBC (Bld) 2.0 % Normal 0.9-7.0 [facility] Comment on above: Performed By: #### P REGQNT, TSH #### [facility] [address] [place] [address] Dr. Meredith Piña Erythrocyte distribution width (RBC) [Ratio] 12.4 % Normal 11.0-15.0 [facility] Comment on above: Performed By: #### P REGQNT, TSH #### [facility] [address] [place] [address] Dr. Meredith Piña Hematocrit (Bld) [Volume fraction] 41.1 % Normal 36.0-48.0 [facility] Comment on above: Performed By: #### P REGQNT, TSH #### [facility] [address] [place] [address] Dr. Meredith Piña Hemoglobin (Bld) [Mass/Vol] 14.0 g/dL Normal 12.0-16.0 [facility] Comment on above: Performed By: #### P REGQNT, TSH #### [facility] [address] [place] [address] Dr. Meredith Piña IG # 0.04 10e3/ul Critically high 0.00-0.[address] [facility] Comment on above: Performed By: #### P REGQNT, TSH #### [facility] [address] [place] [address] Dr. Meredith Piña IG % 0.4 % Normal 0.0-0.5 [facility] Comment on above: Performed By: #### P REGQNT, TSH #### [facility] [address] [place] [address] Dr. Meredith Piña LYMPH # 1.8 103/ul Normal 1.2-3.8 [facility] Comment on above: Performed By: #### P REGQNT, TSH #### [facility] [address] [place] [address] Dr. Meredith Piña Lymphocytes/100 WBC (Bld) 19.3 % Critically low 20.5-60.0 [facility] Comment on above: Performed By: #### P REGQNT, TSH #### [facility] [address] [place] [address] Dr. Meredith Piña MANUAL DIFF REQ NO Normal [facility] Comment on above: Performed By: #### P REGQNT, TSH #### [facility] [address] [place] [address] Dr. Meredith Piña MCH (RBC) [Entitic mass] 30.8 pg Normal 26.7-34.0 [facility] Comment on above: Performed By: #### P REGQNT, TSH #### [facility] [address] [place] [address] Dr. Meredith Piña MCHC (RBC) [Mass/Vol] 34.1 g/dL Normal 29.9-35.2 [facility] Comment on above: Performed By: #### P REGQNT, TSH #### [facility] [address] [place] [address] Dr. Meredith Piña MCV (RBC) [Entitic vol] 90.3 fL Normal 81.0-99.0 [facility] Comment on above: Performed By: #### P REGQNT, TSH #### [facility] [address] [place] [address] Dr. Meredith Piña MONO # 0.5 103/ul Normal 0.3-0.8 [facility] Comment on above: Performed By: #### P REGQNT, TSH #### [facility] [address] [place] [address] Dr. Meredith Piña Monocytes/100 WBC (Bld) 5.2 % Normal 1.7-12.[address] [facility] Comment on above: Performed By: #### P REGQNT, TSH #### [facility] [address] [place] [address] Dr. Meredith Piña NEUT # 6.8 103/ul Critically high 1.4-6.5 [facility] Comment on above: Performed By: #### P REGQNT, TSH #### [facility] [address] [address] [address] Meredith Piña Neutrophils/100 WBC (Bld) 72.8 % Normal 43.0-75.0 [facility] Comment on above: Performed By: #### P REGQNT, TSH #### [facility] [address] [place] [address] Dr. Meredith Piña Platelet mean volume (Bld) [Entitic vol] 9.3 fL Critically low 9.5-13.[address] [facility] Comment on above: Performed By: #### P REGQNT, TSH #### [facility] [address] [address] [address] Meredith Piña PLT 354 103/ul Normal 150-[address] [facility] Comment on above: Performed By: #### P REGQNT, TSH #### [facility] [address] [place] [address] Dr. Meredith Piña RBC 4.55 106/ul Normal 4.20-5.[address] [facility] Comment on above: Performed By: #### P REGQNT, TSH #### [facility] [address] [place] [address] Dr. Meredith Piña WBC 9.4 103/ul Normal 4.0-11.0 [facility] Comment on above: Performed By: #### P REGQNT, TSH #### [facility] [address] [place] [address] Dr. Meredith Piña FREE THYROXINE INDEX T7on FTI 2.66 Normal 1.30-4.[address] [facility] Comment on above: Performed By: #### L IPID, T7, TSH, CMP #### [facility] [address] [place] [address] Dr. Meredith Piañ T3U 32.0 % Normal 30.0-39.[address] [facility] Comment on above: Performed By: #### L IPID, T7, TSH, CMP #### [facility] [address] [place] [address] Dr. Meredith Piña T4 [Mass/Vol] 8.30 ug/dL Normal 4.80-13.90 [facility] Comment on above: Performed By: #### L IPID, T7, TSH, CMP #### [facility] [address] [address] [address] Meredith Piña GLYCOHEMOGLOBIN A1Con 2021 ADA RECOMMENDATION SEE BELOW Normal [facility] Comment on above: Result Comment: ADA RECOMMENDED LIMIT 4.0 - 6.0 ADA THERAPEUTIC TARGET < 7.0 ACTION SUGGESTED > 7.0 Performed By: #### P REGQNT, TSH #### [facility] [address] [address] [address] Meredith Piña Glucose [Mass/Vol] 103 mg/dL Normal [facility] Comment on above: Performed By: #### P REGQNT, TSH #### [facility] [address] [address] [address] Meredith Piña HbA1c (Bld) [Mass fraction] 5.2 % Normal 4.5-6.2 [facility] Comment on above: Performed By: #### P REGQNT, TSH #### [facility] [address] [place] [address] Dr. Meredith Piña IRONon 06-15-2022 Iron [Mass/Vol] 55.0 ug/dL Normal 50.0-170.0 [facility] Comment on above: Performed By: #### P REGQNT, TSH #### [facility] [address] [place] [address] Dr. Meredith Piña LIPID PROFILEon 06-15-2022 CHOL-HDL RATIO NORM SEE BELOW Normal [facility] Comment on above: Result Comment: 3.3 - 4.4 LOW RISK 4.4 - 7.1 AVERAGE RISK 7.1 - 11.0 MODERATE RISK >11.0 HIGH RISK Performed By: #### L IPID, T7, TSH, CMP #### [facility] [address] [place] [address] Dr. Meredith Piña Cholesterol [Mass/Vol] 178 mg/dL Normal <=200 [facility] Comment on above: Performed By: #### L IPID, T7, TSH, CMP #### [facility] [address] [place] [address] Dr. Meredith Piña Cholesterol in HDL [Mass/Vol] 50 mg/dL Normal 40-60 [facility] Comment on above: Performed By: #### L IPID, T7, TSH, CMP #### [facility] [address] [address] [address] Meredith Piña Cholesterol in LDL [Mass/Vol] 109.2 mg/dL Normal [facility] Comment on above: Performed By: #### L IPID, T7, TSH, CMP #### [facility] [address] [address] [address] Meredith Piña Cholesterol.total/Cho lesterol in HDL [Mass ratio] 3.6 {ratio} Normal [facility] Comment on above: Performed By: #### L IPID, T7, TSH, CMP #### [facility] [address] [place] [address] Dr. Mereidth Piña HDL NORMAL > or = 60 mg/dl - LO W CARDIOVASCULAR RISK <40 mg/dl - HIGH CARDIOVASCULAR RISK Normal [facility] Comment on above: Performed By: #### L IPID, T7, TSH, CMP #### [facility] [address] [place] [address] Dr. Meredith Piña LDL CALC NORMAL SEE BELOW Normal [facility] Comment on above: Result Comment: <100 mg/dl OPTIMAL 100 - 129 mg/dl NEAR OR ABOVE OPTIMAL 130 - 159 mg/dl BORDERLINE HIGH 160 - 189 mg/dl HIGH >190 mg/dl VERY HIGH Performed By: #### L IPID, T7, TSH, CMP #### [facility] [address] [address] [address] Meredith Piña Triglyceride [Mass/Vol] 94 mg/dL Normal <=[address] [facility] Comment on above: Performed By: #### L IPID, T7, TSH, CMP #### [facility] [address] [place] [address] Dr. Meredith Piña VLDL CALC 18.8 mg/dL Normal [facility] Comment on above: Performed By: #### L IPID, T7, TSH, CMP #### [facility] [address] [place] [address] Dr. Meredith Piña PROF 14(COMP METB)on 022 Albumin [Mass/Vol] 3.8 g/dL Normal 3.4-5.0 [facility] Comment on above: Performed By: #### L IPID, T7, TSH, CMP #### [facility] [address] [place] [address] Dr. Meredith Piña Albumin/Globulin [Mass ratio] 0.9 {ratio} Normal [facility] Comment on above: Performed By: #### L IPID, T7, TSH, CMP #### [facility] [address] [place] [address] Dr. Meredith Piña ALP [Catalytic activity/Vol] 79 U/L Normal 46-116 [facility] Comment on above: Performed By: #### L IPID, T7, TSH, CMP #### [facility] [address] [place] [address] Dr. Meredith Piña ALT [Catalytic activity/Vol] 34 U/L Normal 14-59 [facility] Comment on above: Performed By: #### L IPID, T7, TSH, CMP #### [facility] [address] [address] [address] Meredith Piña Anion gap [Moles/Vol] 11.5 mmol/L Normal [facility] Comment on above: Performed By: #### L IPID, T7, TSH, CMP #### [facility] [address] [place] [address] Dr. Meredith Piña AST [Catalytic activity/Vol] 18 U/L Normal 15-37 [facility] Comment on above: Performed By: #### L IPID, T7, TSH, CMP #### [facility] [address] [place] [address] Dr. Meredith Piña Bilirubin [Mass/Vol] 0.2 mg/dL Normal 0.2-1.0 [facility] Comment on above: Performed By: #### L IPID, T7, TSH, CMP #### [facility] [address] [place] [address] Dr. Meredith Piña Calcium [Mass/Vol] 9.1 mg/dL Normal 8.5-10.1 [facility] Comment on above: Performed By: #### L IPID, T7, TSH, CMP #### [facility] [address] [address] [address] Meredith Piña Chloride [Moles/Vol] 105 mmol/L Normal 98-[address] [facility] Comment on above: Performed By: #### L IPID, T7, TSH, CMP #### [facility] [address] [address] [address] Meredith Piña CO2 [Moles/Vol] 29.3 mmol/L Normal 21.0-32.0 [facility] Comment on above: Performed By: #### L IPID, T7, TSH, CMP #### [facility] [address] [place] [address] Dr. Meredith Piña Creatinine [Mass/Vol] 0.72 mg/dL Normal 0.55-1.[address] [facility] Comment on above: Performed By: #### L IPID, T7, TSH, CMP #### [facility] [address] [place] [address] Dr. Meredith Piña EGFR-AF [place] >60 Normal >=60 [facility] Comment on above: Performed By: #### L IPID, T7, TSH, CMP #### [facility] [address] [place] [address] Dr. Meredith Piña EGFR-NON AF [place] >60 Normal >=[address] [facility] Comment on above: Performed By: #### L IPID, T7, TSH, CMP #### [facility] [address] [place] [address] Dr. Meredith Piña Globulin (S) [Mass/Vol] 4.2 g/dL Normal [facility] Comment on above: Performed By: #### L IPID, T7, TSH, CMP #### [facility] [address] [place] [address] Dr. Meredith Piña Glucose [Mass/Vol] 89 mg/dL Normal 74-106 [facility] Comment on above: Performed By: #### L IPID, T7, TSH, CMP #### [facility] [address] [place] [address] Dr. Meredith Piña Potassium [Moles/Vol] 3.8 mmol/L Normal 3.5-5.[address] [facility] Comment on above: Performed By: #### L IPID, T7, TSH, CMP #### [facility] [address] [place] [address] Dr. Meredith Piña Protein [Mass/Vol] 8.0 g/dL Normal 6.4-8.2 [facility] Comment on above: Performed By: #### L IPID, T7, TSH, CMP #### [facility] [address] [place] [address] Dr. Meredith Piña Sodium [Moles/Vol] 142 mmol/L Normal 136-145 [facility] Comment on above: Performed By: #### L IPID, T7, TSH, CMP #### [facility] [address] [place] [address] Dr. Meredith Piña Urea nitrogen [Mass/Vol] 9.0 mg/dL Normal 7.0-18.0 [facility] Comment on above: Performed By: #### L IPID, T7, TSH, CMP #### [facility] [address] [place] [address] Dr. Meredith Piña Urea nitrogen/Creatinine [Mass ratio] 12.5 mg/mg Normal [facility] Comment on above: Performed By: #### L IPID, T7, TSH, CMP #### [facility] [address] [place] [address] Dr. Meredith Piña TSH 06-15-2022 TSH 1.075 uIU/mL Normal 0.358-3.740 [facility] Comment on above: Performed By: #### L IPID, T7, TSH, CMP #### [facility] [address] [place] [address] Dr. Meredith Piña Encounters Encounter Date Encounter Type Care Provider Facility Start: 01-15-2024 End: 01-15-2024 ambulatory EULALIA MAXWELL Not Available Start: 01-08-2024 End: 01-08-2024 ambulatory HALI DALY Not Available Start: 01-02-2024 End: 01-02-2024 ambulatory EULALIA ALISSA Not Available Start: 12-26-2023 End: 12-26-2023 ambulatory EULALIA ALISSA Not Available Start: 12-19-2023 End: 12-19-2023 ambulatory EULALIA ALISSA Not Available Start: 12-06-2023 End: 12-06-2023 ambulatory HALI ADDY Not Available Start: 11-22-2023 End: 11-22-2023 ambulatory EULALIA ALISSA Not Available Start: 11-01-2023 End: 11-01-2023 ambulatory EULALIA ALISSA Not Available Start: 10-01-2023 End: 10-01-2023 ambulatory EULALIA ALISSA Not Available Start: 08-15-2023 End: 08-15-2023 ambulatory HALI ADDY Not Available Start: 07-18-2023 End: 07-18-2023 ambulatory EULALIA ALISSA Not Available Start: 01-12-[address] EULALIA [...] KRISTOPHER GOMEZ . [facility] Start: 06-15-2022 End: 06-16-[address] KRISTOPHER GOMEZ . Facility:[facility] Start: 06-15-2022 End: 06-16-2022 Encounter for general adult medical examination without abnormal findings DR KRISTOPHER GOMEZ . Facility:[facility] Payers Date Payer Category Payer Medicaid [id number] 1990 Unknown [id number] 2.16.84 [id number] 1990 Unknown [id number] 2.16.84 0.1.954242.3.579.2.593 1989 Unknown [id number] 2.16.84 0.1.650846.3.579.2.593 1989 Unknown [id number] 2.16.84 0.1.518274.3.579.2.593 1989 Unknown [id number] 2.16.84 0.1.664944.3.579.2.593 1989 Unknown [id number] 2.16.84 0.1.054329.3.579.2.593 1989 Unknown [id number] 2.16.84 0.1.908218.3.579.2.593 1989 Unknown [id number] 2.16.84 0.1.775336.3.579.2.593 1989 Unknown [id number] 2.16.84 0.1.678680.3.579.2.593 1989 Unknown [id number] 2.16.84 0.1.039134.3.579.2.1259 1989 Unknown [id number] 2.16.84 0.1.390742.3.579.2.1259 1989 Unknown [id number] 2.16.84 0.1.991140.3.579.2.1259 1989 Unknown [id number] 2.16.84 0.1.858137.3.579.2.1259 1989 Unknown [id number] 2.16.84 0.1.868603.3.579.2.1259 1989 Unknown [id number] 2.16.84 0.1.463452.3.579.2.1259 1989 Unknown [id number] 2.16.84 0.1.805632.3.579.2.1259 1989 Unknown [id number] 2.16.84 0.1.463015.3.579.2.1259 1989 Unknown [id number] 2.16.84 0.1.403694.3.579.2.1259 1989 Unknown [id number] 2.16.840 .1.180170.3.579.2.1259 1989 Unknown [id number] 2.16.840 .1.997642.3.579.2.1259 1959 Unknown [id number] 1959 Unknown [id number] Clinical Note 12-29-2022 Note Date & Type [...] Date: 2022-12-29 15:[address] [facility] Summary Purpose Family History No Family History Records FoundNo Family History Records Found Advance Directives No Advanced Directives Records FoundNo Advanced Directives Records Found Additional Source Comments INFORMATION SOURCE (unrecogn ized section and content) DATE CREATED AUTHOR 12/30/2022 [facility] DATE CREATED AUTHOR AUTHOR'S ORGANIZ ATION 01/15/2024 [facility] FOR RECORDS PERTAINING TO PATIENTS WHO ARE [...] BE BASED ON THE PRIMARY CLINICAL RECORDS. [facility] [employer] [facility]. provides no warranty or guarantee of the accuracy or completeness of information in this document.
[2024-01-17] MEDS: 0.9 % SODIUM CHLORIDE 1,000 ML 125 ML IV (05:45)
[2024-01-17 05:46] LABS: Hematocrit 36.3 % (36.0-48.0); Hemoglobin 12.6 g/dL (12.0-16.0); Mean Corpuscular HGB Conc 34.7 g/dL (29.9-35.2); Mean Corpuscular Hemoglobin 33.1 pg (26.7-34.0); Mean Corpuscular Volume 95.3 fL (81.0-99.0); Mean Platelet Volume 9.9 fL (9.5-13.5); Platelet Count 251 10^3/uL (150-450); Red Blood Count 3.81 10^6/uL (4.20-5.40); White Blood Count 11.5 10^3/uL (4.0-11.0)
[2024-01-17 05:59] LABS: Amphetamine Screen Urine NEGATIVE (NEGATIVE); Barbiturates Screen Urine NEGATIVE (NEGATIVE); Benzodiazepines Screen Urine NEGATIVE (NEGATIVE); Buprenorphine Screen Urine NEGATIVE (NEGATIVE); Cannabinoid Screen Urine NEGATIVE (NEGATIVE); Cocaine Screen Urine NEGATIVE (NEGATIVE); Methadone Screen Urine NEGATIVE (NEGATIVE); Methamphetamines Screen Urine NEGATIVE (NEGATIVE); Opiate Screen Urine NEGATIVE (NEGATIVE); Oxycodone Screen Urine NEGATIVE (NEGATIVE); Phencyclidine Screen Urine NEGATIVE (NEGATIVE); Tricyclic Antidepressant Urine NEGATIVE (NEGATIVE)
[2024-01-17] MEDS: OXYTOCIN/0.9 % SODIUM CHLORIDE 10 UNITS/500 ML PLAST..BAG 6 UNIT IV (06:17)
[2024-01-17] MEDS: LIDOCAINE HCL 1% 200 MG/20 ML MDV INJ (12:08)
--- NOTE | 2024-01-17 12:24 | PM.OBPRCVD ---
Procedure Intrapartal events: None Induction method: per pitocin protocol Delivery augmentation: rupture of membranes and pitocin Delivery monitor: external FHT and external uterine Route of delivery: Episiotomy Description: midline L&D Laceration Description: periurethral - 2nd degree Delivery repair: Vicryl Estimated blood loss (mL): 250 Anesthesia type: None Disposition: floor Infant Delivery date: 01/17/24 Gender: female presentation: vertex Placental delivery description: Spontaneous cord description: 3 Vessels
[2024-01-17] MEDS: OXYTOCIN/0.9 % SODIUM CHLORIDE 20 UNITS/1,000 ML PLAST..BAG 125 UNIT IV (12:45)
[2024-01-17] MEDS: BENZOCAINE/MENTHOL 85 GRAM SPRAY BOTTLE 1 APPLIC TOPICAL (12:46)
[2024-01-17] MEDS: GLYCERIN/WITCH HAZEL PADS 1 PAD TOPICAL (12:46)
[2024-01-17] MEDS: ACETAMINOPHEN 325 MG TABLET 650 MG PO ×2 (12:46→23:04)
[2024-01-17] MEDS: IBUPROFEN 600 MG TABLET PO ×2 (12:47→18:51)
[2024-01-18 01:05] VITALS: BP 123/79; PULSE 71; TEMP 36.9
[2024-01-18] MEDS: IBUPROFEN 600 MG TABLET PO ×2 (01:09→08:14)
[2024-01-18] MEDS: ACETAMINOPHEN 325 MG TABLET 650 MG PO (05:09)
[2024-01-18 06:04] LABS: Basophils Absolute Auto 0.1 10^3/uL (0.0-0.1); Basophils Percent Auto 0.4 % (0.2-2.0); Eosinophils Absolute Auto 0.1 10^3/uL (0.0-0.7); Eosinophils Percent Auto 0.8 % (0.9-7.0); Hematocrit 32.7 % (36.0-48.0); Hemoglobin 11.1 g/dL (12.0-16.0); Immature Granulocytes Abs Auto 0.17 10^3/uL (0.00-0.03); Immature Granulocytes Pct Auto 1.3 % (0.0-0.5); Lymphocytes Absolute Auto 2.6 10^3/uL (1.2-3.8); Lymphocytes Percent Auto 19.7 % (20.5-60.0); Mean Corpuscular HGB Conc 33.9 g/dL (29.9-35.2); Mean Corpuscular Hemoglobin 32.6 pg (26.7-34.0); Mean Corpuscular Volume 95.9 fL (81.0-99.0); Mean Platelet Volume 9.7 fL (9.5-13.5); Monocytes Percent Auto 7.8 % (1.7-12.0); Neutrophils Absolute Auto 9.1 10^3/uL (1.4-6.5); Platelet Count 258 10^3/uL (150-450); Red Blood Count 3.41 10^6/uL (4.20-5.40); Red Cell Distribution Width 12.9 % (11.0-15.0)
[2024-01-18 08:10] VITALS: BP 105/65; PULSE 74; TEMP 36.9
[2024-01-18] MEDS: DOCUSATE SODIUM 100 MG CAPSULE PO (08:14)
--- NOTE | 2024-01-18 11:40 | PM.OBPN ---
OB - PN: Subj Subjective Patient comments: no complaints and pain well controlled status: doing well Exam Constitutional Vital Signs, click to edit/add: Last Vital Signs Temp 98.4 F 01/18/24 08:10 Pulse 74 01/18/24 08:10 Resp 16 01/18/24 08:10 BP 105/65 01/18/24 08:10 O2 Del Method Room Air 01/18/24 08:10 Documenting provider has reviewed patient's vital signs: yes Common normals: no apparent distress Respiratory Common normals: normal respiratory effort and clear to auscultation bilaterally Cardio Common normals: regular rate and regular rhythm GI Common normals: Normal to inspection, nondistended, normoactive bowel sounds present Extremity Common normals: no clubbing, cyanosis or edema and no calf tenderness Results Labs Labs: Short CBC 01/18/24 Range/Units 05:57 WBC 13.0 H (4.0-11.0) 10^3/uL Hgb 11.1 L (12.0-16.0) g/dL Hct 32.7 L (36.0-48.0) % Plt Count 258 (150-450) 10^3/uL OB - PN: A/P Plan - Vaginal Delivery day: 1 Plan: routine care, discharge home and follow up 6 weeks Time Spent with Patient Time: Total time spent is greater than 50% in coordination of care (as documented) at patient's floor/unit and/or counseling patient: Total time spent with greater than 50% in coordination of care (as documented) at patient's floor/unit and/or counseling patient: less than 15 minutes
== END 2024-01-18 15:05 | disposition home or self-care (01) | DRG 807 ==
PROVIDERS: Admitting Provider Obstetrics & Gynecology; PCP Family Medicine; Visit Provider Obstetrics & Gynecology
DX: O98.52 Other viral diseases complicating childbirth (principal); Z37.0 Single live birth; O48.0 Post-term pregnancy; Z3A.40 40 weeks gestation of pregnancy; O70.1 Second degree perineal laceration during delivery; B00.9 Herpesviral infection, unspecified
CPT/HCPCS: 36415; 59050; 59410; 80307; 85025; 85027; 86850; 86900; 86901; 96374; 96376

== ENCOUNTER 2024-01-21 08:30 | Outpatient (OUT) | payer OTHER, MEDICAID, SELFPAY ==
--- NOTE | 2024-01-21 14:36 | PC.NURSE ---
Rosa Maria and 4 day old Abdiel with 2 older children arrive for follow up. Mom states going pretty good but I am just an anxious wreck Voices concerns over NB phase, breast feeding breasts in general and making milk. Had poor experience with insufficient supply and tongue tie with 1st baby and quit by few weeks. Second baby struggled for 6 weeks, developed mastitis and supply dried up. Pt and NB were discharged at 24 hours per mom request. Rosa Maria's VSS and assessment WNL. Breasts noted to be type 2/3 in development. Long tubular with larger puffy areolas. Nipples are everted, intact. Baby latches fair to well. Mom states her tongue pushes against my nipple if I don't get her deep enough. Baby active nursing 6-7 minutes then needs stimulation to keep nursing. Does swallow frequently during first 6-7 minutes. Switched to second breast and repeats nursing pattern. Discussed switch nursing and allow to nurse both breasts twice, switching when infant needs more stimulation to keep sucking. Discussed impact of tongue tie and lip tie to nursing and referral for evaluation by pediatric dentist. Discussed history of and breast type with implications for supply. Pt aware that day 4 is early to determine adequate supply or not. Baby with VSS and assessment WNL. Mom reports 4 wets yesterday and 4 so far today. $ stools yesterday and 2 yellow brown stools for today.. Baby to see Dr Galan 01/24/2024 and EPIFANIO 01/25/2024.
[2024-01-21 14:37] VITALS: BP 130/86; PULSE 98; TEMP 36.8; O2SAT 97
== END 2024-01-21 14:42 | disposition home or self-care (01) ==
LOC: FBCO 08:32
PROVIDERS: PCP Family Medicine; Visit Provider Obstetrics & Gynecology
DX: Z39.2 Encounter for routine postpartum follow-up (principal)

== ENCOUNTER 2024-01-28 08:25 | Outpatient (OUT) | payer OTHER, MEDICAID, SELFPAY ==
--- NOTE | 2024-01-28 12:12 | PC.NURSE ---
Rosa Maria and Abdiel arrive for weight check. States the switch nursing is keeping baby sucking for longer and more swallows noted. Baby nurses both breasts for 5-7 minutes most feeds. mom pumps 3X daily and is able to collect 1 oz by end of day which see feeds baby with bottle. States i have mourned the fact of not having enough supply with this baby and will need to eventually give formula.Allowed to share feeling and frustrations with this idea of insufficient glandular supply. Support offered. Will wait until baby is on insurance plan before having mouth evaluated. Will attend [facility]OM[facility] group for support and weight check 02/05/2024. Leaves ambulatory.
== END 2024-01-28 12:19 | disposition home or self-care (01) ==
LOC: FBCO 08:28
PROVIDERS: PCP Family Medicine; Visit Provider Obstetrics & Gynecology
DX: Z39.1 Encounter for care and examination of lactating mother (principal)
CPT/HCPCS: G0463

== ENCOUNTER 2024-06-06 08:44 | Outpatient (OUT) | payer OTHER, MEDICAID, SELFPAY ==
--- NOTE | 2024-06-06 08:46 | US_ITS ---
[address] [address] Patient Name: JASMIN LUONG MRN: [id number] date: 1990 Sex: F Assigned Patient Location: [facility] Current Patient Location: [facility] Accession/Order Number: [id number] Exam Date: 06/06/2024 08:46 Report Date: 06/06/2024 12:15 At the request of: EULALIA MAXWELL Procedure: US OB transvaginal EXAMINATION: US OB transvaginal HISTORY: MISSED MENSES COMPARISON: No relevant comparison available. FINDINGS: Area of anechoic echogenicity identified within the central cavity with a mean sac diameter 1.7 cm, 6 weeks 0 days. Slightly irregular contour with some low-level echoes. Yolk sac: Not visualized pole: Not visualized The uterus is normal, anteverted, anteflexed The ovaries are normal Cervix: Closed, 3.5 cm Clinical age: 8 weeks 4 days Clinical MEGAN: 01/12/2025 Ultrasound age: 6 weeks 0 days Ultrasound MEGAN: 01/30/2025 US/US OB transvaginal IMPRESSION: Slightly atypical irregular appearing gestational sac with no pole. Continued surveillance recommended Electronically authenticated by: CATRACHITA RENE Date: 06/06/2024 12:15
--- OUTSIDE RECORDS SUMMARY | 2024-06-06 08:52 | XMS_ITS | CCD ---
Author Organization [facility] Care Team Providers Care Business Development Officer Name Role Phone PATRICIA ., DR SUMMERS [...] sources) Latex Drug allergy (disorder) 01-23-2021 [facility] Repository Problems Active Problems Problem Classification [...] 12-20-2022 HCG QUANT 21 mIU/mL Normal [facility] Comment on above: Performed By: #### P REGQNT #### [facility] [address] [place] [address] Dr. Meredith Piña HCG RANGE SEE BELOW Normal [facility] Comment on above: Result Comment: 5-50 0.2-1 WEEK 50-500 1-2 WEEKS 100-5,000 2-3 WEEKS 500-10,000 3-4 WEEKS 1,000-50,000 4-5 WEEKS 10,000-100,000 5-6 WEEKS 15,000-200,000 6-8 WEEKS 10,000-100,000 2-3 MONTHS Performed By: #### P REGQNT #### [facility] [address] [place] [address] Dr. Meredith Piña PREG QUANT HCGon 12-18-2022 HCG QUANT 35 mIU/mL Normal [facility] Comment on above: Performed By: #### P REGQNT, TSH #### [facility] [address] [place] [address] Dr. Meredith Piña HCG RANGE SEE BELOW Normal [facility] Comment on above: Result Comment: 5-50 0.2-1 WEEK 50-500 1-2 WEEKS 100-5,000 2-3 WEEKS 500-10,000 3-4 WEEKS 1,000-50,000 4-5 WEEKS 10,000-100,000 5-6 WEEKS 15,000-200,000 6-8 WEEKS 10,000-100,000 2-3 MONTHS Performed By: #### P REGQNT, TSH #### [facility] [address] [place] [address] Dr. Meredith Piña US PELVIS AND TRANSVAGon [...] CORI MENDIETA Date: 2022-11-20 17:13 Normal [facility] CBC AUTO DIFFon 11-14-2022 BASO # 0.0 103/ul Normal 0.0-0.1 [facility] Comment on above: Performed By: #### C BC #### [facility] [address] [place] [address] Dr. Meredith Piña Basophils/100 WBC (Bld) 0.6 % Normal 0.2-2.0 [facility] Comment on above: Performed By: #### C BC #### [facility] [address] [place] [address] Dr. Meredith Piña EO # 0.1 103/ul Normal 0.0-0.7 [facility] Comment on above: Performed By: #### C BC #### [facility] [address] [place] [address] Dr. Meredith Piña Eosinophils/100 WBC (Bld) 2.0 % Normal 0.9-7.0 [facility] Comment on above: Performed By: #### C BC #### [facility] [address] [place] [address] Dr. Meredith Piña Erythrocyte distribution width (RBC) [Ratio] 13.3 % Normal 11.0-15.0 [facility] Comment on above: Performed By: #### C BC #### [facility] [address] [place] [address] Dr. Meredith Piña Hematocrit (Bld) [Volume fraction] 40.3 % Normal 36.0-48.0 [facility] Comment on above: Performed By: #### C BC #### [facility] [address] [place] [address] Dr. Meredith Piña Hemoglobin (Bld) [Mass/Vol] 14.1 g/dL Normal 12.0-16.0 [facility] Comment on above: Performed By: #### C BC #### [facility] [address] [place] [address] Dr. Meredith Piña IG # 0.03 10e3/ul Normal 0.00-0.03 [facility] Comment on above: Performed By: #### C BC #### [facility] [address] [place] [address] Dr. Meredith Piña IG % 0.4 % Normal 0.0-0.5 [facility] Comment on above: Performed By: #### C BC #### [facility] [address] [place] [address] Dr. Meredith Piña LYMPH # 2.1 103/ul Normal 1.2-3.8 [facility] Comment on above: Performed By: #### C BC #### [facility] [address] [place] [address] Dr. Meredith Piña Lymphocytes/100 WBC (Bld) 29.9 % Normal 20.5-60.0 [facility] Comment on above: Performed By: #### C BC #### [facility] [address] [place] [address] Dr. Meredith Piña MANUAL DIFF REQ NO Normal [facility] Comment on above: Performed By: #### C BC #### [facility] [address] [place] [address] Dr. Meredith Piña MCH (RBC) [Entitic mass] 32.7 pg Normal 26.7-34.0 [facility] Comment on above: Performed By: #### C BC #### [facility] [address] [place] [address] Dr. Meredith Piña MCHC (RBC) [Mass/Vol] 35.0 g/dL Normal 29.9-35.2 [facility] Comment on above: Performed By: #### C BC #### [facility] [address] [place] [address] Dr. Meredith Piña MCV (RBC) [Entitic vol] 93.5 fL Normal 81.0-99.0 [facility] Comment on above: Performed By: #### C BC #### [facility] [address] [place] [address] Dr. Meredith Piña MONO # 0.6 103/ul Normal 0.3-0.8 [facility] Comment on above: Performed By: #### C BC #### [facility] [address] [place] [address] Dr. Meredith Piña Monocytes/100 WBC (Bld) 8.2 % Normal 1.7-12.0 [facility] Comment on above: Performed By: #### C BC #### [facility] [address] [place] [address] Dr. Meredith Piña NEUT # 4.2 103/ul Normal 1.4-6.5 [facility] Comment on above: Performed By: #### C BC #### [facility] [address] [place] [address] Dr. Meredith Piña Neutrophils/100 WBC (Bld) 58.9 % Normal 43.0-75.0 [facility] Comment on above: Performed By: #### C BC #### [facility] [address] [place] [address] Dr. Meredith Piña Platelet mean volume (Bld) [Entitic vol] 10.0 fL Normal 9.5-13.5 [facility] Comment on above: Performed By: #### C BC #### [facility] [address] [place] [address] Dr. Meredith Piña PLT 312 103/ul Normal 150-450 [facility] Comment on above: Performed By: #### C BC #### [facility] [address] [place] [address] Dr. Meredith Piña RBC 4.31 106/ul Normal 4.20-5.40 [facility] Comment on above: Performed By: #### C BC #### [facility] [address] [place] [address] Dr. Meredith Piña WBC 7.1 103/ul Normal 4.0-11.0 [facility] Comment on above: Performed By: #### C BC #### [facility] [address] [place] [address] Dr. Meredith Piña FREE T4on 11-14-2022 Free T4 [Mass/Vol] 0.85 ng/dL Normal 0.76-1.46 [facility] Comment on above: Performed By: #### P REGQNT, TSH #### [facility] [address] [place] [address] Dr. Meredith Piña GLYCOHEMOGLOBIN A1Con 2022 ADA RECOMMENDATION SEE BELOW Normal [facility] Comment on above: Result Comment: ADA RECOMMENDED LIMIT 4.0 - 6.0 ADA THERAPEUTIC TARGET < 7.0 ACTION SUGGESTED > 7.0 Performed By: #### A 1C #### [facility] [address] [place] [address] Dr. Meredith Piña Glucose [Mass/Vol] 103 mg/dL Normal [facility] Comment on above: Performed By: #### A 1C #### [facility] [address] [place] [address] Dr. Meredith Piña HbA1c (Bld) [Mass fraction] 5.2 % Normal 4.5-6.2 [facility] Comment on above: Performed By: #### A 1C #### [facility] [address] [place] [address] Dr. Meredith Piña PREG QUANT HCGon 11-14-2022 HCG QUANT <1 Normal [facility] Comment on above: Performed By: #### P REGQNT, TSH #### [facility] [address] [place] [address] Dr. Meredith Piña HCG RANGE SEE BELOW Normal [facility] Comment on above: Result Comment: 5-50 0.2-1 WEEK 50-500 1-2 WEEKS 100-5,000 2-3 WEEKS 500-10,000 3-4 WEEKS 1,000-50,000 4-5 WEEKS 10,000-100,000 5-6 WEEKS 15,000-200,000 6-8 WEEKS 10,000-100,000 2-3 MONTHS Performed By: #### P REGQNT, TSH #### [facility] [address] [place] [address] Dr. Meredith Piña PROTIMEon 11-14-2022 INR Coag (PPP) [Relative time] {INR} Normal [facility] Comment on above: Performed By: #### P REGQNT, TSH #### [facility] [address] [place] [address] Dr. Meredith Piña INR GUIDELINES SEE BELOW Normal [facility] Comment on above: Result Comment: ASHU RED INR: 2.0 - 3.0 CONDITIONS NOT LISTED BELOW 2.5 - 3.5 FOR PROSTHETIC HEART VALVE REPLACEMENT 2.5 - 3.5 RECURRENT THROMBOSIS Performed By: #### P REGQNT, TSH #### [facility] [address] [place] [address] Dr. Meredith Piña PT Coag (PPP) [Time] 9.8 s Normal 9.0-11.6 [facility] Comment on above: Performed By: #### P REGQNT, TSH #### [facility] [address] [place] [address] Dr. Meredith Piña PTTon 11-14-2022 aPTT Coag (Bld) [Time] 25.0 s Normal 22.3-36.2 [facility] Comment on above: Performed By: #### P REGQNT, TSH #### [facility] [address] [place] [address] Dr. Meredith Piña TSHon 11-14-2022 TSH 0.749 uIU/mL Normal 0.358-3.740 [facility] Comment on above: Performed By: #### P REGQNT, TSH #### [facility] [address] [place] [address] Dr. Meredith Piña PAP ACOG PANEL 2: 30 to 65on 10-25-2022 . . Normal [facility] Comment on above: Result Comment: Perf ormed at: WB Performed By: #### P REGQNT, TSH #### [facility] [address] [place] [address] Dr. Meredith Piña Age Gdln ACOG Testing 30-65 [facility] Comment on above: Performed By: #### P REGQNT, TSH #### [facility] [address] [place] [address] Dr. Meredith Piña DIAGNOSIS: Comment Normal [facility] Comment on above: Result Comment: NEGA TIVE FOR INTRAEPITHELIAL LESION OR MALIGNANCY. Performed at: WB Performed By: #### P REGQNT, TSH #### [facility] [address] [address] [address] Meredith Piña HPV Aptima Positive Abnormal Negative [facility] Comment on above: Result Comment: This nucleic acid amplification test detects fourteen high-risk HPV types (16,18,31,33,35,39,45,51,52,56,58,59,66,68) without differentiation. Performed at: =G Performed By: #### P REGQNT, TSH #### [facility] [address] [address] [address] Meredith Piña HPV Genotype 16 Negative Normal Negative [facility] Comment on above: Performed By: #### P REGQNT, TSH #### [facility] [address] [address] [address] Meredith Piña HPV Genotype 18,45 Negative Normal Negative [facility] Comment on above: Performed By: #### P REGQNT, TSH #### [facility] [address] [address] [address] Meredith Piña HPV Genotype Reflex Comment Normal [facility] Comment on above: Result Comment: Miquel arauz, see HPV Genotype results. Performed at: WB Performed By: #### P REGQNT, TSH #### [facility] [address] [place] [address] Dr. Meredith Piña Methodology: Comment Normal [facility] Comment on above: Result Comment: This liquid based ThinPrep(R) pap test was screened with the use of an image guided system. Performed at: WB Performed By: #### P REGQNT, TSH #### [facility] [address] [place] [address] Dr. Meredith Piña Note: Comment Normal [facility] Comment on above: Result Comment: The [...] Performed By: #### P REGQNT, TSH #### [facility] [address] [address] [address] Meredith Piña Performed by: Comment Normal [facility] Comment on above: Result Comment: Odilon Villanueva, Offal Worker (ASCP) Performed at: WB Performed By: #### P REGQNT, TSH #### [facility] [address] [place] [address] Dr. Meredith Piña Specimen adequacy: Comment Normal [facility] Comment on above: Result Comment: Sati sfactory for evaluation. Endocervical and/or squamous metaplastic cells (endocervical component) are present. Performed at: WB Performed By: #### P REGQNT, TSH #### [facility] [address] [place] [address] Dr. Meredith Piña CHLAMYDIA/GONOCOCCUS DMITRI ( AB/URINE/PAPon 10-19-2022 Chlamydia trachomatis, DMITRI Negative Normal Negative [facility] Comment on above: Performed By: #### P REGQNT, TSH #### [facility] [address] [place] [address] Dr. Meredith Piña Neisseria gonorrhoeae, DMITRI Negative Normal Negative [facility] Comment on above: Performed By: #### P REGQNT, TSH #### [facility] [address] [place] [address] Dr. Meredith Piña VAGINITIS/VAGINOSIS DNA PROB Tayo 10-18-2022 Amira species Negative Normal Negative [facility] Comment on above: Performed By: #### V AGINT #### [facility] [address] [place] [address] Dr. Meredith Piña Gardnerella vaginalis Positive Abnormal Negative [facility] Comment on above: Performed By: #### V AGINT #### [facility] [address] [place] [address] Dr. Meredith Piña Trichomonas vaginalis Negative Normal Negative [facility] Comment on above: Performed By: #### V AGINT #### [facility] [address] [place] [address] Dr. Meredith Piña Covid-19 PCR (CVDTB)on 09-21 SARS-CoV-2 (COVID-19) RNA DMITRI+probe Ql (Unsp spec) Not detected Normal NOT DETECTED [facility] Comment on above: Result Comment: When [...] for this test is supported by the [employer] of Health and Human Service's declaration that [...] Performed By: #### P REGQNT, TSH #### [facility] [address] [place] [address] Dr. Meredith Piña INSULINon 06-16-2022 Insulin 15.5 uIU/mL Normal 2.6-24.9 [facility] Comment on above: Performed By: #### P REGQNT, TSH #### [facility] [address] [place] [address] Dr. Meredith Piña CBC AUTO DIFFon 06-15-2022 BASO # 0.0 103/ul Normal 0.0-0.1 [facility] Comment on above: Performed By: #### P REGQNT, TSH #### [facility] [address] [place] [address] Dr. Meredith Piña Basophils/100 WBC (Bld) 0.3 % Normal 0.2-2.0 [facility] Comment on above: Performed By: #### P REGQNT, TSH #### [facility] [address] [place] [address] Dr. Meredith Piña EO # 0.2 103/ul Normal 0.0-0.7 [facility] Comment on above: Performed By: #### P REGQNT, TSH #### [facility] [address] [place] [address] Dr. Meredith Piña Eosinophils/100 WBC (Bld) 2.0 % Normal 0.9-7.0 [facility] Comment on above: Performed By: #### P REGQNT, TSH #### [facility] [address] [place] [address] Dr. Meredith Piña Erythrocyte distribution width (RBC) [Ratio] 12.4 % Normal 11.0-15.0 [facility] Comment on above: Performed By: #### P REGQNT, TSH #### [facility] [address] [place] [address] Dr. Meredith iPña Hematocrit (Bld) [Volume fraction] 41.1 % Normal 36.0-48.0 [facility] Comment on above: Performed By: #### P REGQNT, TSH #### [facility] [address] [place] [address] Dr. Meredith Piña Hemoglobin (Bld) [Mass/Vol] 14.0 g/dL Normal 12.0-16.0 [facility] Comment on above: Performed By: #### P REGQNT, TSH #### [facility] [address] [place] [address] Dr. Meredith Piña IG # 0.04 10e3/ul Critically high 0.00-0.03 [facility] Comment on above: Performed By: #### P REGQNT, TSH #### [facility] [address] [place] [address] Dr. Meredith Piña IG % 0.4 % Normal 0.0-0.5 [facility] Comment on above: Performed By: #### P REGQNT, TSH #### [facility] [address] [place] [address] Dr. Meredith Piña LYMPH # 1.8 103/ul Normal 1.2-3.8 [facility] Comment on above: Performed By: #### P REGQNT, TSH #### [facility] [address] [place] [address] Dr. Meredith Piña Lymphocytes/100 WBC (Bld) 19.3 % Critically low 20.5-60.0 [facility] Comment on above: Performed By: #### P REGQNT, TSH #### [facility] [address] [place] [address] Dr. Meredith Piña MANUAL DIFF REQ NO Normal [facility] Comment on above: Performed By: #### P REGQNT, TSH #### [facility] [address] [place] [address] Dr. Meredith Piña MCH (RBC) [Entitic mass] 30.8 pg Normal 26.7-34.0 [facility] Comment on above: Performed By: #### P REGQNT, TSH #### [facility] [address] [place] [address] Dr. Meredith Piña MCHC (RBC) [Mass/Vol] 34.1 g/dL Normal 29.9-35.2 [facility] Comment on above: Performed By: #### P REGQNT, TSH #### [facility] [address] [place] [address] Dr. Meredith Piña MCV (RBC) [Entitic vol] 90.3 fL Normal 81.0-99.0 [facility] Comment on above: Performed By: #### P REGQNT, TSH #### [facility] [address] [place] [address] Dr. Meredith Piña MONO # 0.5 103/ul Normal 0.3-0.8 [facility] Comment on above: Performed By: #### P REGQNT, TSH #### [facility] [address] [place] [address] Dr. Meredith Piña Monocytes/100 WBC (Bld) 5.2 % Normal 1.7-12.0 [facility] Comment on above: Performed By: #### P REGQNT, TSH #### [facility] [address] [place] [address] Dr. Meredith Piña NEUT # 6.8 103/ul Critically high 1.4-6.5 [facility] Comment on above: Performed By: #### P REGQNT, TSH #### [facility] [address] [place], [place] [id number] Dr. Meredith Piña Neutrophils/100 WBC (Bld) 72.8 % Normal 43.0-75.0 [facility] Comment on above: Performed By: #### P REGQNT, TSH #### [facility] [address] [place] [address] Dr. Meredith Piña Platelet mean volume (Bld) [Entitic vol] 9.3 fL Critically low 9.5-13.5 [facility] Comment on above: Performed By: #### P REGQNT, TSH #### [facility] [address] [address] [address] Meredith Piña PLT 354 103/ul Normal 150-450 [facility] Comment on above: Performed By: #### P REGQNT, TSH #### [facility] [address] [place] [address] Dr. Meredith Piña RBC 4.55 106/ul Normal 4.20-5.40 [facility] Comment on above: Performed By: #### P REGQNT, TSH #### [facility] [address] [place] [address] Dr. Meredith Piña WBC 9.4 103/ul Normal 4.0-11.0 [facility] Comment on above: Performed By: #### P REGQNT, TSH #### [facility] [address] [place] [address] Dr. Meredith Piña FREE THYROXINE INDEX T7on FTI 2.66 Normal 1.30-4.50 [facility] Comment on above: Performed By: #### L IPID, T7, TSH, CMP #### [facility] [address] [place] [address] Dr. Meredith Piña T3U 32.0 % Normal 30.0-39.0 [facility] Comment on above: Performed By: #### L IPID, T7, TSH, CMP #### [facility] [address] [place] [address] Dr. Meredith Piña T4 [Mass/Vol] 8.30 ug/dL Normal 4.80-13.90 [facility] Comment on above: Performed By: #### L IPID, T7, TSH, CMP #### [facility] [address] [address] [address] Meredith Piña GLYCOHEMOGLOBIN A1Con 2021 ADA RECOMMENDATION SEE BELOW Normal [facility] Comment on above: Result Comment: ADA RECOMMENDED LIMIT 4.0 - 6.0 ADA THERAPEUTIC TARGET < 7.0 ACTION SUGGESTED > 7.0 Performed By: #### P REGQNT, TSH #### [facility] [address] [address] [address] Meredith Piña Glucose [Mass/Vol] 103 mg/dL Normal [facility] Comment on above: Performed By: #### P REGQNT, TSH #### [facility] [address] [place] [address] Dr. Meredith Piña HbA1c (Bld) [Mass fraction] 5.2 % Normal 4.5-6.2 [facility] Comment on above: Performed By: #### P REGQNT, TSH #### [facility] [address] [place] [address] Dr. Meredith Piña IRONon 06-15-2022 Iron [Mass/Vol] 55.0 ug/dL Normal 50.0-170.[address] [facility] Comment on above: Performed By: #### P REGQNT, TSH #### [facility] [address] [place] [address] Dr. Meredith Piña LIPID PROFILEon 06-15-2022 CHOL-HDL RATIO NORM SEE BELOW Normal [facility] Comment on above: Result Comment: 3.3 - 4.4 LOW RISK 4.4 - 7.1 AVERAGE RISK 7.1 - 11.0 MODERATE RISK >11.0 HIGH RISK Performed By: #### L IPID, T7, TSH, CMP #### [facility] [address] [place] [address] Dr. Meredith Piña Cholesterol [Mass/Vol] 178 mg/dL Normal <=200 [facility] Comment on above: Performed By: #### L IPID, T7, TSH, CMP #### [facility] [address] [place] [address] Dr. Meredith Piña Cholesterol in HDL [Mass/Vol] 50 mg/dL Normal 40-60 [facility] Comment on above: Performed By: #### L IPID, T7, TSH, CMP #### [facility] [address] [address] [address] Meredith Piña Cholesterol in LDL [Mass/Vol] 109.2 mg/dL Normal [facility] Comment on above: Performed By: #### L IPID, T7, TSH, CMP #### [facility] [address] [address] [address] Meredith Piña Cholesterol.total/Cho lesterol in HDL [Mass ratio] 3.6 {ratio} Normal [facility] Comment on above: Performed By: #### L IPID, T7, TSH, CMP #### [facility] [address] [place] [address] Dr. Meredith Piña HDL NORMAL > or = 60 mg/dl - LO W CARDIOVASCULAR RISK <40 mg/dl - HIGH CARDIOVASCULAR RISK Normal [facility] Comment on above: Performed By: #### L IPID, T7, TSH, CMP #### [facility] [address] [address] [address] Meredith Piña LDL CALC NORMAL SEE BELOW Normal [facility] Comment on above: Result Comment: <100 mg/dl OPTIMAL 100 - 129 mg/dl NEAR OR ABOVE OPTIMAL 130 - 159 mg/dl BORDERLINE HIGH 160 - 189 mg/dl HIGH >190 mg/dl VERY HIGH Performed By: #### L IPID, T7, TSH, CMP #### [facility] [address] [address] [address] Meredith Piña Triglyceride [Mass/Vol] 94 mg/dL Normal <=150 [facility] Comment on above: Performed By: #### L IPID, T7, TSH, CMP #### [facility] [address] [place] [address] Dr. Meredith Piña VLDL CALC 18.8 mg/dL Normal [facility] Comment on above: Performed By: #### L IPID, T7, TSH, CMP #### [facility] [address] [address] [address] Meredith Piña PROF 14(COMP METB)on 022 Albumin [Mass/Vol] 3.8 g/dL Normal 3.4-5.0 [facility] Comment on above: Performed By: #### L IPID, T7, TSH, CMP #### [facility] [address] [place] [address] Dr. Meredith Piña Albumin/Globulin [Mass ratio] 0.9 {ratio} Normal [facility] Comment on above: Performed By: #### L IPID, T7, TSH, CMP #### [facility] [address] [place] [address] Dr. Meredith Piña ALP [Catalytic activity/Vol] 79 U/L Normal 46-116 [facility] Comment on above: Performed By: #### L IPID, T7, TSH, CMP #### [facility] [address] [place] [address] Dr. Meredith Piña ALT [Catalytic activity/Vol] 34 U/L Normal 14-59 [facility] Comment on above: Performed By: #### L IPID, T7, TSH, CMP #### [facility] [address] [place] [address] Dr. Meredith Piña Anion gap [Moles/Vol] 11.5 mmol/L Normal [facility] Comment on above: Performed By: #### L IPID, T7, TSH, CMP #### [facility] [address] [place] [address] Dr. Meredith Piña AST [Catalytic activity/Vol] 18 U/L Normal 15-37 [facility] Comment on above: Performed By: #### L IPID, T7, TSH, CMP #### [facility] [address] [place] [address] Dr. Meredith Piña Bilirubin [Mass/Vol] 0.2 mg/dL Normal 0.2-1.0 [facility] Comment on above: Performed By: #### L IPID, T7, TSH, CMP #### [facility] [address] [place] [address] Dr. Meredith Piña Calcium [Mass/Vol] 9.1 mg/dL Normal 8.5-10.1 [facility] Comment on above: Performed By: #### L IPID, T7, TSH, CMP #### [facility] [address] [address] [address] Meredith Piña Chloride [Moles/Vol] 105 mmol/L Normal 98-107 [facility] Comment on above: Performed By: #### L IPID, T7, TSH, CMP #### [facility] [address] [address] [address] Meredith Piña CO2 [Moles/Vol] 29.3 mmol/L Normal 21.0-32.0 [facility] Comment on above: Performed By: #### L IPID, T7, TSH, CMP #### [facility] [address] [place] [address] Dr. Meredith Piña Creatinine [Mass/Vol] 0.72 mg/dL Normal 0.55-1.02 [facility] Comment on above: Performed By: #### L IPID, T7, TSH, CMP #### [facility] [address] [place] [address] Dr. Meredith Piña EGFR-AF MONTENEGRIN >60 Normal >=60 [facility] Comment on above: Performed By: #### L IPID, T7, TSH, CMP #### [facility] [address] [place] [address] Dr. Meredith Piña EGFR-NON AF MONTENEGRIN >60 Normal >=60 [facility] Comment on above: Performed By: #### L IPID, T7, TSH, CMP #### [facility] [address] [address] [address] Meredith Piña Globulin (S) [Mass/Vol] 4.2 g/dL Normal [facility] Comment on above: Performed By: #### L IPID, T7, TSH, CMP #### [facility] [address] [place] [address] Dr. Meredith Piña Glucose [Mass/Vol] 89 mg/dL Normal 74-106 [facility] Comment on above: Performed By: #### L IPID, T7, TSH, CMP #### [facility] [address] [place] [address] Dr. Meredith Piña Potassium [Moles/Vol] 3.8 mmol/L Normal 3.5-5.1 [facility] Comment on above: Performed By: #### L IPID, T7, TSH, CMP #### [facility] [address] [place] [address] Dr. Meredith Piña Protein [Mass/Vol] 8.0 g/dL Normal 6.4-8.2 [facility] Comment on above: Performed By: #### L IPID, T7, TSH, CMP #### [facility] [address] [place] [address] Dr. Meredith Piña Sodium [Moles/Vol] 142 mmol/L Normal 136-145 [facility] Comment on above: Performed By: #### L IPID, T7, TSH, CMP #### [facility] [address] [place] [address] Dr. Meredith Piña Urea nitrogen [Mass/Vol] 9.0 mg/dL Normal 7.0-18.0 [facility] Comment on above: Performed By: #### L IPID, T7, TSH, CMP #### [facility] [address] [place] [address] Dr. Meredith Piña Urea nitrogen/Creatinine [Mass ratio] 12.5 mg/mg Normal [facility] Comment on above: Performed By: #### L IPID, T7, TSH, CMP #### [facility] [address] [place] [address] Dr. Meredith Piña TSH 06-15-2022 TSH 1.075 uIU/mL Normal 0.358-3.740 [facility] Comment on above: Performed By: #### L IPID, T7, TSH, CMP #### [facility] [address] [place] [address] Dr. Meredith Piña Encounters Encounter Date Encounter [...] Available Start: 10-01-2023 End: 10-01-2023 ambulatory EULALIA ALSISA Not Available Start: 08-15-2023 End: 08-15-2023 ambulatory [...] abnormal findings DR KRISTOPHER GOMEZ . [facility] Start: 06-15-2022 End: 06-16-[address] KRISTOPHER GOMEZ . Facility[facility] Start: 06-15-2022 End: 06-16-2022 Encounter for general adult medical examination without abnormal findings DR KRISTOPHER GOMEZ . Facility:[facility] Payers Date Payer Category Payer Medicaid [id number] 1990 Unknown [id number] 2.16.84 0.1.681511.3.579.2.593 1989 Unknown [id number] 2.16.84 0.1.565571.3.579.2.593 1989 Unknown [id number] 2.16.84 0.1.999350.3.579.2.593 1989 Unknown [id number] 2.16.84 0.1.261364.3.579.2.593 1989 Unknown [id number] 2.16.84 0.1.213566.3.579.2.593 1989 Unknown [id number] 2.16.84 0.1.629052.3.579.2.593 1989 Unknown [id number] 2.16.84 0.1.175791.3.579.2.593 1989 Unknown [id number] 2.16.84 0.1.585735.3.579.2.593 1989 Unknown [id number] 2.16.84 0.1.997777.3.579.2.593 1989 Unknown [id number] 2.16.84 0.1.373497.3.579.2.1259 1989 Unknown [id number] 2.16.84 0.1.517718.3.579.2.1259 1989 Unknown [id number] 2.16.84 0.1.451779.3.579.2.1259 1989 Unknown [id number] 2.16.84 0.1.208098.3.579.2.1259 1989 Unknown [id number] 2.16.84 0.1.176175.3.579.2.1259 1989 Unknown [id number] 2.16.84 0.1.226516.3.579.2.1259 1989 Unknown [id number] 2.16.84 0.1.336606.3.579.2.1259 1989 Unknown [id number] 2.16.84 0.1.490607.3.579.2.1259 1989 Unknown [id number] 2.16.84 0.1.689101.3.579.2.1259 1989 Unknown [id number] 2.16.840 .1.674711.3.579.2.1259 1989 Unknown [id number] 2.16.840 .1.671858.3.579.2.1259 1959 Unknown [id number] 1959 Unknown [id number] Clinical Note 12-29-2022 Note Date & Type [...] by: CORI MENDIETA Date: 2022-12-29 15:15 [facility] Summary Purpose Family History No Family History Records FoundNo Family History Records Found Advance Directives No Advanced Directives Records FoundNo Advanced Directives Records Found Additional Source Comments INFORMATION SOURCE (unrecogn ized section and content) DATE CREATED AUTHOR 12/30/2022 [facility] DATE CREATED AUTHOR 'S ORGANIZ ATION 01/15/2024 [place] [facility] FOR RECORDS PERTAINING TO PATIENTS WHO ARE [...] BE BASED ON THE PRIMARY CLINICAL RECORDS. [facility] [employer] [facility]. provides no warranty or guarantee of the accuracy or completeness of information in this document.
== END 2024-06-06 08:45 | disposition home or self-care (01) ==
LOC: NOMS 08:45
PROVIDERS: PCP Family Medicine; Visit Provider Obstetrics & Gynecology
DX: O26.891 Other specified pregnancy related conditions, first trimester (principal); Z3A.08 8 weeks gestation of pregnancy; N92.6 Irregular menstruation, unspecified
CPT/HCPCS: 76817

== ENCOUNTER 2024-06-07 11:41 | Outpatient (OUT) | payer OTHER, MEDICAID, SELFPAY ==
--- OUTSIDE RECORDS SUMMARY | 2024-06-07 11:44 | XMS_ITS | CCD ---
Author Organization [facility] Care Team Providers Care Legal Compliance Officer Name Role Phone PATRICIA ., DR [...] ADDY ., HALI Admitting Unavailable ADDY ., HAIL Attending Unavailable HOY ., DR SUMMERS Primary [...] sources) Latex Drug allergy (disorder) 01-23-2021 [facility] Repository Problems Active Problems Problem Classification [...] 12-20-2022 HCG QUANT 21 mIU/mL Normal [facility] Comment on above: Performed By: #### P REGQNT #### [facility] [address] [place] [address] Dr. Meredith Piña HCG RANGE SEE BELOW Normal [facility] Comment on above: Result Comment: 5-50 0.2-1 WEEK 50-500 1-2 WEEKS 100-5,000 2-3 WEEKS 500-10,000 3-4 WEEKS 1,000-50,000 4-5 WEEKS 10,000-100,000 5-6 WEEKS 15,000-200,000 6-8 WEEKS 10,000-100,000 2-3 MONTHS Performed By: #### P REGQNT #### [facility] [address] [place] [address] Dr. Meredith Piña PREG QUANT HCGon 12-18-2022 HCG QUANT 35 mIU/mL Normal [facility] Comment on above: Performed By: #### P REGQNT, TSH #### [facility] [address] [place] [address] Dr. Meredith Piña HCG RANGE SEE BELOW Normal [facility] Comment on above: Result Comment: 5-50 0.2-1 WEEK 50-500 1-2 WEEKS 100-5,000 2-3 WEEKS 500-10,000 3-4 WEEKS 1,000-50,000 4-5 WEEKS 10,000-100,000 5-6 WEEKS 15,000-200,000 6-8 WEEKS 10,000-100,000 2-3 MONTHS Performed By: #### P REGQNT, TSH #### [facility] [address] [place] [address] Dr. Meredith Piña US PELVIS AND TRANSVAGon [...] CORI MENDIETA Date: 2022-11-20 17:13 Normal [facility] CBC AUTO DIFFon 11-14-2022 BASO # 0.0 103/ul Normal 0.0-0.1 [facility] Comment on above: Performed By: #### C BC #### [facility] [address] [place] [address] Dr. Meredith Piña Basophils/100 WBC (Bld) 0.6 % Normal 0.2-2.0 [facility] Comment on above: Performed By: #### C BC #### [facility] [address] [place] [address] Dr. Meredith Piña EO # 0.1 103/ul Normal 0.0-0.7 [facility] Comment on above: Performed By: #### C BC #### [facility] [address] [place] [address] Dr. Meredith Piña Eosinophils/100 WBC (Bld) 2.0 % Normal 0.9-7.0 [facility] Comment on above: Performed By: #### C BC #### [facility] [address] [place] [address] Dr. Meredith Piña Erythrocyte distribution width (RBC) [Ratio] 13.3 % Normal 11.0-15.0 [facility] Comment on above: Performed By: #### C BC #### [facility] [address] [place] [address] Dr. Meredith Piña Hematocrit (Bld) [Volume fraction] 40.3 % Normal 36.0-48.0 [facility] Comment on above: Performed By: #### C BC #### [facility] [address] [place] [address] Dr. Meredith Piña Hemoglobin (Bld) [Mass/Vol] 14.1 g/dL Normal 12.0-16.0 [facility] Comment on above: Performed By: #### C BC #### [facility] [address] [place] [address] Dr. Meredith Piña IG # 0.03 10e3/ul Normal 0.00-0.03 [facility] Comment on above: Performed By: #### C BC #### [facility] [address] [place] [address] Dr. Meredith Piña IG % 0.4 % Normal 0.0-0.5 [facility] Comment on above: Performed By: #### C BC #### [facility] [address] [place] [address] Dr. Meredith Piña LYMPH # 2.1 103/ul Normal 1.2-3.8 [facility] Comment on above: Performed By: #### C BC #### [facility] [address] [place] [address] Dr. Meredith Piña Lymphocytes/100 WBC (Bld) 29.9 % Normal 20.5-60.0 [facility] Comment on above: Performed By: #### C BC #### [facility] [address] [place] [address] Dr. Meredith Piña MANUAL DIFF REQ NO Normal [facility] Comment on above: Performed By: #### C BC #### [facility] [address] [place] [address] Dr. Meredith Piña MCH (RBC) [Entitic mass] 32.7 pg Normal 26.7-34.0 [facility] Comment on above: Performed By: #### C BC #### [facility] [address] [place] [address] Dr. Meredith Piña MCHC (RBC) [Mass/Vol] 35.0 g/dL Normal 29.9-35.2 [facility] Comment on above: Performed By: #### C BC #### [facility] [address] [place] [address] Dr. Meredith Piña MCV (RBC) [Entitic vol] 93.5 fL Normal 81.0-99.0 [facility] Comment on above: Performed By: #### C BC #### [facility] [address] [place] [address] Dr. Meredith Piña MONO # 0.6 103/ul Normal 0.3-0.8 [facility] Comment on above: Performed By: #### C BC #### [facility] [address] [place] [address] Dr. Meredith Piña Monocytes/100 WBC (Bld) 8.2 % Normal 1.7-12.0 [facility] Comment on above: Performed By: #### C BC #### [facility] [address] [place] [address] Dr. Meredith Piña NEUT # 4.2 103/ul Normal 1.4-6.5 [facility] Comment on above: Performed By: #### C BC #### [facility] [address] [place] [address] Dr. Meredith Piña Neutrophils/100 WBC (Bld) 58.9 % Normal 43.0-75.0 [facility] Comment on above: Performed By: #### C BC #### [facility] [address] [place] [address] Dr. Meredith Piña Platelet mean volume (Bld) [Entitic vol] 10.0 fL Normal 9.5-13.5 [facility] Comment on above: Performed By: #### C BC #### [facility] [address] [place] [address] Dr. Meredith Piña PLT 312 103/ul Normal 150-450 [facility] Comment on above: Performed By: #### C BC #### [facility] [address] [place] [address] Dr. Meredith Piña RBC 4.31 106/ul Normal 4.20-5.40 [facility] Comment on above: Performed By: #### C BC #### [facility] [address] [place] [address] Dr. Meredith Piña WBC 7.1 103/ul Normal 4.0-11.0 [facility] Comment on above: Performed By: #### C BC #### [facility] [address] [place] [address] Dr. Meredith Piña FREE T4on 11-14-2022 Free T4 [Mass/Vol] 0.85 ng/dL Normal 0.76-1.46 [facility] Comment on above: Performed By: #### P REGQNT, TSH #### [facility] [address] [place] [address] Dr. Meredith Piña GLYCOHEMOGLOBIN A1Con 2022 ADA RECOMMENDATION SEE BELOW Normal [facility] Comment on above: Result Comment: ADA RECOMMENDED LIMIT 4.0 - 6.0 ADA THERAPEUTIC TARGET < 7.0 ACTION SUGGESTED > 7.0 Performed By: #### A 1C #### [facility] [address] [place] [address] Dr. Meredith Piña Glucose [Mass/Vol] 103 mg/dL Normal [facility] Comment on above: Performed By: #### A 1C #### [facility] [address] [place] [address] Dr. Meredith Piña HbA1c (Bld) [Mass fraction] 5.2 % Normal 4.5-6.2 [facility] Comment on above: Performed By: #### A 1C #### [facility] [address] [place] [address] Dr. Meredith Piña PREG QUANT HCGon 11-14-2022 HCG QUANT <1 Normal [facility] Comment on above: Performed By: #### P REGQNT, TSH #### [facility] [address] [place] [address] Dr. Meredith Piña HCG RANGE SEE BELOW Normal [facility] Comment on above: Result Comment: 5-50 0.2-1 WEEK 50-500 1-2 WEEKS 100-5,000 2-3 WEEKS 500-10,000 3-4 WEEKS 1,000-50,000 4-5 WEEKS 10,000-100,000 5-6 WEEKS 15,000-200,000 6-8 WEEKS 10,000-100,000 2-3 MONTHS Performed By: #### P REGQNT, TSH #### [facility] [address] [place] [address] Dr. Meredith Piña PROTIMEon 11-14-2022 INR Coag (PPP) [Relative time] {INR} Normal [facility] Comment on above: Performed By: #### P REGQNT, TSH #### [facility] [address] [place] [address] Dr. Meredith Piña INR GUIDELINES SEE BELOW Normal [facility] Comment on above: Result Comment: ASHU RED INR: 2.0 - 3.0 CONDITIONS NOT LISTED BELOW 2.5 - 3.5 FOR PROSTHETIC HEART VALVE REPLACEMENT 2.5 - 3.5 RECURRENT THROMBOSIS Performed By: #### P REGQNT, TSH #### [facility] [address] [place] [address] Dr. Meredith Piña PT Coag (PPP) [Time] 9.8 s Normal 9.0-11.6 [facility] Comment on above: Performed By: #### P REGQNT, TSH #### [facility] [address] [place] [address] Dr. Meredith Piña PTTon 11-14-2022 aPTT Coag (Bld) [Time] 25.0 s Normal 22.3-36.2 [facility] Comment on above: Performed By: #### P REGQNT, TSH #### [facility] [address] [place] [address] Dr. Meredith Piña TSHon 11-14-2022 TSH 0.749 uIU/mL Normal 0.358-3.740 [facility] Comment on above: Performed By: #### P REGQNT, TSH #### [facility] [address] [place] [address] Dr. Meredith Piña PAP ACOG PANEL 2: 30 to 65on 10-25-2022 . . Normal [facility] Comment on above: Result Comment: Perf ormed at: WB Performed By: #### P REGQNT, TSH #### [facility] [address] [place] [address] Dr. Meredith Piña Age Gdln ACOG Testing 30-65 [facility] Comment on above: Performed By: #### P REGQNT, TSH #### [facility] [address] [place] [address] Dr. Meredith Piña DIAGNOSIS: Comment Normal [facility] Comment on above: Result Comment: NEGA TIVE FOR INTRAEPITHELIAL LESION OR MALIGNANCY. Performed at: WB Performed By: #### P REGQNT, TSH #### [facility] [address] [address] [address] Meredith Piña HPV Aptima Positive Abnormal Negative [facility] Comment on above: Result Comment: This nucleic acid amplification test detects fourteen high-risk HPV types (16,18,31,33,35,39,45,51,52,56,58,59,66,68) without differentiation. Performed at: =G Performed By: #### P REGQNT, TSH #### [facility] [address] [address] [address] Meredith Piña HPV Genotype 16 Negative Normal Negative [facility] Comment on above: Performed By: #### P REGQNT, TSH #### [facility] [address] [address] [address] Meredith Piña HPV Genotype 18,45 Negative Normal Negative [facility] Comment on above: Performed By: #### P REGQNT, TSH #### [facility] [address] [address] [address] Meredith Piña HPV Genotype Reflex Comment Normal [facility] Comment on above: Result Comment: Miquel arauz, see HPV Genotype results. Performed at: WB Performed By: #### P REGQNT, TSH #### [facility] [address] [place] [address] Dr. Meredith Piña Methodology: Comment Normal [facility] Comment on above: Result Comment: This liquid based ThinPrep(R) pap test was screened with the use of an image guided system. Performed at: WB Performed By: #### P REGQNT, TSH #### [facility] [address] [place] [address] Dr. Meredith Piña Note: Comment Normal [facility] Comment on above: Result Comment: [...] Performed By: #### P REGQNT, TSH #### [facility] [address] [address] [address] Meredith Piña Performed by: Comment Normal [facility] Comment on above: Result Comment: Odilon Villanueva, Bunk Assembler (ASCP) Performed at: WB Performed By: #### P REGQNT, TSH #### [facility] [address] [place] [address] Dr. Meredith Piña Specimen adequacy: Comment Normal [facility] Comment on above: Result Comment: Sati sfactory for evaluation. Endocervical and/or squamous metaplastic cells (endocervical component) are present. Performed at: WB Performed By: #### P REGQNT, TSH #### [facility] [address] [place] [address] Dr. Meredith Piña CHLAMYDIA/GONOCOCCUS DMITRI ( AB/URINE/PAPon 10-19-2022 Chlamydia trachomatis, DMITRI Negative Normal Negative [facility] Comment on above: Performed By: #### P REGQNT, TSH #### [facility] [address] [place] [address] Dr. Meredith Piña Neisseria gonorrhoeae, DMITRI Negative Normal Negative [facility] Comment on above: Performed By: #### P REGQNT, TSH #### [facility] [address] [place] [address] Dr. Meredith Piña VAGINITIS/VAGINOSIS DNA PROB Tayo 10-18-2022 Amira species Negative Normal Negative [facility] Comment on above: Performed By: #### V AGINT #### [facility] [address] [place] [address] Dr. Meredith Piña Gardnerella vaginalis Positive Abnormal Negative [facility] Comment on above: Performed By: #### V AGINT #### [facility] [address] [place] [address] Dr. Meredith Piña Trichomonas vaginalis Negative Normal Negative [facility] Comment on above: Performed By: #### V AGINT #### [facility] [address] [place] [address] Dr. Meredith Piña Covid-19 PCR (CVDTB)on 09-21 SARS-CoV-2 (COVID-19) RNA DMITRI+probe Ql (Unsp spec) Not detected Normal NOT DETECTED [facility] Comment on above: Result Comment: When [...] for this test is supported by the Resident Doctor of Health and Human Service's declaration that [...] Performed By: #### P REGQNT, TSH #### [facility] [address] [place] [address] Dr. Meredith Piña INSULINon 06-16-2022 Insulin 15.5 uIU/mL Normal 2.6-24.9 [facility] Comment on above: Performed By: #### P REGQNT, TSH #### [facility] [address] [place] [address] Dr. Meredith Piña CBC AUTO DIFFon 06-15-2022 BASO # 0.0 103/ul Normal 0.0-0.1 [facility] Comment on above: Performed By: #### P REGQNT, TSH #### [facility] [address] [place] [address] Dr. Meredith Piña Basophils/100 WBC (Bld) 0.3 % Normal 0.2-2.0 [facility] Comment on above: Performed By: #### P REGQNT, TSH #### [facility] [address] [place] [address] Dr. Meredith Piña EO # 0.2 103/ul Normal 0.0-0.7 [facility] Comment on above: Performed By: #### P REGQNT, TSH #### [facility] [address] [place] [address] Dr. Meredith Piña Eosinophils/100 WBC (Bld) 2.0 % Normal 0.9-7.0 [facility] Comment on above: Performed By: #### P REGQNT, TSH #### [facility] [address] [place] [address] Dr. Meredith Piña Erythrocyte distribution width (RBC) [Ratio] 12.4 % Normal 11.0-15.0 [facility] Comment on above: Performed By: #### P REGQNT, TSH #### [facility] [address] [place] [address] Dr. Meredith Piña Hematocrit (Bld) [Volume fraction] 41.1 % Normal 36.0-48.0 [facility] Comment on above: Performed By: #### P REGQNT, TSH #### [facility] [address] [place] [address] Dr. Meredith Piña Hemoglobin (Bld) [Mass/Vol] 14.0 g/dL Normal 12.0-16.0 [facility] Comment on above: Performed By: #### P REGQNT, TSH #### [facility] [address] [place] [address] Dr. Meredith Piña IG # 0.04 10e3/ul Critically high 0.00-0.03 [facility] Comment on above: Performed By: #### P REGQNT, TSH #### [facility] [address] [place] [address] Dr. Meredith Piña IG % 0.4 % Normal 0.0-0.5 [facility] Comment on above: Performed By: #### P REGQNT, TSH #### [facility] [address] [place] [address] Dr. Meredith Piña LYMPH # 1.8 103/ul Normal 1.2-3.8 [facility] Comment on above: Performed By: #### P REGQNT, TSH #### [facility] [address] [place] [address] Dr. Meredith Piña Lymphocytes/100 WBC (Bld) 19.3 % Critically low 20.5-60.0 [facility] Comment on above: Performed By: #### P REGQNT, TSH #### [facility] [address] [place] [address] Dr. Meredith Piña MANUAL DIFF REQ NO Normal [facility] Comment on above: Performed By: #### P REGQNT, TSH #### [facility] [address] [place] [address] Dr. Meredith Piña MCH (RBC) [Entitic mass] 30.8 pg Normal 26.7-34.0 [facility] Comment on above: Performed By: #### P REGQNT, TSH #### [facility] [address] [place] [address] Dr. Meredith Piña MCHC (RBC) [Mass/Vol] 34.1 g/dL Normal 29.9-35.2 [facility] Comment on above: Performed By: #### P REGQNT, TSH #### [facility] [address] [place] [address] Dr. Meredith Piña MCV (RBC) [Entitic vol] 90.3 fL Normal 81.0-99.0 [facility] Comment on above: Performed By: #### P REGQNT, TSH #### [facility] [address] [place] [address] Dr. Meredith Piña MONO # 0.5 103/ul Normal 0.3-0.8 [facility] Comment on above: Performed By: #### P REGQNT, TSH #### [facility] [address] [place] [address] Dr. Meredith Piña Monocytes/100 WBC (Bld) 5.2 % Normal 1.7-12.0 [facility] Comment on above: Performed By: #### P REGQNT, TSH #### [facility] [address] [place] [address] Dr. Meredith Piña NEUT # 6.8 103/ul Critically high 1.4-6.5 [facility] Comment on above: Performed By: #### P REGQNT, TSH #### [facility] [address] [place], [place] [id number] Dr. Meredith Piña Neutrophils/100 WBC (Bld) 72.8 % Normal 43.0-75.0 [facility] Comment on above: Performed By: #### P REGQNT, TSH #### [facility] [address] [place] [address] Dr. Meredith Piña Platelet mean volume (Bld) [Entitic vol] 9.3 fL Critically low 9.5-13.5 [facility] Comment on above: Performed By: #### P REGQNT, TSH #### [facility] [address] [address] [address] Meredith Piña PLT 354 103/ul Normal 150-450 [facility] Comment on above: Performed By: #### P REGQNT, TSH #### [facility] [address] [place] [address] Dr. Meredith Piña RBC 4.55 106/ul Normal 4.20-5.40 [facility] Comment on above: Performed By: #### P REGQNT, TSH #### [facility] [address] [place] [address] Dr. Meredith Piña WBC 9.4 103/ul Normal 4.0-11.0 [facility] Comment on above: Performed By: #### P REGQNT, TSH #### [facility] [address] [place] [address] Dr. Meredith Piña FREE THYROXINE INDEX T7on FTI 2.66 Normal 1.30-4.50 [facility] Comment on above: Performed By: #### L IPID, T7, TSH, CMP #### [facility] [address] [place] [address] Dr. Meredith Piña T3U 32.0 % Normal 30.0-39.0 [facility] Comment on above: Performed By: #### L IPID, T7, TSH, CMP #### [facility] [address] [place] [address] Dr. Meredith Piña T4 [Mass/Vol] 8.30 ug/dL Normal 4.80-13.90 [facility] Comment on above: Performed By: #### L IPID, T7, TSH, CMP #### [facility] [address] [address] [address] Meredith Piña GLYCOHEMOGLOBIN A1Con 2021 ADA RECOMMENDATION SEE BELOW Normal [facility] Comment on above: Result Comment: ADA RECOMMENDED LIMIT 4.0 - 6.0 ADA THERAPEUTIC TARGET < 7.0 ACTION SUGGESTED > 7.0 Performed By: #### P REGQNT, TSH #### [facility] [address] [address] [address] Meredith Piña Glucose [Mass/Vol] 103 mg/dL Normal [facility] Comment on above: Performed By: #### P REGQNT, TSH #### [facility] [address] [place] [address] Dr. Meredith Piañ HbA1c (Bld) [Mass fraction] 5.2 % Normal 4.5-6.2 [facility] Comment on above: Performed By: #### P REGQNT, TSH #### [facility] [address] [place] [address] Dr. Meredith Piña IRONon 06-15-2022 Iron [Mass/Vol] 55.0 ug/dL Normal 50.0-170.[address] [facility] Comment on above: Performed By: #### P REGQNT, TSH #### [facility] [address] [place] [address] Dr. Merdeith Piña LIPID PROFILEon 06-15-2022 CHOL-HDL RATIO NORM SEE BELOW Normal [facility] Comment on above: Result Comment: 3.3 - 4.4 LOW RISK 4.4 - 7.1 AVERAGE RISK 7.1 - 11.0 MODERATE RISK >11.0 HIGH RISK Performed By: #### L IPID, T7, TSH, CMP #### [facility] [address] [place] [address] Dr. Meredith Piña Cholesterol [Mass/Vol] 178 mg/dL Normal <=200 [facility] Comment on above: Performed By: #### L IPID, T7, TSH, CMP #### [facility] [address] [place] [address] Dr. Meredith Piña Cholesterol in HDL [Mass/Vol] 50 mg/dL Normal 40-60 [facility] Comment on above: Performed By: #### L IPID, T7, TSH, CMP #### [facility] [address] [address] [address] Meredith Piña Cholesterol in LDL [Mass/Vol] 109.2 mg/dL Normal [facility] Comment on above: Performed By: #### L IPID, T7, TSH, CMP #### [facility] [address] [address] [address] Meredith Piña Cholesterol.total/Cho lesterol in HDL [Mass ratio] 3.6 {ratio} Normal [facility] Comment on above: Performed By: #### L IPID, T7, TSH, CMP #### [facility] [address] [place] [address] Dr. Meredith Piña HDL NORMAL > or = 60 mg/dl - LO W CARDIOVASCULAR RISK <40 mg/dl - HIGH CARDIOVASCULAR RISK Normal [facility] Comment on above: Performed By: #### L IPID, T7, TSH, CMP #### [facility] [address] [address] [address] Meredith Piña LDL CALC NORMAL SEE BELOW Normal [facility] Comment on above: Result Comment: <100 mg/dl OPTIMAL 100 - 129 mg/dl NEAR OR ABOVE OPTIMAL 130 - 159 mg/dl BORDERLINE HIGH 160 - 189 mg/dl HIGH >190 mg/dl VERY HIGH Performed By: #### L IPID, T7, TSH, CMP #### [facility] [address] [address] [address] Meredith Piña Triglyceride [Mass/Vol] 94 mg/dL Normal <=150 [facility] Comment on above: Performed By: #### L IPID, T7, TSH, CMP #### [facility] [address] [place] [address] Dr. Meredith Piña VLDL CALC 18.8 mg/dL Normal [facility] Comment on above: Performed By: #### L IPID, T7, TSH, CMP #### [facility] [address] [address] [address] Meredith Piña PROF 14(COMP METB)on 022 Albumin [Mass/Vol] 3.8 g/dL Normal 3.4-5.0 [facility] Comment on above: Performed By: #### L IPID, T7, TSH, CMP #### [facility] [address] [place] [address] Dr. Meredith Piña Albumin/Globulin [Mass ratio] 0.9 {ratio} Normal [facility] Comment on above: Performed By: #### L IPID, T7, TSH, CMP #### [facility] [address] [place] [address] Dr. Meredith Piña ALP [Catalytic activity/Vol] 79 U/L Normal 46-116 [facility] Comment on above: Performed By: #### L IPID, T7, TSH, CMP #### [facility] [address] [place] [address] Dr. Meredith Piña ALT [Catalytic activity/Vol] 34 U/L Normal 14-59 [facility] Comment on above: Performed By: #### L IPID, T7, TSH, CMP #### [facility] [address] [place] [address] Dr. Meredith Piña Anion gap [Moles/Vol] 11.5 mmol/L Normal [facility] Comment on above: Performed By: #### L IPID, T7, TSH, CMP #### [facility] [address] [place] [address] Dr. Meredith Piña AST [Catalytic activity/Vol] 18 U/L Normal 15-37 [facility] Comment on above: Performed By: #### L IPID, T7, TSH, CMP #### [facility] [address] [place] [address] Dr. Meredith Piña Bilirubin [Mass/Vol] 0.2 mg/dL Normal 0.2-1.0 [facility] Comment on above: Performed By: #### L IPID, T7, TSH, CMP #### [facility] [address] [place] [address] Dr. Meredith Piña Calcium [Mass/Vol] 9.1 mg/dL Normal 8.5-10.1 [facility] Comment on above: Performed By: #### L IPID, T7, TSH, CMP #### [facility] [address] [address] [address] Meredith Piña Chloride [Moles/Vol] 105 mmol/L Normal 98-107 [facility] Comment on above: Performed By: #### L IPID, T7, TSH, CMP #### [facility] [address] [address] [address] Meredith Piña CO2 [Moles/Vol] 29.3 mmol/L Normal 21.0-32.0 [facility] Comment on above: Performed By: #### L IPID, T7, TSH, CMP #### [facility] [address] [place] [address] Dr. Meredith Piña Creatinine [Mass/Vol] 0.72 mg/dL Normal 0.55-1.02 [facility] Comment on above: Performed By: #### L IPID, T7, TSH, CMP #### [facility] [address] [place] [address] Dr. Meredith Piña EGFR-AF [place]I >60 Normal >=60 [facility] Comment on above: Performed By: #### L IPID, T7, TSH, CMP #### [facility] [address] [place] [address] Dr. Meredith Piña EGFR-NON AF [place] >60 Normal >=60 [facility] Comment on above: Performed By: #### L IPID, T7, TSH, CMP #### [facility] [address] [address] [address] Meredith Piña Globulin (S) [Mass/Vol] 4.2 g/dL Normal [facility] Comment on above: Performed By: #### L IPID, T7, TSH, CMP #### [facility] [address] [place] [address] Dr. Meredith Piña Glucose [Mass/Vol] 89 mg/dL Normal 74-106 [facility] Comment on above: Performed By: #### L IPID, T7, TSH, CMP #### [facility] [address] [place] [address] Dr. Meredith Piña Potassium [Moles/Vol] 3.8 mmol/L Normal 3.5-5.1 [facility] Comment on above: Performed By: #### L IPID, T7, TSH, CMP #### [facility] [address] [place] [address] Dr. Meredith Piña Protein [Mass/Vol] 8.0 g/dL Normal 6.4-8.2 [facility] Comment on above: Performed By: #### L IPID, T7, TSH, CMP #### [facility] [address] [place] [address] Dr. Meredith Piña Sodium [Moles/Vol] 142 mmol/L Normal 136-145 [facility] Comment on above: Performed By: #### L IPID, T7, TSH, CMP #### [facility] [address] [place] [address] Dr. Meredith Piña Urea nitrogen [Mass/Vol] 9.0 mg/dL Normal 7.0-18.0 [facility] Comment on above: Performed By: #### L IPID, T7, TSH, CMP #### [facility] [address] [place] [address] Dr. Meredith Piña Urea nitrogen/Creatinine [Mass ratio] 12.5 mg/mg Normal [facility] Comment on above: Performed By: #### L IPID, T7, TSH, CMP #### [facility] [address] [place] [address] Dr. Meredith Piña TSH 06-15-2022 TSH 1.075 uIU/mL Normal 0.358-3.740 [facility] Comment on above: Performed By: #### L IPID, T7, TSH, CMP #### [facility] [address] [place] [address] Dr. Meredith Piña Encounters Encounter Date Encounter [...] abnormal findings DR KRISTOPHER GOMEZ . [facility] Start: 06-15-2022 End: 06-16-[address] KRISTOPHER GOMEZ . Facility:[facility] Start: 06-15-2022 End: 06-16-2022 Encounter for general adult medical examination without abnormal findings DR KRISTOPHER GOMEZ . Facility:[facility] Payers Date Payer Category Payer Medicaid [id number] 1990 Unknown [id number] 2.16.84 0.1.903201.3.579.2.593 1989 Unknown [id number] 2.16.84 0.1.779770.3.579.2.593 1989 Unknown [id number] 2.16.84 0.1.837910.3.579.2.593 1989 Unknown [id number] 2.16.84 0.1.118265.3.579.2.593 1989 Unknown [id number] 2.16.84 0.1.277421.3.579.2.593 1989 Unknown [id number] 2.16.84 0.1.889250.3.579.2.593 1989 Unknown [id number] 2.16.84 0.1.458522.3.579.2.593 1989 Unknown [id number] 2.16.84 0.1.926365.3.579.2.593 1989 Unknown [id number] 2.16.84 0.1.782669.3.579.2.593 1989 Unknown [id number] 2.16.84 0.1.691715.3.579.2.1259 1989 Unknown [id number] 2.16.84 0.1.174701.3.579.2.1259 1989 Unknown [id number] 2.16.84 0.1.422806.3.579.2.1259 1989 Unknown [id number] 2.16.84 0.1.122215.3.579.2.1259 1989 Unknown [id number] 2.16.84 0.1.535250.3.579.2.1259 1989 Unknown [id number] 2.16.84 0.1.193508.3.579.2.1259 1989 Unknown [id number] 2.16.84 0.1.329783.3.579.2.1259 1989 Unknown [id number] 2.16.84 0.1.633926.3.579.2.1259 1989 Unknown [id number] 2.16.84 0.1.644714.3.579.2.1259 1989 Unknown [id number] 2.16.840 .1.749149.3.579.2.1259 1989 Unknown [id number] 2.16.840 .1.977676.3.579.2.1259 1959 Unknown [id number] 1959 Unknown [id number] Clinical Note 12-29-2022 Note Date & Type [...] by: CORI MENDIETA Date: 2022-12-29 15:15 [facility] Summary Purpose Family History No Family History Records FoundNo Family History Records Found Advance Directives No Advanced Directives Records FoundNo Advanced Directives Records Found Additional Source Comments INFORMATION SOURCE (unrecogn ized section and content) DATE CREATED AUTHOR 12/30/2022 [facility] DATE CREATED AUTHOR 'S ORGANIZ ATION 01/15/2024 [facility] FOR RECORDS PERTAINING TO PATIENTS WHO [...] BE BASED ON THE PRIMARY CLINICAL RECORDS. [facility] [employer] [facility]. provides no warranty or guarantee of the accuracy or completeness of information in this document.
[2024-06-07 12:30] LABS: HCG Quantitative 61450 mIU/mL
== END 2024-06-07 11:42 | disposition home or self-care (01) ==
LOC: LAB 11:42
PROVIDERS: PCP Family Medicine; Visit Provider Obstetrics & Gynecology
DX: N92.6 Irregular menstruation, unspecified (principal)
CPT/HCPCS: 36415; 84702

== ENCOUNTER 2024-06-09 16:21 | Outpatient (OUT) | payer OTHER, MEDICAID, SELFPAY ==
--- OUTSIDE RECORDS SUMMARY | 2024-06-09 16:28 | XMS_ITS | CCD ---
Author Organization [facility] Care Team Providers Care General Surgeon Name Role Phone ANGELIA ., DR SUMMERS Admitting Unavailable HOY ., [...] Care Unavailable ADDY ., HALI Consulting Unavailable RICKY ., DR ESTEBAN Admitting Unavailable RICKY ., DR ESTEBAN Attending Unavailable HOY ., DR SUMMERS Primary Care Unavailable REQUEST, DR FERNÁNDEZ LISTED Consulting Unavaila ble RICKY ., DR ESTEBAN Admitting Unavailable RICKY ., DR ESTEBAN Attending Unavailable HOY ., DR SUMMERS Primary Care Unavailable RICKY ., DR ESTEBAN Consulting Unavailable RICKY ., DR ESTEBAN Admitting Unavailable RICKY ., DR ESTEBAN Attending Unavailable HOY ., DR SUMMERS Primary Care Unavailable ZIEBER, DR CORI Pearson Consulting Unavailable KEENAN II, BRET Consulting Unavailable RICKY ., DR ESTEBAN Admitting Unavailable RICKY ., DR ESTEBAN Attending Unavailable HOY ., [...] HALI Consulting Unavailable ADDY, HALI Attending Unavailable RICKY, EULALIA Attending Unavailable RICKY, EULALIA Attending Unavailable RICKY, EULALIA Attending Unavailable ADDY, HALI Attending Unavailable RICKY, EULALIA Attending Unavailable RICKY, EULALIA Attending Unavailable EULALIA MAXWELL Attending Unavailable EULALIA MAXWELL Attending Unavailable HALI DALY Attending Unavailable EULALIA MAXWELL Attending Unavailable Angelia ZAPATA, Kristopher Guido Primary Care Provider [phone] Allergies Allergy Classification Reported Allergen(s) Allergy Type Date of Onset Reaction(s) Facility (3 sources) Latex Drug allergy (disorder) 01-23-2021 [facility] Repository (1 source) Latex Allergy to substance 03-29-2023 Unknown [facility] Work Phone: Medications Current Medications Medication Drug Class(es) Dates Sig (Normalized) Sig (Original) valACYclovir 500 mg oral tablet (3 sources) Herpesvirus Nucleoside Analog DNA Polymerase Inhibitor, Herpes Simplex Virus Nucleoside Analog DNA Polymerase Inhibitor, Herpes Zoster Virus Nucleoside Analog DNA Polymerase Inhibitor Start: 10-01-2023 End: 09-30-2024 take 1 tablet by mouth in the morning valACYclovir (Valtrex) 500 MG tablet Indications: Herpes simplex Take 1 tablet (500 mg) by mouth in the morning. 30 tablet 11 10/01/2023 09/30/2024 Active Start: 01-31-2023 Valtrex 1 g ta blet 1 (one) time each day at the same time. 01/31/2023 Active Problems Active Problems Problem Classification Problem Date Documented Da te Episodic/Chronic Asthma (1 source) Unspecified asthma, uncomplicated; Translations: [UNSPECIFIED ASTHMA UNCOMPLICATED] Onset: 10-15-2022 Chronic Menstrual disorders (4 sources) Excessive and frequent [...] Other Problems Problem Classification Problem Date Documented Date Episodic/Chronic Immunizations and screening for infectious disease (2 sources) Contact with and (suspected) exposure to infections with a predominantly sexual mode of transmission; Translations: [Exposure to sexually transmissible disorder] Onset: 10-18-2022 11-01-2023 Episodic Other female genital disorders (1 source) Vaginal discharge; Translations: [Other specified noninflammatory disorders of vagina] Onset: 11-01-2023 11-01-2023 Episodic Unclassified (1 source) CONTACT W/AND (SUSP) EXPOS COVID-19; Translations: [CONTACT W/AND (SUSP) EXPOS COVID-19] Onset: 10-12-2022 Results Test Name Value Interpretation Reference Range Facility [facility] PREG QUANT HCGon 024 HCG QUANTITATIVE [address]12 mIU/mL [facility] Comment on above: 5-50 0.2-1 WEEK 50-500 1-2 WEEKS 100-5,000 2-3 WEEKS 500-10,000 3-4 WEEKS 1,000-50,000 4-5 WEEKS 10,000-100,000 5-6 WEEKS 15,000-200,000 6-8 WEEKS 10,000-100,000 2-3 MONTHS [facility] PREG QUANT HCGon 12-20-2022 HCG QUANT 21 mIU/mL Normal [facility] [place] Comment on above: Performed By: #### P REGQNT #### [facility] [address] [place] [address] Dr. Meredith Piña HCG RANGE SEE BELOW Normal [facility] [place] Comment on above: Result Comment: 5-50 0.2-1 WEEK 50-500 1-2 WEEKS 100-5,000 2-3 WEEKS 500-10,000 3-4 WEEKS 1,000-50,000 4-5 WEEKS 10,000-100,000 5-6 WEEKS 15,000-200,000 6-8 WEEKS 10,000-100,000 2-3 MONTHS Performed By: #### P REGQNT #### [facility] [address] [place] [address] Dr. Meredith Piña PREG QUANT HCGon 12-18-2022 HCG QUANT 35 mIU/mL Normal [facility] Comment on above: Performed By: #### P REGQNT, TSH #### [facility] [address] [place] [address] Dr. Meredith Piña HCG RANGE SEE BELOW Normal [facility] Comment on above: Result Comment: 5-50 0.2-1 WEEK 50-500 1-2 WEEKS 100-5,000 2-3 WEEKS 500-10,000 3-4 WEEKS 1,000-50,000 4-5 WEEKS 10,000-100,000 5-6 WEEKS 15,000-200,000 6-8 WEEKS 10,000-100,000 2-3 MONTHS Performed By: #### P REGQNT, TSH #### [facility] [address] [address] [address] Meredith Piña US PELVIS AND TRANSVAGon [...] CORI MENDIETA Date: 2022-11-20 17:13 Normal [facility] CBC AUTO DIFFon 11-14-2022 BASO # 0.0 103/ul Normal 0.0-0.1 [facility] [place] Comment on above: Performed By: #### C BC #### [facility] [address] [place], [place] [address] Dr. Meredith Piña Basophils/100 WBC (Bld) 0.6 % Normal 0.2-2.0 [facility] [place] Comment on above: Performed By: #### C BC #### [facility] [address] [address] [address] Meredith Piña EO # 0.1 103/ul Normal 0.0-0.7 [facility] Comment on above: Performed By: #### C BC #### [facility] [address] [place] [address] Dr. Meredith Piña Eosinophils/100 WBC (Bld) 2.0 % Normal 0.9-7.0 [facility] Comment on above: Performed By: #### C BC #### [facility] [address] [place] [address] Dr. Meredith Piña Erythrocyte distribution width (RBC) [Ratio] 13.3 % Normal 11.0-15.0 [facility] [place] Comment on above: Performed By: #### C BC #### [facility] [address] [place] [address] Dr. Meredith Piña Hematocrit (Bld) [Volume fraction] 40.3 % Normal 36.0-48.0 [facility] [place] Comment on above: Performed By: #### C BC #### [facility] [address] [place] [address] Dr. Meredith Piña Hemoglobin (Bld) [Mass/Vol] 14.1 g/dL Normal 12.0-16.0 [facility] [place] Comment on above: Performed By: #### C BC #### [facility] [address] [place] [address] Dr. Meredith Piña IG # 0.03 10e3/ul Normal 0.00-0.03 [facility] Comment on above: Performed By: #### C BC #### [facility] [address] [place] [address] Dr. Meredith Piña IG % 0.4 % Normal 0.0-0.5 [facility] Comment on above: Performed By: #### C BC #### [facility] [address] [place] [address] Dr. Meredith Piña LYMPH # 2.1 103/ul Normal 1.2-3.8 [facility] Comment on above: Performed By: #### C BC #### [facility] [address] [place] [address] Dr. Meredith Piña Lymphocytes/100 WBC (Bld) 29.9 % Normal 20.5-60.0 [facility] Comment on above: Performed By: #### C BC #### [facility] [address] [place] [address] Dr. Meredith Piña MANUAL DIFF REQ NO Normal [facility] Comment on above: Performed By: #### C BC #### [facility] [address] [place] [address] Dr. Meredith Piña MCH (RBC) [Entitic mass] 32.7 pg Normal 26.7-34.0 [facility] Comment on above: Performed By: #### C BC #### [facility] [address] [place] [address] Dr. Meredith Piña MCHC (RBC) [Mass/Vol] 35.0 g/dL Normal 29.9-35.2 [facility] Comment on above: Performed By: #### C BC #### [facility] [address] [place] [address] Dr. Meredith Piña MCV (RBC) [Entitic vol] 93.5 fL Normal 81.0-99.0 [facility] Comment on above: Performed By: #### C BC #### [facility] [address] [place] [address] Dr. Meredith Piña MONO # 0.6 103/ul Normal 0.3-0.8 [facility] Comment on above: Performed By: #### C BC #### [facility] [address] [place] [address] Dr. Merediht Piña Monocytes/100 WBC (Bld) 8.2 % Normal 1.7-12.0 [facility] Comment on above: Performed By: #### C BC #### [facility] [address] [place] [address] Dr. Meredith Piña NEUT # 4.2 103/ul Normal 1.4-6.5 [facility] Comment on above: Performed By: #### C BC #### [facility] [address] [place] [address] Dr. Meredith Piña Neutrophils/100 WBC (Bld) 58.9 % Normal 43.0-75.0 [facility] [place] Comment on above: Performed By: #### C BC #### [facility] [address] [place] [address] Dr. Meredith Piña Platelet mean volume (Bld) [Entitic vol] 10.0 fL Normal 9.5-13.5 [facility] [place] Comment on above: Performed By: #### C BC #### [facility] [address] [place] [address] Dr. Meredith Piña PLT 312 103/ul Normal 150-450 [facility] Comment on above: Performed By: #### C BC #### [facility] [address] [place] [address] Dr. Meredith Piña RBC 4.31 106/ul Normal 4.20-5.40 [facility] [place] Comment on above: Performed By: #### C BC #### [facility] [address] [place] [address] Dr. Meredith Piña WBC 7.1 103/ul Normal 4.0-11.0 [facility] [place] Comment on above: Performed By: #### C BC #### [facility] [address] [place] [address] Dr. Meredith Piña FREE T4on 11-14-2022 Free T4 [Mass/Vol] 0.85 ng/dL Normal 0.76-1.46 [facility] Comment on above: Performed By: #### P REGQNT, TSH #### [facility] [address] [place] [address] Dr. Meredith Piña GLYCOHEMOGLOBIN A1Con 2022 ADA RECOMMENDATION SEE BELOW Normal [facility] Comment on above: Result Comment: ADA RECOMMENDED LIMIT 4.0 - 6.0 ADA THERAPEUTIC TARGET < 7.0 ACTION SUGGESTED > 7.0 Performed By: #### A 1C #### [facility] [address] [place] [address] Dr. Meredith Piña Glucose [Mass/Vol] 103 mg/dL Normal [facility] Comment on above: Performed By: #### A 1C #### [facility] [address] [address] [address] Meredith Piña HbA1c (Bld) [Mass fraction] 5.2 % Normal 4.5-6.2 [facility] [place] Comment on above: Performed By: #### A 1C #### [facility] [address] [address] [address] Meredith Piña PREG QUANT HCGon 11-14-2022 HCG QUANT <1 Normal [facility] [place] Comment on above: Performed By: #### P REGQNT, TSH #### [facility] [address] [address] [address] Meredith Piña HCG RANGE SEE BELOW Normal [facility] [place] Comment on above: Result Comment: 5-50 0.2-1 WEEK 50-500 1-2 WEEKS 100-5,000 2-3 WEEKS 500-10,000 3-4 WEEKS 1,000-50,000 4-5 WEEKS 10,000-100,000 5-6 WEEKS 15,000-200,000 6-8 WEEKS 10,000-100,000 2-3 MONTHS Performed By: #### P REGQNT, TSH #### [facility] [address] [place] [address] Dr. Meredith Piña PROTIMEon 11-14-2022 INR Coag (PPP) [Relative time] {INR} Normal [facility] [place] Comment on above: Performed By: #### P REGQNT, TSH #### [facility] [address] [place] [address] Dr. Meredith Piña INR GUIDELINES SEE BELOW Normal [facility] Comment on above: Result Comment: ASHU RED INR: 2.0 - 3.0 CONDITIONS NOT LISTED BELOW 2.5 - 3.5 FOR PROSTHETIC HEART VALVE REPLACEMENT 2.5 - 3.5 RECURRENT THROMBOSIS Performed By: #### P REGQNT, TSH #### [facility] [address] [place] [address] Dr. Meredith Piña PT Coag (PPP) [Time] 9.8 s Normal 9.0-11.6 [facility] [place] Comment on above: Performed By: #### P REGQNT, TSH #### [facility] [address] [address] [address] Meredith Piña PTTon 11-14-2022 aPTT Coag (Bld) [Time] 25.0 s Normal 22.3-36.2 [facility] [place] Comment on above: Performed By: #### P REGQNT, TSH #### [facility] [address] [address] [address] Meredith Piña TSHon 11-14-2022 TSH 0.749 uIU/mL Normal 0.358-3.740 [facility] Comment on above: Performed By: #### P REGQNT, TSH #### [facility] [address] [address] [address] Meredith Piña PAP ACOG PANEL 2: 30 to 65on 10-25-2022 . . Normal [facility] [place] Comment on above: Result Comment: Perf ormed at: WB Performed By: #### P REGQNT, TSH #### [facility] [address] [address] [address] Meredith Piña Age Gdln ACOG Testing - Normal [facility] [place] Comment on above: Performed By: #### P REGQNT, TSH #### [facility] [address] [address] [address] Meredith Piña DIAGNOSIS: Comment Normal [facility] [place] Comment on above: Result Comment: NEGA TIVE FOR INTRAEPITHELIAL LESION OR MALIGNANCY. Performed at: WB Performed By: #### P REGQNT, TSH #### [facility] [address] [address] [address] Meredith Piña HPV Aptima Positive Abnormal Negative [facility] [place] Comment on above: Result Comment: This nucleic acid amplification test detects fourteen high-risk HPV types (16,18,31,33,35,39,45,51,52,56,58,59,66,68) without differentiation. Performed at: =G Performed By: #### P REGQNT, TSH #### [facility] [address] [place] [address] Dr. Meredith Piña HPV Genotype 16 Negative Normal Negative [facility] Comment on above: Performed By: #### P REGQNT, TSH #### [facility] [address] [address] [address] Meredith Piña HPV Genotype 18,45 Negative Normal Negative [facility] Comment on above: Performed By: #### P REGQNT, TSH #### [facility] [address] [address] [address] Meredith Piña HPV Genotype Reflex Comment Normal [facility] Comment on above: Result Comment: Miquel arauz, see HPV Genotype results. Performed at: WB Performed By: #### P REGQNT, TSH #### [facility] [address] [address] [address] Meredith Piña Methodology: Comment Normal [facility] [place] Comment on above: Result Comment: This liquid based ThinPrep(R) pap test was screened with the use of an image guided system. Performed at: WB Performed By: #### P REGQNT, TSH #### [facility] [address] [place] [address] Dr. Meredith Piña Note: Comment Normal [facility] [place] Comment on above: Result Comment: The Pap [...] Performed By: #### P REGQNT, TSH #### [facility] [address] [place] [address] Dr. Meredith Piña Performed by: Comment Normal [facility] Comment on above: Result Comment: Odilon Villanueva, Piano Instructor (ASCP) Performed at: WB Performed By: #### P REGQNT, TSH #### [facility] [address] [address] [address] Meredith Piña Specimen adequacy: Comment Normal [facility] Comment on above: Result Comment: Sati sfactory for evaluation. Endocervical and/or squamous metaplastic cells (endocervical component) are present. Performed at: WB Performed By: #### P REGQNT, TSH #### [facility] [address] [address] [address] Meredith Piña CHLAMYDIA/GONOCOCCUS DMITRI (SW AB/URINE/PAPon 10-19-2022 Chlamydia trachomatis, DMITRI Negative Normal Negative [facility] Comment on above: Performed By: #### P REGQNT, TSH #### [facility] [address] [address] [address] Meredith Piña Neisseria gonorrhoeae, DMITRI Negative Normal Negative [facility] [place] Comment on above: Performed By: #### P REGQNT, TSH #### [facility] [address] [address] [address] Meredith Piña VAGINITIS/VAGINOSIS DNA PROB Tayo 10-18-2022 Amira species Negative Normal Negative [facility] Comment on above: Performed By: #### V AGINT #### [facility] [address] [place] [address] Dr. Meredith Piña Gardnerella vaginalis Positive Abnormal Negative [facility] Comment on above: Performed By: #### V AGINT #### [facility] [address] [place] [address] Dr. Meredith Piña Trichomonas vaginalis Negative Normal Negative [facility] [place] Comment on above: Performed By: #### V AGINT #### [facility] [address] [place] [address] Dr. Meredith Piña Covid-19 PCR (CVDTB)on 09-21 SARS-CoV-2 (COVID-19) RNA DMITRI+probe Ql (Unsp spec) Not detected Normal NOT DETECTED [facility] Comment on above: Result [...] for this test is supported by the [employer] Teacher of Health and Human Service's declaration that [...] Performed By: #### P REGQNT, TSH #### [facility] [address] [place] [address] Dr. Meredith Piña INSULINon 06-16-2022 Insulin 15.5 uIU/mL Normal 2.6-24.9 [facility] [place] Comment on above: Performed By: #### P REGQNT, TSH #### [facility] [address] [place] [address] Dr. Meredith Piña CBC AUTO DIFFon 06-15-2022 BASO # 0.0 103/ul Normal 0.0-0.1 [facility] [place] Comment on above: Performed By: #### P REGQNT, TSH #### [facility] [address] [place] [address] Dr. Meredith Piña Basophils/100 WBC (Bld) 0.3 % Normal 0.2-2.0 [facility] [place] Comment on above: Performed By: #### P REGQNT, TSH #### [facility] [address] [place] [address] Dr. Meredith Piña EO # 0.2 103/ul Normal 0.0-0.7 [facility] [place] Comment on above: Performed By: #### P REGQNT, TSH #### [facility] [address] [place] [address] Dr. Meredith Piña Eosinophils/100 WBC (Bld) 2.0 % Normal 0.9-7.0 [facility] [place] Comment on above: Performed By: #### P REGQNT, TSH #### [facility] [address] [place] [address] Dr. Meredith Piña Erythrocyte distribution width (RBC) [Ratio] 12.4 % Normal 11.0-15.0 [facility] [place] Comment on above: Performed By: #### P REGQNT, TSH #### [facility] [address] [place] [address] Dr. Meredith Piña Hematocrit (Bld) [Volume fraction] 41.1 % Normal 36.0-48.0 [facility] [place] Comment on above: Performed By: #### P REGQNT, TSH #### [facility] [address] [place] [address] Dr. Meredith Piña Hemoglobin (Bld) [Mass/Vol] 14.0 g/dL Normal 12.0-16.0 [facility] [place] Comment on above: Performed By: #### P REGQNT, TSH #### [facility] [address] [address] [address] Meredith Piña IG # 0.04 10e3/ul Critically high 0.00-0.03 [facility] Comment on above: Performed By: #### P REGQNT, TSH #### [facility] [address] [place] [address] Dr. Meredith Piña IG % 0.4 % Normal 0.0-0.5 [facility] [place] Comment on above: Performed By: #### P REGQNT, TSH #### [facility] [address] [place] [address] Dr. Meredith Piña LYMPH # 1.8 103/ul Normal 1.2-3.8 [facility] [place] Comment on above: Performed By: #### P REGQNT, TSH #### [facility] [address] [place] [address] Dr. Meredith Piña Lymphocytes/100 WBC (Bld) 19.3 % Critically low 20.5-60.0 [facility] [place] Comment on above: Performed By: #### P REGQNT, TSH #### [facility] [address] [place] [address] Dr. Meredith Piña MANUAL DIFF REQ NO Normal [facility] Comment on above: Performed By: #### P REGQNT, TSH #### [facility] [address] [place] [address] Dr. Meredith Piña MCH (RBC) [Entitic mass] 30.8 pg Normal 26.7-34.0 [facility] [place] Comment on above: Performed By: #### P REGQNT, TSH #### [facility] [address] [place] [address] Dr. Meredith Piña MCHC (RBC) [Mass/Vol] 34.1 g/dL Normal 29.9-35.2 [facility] [place] Comment on above: Performed By: #### P REGQNT, TSH #### [facility] [address] [place] [address] Dr. Meredith Piña MCV (RBC) [Entitic vol] 90.3 fL Normal 81.0-99.0 [facility] [place] Comment on above: Performed By: #### P REGQNT, TSH #### [facility] [address] [place] [address] Dr. Meredith Piña MONO # 0.5 103/ul Normal 0.3-0.8 [facility] [place] Comment on above: Performed By: #### P REGQNT, TSH #### [facility] [address] [place] [address] Dr. Meredith Piña Monocytes/100 WBC (Bld) 5.2 % Normal 1.7-12.0 [facility] [place] Comment on above: Performed By: #### P REGQNT, TSH #### [facility] [address] [place] [address] Dr. Meredith Piña NEUT # 6.8 103/ul Critically high 1.4-6.5 [facility] Comment on above: Performed By: #### P REGQNT, TSH #### [facility] [address] [place] [address] Dr. Meredith Piña Neutrophils/100 WBC (Bld) 72.8 % Normal 43.0-75.0 [facility] [place] Comment on above: Performed By: #### P REGQNT, TSH #### [facility] [address] [place] [address] Dr. Meredith Piña Platelet mean volume (Bld) [Entitic vol] 9.3 fL Critically low 9.5-13.5 [facility] [place] Comment on above: Performed By: #### P REGQNT, TSH #### [facility] [address] [place] [address] Dr. Meredith Piña PLT 354 103/ul Normal 150-450 [facility] [place] Comment on above: Performed By: #### P REGQNT, TSH #### [facility] [facility] [address] [place] [address] Dr. Meredith Piña RBC 4.55 106/ul Normal 4.20-5.40 [facility] Comment on above: Performed By: #### P REGQNT, TSH #### [facility] [address] [place] [address] Dr. Meredith Piña WBC 9.4 103/ul Normal 4.0-11.0 [facility] Comment on above: Performed By: #### P REGQNT, TSH #### [facility] [address] [place] [address] Dr. Meredith Piña FREE THYROXINE INDEX T7on FTI 2.66 Normal 1.30-4.50 [facility] Comment on above: Performed By: #### L IPID, T7, TSH, CMP #### [facility] [address] [place] [address] Dr. Meredith Piña T3U 32.0 % Normal 30.0-39.0 [facility] Comment on above: Performed By: #### L IPID, T7, TSH, CMP #### [facility] [address] [place] [address] Dr. Meredith Piña T4 [Mass/Vol] 8.30 ug/dL Normal 4.80-13.90 [facility] Comment on above: Performed By: #### L IPID, T7, TSH, CMP #### [facility] [address] [place] [address] Dr. Meredith Piña GLYCOHEMOGLOBIN A1Con 2021 ADA RECOMMENDATION SEE BELOW Normal [facility] Comment on above: Result Comment: ADA RECOMMENDED LIMIT 4.0 - 6.0 ADA THERAPEUTIC TARGET < 7.0 ACTION SUGGESTED > 7.0 Performed By: #### P REGQNT, TSH #### [facility] [address] [place] [address] Dr. Meredith Piña Glucose [Mass/Vol] 103 mg/dL Normal [facility] Comment on above: Performed By: #### P REGQNT, TSH #### [facility] [address] [address] [address] Meredith Piña HbA1c (Bld) [Mass fraction] 5.2 % Normal 4.5-6.2 [facility] Comment on above: Performed By: #### P REGQNT, TSH #### [facility] [address] [address] [address] Meredith Piña IRONon 06-15-2022 Iron [Mass/Vol] 55.0 ug/dL Normal 50.0-170.0 [facility] Comment on above: Performed By: #### P REGQNT, TSH #### [facility] [address] [address] [address] Meredith Piña LIPID PROFILEon 06-15-2022 CHOL-HDL RATIO NORM SEE BELOW Normal [facility] Comment on above: Result Comment: 3.3 - 4.4 LOW RISK 4.4 - 7.1 AVERAGE RISK 7.1 - 11.0 MODERATE RISK >11.0 HIGH RISK Performed By: #### L IPID, T7, TSH, CMP #### [facility] [address] [address] [address] Meredith Piña Cholesterol [Mass/Vol] 178 mg/dL Normal <=200 [facility] Comment on above: Performed By: #### L IPID, T7, TSH, CMP #### [facility] [address] [address] [address] Meredith Piña Cholesterol in HDL [Mass/Vol] 50 mg/dL Normal 40-60 [facility] Comment on above: Performed By: #### L IPID, T7, TSH, CMP #### [facility] [address] [address] [address] Meredith Piña Cholesterol in LDL [Mass/Vol] 109.2 mg/dL Normal [facility] Comment on above: Performed By: #### L IPID, T7, TSH, CMP #### [facility] [address] [address] [address] Meredith Piña Cholesterol.total/Ch olesterol in HDL [Mass ratio] 3.6 {ratio} Normal [facility] Comment on above: Performed By: #### L IPID, T7, TSH, CMP #### [facility] [address] [address] [address] Meredith Piña HDL NORMAL > or = 60 mg/dl - LO W CARDIOVASCULAR RISK <40 mg/dl - HIGH CARDIOVASCULAR RISK Normal [facility] Comment on above: Performed By: #### L IPID, T7, TSH, CMP #### [facility] [address] [address] [address] Meredith Piña LDL CALC NORMAL SEE BELOW Normal [facility] Comment on above: Result Comment: <100 mg/dl OPTIMAL 100 - 129 mg/dl NEAR OR ABOVE OPTIMAL 130 - 159 mg/dl BORDERLINE HIGH 160 - 189 mg/dl HIGH >190 mg/dl VERY HIGH Performed By: #### L IPID, T7, TSH, CMP #### [facility] [address] [place] [address] Dr. Meredith Piña Triglyceride [Mass/Vol] 94 mg/dL Normal <=150 [facility] Comment on above: Performed By: #### L IPID, T7, TSH, CMP #### [facility] [address] [address] [address] Meredith Piña VLDL CALC 18.8 mg/dL Normal [facility] Comment on above: Performed By: #### L IPID, T7, TSH, CMP #### [facility] [address] [address] [address] Meredith Piña PROF 14(COMP METB)on 022 Albumin [Mass/Vol] 3.8 g/dL Normal 3.4-5.0 [facility] Comment on above: Performed By: #### L IPID, T7, TSH, CMP #### [facility] [address] [place] [address] Dr. Meredith Piña Albumin/Globulin [Mass ratio] 0.9 {ratio} Normal [facility] Comment on above: Performed By: #### L IPID, T7, TSH, CMP #### [facility] [address] [place] [address] Dr. Meredith Piña ALP [Catalytic activity/Vol] 79 U/L Normal 46-116 [facility] Comment on above: Performed By: #### L IPID, T7, TSH, CMP #### [facility] [address] [address] [address] Meredith Piña ALT [Catalytic activity/Vol] 34 U/L Normal 14-59 [facility] Comment on above: Performed By: #### L IPID, T7, TSH, CMP #### [facility] [address] [address] [address] Meredith Piña Anion gap [Moles/Vol] 11.5 mmol/L Normal [facility] Comment on above: Performed By: #### L IPID, T7, TSH, CMP #### [facility] [address] [place] [address] Dr. Meredith Piña AST [Catalytic activity/Vol] 18 U/L Normal 15-37 [facility] Comment on above: Performed By: #### L IPID, T7, TSH, CMP #### [facility] [address] [place] [address] Dr. Meredith Piña Bilirubin [Mass/Vol] 0.2 mg/dL Normal 0.2-1.0 [facility] Comment on above: Performed By: #### L IPID, T7, TSH, CMP #### [facility] [address] [place] [address] Dr. Meredith Piña Calcium [Mass/Vol] 9.1 mg/dL Normal 8.5-10.1 [facility] Comment on above: Performed By: #### L IPID, T7, TSH, CMP #### [facility] [address] [place] [address] Dr. Meredith Piña Chloride [Moles/Vol] 105 mmol/L Normal 98-107 [facility] Comment on above: Performed By: #### L IPID, T7, TSH, CMP #### [facility] [address] [place] [address] Dr. Meredith Piña CO2 [Moles/Vol] 29.3 mmol/L Normal 21.0-32.0 [facility] Comment on above: Performed By: #### L IPID, T7, TSH, CMP #### [facility] [address] [address] [address] Meredith Piña Creatinine [Mass/Vol] 0.72 mg/dL Normal 0.55-1.02 [facility] Comment on above: Performed By: #### L IPID, T7, TSH, CMP #### [facility] [address] [address] [address] Meredith Piña EGFR-AF CAMBODIAN >60 Normal >=60 [facility] Comment on above: Performed By: #### L IPID, T7, TSH, CMP #### [facility] [address] [place] [address] Dr. Meredith Piña EGFR-NON AF CAMBODIAN >60 Normal >=60 [facility] Comment on above: Performed By: #### L IPID, T7, TSH, CMP #### [facility] [address] [place] [address] Dr. Meredith Piña Globulin (S) [Mass/Vol] 4.2 g/dL Normal [facility] Comment on above: Performed By: #### L IPID, T7, TSH, CMP #### [facility] [address] [place] [address] Dr. Meredith Piña Glucose [Mass/Vol] 89 mg/dL Normal 74-106 [facility] Comment on above: Performed By: #### L IPID, T7, TSH, CMP #### [facility] [address] [address] [address] Meredith Piña Potassium [Moles/Vol] 3.8 mmol/L Normal 3.5-5.1 [facility] Comment on above: Performed By: #### L IPID, T7, TSH, CMP #### [facility] [address] [place] [address] Dr. Meredith Piña Protein [Mass/Vol] 8.0 g/dL Normal 6.4-8.2 [facility] Comment on above: Performed By: #### L IPID, T7, TSH, CMP #### [facility] [address] [place] [address] Dr. Meredith Piña Sodium [Moles/Vol] 142 mmol/L Normal 136-145 [facility] Comment on above: Performed By: #### L IPID, T7, TSH, CMP #### [facility] [address] [address] [address] Meredith Piña Urea nitrogen [Mass/Vol] 9.0 mg/dL Normal 7.0-18.0 [facility] Comment on above: Performed By: #### L IPID, T7, TSH, CMP #### [facility] [address] [address] [address] Meredith Piña Urea nitrogen/Creatinine [Mass ratio] 12.5 mg/mg Normal [facility] Comment on above: Performed By: #### L IPID, T7, TSH, CMP #### [facility] [address] [address] [address] Meredith Piña TSHon 06-15-2022 TSH 1.075 uIU/mL Normal 0.358-3.740 [facility] Comment on above: Performed By: #### L IPID, T7, TSH, CMP #### [facility] [address] [address] [address] Meredith Piña Encounters Encounter Date Encounter Type Care Provider Facility Start: 06-07-2024 End: 06-07-2024 Clinisync Result Encounter Eulalia Ricky DO Work Phone: [facility] Unsolicited Start: 06-07-2024 End: 06-07-2024 Clinisync Result Encounter Eulalia Ricky DO Work Phone: [facility] Unsolicited Start: 01-15-2024 End: 01-15-2024 ambulatory EULALIA RICKY Not Available Start: 01-08-2024 End: 01-08-2024 ambulatory HALI DALY Not Available Start: 01-02-2024 End: 01-02-2024 ambulatory EULALIA RICKY Not Available Start: 12-26-2023 End: 12-26-2023 ambulatory EULALIA RICKY Not Available Start: 12-19-2023 End: 12-19-2023 ambulatory EULALIA RICKY Not Available Start: 12-06-2023 End: 12-06-2023 ambulatory HALI ADDY Not Available Start: 11-22-2023 End: 11-22-2023 ambulatory EULALIA RICKY Not Available Start: 11-01-2023 End: 11-01-2023 ambulatory EULALIA RICKY Not Available Start: 10-01-2023 End: 10-01-2023 ambulatory EULALIA RICKY Not Available Start: 08-15-2023 End: 08-15-2023 ambulatory HALI ADDY Not Available Start: 07-18-2023 End: 07-18-2023 ambulatory EULALIA RICKY Not Available Start: 01-12-[address] EULALIA [...] Start: 10-12-2022 End: 10-12-[address] KRISTOPHER GALAN . Facility:[facility] Start: 06-18-2022 Encounter for genera l adult medical examination without abnormal findings DR KRISTOPHER GALAN . [facility] Start: 06-15-2022 End: 06-16-[address] KRISTOPHER GALAN . Facility:[facility] Start: 06-15-2022 End: 06-16-2022 Encounter for general adult medical examination without abnormal findings DR KRISTOPHER GALAN . Facility:[facility] Procedures Date Procedure Procedure Detail Performing Clinician Start: 06-07-2024 [facility]CG Core y Ricky DO Work Phone: Plan of Treatment Date Care Activity Detail Author Start: 06-11-2024 End: 06-11-2024 Professional / ancillary services management 06/11/2024 2:00 PM EDT Ancillary Procedure [facility] [address] [place] [address] [facility] Payers Date Payer Category Payer Medicaid [id number] 2023 Medicaid [place] [id number] 2021 Private Health Insurance [facility] [id number] 1989 Unknown [id number] 2.840.1.670852.3.579.2. 593 1989 Unknown [id number] 2.16840.1.693575.3.579.2. 593 1989 Unknown [id number] 2.16840.1.518199.3.579.2. 593 1989 Unknown [id number] 2.16840.1.734587.3.579.2. 593 1989 Unknown [id number] 2.16840.1.486318.3.579.2. 593 1989 Unknown [id number] 2.16840.1.486500.3.579.2. 593 1989 Unknown [id number] 2.16.840.1.015158.3.579.2. 593 1989 Unknown [id number] 2.16.840.1.242463.3.579.2. 593 1989 Unknown [id number] 2.16.840.1.553851.3.579.2. 593 1989 Unknown [id number] 2.16.840.1.240650.3.579.2. 1259 1989 Unknown [id number] 2.16.840.1.928399.3.579.2. 1259 1989 Unknown [id number] 2.16.840.1.764923.3.579.2. 1259 1989 Unknown [id number] 2.16.840.1.720227.3.579.2. 1259 1989 Unknown [id number] 2.16.840.1.011264.3.579.2. 1259 1989 Unknown [id number] 2.16.840.1.431985.3.579.2. 1259 1989 Unknown [id number] 2.16.840.1.153367.3.579.2. 1259 1989 Unknown [id number] 2.16.840.1.783915.3.579.2. 1259 1989 Unknown [id number] 2.16.840.1.925444.3.579.2. 1259 1989 Unknown [id number] 2.16.840.1.133972.3.579.2. 1259 1989 Unknown [id number] 2.16.840.1.104012.3.579.2. 1259 1959 Unknown [id number] 1959 Unknown [id number] Social History Date Type Detail Facility Start: 03-28-2023 Tobacco smoking status NEIS Smokes t obacco daily [facility] History of tobacco use Cigarette Smoker [facility] Start: 05-28-2024 Alcoholic beverage intake Ex-drinker (finding) [facility] Start: 06-07-2023 History of Social function [facility] Start: 06-07-2023 Tobacco use panel [facility] Start: 03-28-2023 Alcohol Comment occasional [facility] Start: 1990 Sex assigned at Not on file N [facility] Clinical Note 12-29-2022 Note Date & Type [...] by: CORI MENDIETA Date: 2022-12-29 15:15 [facility] Summary Purpose Family History No Family History Records FoundNo Family History Records Found Advance Directives No Advanced Directives Records FoundNo Advanced Directives Records Found Additional Source Comments INFORMATION SOURCE (unrecogn ized section and content) DATE CREATED AUTHOR 12/30/2022 [facility] DATE CREATED AUTHOR AUTHOR'S ORGANIZ ATION 01/15/2024 [facility] EPIC Care Teams (unrecognized sec tion and content) General Surgeon Relationship Specialty Start Date End Date Kristopher Galan MD [address] [place] [address] PCP - General Family Medicine 03/29/23 FOR RECORDS PERTAINING TO PATIENTS WHO ARE [...] BE BASED ON THE PRIMARY CLINICAL RECORDS. [employer] [facility]. provides no warranty or guarantee of the accuracy or completeness of information in this document.
[2024-06-09 17:25] LABS: HCG Quantitative 69804 mIU/mL
== END 2024-06-09 16:22 | disposition home or self-care (01) ==
PROVIDERS: PCP Family Medicine; Visit Provider Obstetrics & Gynecology
DX: N92.6 Irregular menstruation, unspecified (principal)
CPT/HCPCS: 36415; 84702

== ENCOUNTER 2024-06-12 08:39 | Outpatient (OUT) | payer OTHER, MEDICAID, SELFPAY ==
--- NOTE | 2024-06-12 08:44 | US_ITS ---
[address] [address] Patient Name: JASMIN LUONG MRN: [id number] date: 1990 Sex: F Assigned Patient Location: [facility] Current Patient Location: [facility] Accession/Order Number: [id number] Exam Date: 06/12/2024 08:45 Report Date: 06/12/2024 09:38 At the request of: EULALIA MAXWELL Procedure: US OB transvaginal EXAMINATION: US OB transvaginal HISTORY: VIABILITY COMPARISON: Ultrasound OB transvaginal 06/06/2024 FINDINGS: GESTATIONAL SAC: Irregularly marginated slightly heterogeneous fluid collection within endometrial cavity. YOLK SAC: Absent POLE: Absent CARDIAC: Absent UTERUS: Normal size and appearance. OVARIES: Right: Corpus lutein cyst. Left: Normal. CERVIX: 4.6 cm in length and closed. CUL-DE-SAC: Normal. OTHER: None. AGE BY LMP: 9 weeks 3 days MEGAN BY LMP: 01/12/2025 AGE BY US SAC SIZE: 6 weeks 3 days MEGAN BY US SAC SIZE: 02/02/2025 US/US OB transvaginal IMPRESSION: 1. Irregular fluid collection within endometrial cavity which may represent a collapsing gestational sac/blighted ovum. Electronically authenticated by: CORI MENDIETA Date: 06/12/2024 09:38
--- OUTSIDE RECORDS SUMMARY | 2024-06-12 08:49 | XMS_ITS | CCD ---
Author Organization [facility] Care Team Providers Care Bank Cashier Name Role Phone ANGELIA ., DR SUMMERS [...] Angelia ZAPATA, Kristopher Guido Primary Care Provider [phone] Allergies Allergy Classification Reported Allergen(s) Allergy Type Date of Onset Reaction(s) Facility (3 sources) Latex Drug allergy (disorder) 01-23-2021 [facility] Repository (2 sources) Latex Allergy to substance 03-29-2023 Unknown [facility] Work Phone: Medications Current Medications Medication Drug Class(es) Dates Sig (Normalized) Sig (Original) valACYclovir 500 mg oral tablet (6 sources) Herpesvirus Nucleoside Analog DNA Polymerase Inhibitor, [...] Episodic/Chronic Immunizations and screening for infectious disease (3 sources) Contact with and (suspected) exposure to infections with a predominantly sexual mode of transmission; Translations: [Exposure to sexually transmissible disorder] Onset: 10-18-2022 11-01-2023 Episodic Other female genital disorders (2 sources) Vaginal discharge; Translations: [Other specified noninflammatory disorders of vagina] Onset: 11-01-2023 11-01-2023 Episodic Unclassified (1 source) CONTACT W/AND (SUSP) EXPOS COVID-19; Translations: [CONTACT W/AND (SUSP) EXPOS COVID-19] Onset: 10-12-2022 Results Test Name Value Interpretation Reference Range Facility [facility] PREG QUANT HCGon 024 HCG QUANTITATIVE 14671 mIU/mL [facility] Comment on above: 5-50 0.2-1 WEEK 50-500 1-2 WEEKS 100-5,000 2-3 WEEKS 500-10,000 3-4 WEEKS 1,000-50,000 4-5 WEEKS 10,000-100,000 5-6 WEEKS 15,000-200,000 6-8 WEEKS 10,000-100,000 2[facility] 024 HCG QUANTITATIVE 64090 mIU/mL [facility] Comment on above: 5-50 0.2-1 WEEK 50-500 1-2 WEEKS 100-5,000 2-3 WEEKS 500-10,000 3-4 WEEKS 1,000-50,000 4-5 WEEKS 10,000-100,000 5-6 WEEKS 15,000-200,000 6-8 WEEKS 10,000-100,000 [facility]-20-2022 HCG QUANT 21 mIU/mL Normal [facility] Comment on above: Performed By: #### P REGQNT #### [facility] [address] [place] [address] Dr. Meredith Piña HCG RANGE SEE BELOW Normal [facility] Comment on above: Result Comment: 5-50 0.2-1 WEEK 50-500 1-2 WEEKS 100-5,000 2-3 WEEKS 500-10,000 3-4 WEEKS 1,000-50,000 4-5 WEEKS 10,000-100,000 5-6 WEEKS 15,000-200,000 6-8 WEEKS 10,000-100,000 2-3 MONTHS Performed By: #### P REGQNT #### [facility] [address] [address] [address] Meredith Piña PREG QUANT HCGon 12-18-2022 HCG QUANT 35 mIU/mL Normal [facility] Comment on above: Performed By: #### P REGQNT, TSH #### [facility] [address] [address] [address] Meredith Piña HCG RANGE SEE BELOW Normal [facility] Comment on above: Result Comment: 5-50 0.2-1 WEEK 50-500 1-2 WEEKS 100-5,000 2-3 WEEKS 500-10,000 3-4 WEEKS 1,000-50,000 4-5 WEEKS 10,000-100,000 5-6 WEEKS 15,000-200,000 6-8 WEEKS 10,000-100,000 2-3 MONTHS Performed By: #### P REGQNT, TSH #### [facility] [address] [place] [address] Dr. Meredith Piña US PELVIS AND TRANSVAGon [...] CORI MENDIETA Date: 2022-11-20 17:13 Normal [facility] CBC AUTO DIFFon 11-14-2022 BASO # 0.0 103/ul Normal 0.0-0.1 [facility] Comment on above: Performed By: #### C BC #### [facility] [address] [place] [address] Dr. Meredith Piña Basophils/100 WBC (Bld) 0.6 % Normal 0.2-2.0 [facility] Comment on above: Performed By: #### C BC #### [facility] [address] [place] [address] Dr. Meredith Piña EO # 0.1 103/ul Normal 0.0-0.7 [facility] Comment on above: Performed By: #### C BC #### [facility] [address] [place] [address] Dr. Meredith Piña Eosinophils/100 WBC (Bld) 2.0 % Normal 0.9-7.0 [facility] Comment on above: Performed By: #### C BC #### [facility] [address] [place] [address] Dr. Meredith Piña Erythrocyte distribution width (RBC) [Ratio] 13.3 % Normal 11.0-15.0 [facility] Comment on above: Performed By: #### C BC #### [facility] [address] [place] [address] Dr. Meredith Piña Hematocrit (Bld) [Volume fraction] 40.3 % Normal 36.0-48.0 [facility] Comment on above: Performed By: #### C BC #### [facility] [address] [place] [address] Dr. Meredith Piña Hemoglobin (Bld) [Mass/Vol] 14.1 g/dL Normal 12.0-16.0 [facility] Comment on above: Performed By: #### C BC #### [facility] [address] [place] [address] Dr. Meredith Piña IG # 0.03 10e3/ul Normal 0.00-0.03 [facility] Comment on above: Performed By: #### C BC #### [facility] [address] [place] [address] Dr. Meredith Piña IG % 0.4 % Normal 0.0-0.5 [facility] Comment on above: Performed By: #### C BC #### [facility] [address] [place] [address] Dr. Meredith Piña LYMPH # 2.1 103/ul Normal 1.2-3.8 [facility] Comment on above: Performed By: #### C BC #### [facility] [address] [place] [address] Dr. Meredith Piña Lymphocytes/100 WBC (Bld) 29.9 % Normal 20.5-60.0 [facility] Comment on above: Performed By: #### C BC #### [facility] [address] [place] [address] Dr. Meredith Piña MANUAL DIFF REQ NO Normal [facility] Comment on above: Performed By: #### C BC #### [facility] [address] [place] [address] Dr. eMredith Piña MCH (RBC) [Entitic mass] 32.7 pg Normal 26.7-34.0 [facility] Comment on above: Performed By: #### C BC #### [facility] [address] [place] [address] Dr. Meredith Piña MCHC (RBC) [Mass/Vol] 35.0 g/dL Normal 29.9-35.2 [facility] Comment on above: Performed By: #### C BC #### [facility] [address] [place] [address] Dr. Meredith Piña MCV (RBC) [Entitic vol] 93.5 fL Normal 81.0-99.0 [facility] Comment on above: Performed By: #### C BC #### [facility] [address] [place] [address] Dr. Meredith Piña MONO # 0.6 103/ul Normal 0.3-0.8 [facility] Comment on above: Performed By: #### C BC #### [facility] [address] [place] [address] Dr. Meredith Piña Monocytes/100 WBC (Bld) 8.2 % Normal 1.7-12.0 [facility] Comment on above: Performed By: #### C BC #### [facility] [address] [place] [address] Dr. Meredith Piña NEUT # 4.2 103/ul Normal 1.4-6.5 [facility] Comment on above: Performed By: #### C BC #### [facility] [address] [place] [address] Dr. Meredith Piña Neutrophils/100 WBC (Bld) 58.9 % Normal 43.0-75.0 [facility] Comment on above: Performed By: #### C BC #### [facility] [address] [place] [address] Dr. Meredith Piña Platelet mean volume (Bld) [Entitic vol] 10.0 fL Normal 9.5-13.5 [facility] Comment on above: Performed By: #### C BC #### [facility] [address] [place] [address] Dr. Meredith Piña PLT 312 103/ul Normal 150-450 [facility] Comment on above: Performed By: #### C BC #### [facility] [address] [place] [address] Dr. Meredith Piña RBC 4.31 106/ul Normal 4.20-5.40 [facility] Comment on above: Performed By: #### C BC #### [facility] [address] [place] [address] Dr. Meredith Piña WBC 7.1 103/ul Normal 4.0-11.0 [facility] Comment on above: Performed By: #### C BC #### [facility] [address] [place] [address] Dr. Meredith Piña FREE T4on 11-14-2022 Free T4 [Mass/Vol] 0.85 ng/dL Normal 0.76-1.46 [facility] Comment on above: Performed By: #### P REGQNT, TSH #### [facility] [address] [place] [address] Dr. Meredith Piña GLYCOHEMOGLOBIN A1Con 2022 ADA RECOMMENDATION SEE BELOW Normal [facility] Comment on above: Result Comment: ADA RECOMMENDED LIMIT 4.0 - 6.0 ADA THERAPEUTIC TARGET < 7.0 ACTION SUGGESTED > 7.0 Performed By: #### A 1C #### [facility] [address] [place] [address] Dr. Meredith Piña Glucose [Mass/Vol] 103 mg/dL Normal [facility] Comment on above: Performed By: #### A 1C #### [facility] [address] [address] [address] Meredith Piña HbA1c (Bld) [Mass fraction] 5.2 % Normal 4.5-6.2 [facility] Comment on above: Performed By: #### A 1C #### [facility] [address] [place] [address] Dr. Meredith Piña PREG QUANT HCGon 11-14-2022 HCG QUANT <1 Normal [facility] Comment on above: Performed By: #### P REGQNT, TSH #### [facility] [address] [place] [address] Dr. Meredith Piña HCG RANGE SEE BELOW Normal [facility] Comment on above: Result Comment: 5-50 0.2-1 WEEK 50-500 1-2 WEEKS 100-5,000 2-3 WEEKS 500-10,000 3-4 WEEKS 1,000-50,000 4-5 WEEKS 10,000-100,000 5-6 WEEKS 15,000-200,000 6-8 WEEKS 10,000-100,000 2-3 MONTHS Performed By: #### P REGQNT, TSH #### [facility] [address] [place] [address] Dr. Meredith Piña PROTIMEon 11-14-2022 INR Coag (PPP) [Relative time] {INR} Normal [facility] Comment on above: Performed By: #### P REGQNT, TSH #### [facility] [address] [place] [address] Dr. Meredith Piña INR GUIDELINES SEE BELOW Normal [facility] Comment on above: Result Comment: ASHU RED INR: 2.0 - 3.0 CONDITIONS NOT LISTED BELOW 2.5 - 3.5 FOR PROSTHETIC HEART VALVE REPLACEMENT 2.5 - 3.5 RECURRENT THROMBOSIS Performed By: #### P REGQNT, TSH #### [facility] [address] [place] [address] Dr. Meredith Piña PT Coag (PPP) [Time] 9.8 s Normal 9.0-11.6 [facility] Comment on above: Performed By: #### P REGQNT, TSH #### [facility] [address] [address] [address] Meredith Piña PTTon 11-14-2022 aPTT Coag (Bld) [Time] 25.0 s Normal 22.3-36.2 [facility] Comment on above: Performed By: #### P REGQNT, TSH #### [facility] [address] [place] [address] Dr. Meredith Piña TSHon 11-14-2022 TSH 0.749 uIU/mL Normal 0.358-3.740 [facility] Comment on above: Performed By: #### P REGQNT, TSH #### [facility] [address] [place] [address] Dr. Meredith Piña PAP ACOG PANEL 2: 30 to 65on 10-25-2022 . . Normal [facility] Comment on above: Result Comment: Perf ormed at: WB Performed By: #### P REGQNT, TSH #### [facility] [address] [place] [address] Dr. Meredith Piña Age Gdln ACOG Testing 30-65 Normal [facility] Comment on above: Performed By: #### P REGQNT, TSH #### [facility] [address] [place] [address] Dr. Meredith Piña DIAGNOSIS: Comment Normal [facility] Comment on above: Result Comment: NEGA TIVE FOR INTRAEPITHELIAL LESION OR MALIGNANCY. Performed at: WB Performed By: #### P REGQNT, TSH #### [facility] [address] [place] [address] Dr. Meredith Piña HPV Aptima Positive Abnormal Negative [facility] Comment on above: Result Comment: This nucleic acid amplification test detects fourteen high-risk HPV types (16,18,31,33,35,39,45,51,52,56,58,59,66,68) without differentiation. Performed at: =G Performed By: #### P REGQNT, TSH #### [facility] [address] [address] [address] Meredith Piña HPV Genotype 16 Negative Normal Negative [facility] Comment on above: Performed By: #### P REGQNT, TSH #### [facility] [address] [address] [address] Meredith Piña HPV Genotype 18,45 Negative Normal Negative [facility] Comment on above: Performed By: #### P REGQNT, TSH #### [facility] [address] [address] [address] Meredith Piña HPV Genotype Reflex Comment Normal [facility] Comment on above: Result Comment: Miquel arauz, see HPV Genotype results. Performed at: WB Performed By: #### P REGQNT, TSH #### [facility] [address] [address] [address] Meredith Piña Methodology: Comment Normal [facility] Comment on above: Result Comment: This liquid based ThinPrep(R) pap test was screened with the use of an image guided system. Performed at: WB Performed By: #### P REGQNT, TSH #### [facility] [address] [address] [address] Meredith Piña Note: Comment Normal [facility] Comment on above: Result Comment: The Pap [...] Performed By: #### P REGQNT, TSH #### [facility] [address] [address] [address] Meredith Piña Performed by: Comment Normal [facility] Comment on above: Result Comment: Odilon Villanueva, Early Childhood Coordinator (ASCP) Performed at: WB Performed By: #### P REGQNT, TSH #### [facility] [address] [place] [address] Dr. Meredith Piña Specimen adequacy: Comment Normal [facility] Comment on above: Result Comment: Sati sfactory for evaluation. Endocervical and/or squamous metaplastic cells (endocervical component) are present. Performed at: WB Performed By: #### P REGQNT, TSH #### [facility] [address] [place] [address] Dr. Meredith Piña CHLAMYDIA/GONOCOCCUS DMITRI (SW AB/URINE/PAPon 10-19-2022 Chlamydia trachomatis, DMITRI Negative Normal Negative [facility] Comment on above: Performed By: #### P REGQNT, TSH #### [facility] [address] [place] [address] Dr. Meredith Piña Neisseria gonorrhoeae, DMITRI Negative Normal Negative [facility] Comment on above: Performed By: #### P REGQNT, TSH #### [facility] [address] [place] [address] Dr. Meredith Piña VAGINITIS/VAGINOSIS DNA PROB Tayo 10-18-2022 Amira species Negative Normal Negative [facility] Comment on above: Performed By: #### V AGINT #### [facility] [address] [place] [address] Dr. Meredith Piña Gardnerella vaginalis Positive Abnormal Negative [facility] Comment on above: Performed By: #### V AGINT #### [facility] [address] [place] [address] Dr. Meredith Piña Trichomonas vaginalis Negative Normal Negative [facility] Comment on above: Performed By: #### V AGINT #### [facility] [address] [place] [address] Dr. Meredith Piña [facility] SARS-CoV-2 (COVID-19) RNA DMITRI+probe Ql (Unsp spec) Not detected Normal NOT DETECTED [facility] Comment on above: Result Comment: When [...] for this test is supported by the [employer] of Health and Human Service's declaration that [...] Performed By: #### P REGQNT, TSH #### [facility] [address] [place] [address] Dr. Meredith Piña INSULINon 06-16-2022 Insulin 15.5 uIU/mL Normal 2.6-24.9 [facility] Comment on above: Performed By: #### P REGQNT, TSH #### [facility] [address] [place] [address] Dr. Meredith Piña CBC AUTO DIFFon 06-15-2022 BASO # 0.0 103/ul Normal 0.0-0.1 [facility] Comment on above: Performed By: #### P REGQNT, TSH #### [facility] [address] [place] [address] Dr. Meredith Piña Basophils/100 WBC (Bld) 0.3 % Normal 0.2-2.0 [facility] Comment on above: Performed By: #### P REGQNT, TSH #### [facility] [address] [place] [address] Dr. Meredith Piña EO # 0.2 103/ul Normal 0.0-0.7 [facility] Comment on above: Performed By: #### P REGQNT, TSH #### [facility] [address] [place] [address] Dr. Meredith Piña Eosinophils/100 WBC (Bld) 2.0 % Normal 0.9-7.0 [facility] Comment on above: Performed By: #### P REGQNT, TSH #### [facility] [address] [place] [address] Dr. Meredith Piña Erythrocyte distribution width (RBC) [Ratio] 12.4 % Normal 11.0-15.0 [facility] Comment on above: Performed By: #### P REGQNT, TSH #### [facility] [address] [place] [address] Dr. Meredith Piña Hematocrit (Bld) [Volume fraction] 41.1 % Normal 36.0-48.0 [facility] Comment on above: Performed By: #### P REGQNT, TSH #### [facility] [address] [place] [address] Dr. Meredith Piña Hemoglobin (Bld) [Mass/Vol] 14.0 g/dL Normal 12.0-16.0 [facility] Comment on above: Performed By: #### P REGQNT, TSH #### [facility] [address] [place] [address] Dr. Meredith Piña IG # 0.04 10e3/ul Critically high 0.00-0.03 [facility] Comment on above: Performed By: #### P REGQNT, TSH #### [facility] [address] [place] [address] Dr. Meredith Piña IG % 0.4 % Normal 0.0-0.5 [facility] Comment on above: Performed By: #### P REGQNT, TSH #### [facility] [address] [place] [address] Dr. Meredith Piña LYMPH # 1.8 103/ul Normal 1.2-3.8 [facility] Comment on above: Performed By: #### P REGQNT, TSH #### [facility] [address] [place] [address] Dr. Meredith Piña Lymphocytes/100 WBC (Bld) 19.3 % Critically low 20.5-60.0 [facility] Comment on above: Performed By: #### P REGQNT, TSH #### [facility] [address] [place] [address] Dr. Meredith Piña MANUAL DIFF REQ NO Normal [facility] Comment on above: Performed By: #### P REGQNT, TSH #### [facility] [address] [place] [address] Dr. Meredith Piña MCH (RBC) [Entitic mass] 30.8 pg Normal 26.7-34.0 [facility] Comment on above: Performed By: #### P REGQNT, TSH #### [facility] [address] [place] [address] Dr. Meredith Piña MCHC (RBC) [Mass/Vol] 34.1 g/dL Normal 29.9-35.2 [facility] Comment on above: Performed By: #### P REGQNT, TSH #### [facility] [address] [place] [address] Dr. Meredith Piña MCV (RBC) [Entitic vol] 90.3 fL Normal 81.0-99.0 [facility] Comment on above: Performed By: #### P REGQNT, TSH #### [facility] [address] [place] [address] Dr. Meredith Piña MONO # 0.5 103/ul Normal 0.3-0.8 [facility] Comment on above: Performed By: #### P REGQNT, TSH #### [facility] [address] [place] [address] Dr. Meredith Piña Monocytes/100 WBC (Bld) 5.2 % Normal 1.7-12.0 [facility] Comment on above: Performed By: #### P REGQNT, TSH #### [facility] [address] [place] [address] Dr. Meredith Piña NEUT # 6.8 103/ul Critically high 1.4-6.5 [facility] Comment on above: Performed By: #### P REGQNT, TSH #### [facility] [address] [place] [address] Dr. Meredith Piña Neutrophils/100 WBC (Bld) 72.8 % Normal 43.0-75.0 [facility] Comment on above: Performed By: #### P REGQNT, TSH #### [facility] [address] [address] [address] Meredith Piña Platelet mean volume (Bld) [Entitic vol] 9.3 fL Critically low 9.5-13.5 [facility] Comment on above: Performed By: #### P REGQNT, TSH #### [facility] [address] [address] [address] Meredith Piña PLT 354 103/ul Normal 150-450 [facility] Comment on above: Performed By: #### P REGQNT, TSH #### [facility] [address] [address] [address] Meredith Piña RBC 4.55 106/ul Normal 4.20-5.40 [facility] Comment on above: Performed By: #### P REGQNT, TSH #### [facility] [address] [address] [address] Meredith Piña WBC 9.4 103/ul Normal 4.0-11.0 [facility] Comment on above: Performed By: #### P REGQNT, TSH #### [facility] [address] [address] [address] Meredith Piña FREE THYROXINE INDEX T7on FTI 2.66 Normal 1.30-4.50 [facility] Comment on above: Performed By: #### L IPID, T7, TSH, CMP #### [facility] [address] [place] [address] Dr. Meredith Piña T3U 32.0 % Normal 30.0-39.0 [facility] Comment on above: Performed By: #### L IPID, T7, TSH, CMP #### [facility] [address] [address] [address] Meredith Piña T4 [Mass/Vol] 8.30 ug/dL Normal 4.80-13.90 [facility] Comment on above: Performed By: #### L IPID, T7, TSH, CMP #### [facility] [address] [place] [address] Dr. Meredith Piña GLYCOHEMOGLOBIN A1Con 2021 ADA RECOMMENDATION SEE BELOW Normal [facility] Comment on above: Result Comment: ADA RECOMMENDED LIMIT 4.0 - 6.0 ADA THERAPEUTIC TARGET < 7.0 ACTION SUGGESTED > 7.0 Performed By: #### P REGQNT, TSH #### [facility] [address] [address] [address] Meredith Piña Glucose [Mass/Vol] 103 mg/dL Normal [facility] Comment on above: Performed By: #### P REGQNT, TSH #### [facility] [address] [address] [address] Meredith Piña HbA1c (Bld) [Mass fraction] 5.2 % Normal 4.5-6.2 [facility] Comment on above: Performed By: #### P REGQNT, TSH #### [facility] [address] [place] [address] Dr. Meredith Piña IRONon 06-15-2022 Iron [Mass/Vol] 55.0 ug/dL Normal 50.0-170.0 [facility] Comment on above: Performed By: #### P REGQNT, TSH #### [facility] [facility] [address] [address] [address] Meredith Piña LIPID PROFILEon 06-15-2022 CHOL-HDL RATIO NORM SEE BELOW Normal [facility] Comment on above: Result Comment: 3.3 - 4.4 LOW RISK 4.4 - 7.1 AVERAGE RISK 7.1 - 11.0 MODERATE RISK >11.0 HIGH RISK Performed By: #### L IPID, T7, TSH, CMP #### [facility] [address] [address] [address] Meredith Piña Cholesterol [Mass/Vol] 178 mg/dL Normal <=200 [facility] Comment on above: Performed By: #### L IPID, T7, TSH, CMP #### [facility] [address] [address] [address] Meredith Piña Cholesterol in HDL [Mass/Vol] 50 mg/dL Normal 40-60 [facility] Comment on above: Performed By: #### L IPID, T7, TSH, CMP #### [facility] [address] [address] [address] Meredith Piña Cholesterol in LDL [Mass/Vol] 109.2 mg/dL Normal [facility] Comment on above: Performed By: #### L IPID, T7, TSH, CMP #### [facility] [address] [address] [address] Meredith Piña Cholesterol.total/Ch olesterol in HDL [Mass ratio] 3.6 {ratio} Normal [facility] Comment on above: Performed By: #### L IPID, T7, TSH, CMP #### [facility] [address] [address] [address] Meredith Piña HDL NORMAL > or = 60 mg/dl - LO W CARDIOVASCULAR RISK <40 mg/dl - HIGH CARDIOVASCULAR RISK Normal [facility] Comment on above: Performed By: #### L IPID, T7, TSH, CMP #### [facility] [address] [address] [address] Meredith Piña LDL CALC NORMAL SEE BELOW Normal [facility] Comment on above: Result Comment: <100 mg/dl OPTIMAL 100 - 129 mg/dl NEAR OR ABOVE OPTIMAL 130 - 159 mg/dl BORDERLINE HIGH 160 - 189 mg/dl HIGH >190 mg/dl VERY HIGH Performed By: #### L IPID, T7, TSH, CMP #### [facility] [address] [address] [address] Meredith Piña Triglyceride [Mass/Vol] 94 mg/dL Normal <=150 [facility] Comment on above: Performed By: #### L IPID, T7, TSH, CMP #### [facility] [address] [address] [address] Meredith Piña VLDL CALC 18.8 mg/dL Normal [facility] Comment on above: Performed By: #### L IPID, T7, TSH, CMP #### [facility] [address] [address] [address] Meredith Piña PROF 14(COMP METB)on 022 Albumin [Mass/Vol] 3.8 g/dL Normal 3.4-5.0 [facility] Comment on above: Performed By: #### L IPID, T7, TSH, CMP #### [facility] [address] [place] [address] Dr. Meredith Piña Albumin/Globulin [Mass ratio] 0.9 {ratio} Normal [facility] Comment on above: Performed By: #### L IPID, T7, TSH, CMP #### [facility] [address] [place] [address] Dr. Meredith Piña ALP [Catalytic activity/Vol] 79 U/L Normal 46-116 [facility] Comment on above: Performed By: #### L IPID, T7, TSH, CMP #### [facility] [address] [place] [address] Dr. Meredith Piña ALT [Catalytic activity/Vol] 34 U/L Normal 14-59 [facility] Comment on above: Performed By: #### L IPID, T7, TSH, CMP #### [facility] [address] [place] [address] Dr. Meredith Piña Anion gap [Moles/Vol] 11.5 mmol/L Normal [facility] Comment on above: Performed By: #### L IPID, T7, TSH, CMP #### [facility] [address] [place] [address] Dr. Meredith Piña AST [Catalytic activity/Vol] 18 U/L Normal 15-37 [facility] Comment on above: Performed By: #### L IPID, T7, TSH, CMP #### [facility] [address] [place] [address] Dr. Meredith Piña Bilirubin [Mass/Vol] 0.2 mg/dL Normal 0.2-1.0 [facility] Comment on above: Performed By: #### L IPID, T7, TSH, CMP #### [facility] [address] [place] [address] Dr. Meredith Piña Calcium [Mass/Vol] 9.1 mg/dL Normal 8.5-10.1 [facility] Comment on above: Performed By: #### L IPID, T7, TSH, CMP #### [facility] [address] [address] [address] Meredith Piña Chloride [Moles/Vol] 105 mmol/L Normal 98-107 [facility] Comment on above: Performed By: #### L IPID, T7, TSH, CMP #### [facility] [address] [place] [address] Dr. Meredith Piña CO2 [Moles/Vol] 29.3 mmol/L Normal 21.0-32.0 [facility] Comment on above: Performed By: #### L IPID, T7, TSH, CMP #### [facility] [address] [place] [address] Dr. Meredith Piña Creatinine [Mass/Vol] 0.72 mg/dL Normal 0.55-1.02 [facility] Comment on above: Performed By: #### L IPID, T7, TSH, CMP #### [facility] [address] [place] [address] Dr. Meredith Piña EGFR-AF CENTRAL AFRICAN >60 Normal >=[address] [facility] Comment on above: Performed By: #### L IPID, T7, TSH, CMP #### [facility] [address] [place] [address] Dr. Meredith Piña EGFR-NON AF CENTRAL AFRICAN >60 Normal >=60 [facility] Comment on above: Performed By: #### L IPID, T7, TSH, CMP #### [facility] [address] [place] [address] Dr. Meredith Piña Globulin (S) [Mass/Vol] 4.2 g/dL Normal [facility] Comment on above: Performed By: #### L IPID, T7, TSH, CMP #### [facility] [address] [place] [address] Dr. Meredith Piña Glucose [Mass/Vol] 89 mg/dL Normal 74-106 [facility] Comment on above: Performed By: #### L IPID, T7, TSH, CMP #### [facility] [address] [place] [address] Dr. Meredith Piña Potassium [Moles/Vol] 3.8 mmol/L Normal 3.5-5.1 [facility] Comment on above: Performed By: #### L IPID, T7, TSH, CMP #### [facility] [address] [address] [address] Meredith Piña Protein [Mass/Vol] 8.0 g/dL Normal 6.4-8.2 [facility] Comment on above: Performed By: #### L IPID, T7, TSH, CMP #### [facility] [address] [address] [address] Meredith Piña Sodium [Moles/Vol] 142 mmol/L Normal 136-145 [facility] Comment on above: Performed By: #### L IPID, T7, TSH, CMP #### [facility] [address] [place] [address] Dr. Meredith Piña Urea nitrogen [Mass/Vol] 9.0 mg/dL Normal 7.0-18.0 [facility] Comment on above: Performed By: #### L IPID, T7, TSH, CMP #### [facility] [address] [place] [address] Dr. Meredith Piña Urea nitrogen/Creatinine [Mass ratio] 12.5 mg/mg Normal [facility] Comment on above: Performed By: #### L IPID, T7, TSH, CMP #### [facility] [address] [place] [address] Dr. Meredith Piña TSHon 06-15-2022 TSH 1.075 uIU/mL Normal 0.358-3.740 [facility] Comment on above: Performed By: #### L IPID, T7, TSH, CMP #### [facility] [address] [place] [address] Dr. Meredith Piña Encounters Encounter Date Encounter Type Care Provider Facility Start: 06-09-2024 End: 06-09-2024 Clinisync Result Encounter Eulalia Ricky DO Work Phone: [facility] Unsolicited Start: 06-09-2024 End: 06-09-2024 Clinisync Result Encounter Eulalia Ricky DO Work Phone: [facility] Unsolicited Start: 06-07-2024 End: 06-07-2024 Clinisync Result Encounter Eulalia Ricky DO Work Phone: [facility] Unsolicited Start: 06-07-2024 End: 06-07-2024 Clinisync Result Encounter Eulalia Ricky DO Work Phone: [facility] Unsolicited Start: 01-15-2024 End: 01-15-2024 ambulatory EULALIA RICKY Not Available Start: 01-08-2024 End: 01-08-2024 ambulatory HALI ADDY Not Available Start: 01-02-2024 End: 01-02-2024 ambulatory [...] HALI ADDY . Facility:[facility] Start: 10-16-2022 End: 02-27-2023 ambulatory HALI ADDY . Facility:[facility] Start: 10-12-2022 End: 10-12-[address] KRISTOPHER GALAN . Facility:[facility] Start: 06-18-2022 Encounter for genera l adult medical examination without abnormal findings DR KRISTOPHER GALAN . [facility] Start: 06-15-2022 End: 06-16-[address] KRISTOPHER GALAN . Facility:[facility] Start: 06-15-2022 End: 06-16-2022 Encounter for general adult medical examination without abnormal findings DR KRISTOPHER GALAN . Facility:[facility] Procedures Date Procedure Procedure Detail Performing Clinician Start: 06-09-2024 [facility] Core y Ricky DO Work Phone: Start: 06-07-2024 [facility] Core y Ricky DO Work Phone: Plan of Treatment Date Care Activity Detail Author Start: 06-12-2024 End: 06-12-2024 Professional / ancillary services management 06/12/2024 8:30 AM EDT Ancillary Procedure [facility] [address] [place] [id number] [facility] Start: 06-11-2024 End: 06-11-2024 Professional / ancillary services management 06/11/2024 2:00 PM EDT Ancillary Procedure [facility] [address] [place] [id number] [facility] Payers Date Payer Category Payer Medicaid [id number] 2023 Medicaid [place] [id number] 2021 Private Health Insurance [facility] [id number] 1989 Unknown [id number] 2.16.840.1.715806.3.579.2. 593 1989 Unknown [id number] 2.16.840.1.238425.3.579.2. 593 1989 Unknown [id number] 2.16.840.1.354175.3.579.2. 593 1989 Unknown [id number] 2.16.840.1.120323.3.579.2. 593 1989 Unknown [id number] 2.16.840.1.403435.3.579.2. 593 1989 Unknown [id number] 2.16.840.1.486046.3.579.2. 593 1989 Unknown [id number] 2.16.840.1.676212.3.579.2. 593 1989 Unknown [id number] 2.16.840.1.752005.3.579.2. 593 1989 Unknown [id number] 2.16.840.1.107089.3.579.2. 593 1989 Unknown [id number] 2.16.840.1.422831.3.579.2. 1259 1989 Unknown [id number] 2.16.840.1.888671.3.579.2. 1259 1989 Unknown [id number] 2.16.840.1.061665.3.579.2. 1259 1989 Unknown [id number] 2.16.840.1.656048.3.579.2. 9 1989 Unknown [id number] 2.16.840.1.634589.3.579.2. 9 1989 Unknown [id number] 2.16.840.1.661328.3.579.2. 9 1989 Unknown [id number] 2.16.840.1.424614.3.579.2. 9 1989 Unknown [id number] 2.16.840.1.889260.3.579.2. 9 1989 Unknown [id number] 2.16.840.1.951343.3.579.2. 9 1989 Unknown [id number] 2.16.840.1.270588.3.579.2. 9 1989 Unknown [id number] 2.16.840.1.134788.3.579.2. 9 1959 Unknown [id number] 1959 Unknown [id number] Social History Date Type Detail Facility Start: 03-28-2023 Tobacco smoking status MAIS Smokes t obacco daily [facility] History of tobacco use Cigarette Smoker [facility] Start: 05-28-2024 Alcoholic beverage intake Ex-drinker (finding) [facility] Start: 06-07-2023 History of Social function [facility] Start: 06-07-2023 Tobacco use panel [facility] Start: 03-28-2023 Alcohol Comment occasional [facility] Start: 1990 Sex assigned at Not on file N [facility] Clinical Note 12-29-2022 Note Date & [...] by: CORI MENDIETA Date: 2022-12-29 15:15 [facility] Summary Purpose Family History No Family History Records FoundNo Family History Records Found Advance Directives No Advanced Directives Records FoundNo Advanced Directives Records Found Additional Source Comments INFORMATION SOURCE (unrecogn ized section and content) DATE CREATED AUTHOR 12/30/2022 [facility] DATE CREATED AUTHOR AUTHOR'S ORGANIZ ATION 01/15/2024 [facility] Care Teams (unrecognized sec tion and content) 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 [facility] [employer] provides no warranty or guarantee of the accuracy or completeness of information in this document.
== END 2024-06-12 08:40 | disposition home or self-care (01) ==
LOC: NOMS 08:39
PROVIDERS: PCP Family Medicine; Visit Provider Obstetrics & Gynecology
DX: O36.80X0 Pregnancy with inconclusive fetal viability, not applicable or unspecified (principal); Z3A.09 9 weeks gestation of pregnancy
CPT/HCPCS: 76817

== ENCOUNTER 2024-06-18 10:48 | Outpatient (OUT) | payer OTHER, MEDICAID, SELFPAY ==
--- OUTSIDE RECORDS SUMMARY | 2024-06-18 10:58 | XMS_ITS | CCD ---
Author Organization [facility] Care Team Providers Care Glaciologist Name Role Phone ANGELIA ., DR SUMMERS [...] Angelia ZAPATA, Kristopher Guido Primary Care Provider [phone] Allergies Allergy Classification Reported Allergen(s) Allergy Type Date of Onset Reaction(s) Facility (3 sources) Latex Drug allergy (disorder) 01-23-2021 [facility] Repository (2 sources) Latex Allergy to substance [...] Test Name Value Interpretation Reference Range Facility [facility] PREG QUANT HCGon 024 HCG QUANTITATIVE 84285 mIU/mL [facility] Comment on above: 5-50 0.2-1 WEEK 50-500 1-2 WEEKS 100-5,000 2-3 WEEKS 500-10,000 3-4 WEEKS 1,000-50,000 4-5 WEEKS 10,000-100,000 5-6 WEEKS 15,000-200,000 6-8 WEEKS 10,000-100,000 2[facility] [place]REG QUANT HCGon 024 HCG QUANTITATIVE 67157 mIU/mL [facility] Comment on above: 5-50 0.2-1 WEEK 50-500 1-2 WEEKS 100-5,000 2-3 WEEKS 500-10,000 3-4 WEEKS 1,000-50,000 4-5 WEEKS 10,000-100,000 5-6 WEEKS 15,000-200,000 6-8 WEEKS 10,000-100,000 2[facility]-20-2022 HCG QUANT 21 mIU/mL Normal [facility] Comment on above: Performed By: #### P REGQNT #### [facility] [address] [place] [address] Dr. Meredith Piña HCG RANGE SEE BELOW Normal [facility] Comment on above: Result Comment: 5-50 0.2-1 WEEK 50-500 1-2 WEEKS 100-5,000 2-3 WEEKS 500-10,000 3-4 WEEKS 1,000-50,000 4-5 WEEKS 10,000-100,000 5-6 WEEKS 15,000-200,000 6-8 WEEKS 10,000-100,000 2-3 MONTHS Performed By: #### P REGQNT #### [facility] [address] [address] [address] Meredith Piña PREG QUANT HCGon 12-18-2022 HCG QUANT 35 mIU/mL Normal [facility] Comment on above: Performed By: #### P REGQNT, TSH #### [facility] [address] [address] [address] Meredith Piña HCG RANGE SEE BELOW Normal [facility] Comment on above: Result Comment: 5-50 0.2-1 WEEK 50-500 1-2 WEEKS 100-5,000 2-3 WEEKS 500-10,000 3-4 WEEKS 1,000-50,000 4-5 WEEKS 10,000-100,000 5-6 WEEKS 15,000-200,000 6-8 WEEKS 10,000-100,000 2-3 MONTHS Performed By: #### P REGQNT, TSH #### [facility] [address] [place] [address] Dr. Meredith Piña US PELVIS AND TRANSVAGon [...] CORI MENDIETA Date: 2022-11-20 17:13 Normal [facility] CBC AUTO DIFFon 11-14-2022 BASO # 0.0 103/ul Normal 0.0-0.1 [facility] Comment on above: Performed By: #### C BC #### [facility] [address] [place] [address] Dr. Meredith Piña Basophils/100 WBC (Bld) 0.6 % Normal 0.2-2.0 [facility] Comment on above: Performed By: #### C BC #### [facility] [address] [place] [address] Dr. Meredith Piña EO # 0.1 103/ul Normal 0.0-0.7 [facility] Comment on above: Performed By: #### C BC #### [facility] [address] [place] [address] Dr. Meredith Piña Eosinophils/100 WBC (Bld) 2.0 % Normal 0.9-7.0 [facility] Comment on above: Performed By: #### C BC #### [facility] [address] [place] [address] Dr. Meredith Piña Erythrocyte distribution width (RBC) [Ratio] 13.3 % Normal 11.0-15.0 [facility] Comment on above: Performed By: #### C BC #### [facility] [address] [place] [address] Dr. Meredith Piña Hematocrit (Bld) [Volume fraction] 40.3 % Normal 36.0-48.0 [facility] Comment on above: Performed By: #### C BC #### [facility] [address] [place] [address] Dr. Meredith Piña Hemoglobin (Bld) [Mass/Vol] 14.1 g/dL Normal 12.0-16.0 [facility] Comment on above: Performed By: #### C BC #### [facility] [address] [place] [address] Dr. Meredith Piña IG # 0.03 10e3/ul Normal 0.00-0.03 [facility] Comment on above: Performed By: #### C BC #### [facility] [address] [place] [address] Dr. Meredith Piña IG % 0.4 % Normal 0.0-0.5 [facility] Comment on above: Performed By: #### C BC #### [facility] [address] [place] [address] Dr. Meredith Piña LYMPH # 2.1 103/ul Normal 1.2-3.8 [facility] Comment on above: Performed By: #### C BC #### [facility] [address] [place] [address] Dr. Meredith Piña Lymphocytes/100 WBC (Bld) 29.9 % Normal 20.5-60.0 [facility] Comment on above: Performed By: #### C BC #### [facility] [address] [place] [address] Dr. Meredith Piña MANUAL DIFF REQ NO Normal [facility] Comment on above: Performed By: #### C BC #### [facility] [address] [place] [address] Dr. Meredith Piña MCH (RBC) [Entitic mass] 32.7 pg Normal 26.7-34.0 [facility] Comment on above: Performed By: #### C BC #### [facility] [address] [place] [address] Dr. Meredith Piña MCHC (RBC) [Mass/Vol] 35.0 g/dL Normal 29.9-35.2 [facility] Comment on above: Performed By: #### C BC #### [facility] [address] [place] [address] Dr. Meredith Piña MCV (RBC) [Entitic vol] 93.5 fL Normal 81.0-99.0 [facility] Comment on above: Performed By: #### C BC #### [facility] [address] [place] [address] Dr. Meredith Piña MONO # 0.6 103/ul Normal 0.3-0.8 [facility] Comment on above: Performed By: #### C BC #### [facility] [address] [place] [address] Dr. Meredith Piña Monocytes/100 WBC (Bld) 8.2 % Normal 1.7-12.0 [facility] Comment on above: Performed By: #### C BC #### [facility] [address] [place] [address] Dr. Meredith Piña NEUT # 4.2 103/ul Normal 1.4-6.5 [facility] Comment on above: Performed By: #### C BC #### [facility] [address] [place] [address] Dr. Meredith Piña Neutrophils/100 WBC (Bld) 58.9 % Normal 43.0-75.0 [facility] Comment on above: Performed By: #### C BC #### [facility] [address] [place] [address] Dr. Meredith Piña Platelet mean volume (Bld) [Entitic vol] 10.0 fL Normal 9.5-13.5 [facility] Comment on above: Performed By: #### C BC #### [facility] [address] [place] [address] Dr. Meredith Piña PLT 312 103/ul Normal 150-450 [facility] Comment on above: Performed By: #### C BC #### [facility] [address] [place] [address] Dr. Meredith Piña RBC 4.31 106/ul Normal 4.20-5.40 [facility] Comment on above: Performed By: #### C BC #### [facility] [address] [place] [address] Dr. Meredith Piña WBC 7.1 103/ul Normal 4.0-11.0 [facility] Comment on above: Performed By: #### C BC #### [facility] [address] [place] [address] Dr. Meredith Piña FREE T4on 11-14-2022 Free T4 [Mass/Vol] 0.85 ng/dL Normal 0.76-1.46 [facility] Comment on above: Performed By: #### P REGQNT, TSH #### [facility] [address] [place] [address] Dr. Meredith Piña GLYCOHEMOGLOBIN A1Con 2022 ADA RECOMMENDATION SEE BELOW Normal [facility] Comment on above: Result Comment: ADA RECOMMENDED LIMIT 4.0 - 6.0 ADA THERAPEUTIC TARGET < 7.0 ACTION SUGGESTED > 7.0 Performed By: #### A 1C #### [facility] [address] [place] [address] Dr. Meredith Piña Glucose [Mass/Vol] 103 mg/dL Normal [facility] Comment on above: Performed By: #### A 1C #### [facility] [address] [address] [address] Meredith Piña HbA1c (Bld) [Mass fraction] 5.2 % Normal 4.5-6.2 [facility] Comment on above: Performed By: #### A 1C #### [facility] [address] [place] [address] Dr. Meredith Piña PREG QUANT HCGon 11-14-2022 HCG QUANT <1 Normal [facility] Comment on above: Performed By: #### P REGQNT, TSH #### [facility] [address] [place] [address] Dr. Meredith Piña HCG RANGE SEE BELOW Normal [facility] Comment on above: Result Comment: 5-50 0.2-1 WEEK 50-500 1-2 WEEKS 100-5,000 2-3 WEEKS 500-10,000 3-4 WEEKS 1,000-50,000 4-5 WEEKS 10,000-100,000 5-6 WEEKS 15,000-200,000 6-8 WEEKS 10,000-100,000 2-3 MONTHS Performed By: #### P REGQNT, TSH #### [facility] [address] [place] [address] Dr. Meredith Piña PROTIMEon 11-14-2022 INR Coag (PPP) [Relative time] {INR} Normal [facility] Comment on above: Performed By: #### P REGQNT, TSH #### [facility] [address] [place] [address] Dr. Meredith Piña INR GUIDELINES SEE BELOW Normal [facility] Comment on above: Result Comment: ASHU RED INR: 2.0 - 3.0 CONDITIONS NOT LISTED BELOW 2.5 - 3.5 FOR PROSTHETIC HEART VALVE REPLACEMENT 2.5 - 3.5 RECURRENT THROMBOSIS Performed By: #### P REGQNT, TSH #### [facility] [address] [place] [address] Dr. Meredith Piña PT Coag (PPP) [Time] 9.8 s Normal 9.0-11.6 [facility] Comment on above: Performed By: #### P REGQNT, TSH #### [facility] [address] [address] [address] Meredith Piña PTTon 11-14-2022 aPTT Coag (Bld) [Time] 25.0 s Normal 22.3-36.2 [facility] Comment on above: Performed By: #### P REGQNT, TSH #### [facility] [address] [place] [address] Dr. Meredith Piña TSHon 11-14-2022 TSH 0.749 uIU/mL Normal 0.358-3.740 [facility] Comment on above: Performed By: #### P REGQNT, TSH #### [facility] [address] [place] [address] Dr. Meredith Piña PAP ACOG PANEL 2: 30 to 65on 10-25-2022 . . Normal [facility] Comment on above: Result Comment: Perf ormed at: WB Performed By: #### P REGQNT, TSH #### [facility] [address] [place] [address] Dr. Meredith Piña Age Gdln ACOG Testing 30-65 Normal [facility] Comment on above: Performed By: #### P REGQNT, TSH #### [facility] [address] [place] [address] Dr. Meredith Piña DIAGNOSIS: Comment Normal [facility] Comment on above: Result Comment: NEGA TIVE FOR INTRAEPITHELIAL LESION OR MALIGNANCY. Performed at: WB Performed By: #### P REGQNT, TSH #### [facility] [address] [place] [address] Dr. Meredith Piña HPV Aptima Positive Abnormal Negative [facility] Comment on above: Result Comment: This nucleic acid amplification test detects fourteen high-risk HPV types (16,18,31,33,35,39,45,51,52,56,58,59,66,68) without differentiation. Performed at: =G Performed By: #### P REGQNT, TSH #### [facility] [address] [address] [address] Meredith Piña HPV Genotype 16 Negative Normal Negative [facility] Comment on above: Performed By: #### P REGQNT, TSH #### [facility] [address] [address] [address] Meredith Piña HPV Genotype 18,45 Negative Normal Negative [facility] Comment on above: Performed By: #### P REGQNT, TSH #### [facility] [address] [address] [address] Meredith Piña HPV Genotype Reflex Comment Normal [facility] Comment on above: Result Comment: Miquel arauz, see HPV Genotype results. Performed at: WB Performed By: #### P REGQNT, TSH #### [facility] [address] [address] [address] Meredith Piña Methodology: Comment Normal [facility] Comment on above: Result Comment: This liquid based ThinPrep(R) pap test was screened with the use of an image guided system. Performed at: WB Performed By: #### P REGQNT, TSH #### [facility] [address] [address] [address] Meredith Piña Note: Comment Normal [facility] Comment on above: Result Comment: The [...] Performed By: #### P REGQNT, TSH #### [facility] [address] [address] [address] Meredith Piña Performed by: Comment Normal [facility] Comment on above: Result Comment: Odilon Villanueva, Resistor Inspector (ASCP) Performed at: WB Performed By: #### P REGQNT, TSH #### [facility] [address] [place] [address] Dr. Meredith Piña Specimen adequacy: Comment Normal [facility] Comment on above: Result Comment: Sati sfactory for evaluation. Endocervical and/or squamous metaplastic cells (endocervical component) are present. Performed at: WB Performed By: #### P REGQNT, TSH #### [facility] [address] [place] [address] Dr. Meredith Piña CHLAMYDIA/GONOCOCCUS DMITRI (SW AB/URINE/PAPon 10-19-2022 Chlamydia trachomatis, DMITRI Negative Normal Negative [facility] Comment on above: Performed By: #### P REGQNT, TSH #### [facility] [address] [place] [address] Dr. Meredith Piña Neisseria gonorrhoeae, DMITRI Negative Normal Negative [facility] Comment on above: Performed By: #### P REGQNT, TSH #### [facility] [address] [place] [address] Dr. Meredith Piña VAGINITIS/VAGINOSIS DNA PROB Tayo 10-18-2022 Amira species Negative Normal Negative [facility] Comment on above: Performed By: #### V AGINT #### [facility] [address] [place] [address] Dr. Meredith Piña Gardnerella vaginalis Positive Abnormal Negative [facility] Comment on above: Performed By: #### V AGINT #### [facility] [address] [place] [address] Dr. Meredith Piña Trichomonas vaginalis Negative Normal Negative [facility] Comment on above: Performed By: #### V AGINT #### [facility] [address] [place] [address] Dr. Meredith Piña [facility] SARS-CoV-2 (COVID-19) RNA DMITRI+probe Ql (Unsp spec) Not detected Normal NOT DETECTED [facility] Comment on above: Result Comment: When [...] for this test is supported by the [employer] and Human Service's declaration that [...] Performed By: #### P REGQNT, TSH #### [facility] [address] [place] [address] Dr. Meredith Piña INSULINon 06-16-2022 Insulin 15.5 uIU/mL Normal 2.6-24.9 [facility] Comment on above: Performed By: #### P REGQNT, TSH #### [facility] [address] [place] [address] Dr. Meredith Piña CBC AUTO DIFFon 06-15-2022 BASO # 0.0 103/ul Normal 0.0-0.1 [facility] Comment on above: Performed By: #### P REGQNT, TSH #### [facility] [address] [place] [address] Dr. Meredith Piña Basophils/100 WBC (Bld) 0.3 % Normal 0.2-2.0 [facility] Comment on above: Performed By: #### P REGQNT, TSH #### [facility] [address] [place] [address] Dr. Meredith Piña EO # 0.2 103/ul Normal 0.0-0.7 [facility] Comment on above: Performed By: #### P REGQNT, TSH #### [facility] [address] [place] [address] Dr. Meredith Piña Eosinophils/100 WBC (Bld) 2.0 % Normal 0.9-7.0 [facility] Comment on above: Performed By: #### P REGQNT, TSH #### [facility] [address] [place] [address] Dr. Meredith Piña Erythrocyte distribution width (RBC) [Ratio] 12.4 % Normal 11.0-15.0 [facility] Comment on above: Performed By: #### P REGQNT, TSH #### [facility] [address] [place] [address] Dr. Meredith Piña Hematocrit (Bld) [Volume fraction] 41.1 % Normal 36.0-48.0 [facility] Comment on above: Performed By: #### P REGQNT, TSH #### [facility] [address] [place] [address] Dr. Meredith Piña Hemoglobin (Bld) [Mass/Vol] 14.0 g/dL Normal 12.0-16.0 [facility] Comment on above: Performed By: #### P REGQNT, TSH #### [facility] [address] [place] [address] Dr. Meredith Piña IG # 0.04 10e3/ul Critically high 0.00-0.03 [facility] Comment on above: Performed By: #### P REGQNT, TSH #### [facility] [address] [place] [address] Dr. Meredith Piña IG % 0.4 % Normal 0.0-0.5 [facility] Comment on above: Performed By: #### P REGQNT, TSH #### [facility] [address] [place] [address] Dr. Meredith Piña LYMPH # 1.8 103/ul Normal 1.2-3.8 [facility] Comment on above: Performed By: #### P REGQNT, TSH #### [facility] [address] [place] [address] Dr. Meredith Piña Lymphocytes/100 WBC (Bld) 19.3 % Critically low 20.5-60.0 [facility] Comment on above: Performed By: #### P REGQNT, TSH #### [facility] [address] [place] [address] Dr. Meredith Piña MANUAL DIFF REQ NO Normal [facility] Comment on above: Performed By: #### P REGQNT, TSH #### [facility] [address] [place] [address] Dr. Meredith Piña MCH (RBC) [Entitic mass] 30.8 pg Normal 26.7-34.0 [facility] Comment on above: Performed By: #### P REGQNT, TSH #### [facility] [address] [place] [address] Dr. Meredith Piña MCHC (RBC) [Mass/Vol] 34.1 g/dL Normal 29.9-35.2 [facility] Comment on above: Performed By: #### P REGQNT, TSH #### [facility] [address] [place] [address] Dr. Meredith Piña MCV (RBC) [Entitic vol] 90.3 fL Normal 81.0-99.0 [facility] Comment on above: Performed By: #### P REGQNT, TSH #### [facility] [address] [place] [address] Dr. Meredith Piña MONO # 0.5 103/ul Normal 0.3-0.8 [facility] Comment on above: Performed By: #### P REGQNT, TSH #### [facility] [address] [place] [address] Dr. Meredith Piña Monocytes/100 WBC (Bld) 5.2 % Normal 1.7-12.0 [facility] Comment on above: Performed By: #### P REGQNT, TSH #### [facility] [address] [place] [address] Dr. Meredith Piña NEUT # 6.8 103/ul Critically high 1.4-6.5 [facility] Comment on above: Performed By: #### P REGQNT, TSH #### [facility] [address] [place] [address] Dr. Meredith Piña Neutrophils/100 WBC (Bld) 72.8 % Normal 43.0-75.0 [facility] Comment on above: Performed By: #### P REGQNT, TSH #### [facility] [address] [address] [address] Meredith Piña Platelet mean volume (Bld) [Entitic vol] 9.3 fL Critically low 9.5-13.5 [facility] Comment on above: Performed By: #### P REGQNT, TSH #### [facility] [address] [address] [address] Meredith Piña PLT 354 103/ul Normal 150-450 [facility] Comment on above: Performed By: #### P REGQNT, TSH #### [facility] [address] [address] [address] Meredith Piña RBC 4.55 106/ul Normal 4.20-5.40 [facility] Comment on above: Performed By: #### P REGQNT, TSH #### [facility] [address] [address] [address] Meredith Piña WBC 9.4 103/ul Normal 4.0-11.0 [facility] Comment on above: Performed By: #### P REGQNT, TSH #### [facility] [address] [address] [address] Meredith Piña FREE THYROXINE INDEX T7on FTI 2.66 Normal 1.30-4.50 [facility] Comment on above: Performed By: #### L IPID, T7, TSH, CMP #### [facility] [address] [place] [address] Dr. Meredith Piña T3U 32.0 % Normal 30.0-39.0 [facility] Comment on above: Performed By: #### L IPID, T7, TSH, CMP #### [facility] [address] [address] [address] Meredith Piña T4 [Mass/Vol] 8.30 ug/dL Normal 4.80-13.90 [facility] Comment on above: Performed By: #### L IPID, T7, TSH, CMP #### [facility] [address] [place] [address] Dr. Meredith Piña GLYCOHEMOGLOBIN A1Con 2021 ADA RECOMMENDATION SEE BELOW Normal [facility] Comment on above: Result Comment: ADA RECOMMENDED LIMIT 4.0 - 6.0 ADA THERAPEUTIC TARGET < 7.0 ACTION SUGGESTED > 7.0 Performed By: #### P REGQNT, TSH #### [facility] [address] [address] [address] Meredith Piña Glucose [Mass/Vol] 103 mg/dL Normal [facility] Comment on above: Performed By: #### P REGQNT, TSH #### [facility] [address] [address] [address] Meredith Piña HbA1c (Bld) [Mass fraction] 5.2 % Normal 4.5-6.2 [facility] Comment on above: Performed By: #### P REGQNT, TSH #### [facility] [address] [place] [address] Dr. Meredith Piña IRONon 06-15-2022 Iron [Mass/Vol] 55.0 ug/dL Normal 50.0-170.0 [facility] Comment on above: Performed By: #### P REGQNT, TSH #### [facility] [address] [address] [address] Meredith Piña LIPID PROFILEon 06-15-2022 CHOL-HDL RATIO NORM SEE BELOW Normal [facility] Comment on above: Result Comment: 3.3 - 4.4 LOW RISK 4.4 - 7.1 AVERAGE RISK 7.1 - 11.0 MODERATE RISK >11.0 HIGH RISK Performed By: #### L IPID, T7, TSH, CMP #### [facility] [address] [address] [address] Meredith Piña Cholesterol [Mass/Vol] 178 mg/dL Normal <=200 [facility] Comment on above: Performed By: #### L IPID, T7, TSH, CMP #### [facility] [address] [address] [address] Meredith Piña Cholesterol in HDL [Mass/Vol] 50 mg/dL Normal 40-60 [facility] Comment on above: Performed By: #### L IPID, T7, TSH, CMP #### [facility] [address] [address] [address] Meredith Piña Cholesterol in LDL [Mass/Vol] 109.2 mg/dL Normal [facility] Comment on above: Performed By: #### L IPID, T7, TSH, CMP #### [facility] [address] [address] [address] Meredith Piña Cholesterol.total/Ch olesterol in HDL [Mass ratio] 3.6 {ratio} Normal [facility] Comment on above: Performed By: #### L IPID, T7, TSH, CMP #### [facility] [address] [address] [address] Meredith Piña HDL NORMAL > or = 60 mg/dl - LO W CARDIOVASCULAR RISK <40 mg/dl - HIGH CARDIOVASCULAR RISK Normal [facility] Comment on above: Performed By: #### L IPID, T7, TSH, CMP #### [facility] [address] [address] [address] Meredith Piña LDL CALC NORMAL SEE BELOW Normal [facility] Comment on above: Result Comment: <100 mg/dl OPTIMAL 100 - 129 mg/dl NEAR OR ABOVE OPTIMAL 130 - 159 mg/dl BORDERLINE HIGH 160 - 189 mg/dl HIGH >190 mg/dl VERY HIGH Performed By: #### L IPID, T7, TSH, CMP #### [facility] [address] [address] [address] Meredith Piña Triglyceride [Mass/Vol] 94 mg/dL Normal <=150 [facility] Comment on above: Performed By: #### L IPID, T7, TSH, CMP #### [facility] [address] [address] [address] Meredith Piña VLDL CALC 18.8 mg/dL Normal [facility] Comment on above: Performed By: #### L IPID, T7, TSH, CMP #### [facility] [address] [address] [address] Meredith Piña PROF 14(COMP METB)on 022 Albumin [Mass/Vol] 3.8 g/dL Normal 3.4-5.0 [facility] Comment on above: Performed By: #### L IPID, T7, TSH, CMP #### [facility] [address] [place] [address] Dr. Meredith Piña Albumin/Globulin [Mass ratio] 0.9 {ratio} Normal [facility] Comment on above: Performed By: #### L IPID, T7, TSH, CMP #### [facility] [address] [place] [address] Dr. Meredith Piña ALP [Catalytic activity/Vol] 79 U/L Normal 46-116 [facility] Comment on above: Performed By: #### L IPID, T7, TSH, CMP #### [facility] [address] [place] [address] Dr. Meredith Piña ALT [Catalytic activity/Vol] 34 U/L Normal 14-59 [facility] Comment on above: Performed By: #### L IPID, T7, TSH, CMP #### [facility] [address] [place] [address] Dr. Meredith Piña Anion gap [Moles/Vol] 11.5 mmol/L Normal [facility] Comment on above: Performed By: #### L IPID, T7, TSH, CMP #### [facility] [address] [place] [address] Dr. Meredith Piña AST [Catalytic activity/Vol] 18 U/L Normal 15-37 [facility] Comment on above: Performed By: #### L IPID, T7, TSH, CMP #### [facility] [address] [place] [address] Dr. Meredith Piña Bilirubin [Mass/Vol] 0.2 mg/dL Normal 0.2-1.0 [facility] Comment on above: Performed By: #### L IPID, T7, TSH, CMP #### [facility] [address] [place] [address] Dr. Meredith Piña Calcium [Mass/Vol] 9.1 mg/dL Normal 8.5-10.1 [facility] Comment on above: Performed By: #### L IPID, T7, TSH, CMP #### [facility] [address] [address] [address] Meredith Piña Chloride [Moles/Vol] 105 mmol/L Normal 98-107 [facility] Comment on above: Performed By: #### L IPID, T7, TSH, CMP #### [facility] [address] [place] [address] Dr. Meredith Piña CO2 [Moles/Vol] 29.3 mmol/L Normal 21.0-32.0 [facility] Comment on above: Performed By: #### L IPID, T7, TSH, CMP #### [facility] [address] [place] [address] Dr. Meredith Piña Creatinine [Mass/Vol] 0.72 mg/dL Normal 0.55-1.02 [facility] Comment on above: Performed By: #### L IPID, T7, TSH, CMP #### [facility] [address] [place] [address] Dr. Meredith Piña EGFR-AF MACEDONIAN >60 Normal >=60 [facility] Comment on above: Performed By: #### L IPID, T7, TSH, CMP #### [facility] [address] [place] [address] Dr. Meredith Piña EGFR-NON AF MACEDONIAN >60 Normal >=60 [facility] Comment on above: Performed By: #### L IPID, T7, TSH, CMP #### [facility] [address] [place] [address] Dr. Meredith Piña Globulin (S) [Mass/Vol] 4.2 g/dL Normal [facility] Comment on above: Performed By: #### L IPID, T7, TSH, CMP #### [facility] [address] [place] [address] Dr. Meredith Piña Glucose [Mass/Vol] 89 mg/dL Normal 74-106 [facility] Comment on above: Performed By: #### L IPID, T7, TSH, CMP #### [facility] [address] [place] [address] Dr. Meredith Piña Potassium [Moles/Vol] 3.8 mmol/L Normal 3.5-5.1 [facility] Comment on above: Performed By: #### L IPID, T7, TSH, CMP #### [facility] [address] [address] [address] Meredith Piña Protein [Mass/Vol] 8.0 g/dL Normal 6.4-8.2 [facility] Comment on above: Performed By: #### L IPID, T7, TSH, CMP #### [facility] [address] [address] [address] Meredith Piña Sodium [Moles/Vol] 142 mmol/L Normal 136-145 [facility] Comment on above: Performed By: #### L IPID, T7, TSH, CMP #### [facility] [address] [place] [address] Dr. Meredith Piña Urea nitrogen [Mass/Vol] 9.0 mg/dL Normal 7.0-18.0 [facility] Comment on above: Performed By: #### L IPID, T7, TSH, CMP #### [facility] [address] [place] [address] Dr. Meredith Piña Urea nitrogen/Creatinine [Mass ratio] 12.5 mg/mg Normal [facility] Comment on above: Performed By: #### L IPID, T7, TSH, CMP #### [facility] [address] [place] [address] Dr. Meredith Piña TSHon 06-15-2022 TSH 1.075 uIU/mL Normal 0.358-3.740 [facility] Comment on above: Performed By: #### L IPID, T7, TSH, CMP #### [facility] [address] [place] [address] Dr. Meredith Piña Encounters Encounter Date Encounter [...] abnormal findings DR KRISTOPHER GALAN . [facility] Start: 06-15-2022 End: 06-16-[address] KRISTOPHER GALAN . Facility:[facility] Start: 06-15-2022 End: 06-16-2022 Encounter for general adult medical examination without abnormal findings DR KRISTOPHER GALAN . Facility:[facility] Procedures Date Procedure Procedure Detail Performing Clinician Start: 06-09-2024 [facility] Core y Ricky DO Work Phone: Start: 06-07-2024 [facility] Core y Ricky DO Work Phone: Plan of Treatment Date Care Activity Detail Author Start: 06-12-2024 End: 06-12-2024 Professional / ancillary services management 06/12/2024 8:30 AM EDT Ancillary Procedure [facility] [address] [place] [id number] [facility] Start: 06-11-2024 End: 06-11-2024 Professional / ancillary services management 06/11/2024 2:00 PM EDT Ancillary Procedure [facility] [address] [place] [id number] [facility] Payers Date Payer Category Payer Medicaid [id number] 2023 Medicaid [place] [id number] 2021 Private Health Insurance [facility] [id number] 1989 Unknown [id number] 2.16.840.1.497130.3.579.2. 593 1989 Unknown [id number] 2.16.840.1.871125.3.579.2. 593 1989 Unknown [id number] 2.16.840.1.720488.3.579.2. 593 1989 Unknown [id number] 2.16.840.1.308917.3.579.2. 593 1989 Unknown [id number] 2.16.840.1.482666.3.579.2. 593 1989 Unknown [id number] 2.16.840.1.244629.3.579.2. 593 1989 Unknown [id number] 2.16.840.1.328609.3.579.2. 593 1989 Unknown [id number] 2.16.840.1.202844.3.579.2. 593 1989 Unknown [id number] 2.16.840.1.722634.3.579.2. 593 1989 Unknown [id number] 2.16.840.1.181526.3.579.2. 1259 1989 Unknown [id number] 2.16.840.1.188699.3.579.2. 1259 1989 Unknown [id number] 2.16.840.1.020787.3.579.2. 1259 1989 Unknown [id number] 2.16.840.1.109864.3.579.2. 9 1989 Unknown [id number] 2.16.840.1.180560.3.579.2. 9 1989 Unknown [id number] 2.16.840.1.336088.3.579.2. 9 1989 Unknown [id number] 2.16.840.1.086363.3.579.2. 9 1989 Unknown [id number] 2.16.840.1.272489.3.579.2. 9 1989 Unknown [id number] 2.16.840.1.263141.3.579.2. 9 1989 Unknown [id number] 2.16.840.1.772916.3.579.2. 9 1989 Unknown [id number] 2.16.840.1.697505.3.579.2. 9 1959 Unknown [id number] 1959 Unknown [id number] Social History Date Type Detail Facility Start: 03-28-2023 Tobacco smoking status [facility] Smokes t obacco daily [facility] History of tobacco use Cigarette Smoker [facility] Start: 05-28-2024 Alcoholic beverage intake Ex-drinker (finding) [facility] Start: 06-07-2023 History of Social function [facility] Start: 06-07-2023 Tobacco use panel [facility] Start: 03-28-2023 Alcohol Comment occasional [facility] Start: 1990 Sex assigned at Not on file N [facility] Clinical Note 12-29-2022 Note Date & [...] by: CORI MENDIETA Date: 2022-12-29 15:15 [facility] Summary Purpose Family History No Family History Records FoundNo Family History Records Found Advance Directives No Advanced Directives Records FoundNo Advanced Directives Records Found Additional Source Comments INFORMATION SOURCE (unrecogn ized section and content) DATE CREATED AUTHOR 12/30/2022 [facility] DATE CREATED AUTHOR AUTHOR'S ORGANIZ ATION 01/15/2024 [facility] Care Teams (unrecognized sec tion and content) Glaciologist Relationship Specialty Start Date End Date Kristopher Galan MD [address] [place] [address] PCP - General Family Medicine [...] BE BASED ON THE PRIMARY CLINICAL RECORDS. [facility] [employer] provides no warranty or guarantee of the accuracy or completeness of information in this document.
== END 2024-06-18 10:49 | disposition home or self-care (01) ==
LOC: PST 10:50
PROVIDERS: PCP Family Medicine; Visit Provider Obstetrics & Gynecology
DX: Z01.818 Encounter for other preprocedural examination (principal); O02.1 Missed abortion

== ENCOUNTER 2024-06-24 06:12 | Day surgery (SDC) | payer OTHER, MEDICAID, SELFPAY ==
[2024-06-18 11:21] VITALS: BP 136/78; PULSE 91; TEMP 36.1; O2SAT 99; BMI 30.9
--- OUTSIDE RECORDS SUMMARY | 2024-06-24 06:15 | XMS_ITS | CCD ---
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 Name Role Phone ANGELIA ., DR SUMMERS [...] DR ESTEBAN Consulting Unavailable RICKY ., DR ESTEBNA Admitting Unavailable RICKY ., DR ESTEBAN Attending [...] Angelia ZAPATA, Kristopher Guido Primary Care Provider [phone] Allergies Allergy Classification Reported Allergen(s) Allergy Type Date of Onset Reaction(s) Facility (3 sources) Latex Drug allergy (disorder) 01-23-2021 [facility] Repository (2 sources) Latex Allergy to [...] Test Name Value Interpretation Reference Range Facility [facility] PREG QUANT HCGon 024 HCG QUANTITATIVE 72859 mIU/mL [facility] Comment on above: 5-50 0.2-1 WEEK 50-500 1-2 WEEKS 100-5,000 2-3 WEEKS 500-10,000 3-4 WEEKS 1,000-50,000 4-5 WEEKS 10,000-100,000 5-6 WEEKS 15,000-200,000 6-8 WEEKS 10,000-100,000 [facility] 024 HCG QUANTITATIVE 67710 mIU/mL [facility] Comment on above: 5-50 0.2-1 WEEK 50-500 1-2 WEEKS 100-5,000 2-3 WEEKS 500-10,000 3-4 WEEKS 1,000-50,000 4-5 WEEKS 10,000-100,000 5-6 WEEKS 15,000-200,000 6-8 WEEKS 10,000-100,000 [facility]-20-2022 HCG QUANT 21 mIU/mL Normal [facility] Comment on above: Performed By: #### P REGQNT #### [facility] [address] [place] [address] Dr. Meredith Piña HCG RANGE SEE BELOW Normal [facility] Comment on above: Result Comment: 5-50 0.2-1 WEEK 50-500 1-2 WEEKS 100-5,000 2-3 WEEKS 500-10,000 3-4 WEEKS 1,000-50,000 4-5 WEEKS 10,000-100,000 5-6 WEEKS 15,000-200,000 6-8 WEEKS 10,000-100,000 2-3 MONTHS Performed By: #### P REGQNT #### [facility] [address] [address] [address] Meredith Piña PREG QUANT HCGon 12-18-2022 HCG QUANT 35 mIU/mL Normal [facility] Comment on above: Performed By: #### P REGQNT, TSH #### [facility] [address] [address] [address] Meredith Piña HCG RANGE SEE BELOW Normal [facility] Comment on above: Result Comment: 5-50 0.2-1 WEEK 50-500 1-2 WEEKS 100-5,000 2-3 WEEKS 500-10,000 3-4 WEEKS 1,000-50,000 4-5 WEEKS 10,000-100,000 5-6 WEEKS 15,000-200,000 6-8 WEEKS 10,000-100,000 2-3 MONTHS Performed By: #### P REGQNT, TSH #### [facility] [address] [place] [address] Dr. Meredith Piña US PELVIS AND TRANSVAGon [...] CORI MENDIETA Date: 2022-11-20 17:13 Normal [facility] CBC AUTO DIFFon 11-14-2022 BASO # 0.0 103/ul Normal 0.0-0.1 [facility] Comment on above: Performed By: #### C BC #### [facility] [address] [place] [address] Dr. Meredith Piña Basophils/100 WBC (Bld) 0.6 % Normal 0.2-2.0 [facility] Comment on above: Performed By: #### C BC #### [facility] [address] [place] [address] Dr. Meredith Piña EO # 0.1 103/ul Normal 0.0-0.7 [facility] Comment on above: Performed By: #### C BC #### [facility] [address] [place] [address] Dr. Meredith Piña Eosinophils/100 WBC (Bld) 2.0 % Normal 0.9-7.0 [facility] Comment on above: Performed By: #### C BC #### [facility] [address] [place] [address] Dr. Meredith Piña Erythrocyte distribution width (RBC) [Ratio] 13.3 % Normal 11.0-15.0 [facility] Comment on above: Performed By: #### C BC #### [facility] [address] [place] [address] Dr. Meredith Piña Hematocrit (Bld) [Volume fraction] 40.3 % Normal 36.0-48.0 [facility] Comment on above: Performed By: #### C BC #### [facility] [address] [place] [address] Dr. Meredith Piña Hemoglobin (Bld) [Mass/Vol] 14.1 g/dL Normal 12.0-16.0 [facility] Comment on above: Performed By: #### C BC #### [facility] [address] [place] [address] Dr. Meredith Piña IG # 0.03 10e3/ul Normal 0.00-0.03 [facility] Comment on above: Performed By: #### C BC #### [facility] [address] [place] [address] Dr. Meredith Piña IG % 0.4 % Normal 0.0-0.5 [facility] Comment on above: Performed By: #### C BC #### [facility] [address] [place] [address] Dr. Meredith Piña LYMPH # 2.1 103/ul Normal 1.2-3.8 [facility] Comment on above: Performed By: #### C BC #### [facility] [address] [place] [address] Dr. Meredith Piña Lymphocytes/100 WBC (Bld) 29.9 % Normal 20.5-60.0 [facility] Comment on above: Performed By: #### C BC #### [facility] [address] [place] [address] Dr. Meredith Piña MANUAL DIFF REQ NO Normal [facility] Comment on above: Performed By: #### C BC #### [facility] [address] [place] [address] Dr. Meredith Piña MCH (RBC) [Entitic mass] 32.7 pg Normal 26.7-34.0 [facility] Comment on above: Performed By: #### C BC #### [facility] [address] [place] [address] Dr. Meredith Piña MCHC (RBC) [Mass/Vol] 35.0 g/dL Normal 29.9-35.2 [facility] Comment on above: Performed By: #### C BC #### [facility] [address] [place] [address] Dr. Meredith Piña MCV (RBC) [Entitic vol] 93.5 fL Normal 81.0-99.0 [facility] Comment on above: Performed By: #### C BC #### [facility] [address] [place] [address] Dr. Meredith Piña MONO # 0.6 103/ul Normal 0.3-0.8 [facility] Comment on above: Performed By: #### C BC #### [facility] [address] [place] [address] Dr. Meredith Piña Monocytes/100 WBC (Bld) 8.2 % Normal 1.7-12.0 [facility] Comment on above: Performed By: #### C BC #### [facility] [address] [place] [address] Dr. Meredith Piña NEUT # 4.2 103/ul Normal 1.4-6.5 [facility] Comment on above: Performed By: #### C BC #### [facility] [address] [place] [address] Dr. Meredith Piña Neutrophils/100 WBC (Bld) 58.9 % Normal 43.0-75.0 [facility] Comment on above: Performed By: #### C BC #### [facility] [address] [place] [address] Dr. Meredith Piña Platelet mean volume (Bld) [Entitic vol] 10.0 fL Normal 9.5-13.5 [facility] Comment on above: Performed By: #### C BC #### [facility] [address] [place] [address] Dr. Meredith Piña PLT 312 103/ul Normal 150-450 [facility] Comment on above: Performed By: #### C BC #### [facility] [address] [place] [address] Dr. Meredith Piña RBC 4.31 106/ul Normal 4.20-5.40 [facility] Comment on above: Performed By: #### C BC #### [facility] [address] [place] [address] Dr. Meredith Piña WBC 7.1 103/ul Normal 4.0-11.0 [facility] Comment on above: Performed By: #### C BC #### [facility] [address] [place] [address] Dr. Meredith Piña FREE T4on 11-14-2022 Free T4 [Mass/Vol] 0.85 ng/dL Normal 0.76-1.46 [facility] Comment on above: Performed By: #### P REGQNT, TSH #### [facility] [address] [place] [address] Dr. Meredith Piña GLYCOHEMOGLOBIN A1Con 2022 ADA RECOMMENDATION SEE BELOW Normal [facility] Comment on above: Result Comment: ADA RECOMMENDED LIMIT 4.0 - 6.0 ADA THERAPEUTIC TARGET < 7.0 ACTION SUGGESTED > 7.0 Performed By: #### A 1C #### [facility] [address] [place] [address] Dr. Meredith Piña Glucose [Mass/Vol] 103 mg/dL Normal [facility] Comment on above: Performed By: #### A 1C #### [facility] [address] [address] [address] Meredith Piña HbA1c (Bld) [Mass fraction] 5.2 % Normal 4.5-6.2 [facility] Comment on above: Performed By: #### A 1C #### [facility] [address] [place] [address] Dr. Meredith Piña PREG QUANT HCGon 11-14-2022 HCG QUANT <1 Normal [facility] Comment on above: Performed By: #### P REGQNT, TSH #### [facility] [address] [place] [address] Dr. Meredith Piña HCG RANGE SEE BELOW Normal [facility] Comment on above: Result Comment: 5-50 0.2-1 WEEK 50-500 1-2 WEEKS 100-5,000 2-3 WEEKS 500-10,000 3-4 WEEKS 1,000-50,000 4-5 WEEKS 10,000-100,000 5-6 WEEKS 15,000-200,000 6-8 WEEKS 10,000-100,000 2-3 MONTHS Performed By: #### P REGQNT, TSH #### [facility] [address] [place] [address] Dr. Meredith Piña PROTIMEon 11-14-2022 INR Coag (PPP) [Relative time] {INR} Normal [facility] Comment on above: Performed By: #### P REGQNT, TSH #### [facility] [address] [place] [address] Dr. Meredith Piña INR GUIDELINES SEE BELOW Normal [facility] Comment on above: Result Comment: ASHU RED INR: 2.0 - 3.0 CONDITIONS NOT LISTED BELOW 2.5 - 3.5 FOR PROSTHETIC HEART VALVE REPLACEMENT 2.5 - 3.5 RECURRENT THROMBOSIS Performed By: #### P REGQNT, TSH #### [facility] [address] [place] [address] Dr. Meredith Piña PT Coag (PPP) [Time] 9.8 s Normal 9.0-11.6 [facility] Comment on above: Performed By: #### P REGQNT, TSH #### [facility] [address] [address] [address] Meredith Piña PTTon 11-14-2022 aPTT Coag (Bld) [Time] 25.0 s Normal 22.3-36.2 [facility] Comment on above: Performed By: #### P REGQNT, TSH #### [facility] [address] [place] [address] Dr. Meredith Piña TSHon 11-14-2022 TSH 0.749 uIU/mL Normal 0.358-3.740 [facility] Comment on above: Performed By: #### P REGQNT, TSH #### [facility] [address] [place] [address] Dr. Meredith Piña PAP ACOG PANEL 2: 30 to 65on 10-25-2022 . . Normal [facility] Comment on above: Result Comment: Perf ormed at: WB Performed By: #### P REGQNT, TSH #### [facility] [address] [place] [address] Dr. Meredith Piña Age Gdln ACOG Testing 30-65 Normal [facility] Comment on above: Performed By: #### P REGQNT, TSH #### [facility] [address] [place] [address] Dr. Meredith Piña DIAGNOSIS: Comment Normal [facility] Comment on above: Result Comment: NEGA TIVE FOR INTRAEPITHELIAL LESION OR MALIGNANCY. Performed at: WB Performed By: #### P REGQNT, TSH #### [facility] [address] [place] [address] Dr. Meredith Piña HPV Aptima Positive Abnormal Negative [facility] Comment on above: Result Comment: This nucleic acid amplification test detects fourteen high-risk HPV types (16,18,31,33,35,39,45,51,52,56,58,59,66,68) without differentiation. Performed at: =G Performed By: #### P REGQNT, TSH #### [facility] [address] [address] [address] Meredith Piña HPV Genotype 16 Negative Normal Negative [facility] Comment on above: Performed By: #### P REGQNT, TSH #### [facility] [address] [address] [address] Meredith Piña HPV Genotype 18,45 Negative Normal Negative [facility] Comment on above: Performed By: #### P REGQNT, TSH #### [facility] [address] [address] [address] Meredith Piña HPV Genotype Reflex Comment Normal [facility] Comment on above: Result Comment: Miquel arauz, see HPV Genotype results. Performed at: WB Performed By: #### P REGQNT, TSH #### [facility] [address] [address] [address] Meredith Piña Methodology: Comment Normal [facility] Comment on above: Result Comment: This liquid based ThinPrep(R) pap test was screened with the use of an image guided system. Performed at: WB Performed By: #### P REGQNT, TSH #### [facility] [address] [address] [address] Meredith Piña Note: Comment Normal [facility] Comment on above: Result Comment: The Pap [...] Performed By: #### P REGQNT, TSH #### [facility] [address] [address] [address] Meredith Piña Performed by: Comment Normal [facility] Comment on above: Result Comment: Odilon Villanueva, Registered Land Surveyor (ASCP) Performed at: WB Performed By: #### P REGQNT, TSH #### [facility] [address] [place] [address] Dr. Meredith Piña Specimen adequacy: Comment Normal [facility] Comment on above: Result Comment: Sati sfactory for evaluation. Endocervical and/or squamous metaplastic cells (endocervical component) are present. Performed at: WB Performed By: #### P REGQNT, TSH #### [facility] [address] [place] [address] Dr. Meredith Piña CHLAMYDIA/GONOCOCCUS DMITRI (SW AB/URINE/PAPon 10-19-2022 Chlamydia trachomatis, DMITRI Negative Normal Negative [facility] Comment on above: Performed By: #### P REGQNT, TSH #### [facility] [address] [place] [address] Dr. Meredith Piña Neisseria gonorrhoeae, DMITRI Negative Normal Negative [facility] Comment on above: Performed By: #### P REGQNT, TSH #### [facility] [address] [place] [address] Dr. Meredith Piña VAGINITIS/VAGINOSIS DNA PROB Tayo 10-18-2022 Amira species Negative Normal Negative [facility] Comment on above: Performed By: #### V AGINT #### [facility] [address] [place] [address] Dr. Meredith Piña Gardnerella vaginalis Positive Abnormal Negative [facility] Comment on above: Performed By: #### V AGINT #### [facility] [address] [place] [address] Dr. Meredith Piña Trichomonas vaginalis Negative Normal Negative [facility] Comment on above: Performed By: #### V AGINT #### [facility] [address] [place] [address] Dr. Meredith Piña [facility] SARS-CoV-2 (COVID-19) RNA DMITRI+probe Ql (Unsp spec) Not detected Normal NOT DETECTED [facility] Comment on above: Result Comment: [...] for this test is supported by the Email Marketing Manager of Health and Human Service's declaration that [...] Performed By: #### P REGQNT, TSH #### [facility] [address] [place] [address] Dr. Meredith Piña INSULINon 06-16-2022 Insulin 15.5 uIU/mL Normal 2.6-24.9 [facility] Comment on above: Performed By: #### P REGQNT, TSH #### [facility] [address] [place] [address] Dr. Meredith Piña CBC AUTO DIFFon 06-15-2022 BASO # 0.0 103/ul Normal 0.0-0.1 [facility] Comment on above: Performed By: #### P REGQNT, TSH #### [facility] [address] [place] [address] Dr. Meredith Piña Basophils/100 WBC (Bld) 0.3 % Normal 0.2-2.0 [facility] Comment on above: Performed By: #### P REGQNT, TSH #### [facility] [address] [place] [address] Dr. Meredith Piña EO # 0.2 103/ul Normal 0.0-0.7 [facility] Comment on above: Performed By: #### P REGQNT, TSH #### [facility] [address] [place] [address] Dr. Meredith Piña Eosinophils/100 WBC (Bld) 2.0 % Normal 0.9-7.0 [facility] Comment on above: Performed By: #### P REGQNT, TSH #### [facility] [address] [place] [address] Dr. Meredith Piña Erythrocyte distribution width (RBC) [Ratio] 12.4 % Normal 11.0-15.0 [facility] Comment on above: Performed By: #### P REGQNT, TSH #### [facility] [address] [place] [address] Dr. Meredith Piña Hematocrit (Bld) [Volume fraction] 41.1 % Normal 36.0-48.0 [facility] Comment on above: Performed By: #### P REGQNT, TSH #### [facility] [address] [place] [address] Dr. Meredith Piña Hemoglobin (Bld) [Mass/Vol] 14.0 g/dL Normal 12.0-16.0 [facility] Comment on above: Performed By: #### P REGQNT, TSH #### [facility] [address] [place] [address] Dr. Meredith Piña IG # 0.04 10e3/ul Critically high 0.00-0.[address] [facility] Comment on above: Performed By: #### P REGQNT, TSH #### [facility] [address] [place] [address] Dr. Meredith Piña IG % 0.4 % Normal 0.0-0.5 [facility] Comment on above: Performed By: #### P REGQNT, TSH #### [facility] [address] [place] [address] Dr. Meredith Piña LYMPH # 1.8 103/ul Normal 1.2-3.8 [facility] Comment on above: Performed By: #### P REGQNT, TSH #### [facility] [address] [place] [address] Dr. Meredith Piña Lymphocytes/100 WBC (Bld) 19.3 % Critically low 20.5-60.0 [facility] Comment on above: Performed By: #### P REGQNT, TSH #### [facility] [address] [place] [address] Dr. Meredith Piña MANUAL DIFF REQ NO Normal [facility] Comment on above: Performed By: #### P REGQNT, TSH #### [facility] [address] [place] [address] Dr. Meredith Piña MCH (RBC) [Entitic mass] 30.8 pg Normal 26.7-34.0 [facility] Comment on above: Performed By: #### P REGQNT, TSH #### [facility] [address] [place] [address] Dr. Meredith Piña MCHC (RBC) [Mass/Vol] 34.1 g/dL Normal 29.9-35.2 [facility] Comment on above: Performed By: #### P REGQNT, TSH #### [facility] [address] [place] [address] Dr. Meredith Piña MCV (RBC) [Entitic vol] 90.3 fL Normal 81.0-99.0 [facility] Comment on above: Performed By: #### P REGQNT, TSH #### [facility] [address] [place] [address] Dr. Meredith Piña MONO # 0.5 103/ul Normal 0.3-0.8 [facility] Comment on above: Performed By: #### P REGQNT, TSH #### [facility] [address] [place] [address] Dr. Meredith Piña Monocytes/100 WBC (Bld) 5.2 % Normal 1.7-12.0 [facility] Comment on above: Performed By: #### P REGQNT, TSH #### [facility] [address] [place] [address] Dr. Meredith Piña NEUT # 6.8 103/ul Critically high 1.4-6.[address] [facility] Comment on above: Performed By: #### P REGQNT, TSH #### [facility] [address] [place] [address] Dr. Meredith Piña Neutrophils/100 WBC (Bld) 72.8 % Normal 43.0-75.0 [facility] Comment on above: Performed By: #### P REGQNT, TSH #### [facility] [address] [address] [address] Meredith Piña Platelet mean volume (Bld) [Entitic vol] 9.3 fL Critically low 9.5-13.5 [facility] Comment on above: Performed By: #### P REGQNT, TSH #### [facility] [address] [address] [address] Meredith Piña PLT 354 103/ul Normal 150-450 [facility] Comment on above: Performed By: #### P REGQNT, TSH #### [facility] [address] [address] [address] Meredith Piña RBC 4.55 106/ul Normal 4.20-5.40 [facility] Comment on above: Performed By: #### P REGQNT, TSH #### [facility] [address] [address] [address] Meredith Piña WBC 9.4 103/ul Normal 4.0-11.0 [facility] Comment on above: Performed By: #### P REGQNT, TSH #### [facility] [address] [address] [address] Meredith Piña FREE THYROXINE INDEX T7on FTI 2.66 Normal 1.30-4.50 [facility] Comment on above: Performed By: #### L IPID, T7, TSH, CMP #### [facility] [address] [place] [address] Dr. Meredith Piña T3U 32.0 % Normal 30.0-39.0 [facility] Comment on above: Performed By: #### L IPID, T7, TSH, CMP #### [facility] [address] [address] [address] Meredith Piña T4 [Mass/Vol] 8.30 ug/dL Normal 4.80-13.90 [facility] Comment on above: Performed By: #### L IPID, T7, TSH, CMP #### [facility] [address] [place] [address] Dr. Meredith Piña GLYCOHEMOGLOBIN A1Con 2021 ADA RECOMMENDATION SEE BELOW Normal [facility] Comment on above: Result Comment: ADA RECOMMENDED LIMIT 4.0 - 6.0 ADA THERAPEUTIC TARGET < 7.0 ACTION SUGGESTED > 7.0 Performed By: #### P REGQNT, TSH #### [facility] [address] [address] [address] Meredith Piña Glucose [Mass/Vol] 103 mg/dL Normal [facility] Comment on above: Performed By: #### P REGQNT, TSH #### [facility] [address] [address] [address] Meredith Piña HbA1c (Bld) [Mass fraction] 5.2 % Normal 4.5-6.2 [facility] Comment on above: Performed By: #### P REGQNT, TSH #### [facility] [address] [place] [address] Dr. Meredith Piña IRONon 06-15-2022 Iron [Mass/Vol] 55.0 ug/dL Normal 50.0-170.0 [facility] Comment on above: Performed By: #### P REGQNT, TSH #### [facility] [address] [address] [address] Meredith Piña LIPID PROFILEon 06-15-2022 CHOL-HDL RATIO NORM SEE BELOW Normal [facility] Comment on above: Result Comment: 3.3 - 4.4 LOW RISK 4.4 - 7.1 AVERAGE RISK 7.1 - 11.0 MODERATE RISK >11.0 HIGH RISK Performed By: #### L IPID, T7, TSH, CMP #### [facility] [address] [address] [address] Meredith Piña Cholesterol [Mass/Vol] 178 mg/dL Normal <=200 [facility] Comment on above: Performed By: #### L IPID, T7, TSH, CMP #### [facility] [address] [address] [address] Meredith Piña Cholesterol in HDL [Mass/Vol] 50 mg/dL Normal 40-60 [facility] Comment on above: Performed By: #### L IPID, T7, TSH, CMP #### [facility] [address] [address] [address] Meredith Piña Cholesterol in LDL [Mass/Vol] 109.2 mg/dL Normal [facility] Comment on above: Performed By: #### L IPID, T7, TSH, CMP #### [facility] [address] [address] [address] Meredith Piña Cholesterol.total/Ch olesterol in HDL [Mass ratio] 3.6 {ratio} Normal [facility] Comment on above: Performed By: #### L IPID, T7, TSH, CMP #### [facility] [address] [address] [address] Meredith Piña HDL NORMAL > or = 60 mg/dl - LO W CARDIOVASCULAR RISK <40 mg/dl - HIGH CARDIOVASCULAR RISK Normal [facility] Comment on above: Performed By: #### L IPID, T7, TSH, CMP #### [facility] [address] [address] [address] Meredith Piña LDL CALC NORMAL SEE BELOW Normal [facility] Comment on above: Result Comment: <100 mg/dl OPTIMAL 100 - 129 mg/dl NEAR OR ABOVE OPTIMAL 130 - 159 mg/dl BORDERLINE HIGH 160 - 189 mg/dl HIGH >190 mg/dl VERY HIGH Performed By: #### L IPID, T7, TSH, CMP #### [facility] [address] [address] [address] Meredith Piña Triglyceride [Mass/Vol] 94 mg/dL Normal <=150 [facility] Comment on above: Performed By: #### L IPID, T7, TSH, CMP #### [facility] [address] [address] [address] Meredith Piña VLDL CALC 18.8 mg/dL Normal [facility] Comment on above: Performed By: #### L IPID, T7, TSH, CMP #### [facility] [address] [address] [address] Meredith Piña PROF 14(COMP METB)on 022 Albumin [Mass/Vol] 3.8 g/dL Normal 3.4-5.0 [facility] Comment on above: Performed By: #### L IPID, T7, TSH, CMP #### [facility] [address] [place] [address] Dr. Meredith Piña Albumin/Globulin [Mass ratio] 0.9 {ratio} Normal [facility] Comment on above: Performed By: #### L IPID, T7, TSH, CMP #### [facility] [address] [place] [address] Dr. Meredith Piña ALP [Catalytic activity/Vol] 79 U/L Normal 46-116 [facility] Comment on above: Performed By: #### L IPID, T7, TSH, CMP #### [facility] [address] [place] [address] Dr. Meredith Piña ALT [Catalytic activity/Vol] 34 U/L Normal 14-59 [facility] Comment on above: Performed By: #### L IPID, T7, TSH, CMP #### [facility] [address] [place] [address] Dr. Meredith Piña Anion gap [Moles/Vol] 11.5 mmol/L Normal [facility] Comment on above: Performed By: #### L IPID, T7, TSH, CMP #### [facility] [address] [place] [address] Dr. Meredith Piña AST [Catalytic activity/Vol] 18 U/L Normal 15-37 [facility] Comment on above: Performed By: #### L IPID, T7, TSH, CMP #### [facility] [address] [place] [address] Dr. Meredith Piña Bilirubin [Mass/Vol] 0.2 mg/dL Normal 0.2-1.0 [facility] Comment on above: Performed By: #### L IPID, T7, TSH, CMP #### [facility] [address] [place] [address] Dr. Meredith Piña Calcium [Mass/Vol] 9.1 mg/dL Normal 8.5-10.1 [facility] System Comment on above: Performed By: #### L IPID, T7, TSH, CMP #### [facility] [address] [address] [address] Meredith Piña Chloride [Moles/Vol] 105 mmol/L Normal 98-107 [facility] Comment on above: Performed By: #### L IPID, T7, TSH, CMP #### [facility] [address] [place] [address] Dr. Meredith Piña CO2 [Moles/Vol] 29.3 mmol/L Normal 21.0-32.0 [facility] Comment on above: Performed By: #### L IPID, T7, TSH, CMP #### [facility] [address] [place] [address] Dr. Meredith Piña Creatinine [Mass/Vol] 0.72 mg/dL Normal 0.55-1.02 [facility] Comment on above: Performed By: #### L IPID, T7, TSH, CMP #### [facility] [address] [place] [address] Dr. Meredith Piña EGFR-AF BARBADIAN >60 Normal >=[address] [facility] Comment on above: Performed By: #### L IPID, T7, TSH, CMP #### [facility] [address] [place] [address] Dr. Meredith Piña EGFR-NON AF [place]IAN >60 Normal >=60 [facility] Comment on above: Performed By: #### L IPID, T7, TSH, CMP #### [facility] [address] [place] [address] Dr. Meredith Piña Globulin (S) [Mass/Vol] 4.2 g/dL Normal [facility] Comment on above: Performed By: #### L IPID, T7, TSH, CMP #### [facility] [address] [place] [address] Dr. Meredith Piña Glucose [Mass/Vol] 89 mg/dL Normal 74-106 [facility] Comment on above: Performed By: #### L IPID, T7, TSH, CMP #### [facility] [address] [place] [address] Dr. Meredith Piña Potassium [Moles/Vol] 3.8 mmol/L Normal 3.5-5.1 [facility] Comment on above: Performed By: #### L IPID, T7, TSH, CMP #### [facility] [address] [address] [address] Meredith Piña Protein [Mass/Vol] 8.0 g/dL Normal 6.4-8.2 [facility] Comment on above: Performed By: #### L IPID, T7, TSH, CMP #### [facility] [address] [address] [address] Meredith Piña Sodium [Moles/Vol] 142 mmol/L Normal 136-145 [facility] Comment on above: Performed By: #### L IPID, T7, TSH, CMP #### [facility] [address] [place] [address] Dr. Meredith Piña Urea nitrogen [Mass/Vol] 9.0 mg/dL Normal 7.0-18.0 [facility] Comment on above: Performed By: #### L IPID, T7, TSH, CMP #### [facility] [address] [place] [address] Dr. Meredith Piña Urea nitrogen/Creatinine [Mass ratio] 12.5 mg/mg Normal [facility] Comment on above: Performed By: #### L IPID, T7, TSH, CMP #### [facility] [address] [place] [address] Dr. Meredith Piña TSHon 06-15-2022 TSH 1.075 uIU/mL Normal 0.358-3.740 [facility] Comment on above: Performed By: #### L IPID, T7, TSH, CMP #### [facility] [address] [place] [address] Dr. Meredith Piña Encounters Encounter Date Encounter [...] Not Available Start: 07-18-2023 End: 07-18-2023 ambulatory EULAILA RICKY Not Available Start: 01-12-[address] [...] abnormal findings DR KRISTOPHER GALAN . [facility] Start: 06-15-2022 End: 06-16-[address] KRISTOPHER GALAN . Facility:[facility] Start: 06-15-2022 End: 06-16-2022 Encounter for general adult medical examination without abnormal findings DR KRISTOPHER GALAN . Facility:[facility] Procedures Date Procedure Procedure Detail Performing Clinician Start: 06-09-2024 [facility] HCG Core y Ricky DO Work Phone: Start: 06-07-2024 [facility] HCG Core y Ricky DO Work Phone: Plan of Treatment Date Care Activity Detail Author Start: 06-12-2024 End: 06-12-2024 Professional / ancillary services management 06/12/2024 8:30 AM EDT Ancillary Procedure [facility] [address] [place] [id number] [facility] Start: 06-11-2024 End: 06-11-2024 Professional / ancillary services management 06/11/2024 2:00 PM EDT Ancillary Procedure [facility] [address] [place] [address] [facility] Payers Date Payer Category Payer Medicaid [id number] 2023 Medicaid [place] [id number] 2021 Private Health Insurance [facility] [id number] 1989 Unknown [id number] 2.16.840.1.302625.3.579.2. 593 1989 Unknown [id number] 2.16.840.1.061191.3.579.2. 593 1989 Unknown [id number] 2.16.840.1.877617.3.579.2. 593 1989 Unknown [id number] 2.16.840.1.233882.3.579.2. 593 1989 Unknown [id number] 2.16.840.1.928088.3.579.2. 593 1989 Unknown [id number] 2.16.840.1.306356.3.579.2. 593 1989 Unknown [id number] 2.16.840.1.975365.3.579.2. 593 1989 Unknown [id number] 2.16.840.1.462963.3.579.2. 593 1989 Unknown [id number] 2.16.840.1.256685.3.579.2. 593 1989 Unknown [id number] 2.16.840.1.973418.3.579.2. 1259 1989 Unknown [id number] 2.16.840.1.550459.3.579.2. 1259 1989 Unknown [id number] 2.16.840.1.456486.3.579.2. 1259 1989 Unknown [id number] 2.16.840.1.138023.3.579.2. 9 1989 Unknown [id number] 2.16.840.1.526313.3.579.2. 9 1989 Unknown [id number] 2.16.840.1.419929.3.579.2. 9 1989 Unknown [id number] 2.16.840.1.883607.3.579.2. 9 1989 Unknown [id number] 2.16.840.1.773214.3.579.2. 9 1989 Unknown [id number] 2.16.840.1.946476.3.579.2. 9 1989 Unknown [id number] 2.16.840.1.706522.3.579.2. 9 1989 Unknown [id number] 2.16.840.1.682922.3.579.2. 9 1959 Unknown [id number] 1959 Unknown [id number] Social History Date Type Detail Facility Start: 03-28-2023 Tobacco smoking status MNIS Smokes t obacco daily [facility] History of tobacco use Cigarette Smoker [facility] Start: 05-28-2024 Alcoholic beverage intake Ex-drinker (finding) [facility] Start: 06-07-2023 History of Social function [facility] Start: 06-07-2023 Tobacco use panel [facility] Start: 03-28-2023 Alcohol Comment occasional [facility] Start: 1990 Sex assigned at Not on file N [facility] Clinical Note 12-29-2022 Note Date & [...] by: CORI MENDIETA Date: 2022-12-29 15:15 [facility] Summary Purpose Family History No Family History Records FoundNo Family History Records Found Advance Directives No Advanced Directives Records FoundNo Advanced Directives Records Found Additional Source Comments INFORMATION SOURCE (unrecogn ized section and content) DATE CREATED AUTHOR 12/30/2022 [facility] DATE CREATED AUTHOR AUTHOR'S ORGANIZ ATION 01/15/2024 [facility] Care Teams (unrecognized sec tion and content) 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 [facility] [employer] provides no warranty or guarantee of the accuracy or completeness of information in this document.
[2024-06-24 06:33] LABS: Basophils Percent Auto 0.4 % (0.2-2.0); Eosinophils Absolute Auto 0.2 10^3/uL (0.0-0.7); Eosinophils Percent Auto 2.1 % (0.9-7.0); Hematocrit 37.1 % (36.0-48.0); Immature Granulocytes Abs Auto 0.07 10^3/uL (0.00-0.03); Immature Granulocytes Pct Auto 0.8 % (0.0-0.5); Lymphocytes Absolute Auto 1.7 10^3/uL (1.2-3.8); Lymphocytes Percent Auto 18.8 % (20.5-60.0); Mean Corpuscular Hemoglobin 32.7 pg (26.7-34.0); Mean Corpuscular Volume 93.2 fL (81.0-99.0); Mean Platelet Volume 8.9 fL (9.5-13.5); Monocytes Absolute Auto 0.6 10^3/uL (0.3-0.8); Monocytes Percent Auto 6.5 % (1.7-12.0); Neutrophils Absolute Auto 6.6 10^3/uL (1.4-6.5); Neutrophils Percent Auto 71.4 % (43.0-75.0); Platelet Count 323 10^3/uL (150-450); Red Blood Count 3.98 10^6/uL (4.20-5.40); Red Cell Distribution Width 12.3 % (11.0-15.0); White Blood Count 9.2 10^3/uL (4.0-11.0)
[2024-06-24 06:35] VITALS: BP 142/75; PULSE 83; TEMP 36.1; O2SAT 99; BMI 30.9
[2024-06-24 07:09] LABS: HCG Quantitative 176658 mIU/mL
--- NOTE | 2024-06-24 07:21 | PC.NURSE ---
Dr. García aware of HCG Quant and states will proceed.
[2024-06-24] MEDS: LACTATED RINGER'S SOLUTION 1,000 ML 50 ML IV (07:24)
--- NOTE | 2024-06-24 07:54 | P.ON_ITS ---
Brief Operative Note Date of procedure: 06/24/24 Pre-op diagnosis general: missed first trimester Post-op diagnosis: same as pre-op Procedure: NAME OF PROCEDURE: [D&C suction ] PROCEDURE: The patient was taken back to the OR where she was given general anesthesia without difficulty. She was then placed in dorsal lithotomy position, prepped and draped in the normal sterile fashion. A weighted speculum was placed in the patient's vagina and the anterior lip of the cervix was identified and grasped with a single-tooth tenaculum. The patient was then gently dilated using Hegar dilators after we had sounded roughly to 11 cm. The suction curette was then tested. The suction curette was then placed in the patient's uterus and products of conception were removed using an 10-[place] suction curette. ?Excellent hemostasis was noted. The patient tolerated the procedure well. Sponge, lap, and needle counts were correct x 2. All instruments were then removed from the patient's vagina. The patient was taken to the Recovery Room in stable condition. ?? Anesthesia: MAC Surgeon: Lester García Estimated blood loss (mL): 10 Pathology: other (poc) Condition: stable Disposition: PACU Urinary Catheter Management Urinary Catheter Management Urethral: Cath placed during this visit: no
[2024-06-24 08:01] VITALS: BP 119/85; PULSE 83; TEMP 36.1; O2SAT 97
[2024-06-24 08:15] VITALS: BP 120/86; PULSE 70; O2SAT 97
[2024-06-24 08:30] VITALS: BP 120/80; PULSE 71; O2SAT 98
[2024-06-24 09:00] VITALS: BP 125/70; PULSE 72; O2SAT 99
--- NOTE | 2024-06-24 09:02 | PC.NURSE ---
0855: pt voids without difficulty. clear,yellow
== END 2024-06-24 09:05 | disposition home or self-care (01) ==
PROVIDERS: PCP Family Medicine; Visit Provider Obstetrics & Gynecology
PROC: (CPT 1965; principal; 2024-06-24 07:30)
DX: O02.1 Missed abortion (principal); F17.210 Nicotine dependence, cigarettes, uncomplicated; J45.909 Unspecified asthma, uncomplicated
CPT/HCPCS: 59820; 36415; 84702; 85025; J1100; J1885; J2250; J2405; J2704; J3010

== ENCOUNTER 2024-12-09 20:46 | Emergency (ER) | payer MEDICAID, SELFPAY ==
[2024-12-09 20:51] VITALS: BP 179/115; PULSE 112; TEMP 36.6; O2SAT 98; BMI 26.6
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
[2024-12-09] MEDS: MORPHINE SULFATE 4 MG/ML VIAL IM (21:37)
[2024-12-09] MEDS: BACITRACIN OINTMENT 28.4 GM TUBE 1 APPLIC TOPICAL (21:37)
[2024-12-09] MEDS: ADACEL DIPH,PERTUSS(ACELL),TET VAC/PF 0.5 ML ADULT SYRINGE IM (21:38)
== END 2024-12-09 22:47 | disposition home or self-care (01) ==
PROVIDERS: Emergency Provider Internal Medicine; PCP Family Medicine
DX: T23.261A Burn of second degree of back of right hand, initial encounter (principal); T20.10XA Burn of first degree of head, face, and neck, unspecified site, initial encounter; T31.0 Burns involving less than 10% of body surface; X08.8XXA Exposure to other specified smoke, fire and flames, initial encounter; Z23 Encounter for immunization
CPT/HCPCS: 90471; 90715; 96372; 99284; J2270